=== PATIENT | male | born 1945 | race Caucasian/White ===

== ENCOUNTER 2016-10-27 06:21 | Inpatient (IN) | payer MEDICARE ==
[2016-10-27] MEDS ORDERED: Lactated Ringers 1,000 ML IV ONE (06:40)
[2016-10-27] MEDS ORDERED: Sodium Chloride 0.9% 10 ML Syringe FLUSH PRN (06:40)
[2016-10-27] MEDS ORDERED: Albuterol/Ipratropium 3.0-0.5 MG/3 ML Neb Soln NEB ONE (06:42)
--- NOTE | 2016-10-27 06:45 | EDM.PDOC ---
<OfficerJohn - Last Filed: 10/27/16 06:48> ED HPI GENERAL MEDICAL PROBLEM - General Chief Complaint: Respiratory Problem Stated Complaint: [facility] Time Seen by Provider: 10/27/16 06:40 Source of Information: Reports: Patient, Family, RN Notes Reviewed History Limitations: Reports: Respiratory Distress - History of Present Illness INITIAL COMMENTS - FREE TEXT/NARRATIVE: 71-year-old gentleman presents emergency department today complaint of shortness of breath he was brought in by EMS services. States he's been having difficulty breathing last couple days he does have an extensive smoking history as well as home use of oxygen. Denies any fevers or chest pain no or GI symptomatologies, - Related Data Allergies Allergy/AdvReac Type Severity Reaction Status Date / Time simvastatin AdvReac Joint Pain Verified 10/27/16 06:39 Home Meds: Home Meds Aspirin [Low Dose Aspirin EC] 81 mg PO DAILY 04/13/13 [History] Esomeprazole [NexIUM] 40 mg PO DAILY 04/13/13 [History] Tiotropium [Spiriva HandiHaler] 18 mcg INH DAILY 01/28/14 [History] Diltiazem HCl [Cartia Xt] 1 cap PO DAILY 04/09/15 [History] Doxepin [SINEquan] 25 mg PO BEDTIME 04/10/15 [History] Albuterol [Proair HFA] 2 puff IH QID 10/27/16 [History] Budesonide/Formoterol [Symbicort 160-4.5 MCG] 2 puff IH BID 10/27/16 [History] Erythromycin Base [Omar-Tab] 250 mg PO DAILY 10/27/16 [History] Furosemide [Lasix] 20 mg PO DAILY 10/27/16 [History] Terazosin HCl [Terazosin] 2 mg PO BEDTIME 10/27/16 [History] Past Medical History Cardiovascular History: Reports: CAD, Heart Failure (Cor pulmonale), [place] Respiratory History: Reports: COPD, Other (See Below) (Oxygen dependent) Gastrointestinal History: Reports: GERD Social & Family History - Tobacco Use Smoking Status *Q: Former Smoker Years of Tobacco use: 60 Second Hand Smoke Exposure: No - Alcohol Use Days Per Week of Alcohol Use: 0 - Recreational Drug Use Recreational Drug Use: No ED ROS GENERAL - Review of Systems Review Of Systems: See Below Constitutional: Denies: Fever, Chills HEENT: Reports: No Symptoms Respiratory: Reports: Shortness of Breath, Wheezing, Cough. Denies: Sputum Cardiovascular: Reports: Dyspnea on Exertion. Denies: Chest Pain GI/Abdominal: Reports: No Symptoms : Reports: No Symptoms Musculoskeletal: Reports: No Symptoms Skin: Reports: No Symptoms Neurological: Reports: No Symptoms ED EXAM, GENERAL - Physical Exam Exam: See Below Free Text/Narrative:: General: Male, mild respiratory distress able speak in multiple word sentences oriented x3 HEENT: head is atraumatic normocephalic, eyes pupils equal round reactive to light, sclera clear no conjunctivitis appreciated. Ears tympanic membranes clear and kaye landmarks and light reflex are present bilaterally canals are clear. Nose no septal deviation, nares are clear, no blood present. Mouth mucosa is dry and pink no erythema or exudate noted in soft palate, tongue is midline uvula is midline, dentures in place. Neck: Supple no thyromegaly no tracheal deviation. Nodes: Cervical nodes subclavicular nodes nontender no palpable lymphadenopathy noted. Lungs: Rhonchi and wheezing throughout all lung tavarez bilaterally CV: Regular rate and rhythm S1 and S2 appreciated no murmurs rubs or gallops noted. Abdomen: Soft, nontender, no palpable masses or organomegaly appreciated, mild distention no guarding bowel sounds are present, . Neuro: Cranial nerves II through XII grossly intact Skin: Warm and dry, intact Extremities: No lower extremity edema appreciated, pedal pulse is +2. Course - Vital Signs Last Recorded V/S: Last Vital Signs Temp 37.4 C 10/27/16 10:00 Pulse 75 10/27/16 10:52 Resp 22 H 10/27/16 11:57 BP 123/72 10/27/16 11:57 Pulse Ox 92 L 10/27/16 11:57 - Orders/Labs/Meds Orders: Active Orders 24 hr Category Date Time Status Peripheral IV Care [RC] . DIRECTED Care 10/27/16 06:41 Active PTT,PARTIAL THROMBOPLSTIN TIME [COAG] Timed Lab 10/27/16 15:00 Ordered Heparin Sodium/D5W [Heparin 25,000 Units in D5W 500 ML] Med 10/27/16 09:00 Active 25,000 units in 500 ml IV TITRATE Sodium Chloride 0.9% [Saline Flush] Med 10/27/16 06:40 Active 10 ml FLUSH ASDIRECTED PRN EKG 12 Lead [EK] Urgent Ther 10/27/16 06:40 Stop Req Medication Orders Acetaminophen (Tylenol) 650 mg PO Q4H PRN PRN Reason: Pain (Mild 1-3)/fever Albuterol (Proventil Neb Soln) 2.5 mg NEB Q4H PRN PRN Reason: Shortness Of Breath/wheezing Albuterol/Ipratropium (Duoneb 3.0-0.5 Mg/3 Ml) 3 ml NEB QIDRT [facility] Last Admin: 10/27/16 10:51 Dose: 3 ml Aspirin (Halfprin) 81 mg PO DAILY [facility] Diltiazem HCl (Cardizem Cd) 180 mg PO DAILY [facility] Last Admin: 10/27/16 09:46 Dose: 180 mg Doxepin HCl (Sinequan) 25 mg PO BEDTIME [facility] Heparin Sodium/Dextrose (Heparin 25,000 Units In D5w 500 Ml) 25,000 units in 500 mls @ 20 mls/hr IV TITRATE [facility] PRN Reason: Protocol Last Admin: 10/27/16 09:12 Dose: 12 units/kg/hr, 24.96 mls/hr Ceftriaxone Sodium 2 gm/ (Sodium Chloride) 50 mls @ 100 mls/hr IV Q24H [facility] Last Admin: 10/27/16 09:05 Dose: 100 mls/hr Sodium Chloride (Normal Saline) 1,000 mls @ 25 mls/hr IV ASDIRECTED [facility] Magnesium Hydroxide (Milk Of Magnesia) 30 ml PO BID PRN PRN Reason: Constipation Metoprolol Tartrate (Lopressor) 12.5 mg PO Q12H [facility] Last Admin: 10/27/16 09:46 Dose: 12.5 mg Mometasone Furoate/Formoterol Fumar (Dulera 200-5 Mcg) 2 puff IH BIDRT [facility] Last Admin: 10/27/16 10:52 Dose: 2 puff Morphine Sulfate (Morphine) 2 mg IVPUSH Q2H PRN PRN Reason: Pain (severe 7-10) Ondansetron HCl (Zofran Odt) 4 mg PO Q6H PRN PRN Reason: Nausea able to take PO Pantoprazole Sodium (Protonix) 40 mg PO ACBREAKFAST [facility] Polyethylene Glycol (Miralax) 17 gm PO DAILY PRN PRN Reason: Constipation Senna/Docusate Sodium (Senna Plus) 1 tab PO BID PRN PRN Reason: Constipation Sodium Chloride (Saline Flush) 10 ml FLUSH ASDIRECTED PRN PRN Reason: Keep Vein Open Last Admin: 10/27/16 06:50 Dose: 10 ml Terazosin HCl (Hytrin) 2 mg PO BEDTIME [facility] Labs: Laboratory Tests 10/27/16 10/27/16 10/27/16 Range/Units 06:55 06:55 06:55 WBC 14.4 H (4.5-11.0) K/uL RBC 3.81 L (4.30-5.90) M/uL Hgb 11.0 L D (12.0-15.0) g/dL Hct 35.1 L (40.0-54.0) % MCV 92 (80-98) fL MCH 29 (27-31) pg MCHC 31 L (32-36) % Plt Count 186 (150-400) K/uL Neut % (Auto) 86 H (36-66) % Lymph % (Auto) 5 L (24-44) % Charlton % (Auto) 10 H (2-6) % Eos % (Auto) 0 L (2-4) % Baso % (Auto) 0 (0-1) % APTT (27.0-36.0) sec Puncture Site ABG pH (7.350-7.450) ABG pCO2 (35.0-42.0) mmHg ABG pO2 (75.0-100.0) mmHg ABG HCO3 (22.0-26.0) mmol/L ABG Total CO2 (23.0-27.0) mmol/L ABG O2 Saturation (95.0-98.0) % ABG O2 Content (15.0-23.0) %vol ABG Base Excess mm/L ABG Hemoglobin (13.5-18.0) g/dL ABG Oxyhemoglobin % ABG Carboxyhemoglobin (0.0-1.6) % ABG Methemoglobin % Varun Test O2 Delivery Device Oxygen Flow Rate L Sodium 128 L (140-148) mmol/L Potassium 5.8 H (3.6-5.2) mmol/L Chloride 91 L (100-108) mmol/L Carbon Dioxide 33 H (21-32) mmol/L Anion Gap 9.8 (5.0-14.0) mmol/L BUN 22 H (7-18) mg/dL Creatinine 1.2 (0.8-1.3) mg/dL Est Cr Clr Drug Dosing 57.45 mL/min Estimated GFR (MDRD) 60 (>60) Glucose 90 (74-106) mg/dL Lactic Acid (0.4-2.0) mmol/L Calcium 8.5 (8.5-10.1) mg/dL Magnesium (1.8-2.4) mg/dL Total Bilirubin 0.5 (0.2-1.0) mg/dL AST 65 H (15-37) U/L ALT 51 (12-78) U/L Alkaline Phosphatase 138 H (46-116) U/L Troponin I 0.504 H* (0.000-0.056) ng/mL C-Reactive Protein (0.0-0.3) mg/dL Lap-L-Mabnweixrdu Pept 6708 H (5-125) pg/mL Total Protein 7.7 (6.4-8.2) g/dL Albumin 3.8 (3.4-5.0) g/dL Globulin 3.9 H (2.3-3.5) g/dL Albumin/Globulin Ratio 1.0 L (1.2-2.2) 10/27/16 10/27/16 10/27/16 Range/Units 06:55 06:55 06:55 WBC (4.5-11.0) K/uL RBC (4.30-5.90) M/uL Hgb (12.0-15.0) g/dL Hct (40.0-54.0) % MCV (80-98) fL MCH (27-31) pg MCHC (32-36) % Plt Count (150-400) K/uL Neut % (Auto) (36-66) % Lymph % (Auto) (24-44) % Charlton % (Auto) (2-6) % Eos % (Auto) (2-4) % Baso % (Auto) (0-1) % APTT 32.4 (27.0-36.0) sec Puncture Site ABG pH (7.350-7.450) ABG pCO2 (35.0-42.0) mmHg ABG pO2 (75.0-100.0) mmHg ABG HCO3 (22.0-26.0) mmol/L ABG Total CO2 (23.0-27.0) mmol/L ABG O2 Saturation (95.0-98.0) % ABG O2 Content (15.0-23.0) %vol ABG Base Excess mm/L ABG Hemoglobin (13.5-18.0) g/dL ABG Oxyhemoglobin % ABG Carboxyhemoglobin (0.0-1.6) % ABG Methemoglobin % Varun Test O2 Delivery Device Oxygen Flow Rate L Sodium (140-148) mmol/L Potassium (3.6-5.2) mmol/L Chloride (100-108) mmol/L Carbon Dioxide (21-32) mmol/L Anion Gap (5.0-14.0) mmol/L BUN (7-18) mg/dL Creatinine (0.8-1.3) mg/dL Est Cr Clr Drug Dosing mL/min Estimated GFR (MDRD) (>60) Glucose (74-106) mg/dL Lactic Acid 0.9 (0.4-2.0) mmol/L Calcium (8.5-10.1) mg/dL Magnesium 2.2 (1.8-2.4) mg/dL Total Bilirubin (0.2-1.0) mg/dL AST (15-37) U/L ALT (12-78) U/L Alkaline Phosphatase (46-116) U/L Troponin I (0.000-0.056) ng/mL C-Reactive Protein 14.43 H (0.0-0.3) mg/dL Rsb-C-Fzgznmnasoe Pept (5-125) pg/mL Total Protein (6.4-8.2) g/dL Albumin (3.4-5.0) g/dL Globulin (2.3-3.5) g/dL Albumin/Globulin Ratio (1.2-2.2) 10/27/16 Range/Units 07:00 WBC (4.5-11.0) K/uL RBC (4.30-5.90) M/uL Hgb (12.0-15.0) g/dL Hct (40.0-54.0) % MCV (80-98) fL MCH (27-31) pg MCHC (32-36) % Plt Count (150-400) K/uL Neut % (Auto) (36-66) % Lymph % (Auto) (24-44) % Charlton % (Auto) (2-6) % Eos % (Auto) (2-4) % Baso % (Auto) (0-1) % APTT (27.0-36.0) sec Puncture Site Lt radial ABG pH 7.294 L (7.350-7.450) ABG pCO2 65.3 H (35.0-42.0) mmHg ABG pO2 48.2 L (75.0-100.0) mmHg ABG HCO3 30.7 H (22.0-26.0) mmol/L ABG Total CO2 29.1 H (23.0-27.0) mmol/L ABG O2 Saturation 80.2 L (95.0-98.0) % ABG O2 Content 11.8 L (15.0-23.0) %vol ABG Base Excess 3.4 mm/L ABG Hemoglobin 10.6 L (13.5-18.0) g/dL ABG Oxyhemoglobin 78.7 % ABG Carboxyhemoglobin 1.4 (0.0-1.6) % ABG Methemoglobin 0.5 % Varun Test Pass O2 Delivery Device Nasal cannula Oxygen Flow Rate 2 L Sodium (140-148) mmol/L Potassium (3.6-5.2) mmol/L Chloride (100-108) mmol/L Carbon Dioxide (21-32) mmol/L Anion Gap (5.0-14.0) mmol/L BUN (7-18) mg/dL Creatinine (0.8-1.3) mg/dL Est Cr Clr Drug Dosing mL/min Estimated GFR (MDRD) (>60) Glucose (74-106) mg/dL Lactic Acid (0.4-2.0) mmol/L Calcium (8.5-10.1) mg/dL Magnesium (1.8-2.4) mg/dL Total Bilirubin (0.2-1.0) mg/dL AST (15-37) U/L ALT (12-78) U/L Alkaline Phosphatase (46-116) U/L Troponin I (0.000-0.056) ng/mL C-Reactive Protein (0.0-0.3) mg/dL Sll-I-Yvegkbscuqs Pept (5-125) pg/mL Total Protein (6.4-8.2) g/dL Albumin (3.4-5.0) g/dL Globulin (2.3-3.5) g/dL Albumin/Globulin Ratio (1.2-2.2) Meds: Medications Generic Name Dose Route Start Last Admin Trade Name Freq PRN Reason Stop Dose Admin Acetaminophen 650 mg 10/27/16 09:38 Tylenol PO Q4H PRN Pain (Mild 1-3)/fever Albuterol 2.5 mg 10/27/16 09:38 Proventil Neb Soln NEB Q4H PRN Shortness Of Breath/wheezing Albuterol/Ipratropium 3 ml 10/27/16 11:00 10/27/16 10:51 Duoneb 3.0-0.5 Mg/3 Ml NEB 3 ml QIDRT [facility] Administration Aspirin 81 mg 10/28/16 09:00 Halfprin PO DAILY [facility] Diltiazem HCl 180 mg 10/27/16 09:38 10/27/16 09:46 Cardizem Cd PO 180 mg DAILY [facility] Administration Doxepin HCl 25 mg 10/27/16 21:00 Sinequan PO BEDTIME [facility] Heparin Sodium/Dextrose 25,000 units in 500 mls @ 20 mls/hr 10/27/16 09:00 09:12 Heparin 25,000 Units In D5w 500 Ml IV 12 units/kg/hr TITRATE [facility] 24.96 mls/hr Protocol Administration Ceftriaxone Sodium 2 gm/ 50 mls @ 100 mls/hr 10/27/16 09:00 10/27/16 09:05 Sodium Chloride IV 100 mls/hr Q24H [facility] Administration Sodium Chloride 1,000 mls @ 25 mls/hr 10/27/16 09:38 Normal Saline IV ASDIRECTED [facility] Magnesium Hydroxide 30 ml 10/27/16 09:38 Milk Of Magnesia PO BID PRN Constipation Metoprolol Tartrate 12.5 mg 10/27/16 10:00 10/27/16 09:46 Lopressor PO 12.5 mg Q12H [facility] Administration Mometasone Furoate/Formoterol Fumar 2 puff 10/27/16 10:00 10/27/16 10:52 Dulera 200-5 Mcg IH 2 puff BIDRT [facility] Administration Morphine Sulfate 2 mg 10/27/16 09:38 Morphine IVPUSH Q2H PRN Pain (severe 7-10) Ondansetron HCl 4 mg 10/27/16 09:38 Zofran Odt PO Q6H PRN Nausea able to take PO Pantoprazole Sodium 40 mg 10/28/16 07:30 Protonix PO ACBREAKFAST [facility] Polyethylene Glycol 17 gm 10/27/16 09:38 Miralax PO DAILY PRN Constipation Senna/Docusate Sodium 1 tab 10/27/16 09:38 Senna Plus PO BID PRN Constipation Sodium Chloride 10 ml 10/27/16 06:40 10/27/16 06:50 Saline Flush FLUSH 10 ml ASDIRECTED PRN Administration Keep Vein Open Terazosin HCl 2 mg 10/27/16 21:00 Hytrin PO BEDTIME [facility] Discontinued Medications Generic Name Dose Route Start Last Admin Trade Name Freq PRN Reason Stop Dose Admin Albuterol/Ipratropium 3 ml 10/27/16 06:42 10/27/16 06:52 Duoneb 3.0-0.5 Mg/3 Ml NEB 10/27/16 06:43 3 ml ONETIME ONE Administration Albuterol/Ipratropium 3 ml 10/27/16 10:00 Duoneb 3.0-0.5 Mg/3 Ml NEB QID [facility] Aspirin 324 mg 10/27/16 07:46 10/27/16 07:52 Aspirin PO 10/27/16 07:47 324 mg ONETIME ONE Administration Furosemide 40 mg 10/27/16 07:47 10/27/16 07:53 Lasix IVPUSH 10/27/16 07:48 40 mg ONETIME ONE Administration Heparin Sodium (Porcine) 4,000 units 10/27/16 08:52 10/27/16 09:03 Heparin Sodium IVPUSH 10/27/16 08:53 4,000 units .BOLUS ONE Administration Lactated Ringer's 1,000 mls @ 500 mls/hr 10/27/16 06:40 10/27/16 06:47 Ringers, Lactated IV 10/27/16 08:39 500 mls/hr ASDIRECTED ONE Administration Nitroglycerin 0.4 mg 10/27/16 06:53 10/27/16 06:56 Nitrostat SL 10/27/16 06:54 0.4 mg ONETIME ONE Administration Non-Formulary Medication 2 puff 10/27/16 09:38 Budesonide/Formoterol [Symbicort 160-4.5 Mcg] IH BID [facility] Departure - Departure Disposition: Admitted As Inpatient 65 Clinical Impression: COPD exacerbation, Elevated troponin, Hyponatremia, Hyperkalemia CHF (congestive heart failure) Qualifiers: Congestive heart failure type: unspecified congestive heart failure type Congestive heart failure chronicity: acute on chronic Qualified Code(s): I50.9 - Heart failure, unspecified - Discharge Information <Kirby Harmon G - Last Filed: 10/27/16 13:12> ED HPI GENERAL MEDICAL PROBLEM - History of Present Illness INITIAL COMMENTS - FREE TEXT/NARRATIVE: Reports being more tired than usual, has been a little confused at times lately , ajit. this morning. No fever. Cough non-productive. Uses 2 liters of oxygen per [place] at home. Denies chest pain. Does not have a nebulizer at home. denies Pain Score (Numeric/FACES): 0 EKG INTERPRETATION EKG Date: 10/27/16 Time: 07:10 Rhythm: NSR Rate (beats/min): 83 [place]: normal P-wave: present QRS: normal ST-T: normal QT: normal Comparison: NA - no prior EKG Course - Vital Signs Text/Narrative:: Dr. Patel to see in the ED, called @ [phone] Departure - Departure Time of Disposition: 13:20 Condition: poor
[2016-10-27] MEDS ORDERED: Nitroglycerin 0.4 MG Tab.SL SL ONE (06:53)
[2016-10-27] MEDS ORDERED: Aspirin 81 MG Tab.Chew PO ONE (07:46)
[2016-10-27] MEDS ORDERED: Furosemide 40 MG/4 ML VIAL IVPUSH ONE (07:47)
[2016-10-27] MEDS ORDERED: Heparin Sodium 5,000 Units/ML Vial IVPUSH ONE (08:52)
[2016-10-27] MEDS ORDERED: Heparin Sodium/D5W 25,000 UNITS/500 ML BAG IV SCH (09:00)
--- NOTE | 2016-10-27 09:02 | CR ---
Portable chest Comparison: February 2009. There is hyperinflation. There is enlargement of the cardiac silhouette. The vascular structures are within normal limits. There is atelectasis in the mid right lung. There are no infiltrates or effus ions. There is a faintly visualized 5 mm nodule in the central left lung. The finding is new. Impression: 1. Enlargement of the cardiac silhouette. 2. Atelectasis in the right midlung. 3. Possible pulmonary nodule in the central left lung. Recommend further evaluation with a unenhance d chest CT.
[2016-10-27] MEDS: cefTRIAXone 2 GM in Sodium Chloride 0.9% 50 ML IV SCH (09:05)
--- NOTE | 2016-10-27 09:10 | PCM.HP ---
H&P History of Present Illness - General Date of Service: 10/27/16 Admit Problem/Dx: Admission Diagnosis/Problem Admission Diagnosis/Problem CHF, Congestive heart failure Source of Information: Patient, Family History Limitations: Reports: No Limitations - History of Present Illness Initial Comments - Free Text/Narative: Eulalio presents to the emergency room today with progressive shortness of breath. Symptoms have progressed over the past few days but especially the past 24 hours. He is now short of breath with any activity. His daughter notes that he was very difficult to wake up this morning while sleeping on the couch. He has had only a mild cough and has not produced any sputum. He is not aware of any obvious fevers or chills at home. He has noticed some mild lower extremity edema over the past couple of days. He does note some mild substernal chest tightness but does not admit to any pain. His functional status has been declining for several weeks and he's been more and more fatigued. No complaints of headache or blurry vision. He does not have significant orthopnea. Abdomen feels more distended than usual. Appetite has been decreased for the past few days. No complaints of change in bowel or bladder function. Workup in the emergency room revealed hypoxia beyond his baseline as well as a mildly elevated troponin. Examination consistent with congestive heart failure and possibly bronchitis. He will be admitted for further management. denies Pain Score (Numeric/FACES): 0 - Related Data Allergies/Adverse Reactions: Allergies Allergy/AdvReac Type Severity Reaction Status Date / Time simvastatin AdvReac Joint Pain Verified 10/27/16 06:39 Home Medications: Home Meds Aspirin [Low Dose Aspirin EC] 81 mg PO DAILY 04/13/13 [History] Esomeprazole [NexIUM] 40 mg PO DAILY 04/13/13 [History] Tiotropium [Spiriva HandiHaler] 18 mcg INH DAILY 01/28/14 [History] Diltiazem HCl [Cartia Xt] 1 cap PO DAILY 04/09/15 [History] Doxepin [SINEquan] 25 mg PO BEDTIME 04/10/15 [History] Albuterol [Proair HFA] 2 puff IH QID 10/27/16 [History] Budesonide/Formoterol [Symbicort 160-4.5 MCG] 2 puff IH BID 10/27/16 [History] Erythromycin Base [Omar-Tab] 250 mg PO DAILY 10/27/16 [History] Furosemide [Lasix] 20 mg PO DAILY 10/27/16 [History] Terazosin HCl [Terazosin] 2 mg PO BEDTIME 10/27/16 [History] Past Medical History Cardiovascular History: Reports: CAD, Heart Failure, [place] Respiratory History: Reports: COPD, Other (See Below) Other Respiratory History: cor polmunal Gastrointestinal History: Reports: GERD Dermatologic History: Reports: Other (See Below) Other Dermatologic History: keratosis - Infectious Disease History Infectious Disease History: Reports: Chicken Pox, Measles, Mumps Social & Family History - Family History Cardiac: Reports: CAD - Tobacco Use Smoking Status *Q: Former Smoker Years of Tobacco use: 60 Used Tobacco, but Quit: No Second Hand Smoke Exposure: No - Caffeine Use Caffeine Use: Reports: Coffee - Alcohol Use Days Per Week of Alcohol Use: 0 - Recreational Drug Use Recreational Drug Use: No H&P Review of Systems - Review of Systems: Review Of Systems: See Below Free Text/Narrative: A complete 12 point review of systems was obtained. Pertinent positives and negatives are noted in the history of present illness. All other systems were reviewed and were negative except as noted. Exam - Exam Exam: See Below - Vital Signs Vital Signs: Last Vital Signs Temp 37.5 C 10/27/16 07:00 Pulse 86 10/27/16 07:59 Resp 42 H 10/27/16 07:59 BP 174/81 H 10/27/16 07:59 Pulse Ox 89 L 10/27/16 07:59 Weight: 104.326 kg - Exam Quality Assessment: Supplemental Oxygen. No: Urinary Catheter General: Alert, Oriented, Cooperative, Mild Distress HEENT: Conjunctiva Clear, Mucosa Moist & [place], Pupils Equal. No: Scleral Icterus Neck: Supple, Trachea Midline. No: Lymphadenopathy, Thyromegaly Lungs: Rales (diffuse rales, both lungs), Wheezing (diffuse exp wheezing) Cardiovascular: Regular Rate, Regular Rhythm. No: Systolic Murmur Abdomen: Normal Bowel Sounds, Soft, Distention (mild). No: Tenderness Extremities: Edema (mild bilateral pitting ankle edema). No: Cyanosis Peripheral Pulses: 2+: Dorsalis Pedis (L), Dorsalis Pedis (R) Skin: Warm, Dry. No: Rash Neuro Extensive - Mental Status: Alert, Oriented x3, Nl Response to Commands Neuro Extensive - Motor, Sensory, Reflexes: CN II-XII Intact. No: Dysarthria, Abnormal Motor, Tremor Psychiatric: Alert, Normal Affect - Patient Data Lab Results last 24 hrs: Laboratory Results - last 24 hr 10/27/16 10/27/16 10/27/16 Range/Units 06:55 06:55 06:55 WBC 14.4 H (4.5-11.0) K/uL RBC 3.81 L (4.30-5.90) M/uL Hgb 11.0 L D (12.0-15.0) g/dL Hct 35.1 L (40.0-54.0) % MCV 92 (80-98) fL MCH 29 (27-31) pg MCHC 31 L (32-36) % Plt Count 186 (150-400) K/uL Neut % (Auto) 86 H (36-66) % Lymph % (Auto) 5 L (24-44) % [place] % (Auto) 10 H (2-6) % Eos % (Auto) 0 L (2-4) % Baso % (Auto) 0 (0-1) % APTT (27.0-36.0) sec Puncture Site ABG pH (7.350-7.450) ABG pCO2 (35.0-42.0) mmHg ABG pO2 (75.0-100.0) mmHg ABG HCO3 (22.0-26.0) mmol/L ABG Total CO2 (23.0-27.0) mmol/L ABG O2 Saturation (95.0-98.0) % ABG O2 Content (15.0-23.0) %vol ABG Base Excess mm/L ABG Hemoglobin (13.5-18.0) g/dL ABG Oxyhemoglobin % ABG Carboxyhemoglobin (0.0-1.6) % ABG Methemoglobin % Varun Test O2 Delivery Device Oxygen Flow Rate L Sodium 128 L (140-148) mmol/L Potassium 5.8 H (3.6-5.2) mmol/L Chloride 91 L (100-108) mmol/L Carbon Dioxide 33 H (21-32) mmol/L Anion Gap 9.8 (5.0-14.0) mmol/L BUN 22 H (7-18) mg/dL Creatinine 1.2 (0.8-1.3) mg/dL Est Cr Clr Drug Dosing 57.45 mL/min Estimated GFR (MDRD) 60 (>60) Glucose 90 (74-106) mg/dL Lactic Acid (0.4-2.0) mmol/L Calcium 8.5 (8.5-10.1) mg/dL Total Bilirubin 0.5 (0.2-1.0) mg/dL AST 65 H (15-37) U/L ALT 51 (12-78) U/L Alkaline Phosphatase 138 H (46-116) U/L Troponin I 0.504 H* (0.000-0.056) ng/mL Uwg-[id number]-Urbefxxpbbp Pept 6708 H (5-125) pg/mL Total Protein 7.7 (6.4-8.2) g/dL Albumin 3.8 (3.4-5.0) g/dL Globulin 3.9 H (2.3-3.5) g/dL Albumin/Globulin Ratio 1.0 L (1.2-2.2) 10/27/16 10/27/16 10/27/16 Range/Units 06:55 06:55 07:00 WBC (4.5-11.0) K/uL RBC (4.30-5.90) M/uL Hgb (12.0-15.0) g/dL Hct (40.0-54.0) % MCV (80-98) fL MCH (27-31) pg MCHC (32-36) % Plt Count (150-400) K/uL Neut % (Auto) (36-66) % Lymph % (Auto) (24-44) % [place] % (Auto) (2-6) % Eos % (Auto) (2-4) % Baso % (Auto) (0-1) % APTT 32.4 (27.0-36.0) sec Puncture Site Lt radial ABG pH 7.294 L (7.350-7.450) ABG pCO2 65.3 H (35.0-42.0) mmHg ABG pO2 48.2 L (75.0-100.0) mmHg ABG HCO3 30.7 H (22.0-26.0) mmol/L ABG Total CO2 29.1 H (23.0-27.0) mmol/L ABG O2 Saturation 80.2 L (95.0-98.0) % ABG O2 Content 11.8 L (15.0-23.0) %vol ABG Base Excess 3.4 mm/L ABG Hemoglobin 10.6 L (13.5-18.0) g/dL ABG Oxyhemoglobin 78.7 % ABG Carboxyhemoglobin 1.4 (0.0-1.6) % ABG Methemoglobin 0.5 % Varun Test Pass O2 Delivery Device Nasal cannula Oxygen Flow Rate 2 L Sodium (140-148) mmol/L Potassium (3.6-5.2) mmol/L Chloride (100-108) mmol/L Carbon Dioxide (21-32) mmol/L Anion Gap (5.0-14.0) mmol/L BUN (7-18) mg/dL Creatinine (0.8-1.3) mg/dL Est Cr Clr Drug Dosing mL/min Estimated GFR (MDRD) (>60) Glucose (74-106) mg/dL Lactic Acid 0.9 (0.4-2.0) mmol/L Calcium (8.5-10.1) mg/dL Total Bilirubin (0.2-1.0) mg/dL AST (15-37) U/L ALT (12-78) U/L Alkaline Phosphatase (46-116) U/L Troponin I (0.000-0.056) ng/mL Htt-C-Xxitnylvamn Pept (5-125) pg/mL Total Protein (6.4-8.2) g/dL Albumin (3.4-5.0) g/dL Globulin (2.3-3.5) g/dL Albumin/Globulin Ratio (1.2-2.2) Result Diagrams: 10/27/16 06:55 10/27/16 06:55 Imaging Impressions last 24 hrs: CXR - images personally reviewed - mild cardiomegally, fluid in the right fissure. No obvious pulmonary vascular congestion. No obvious mass or infiltate. The radiologist notes possible left lung nodule. EKG INTERPRETATION EKG Date: 10/27/16 Rhythm: NSR Rate (beats/min): 83 [place]: normal P-wave: present QRS: normal ST-T: normal QT: normal *Q Meaningful Use (ADM) - VTE *Q VTE Criteria *Q: - VTE Risk Assess *Q Each Risk Factor Represents 1 Point: Swollen Legs, Current, Obesity (BMI greater than 30), Acute Myocardial Infarction, Less than 1 Month, Congestive Heart Failure, Less than 1 Month Total Score 1 Point Risk Factors: 4 Each Risk Factor Represents 2 Points: Age 60 - 74 Years Total Score 2 Point Risk Factors: 2 Each Risk Factor Represents 3 Points: None Total Score 3 Point Risk Factors: 0 Each Risk Factor Represents 5 Points: None Total Score 5 Point Risk Factors: 0 Venous Thromboembolism Risk Factor Score *Q: 6 - Stroke *Q Stroke Criteria *Q: - AMI *Q AMI Criteria *Q: - Problem List (1) NSTEMI (non-ST elevated myocardial infarction) SNOMED Code(s): 053053963 ICD Code: I21.4 - NON-ST ELEVATION (NSTEMI) MYOCARDIAL INFARCTION Status: Acute Current Visit: Yes (2) Acute respiratory failure with hypoxia and hypercapnia SNOMED Code(s): 99433775, 109747269 ICD Code: J96.01 - ACUTE RESPIRATORY FAILURE WITH HYPOXIA; J96.02 - ACUTE RESPIRATORY FAILURE WITH HYPERCAPNIA Status: Acute Current Visit: Yes (3) Acute bronchitis SNOMED Code(s): 36372824 ICD Code: J20.9 - ACUTE BRONCHITIS, UNSPECIFIED Status: Acute Current Visit: Yes Qualifiers: Bronchitis organism: unspecified organism Qualified Code(s): J20.9 - Acute bronchitis, unspecified (4) CHF (congestive heart failure) SNOMED Code(s): 62734969 ICD Code: I50.9 - HEART FAILURE, UNSPECIFIED Status: Acute Current Visit : Yes Qualifiers: Congestive heart failure type: unspecified congestive heart failure type Congestive heart failure chronicity: acute on chronic Qualified Code(s): I50.9 - Heart failure, unspecified (5) Hyperkalemia SNOMED Code(s): 93574684 ICD Code: E87.5 - HYPERKALEMIA Status: Acute Current Visit: Yes Problem List Initiated/Reviewed/Updated: Yes Orders Last 24hrs: Active Orders 24 hr Category Date Time Status Patient Status Manage Transfer [TRANSFER] Routine ADT 10/27/16 08:54 Ordered EKG Documentation Completion [RC] ASDIRECTED Care 10/27/16 06:42 Active Peripheral IV Care [RC] . DIRECTED Care 10/27/16 06:41 Active RT Aerosol Therapy [RC] ASDIRECTED Care 10/27/16 06:43 Active CULTURE RESPIRATORY + SMEAR [RM] Urgent Lab 10/27/16 06:52 Uncollected PTT,PARTIAL THROMBOPLSTIN TIME [COAG] Timed Lab 10/27/16 15:00 Ordered Heparin Sodium/D5W [Heparin 25,000 Units in D5W 500 ML] Med 10/27/16 09:00 Active 25,000 units in 500 ml IV TITRATE Sodium Chloride 0.9% [Saline Flush] Med 10/27/16 06:40 Active 10 ml FLUSH ASDIRECTED PRN cefTRIAXone [Rocephin] 2 gm Med 10/27/16 09:00 Active Sodium Chloride 0.9% [Normal Saline] 50 ml IV Q24H Peripheral IV Insertion Adult [OM.PC] Urgent Oth 10/27/16 06:40 Ordered Resuscitation Status Routine Resus Stat 10/27/16 08:57 Ordered EKG 12 Lead [EK] Urgent Ther 10/27/16 06:40 Ordered Medication Orders Heparin Sodium/Dextrose (Heparin 25,000 Units In D5w 500 Ml) 25,000 units in 500 mls @ 20 mls/hr IV TITRATE LISBET PRN Reason: Protocol Ceftriaxone Sodium 2 gm/ (Sodium Chloride) 50 mls @ 100 mls/hr IV Q24H LISBET Sodium Chloride (Saline Flush) 10 ml FLUSH ASDIRECTED PRN PRN Reason: Keep Vein Open Last Admin: 10/27/16 06:50 Dose: 10 ml Assessment/Plan Comment:: Assessment and plan - NSTEMI versus demand ischemia - troponin elevated at 0.5. History of previous inferior myocardial infarction. He has had some chest tightness for the past 24 hours area and no ischemic changes on EKG. He did receive aspirin in the emergency room. If troponin level remains stable I would lean more towards the demand ischemia with significant hypoxia versus a rising troponin which would point more towards non-ST elevation myocardial infarction. -Heparin infusion -Daily aspirin -Start low-dose beta etelvina -Telemetry -Serial troponin levels, stop heparin if troponin levels are stable -Echocardiogram tomorrow Acute on chronic congestive heart failure - history of cor pulmonale type picture. Bedside ultrasound today seems consistent with normal LV function though images were of suboptimal quality. He has diffuse rales as well as some lower extremity edema. Trigger for the worsening of heart failure could be suspected respiratory infection. He has received furosemide in the emergency room. -Reassess volume status later -Continue medical management -Intake and output monitoring -Echo tomorrow Probable bronchitis with acute respiratory failure with hypoxia and hypercapnia - mild acidosis with CO2 retention. Long smoking history. He does have some evidence for volume overload but with low-grade fevers infection is suspected at this time. -Empiric Ceftriaxone and azithromycin -Follow-up cultures -Supplement oxygen Stage III chronic kidney disease - kidney function stable at this time. Maintenance issues - - DVT prophylaxis - heparin - GI prophylaxis - PPI - Nutrition - heart healthy diet - Avery catheter - not indicated CODE STATUS - DNR/DNI Admission justification - This patient will be admitted for inpatient services and is medically appropriate meeting medical necessity for inpatient admission as outlined in my documentation. I reasonably expect the patient will require inpatient services that span a period time over 2 midnights. I reasonably expect this patient to be discharged or transferred within 96 hours [facility]. Disposition - anticipate discharge to home versus possibly the [facility] after the hospital stay Primary care physician - Dr. Lars Patel M.D.
[2016-10-27] MEDS ORDERED: Non-Formulary Medication 1 Each (Budesonide/Formoterol [Symbicort 160-4.5 Mcg] 2 PUFF) IH SCH (09:38)
[2016-10-27] MEDS ORDERED: Polyethylene Glycol 3350 Powder 17 GM Packet PO PRN (09:38)
[2016-10-27] MEDS ORDERED: Magnesium Hydroxide 400 MG/5 ML Susp 30 ML Cup PO PRN (09:38)
[2016-10-27] MEDS ORDERED: Sodium Chloride 0.9% 1,000 ML IV SCH (09:38)
[2016-10-27] MEDS ORDERED: Acetaminophen 325 MG Tab PO PRN (09:38)
[2016-10-27] MEDS ORDERED: Albuterol 0.083% 2.5 MG/3 ML Neb Soln NEB PRN (09:38)
[2016-10-27] MEDS ORDERED: Ondansetron 4 MG Tab.DIS PO PRN (09:38)
[2016-10-27] MEDS ORDERED: Morphine 2 MG/ML Syringe IVPUSH PRN (09:38)
[2016-10-27] MEDS: Metoprolol Tartrate 25 MG Tab PO SCH ×2 (09:46→21:42)
[2016-10-27] MEDS: Diltiazem 180 MG Cap.CD PO SCH (09:46)
[2016-10-27] MEDS ORDERED: Albuterol/Ipratropium 3.0-0.5 MG/3 ML Neb Soln NEB SCH (10:00)
[2016-10-27] MEDS: Albuterol/Ipratropium 3.0-0.5 MG/3 ML Neb Soln NEB SCH ×3 (10:51→20:11)
[2016-10-27] MEDS: Formoterol/Mometasone 200-5 MCG 8.8 GM Inhaler IH SCH ×2 (10:52→20:09)
[2016-10-27] MEDS: Terazosin 1 MG Cap PO SCH (20:19)
[2016-10-27] MEDS: Doxepin 25 MG Cap PO SCH (20:19)
[2016-10-28] MEDS: Albuterol/Ipratropium 3.0-0.5 MG/3 ML Neb Soln NEB SCH ×4 (07:28→21:03)
[2016-10-28] MEDS: Pantoprazole 40 MG Tab.CR PO SCH (07:57)
[2016-10-28] MEDS: Formoterol/Mometasone 200-5 MCG 8.8 GM Inhaler IH SCH ×2 (07:57→21:23)
[2016-10-28] MEDS: Aspirin 81 MG Tab.EC PO SCH (08:53)
[2016-10-28] MEDS: cefTRIAXone 2 GM in Sodium Chloride 0.9% 50 ML IV SCH (08:53)
[2016-10-28] MEDS: Diltiazem 180 MG Cap.CD PO SCH (08:54)
[2016-10-28] MEDS: Metoprolol Tartrate 25 MG Tab PO SCH ×4 (08:54→21:25)
--- NOTE | 2016-10-28 09:12 | PCM.PN ---
- General Info Date of Service: 10/28/16 Functional Status: Reports: pain controlled, tolerating diet - Review of Systems General: Reports: Weakness Pulmonary: Reports: shortness of breath, cough Cardiovascular: Denies: Edema Systems Review Comment:: No acute events overnight. Feels maybe a little better than yesterday. Still feels short of breath and is still wheezing. He has developed a loose cough and was able to produce a sputum sample. Still having some low-grade fevers. No lower extremity edema. Oxygenation stable but requiring 2 L of supplemental oxygen. No abdominal pain. Still fatigued and weak. - Patient Data Vitals - most recent: Last Vital Signs Temp 37.1 C 10/28/16 08:00 Pulse 77 10/28/16 08:54 Resp 25 H 10/28/16 08:00 BP 140/59 L 10/28/16 08:54 Pulse Ox 90 L 10/28/16 08:00 Weight - most recent: 104.326 kg I&O - last 24 hours: Intake & Output 10/27/16 10/28/16 10/28/16 22:59 06:59 14:59 Intake Total 180 240 Output Total 500 450 Balance -320 -210 Lab Results last 24 hrs: Laboratory Results - last 24 hr 10/27/16 10/27/16 10/27/16 Range/Units 10:53 15:11 15:11 WBC (4.5-11.0) K/uL RBC (4.30-5.90) M/uL Hgb (12.0-15.0) g/dL Hct (40.0-54.0) % MCV (80-98) fL MCH (27-31) pg MCHC (32-36) % Plt Count (150-400) K/uL APTT 58.8 H (27.0-36.0) sec Sodium (140-148) mmol/L Potassium (3.6-5.2) mmol/L Chloride (100-108) mmol/L Carbon Dioxide (21-32) mmol/L Anion Gap (5.0-14.0) mmol/L BUN (7-18) mg/dL Creatinine (0.8-1.3) mg/dL Est Cr Clr Drug Dosing mL/min Estimated GFR (MDRD) (>60) Glucose (74-106) mg/dL Calcium (8.5-10.1) mg/dL Troponin I 0.636 H* 0.516 H* (0.000-0.056) ng/mL 10/28/16 10/28/16 Range/Units 05:15 05:15 WBC 10.5 (4.5-11.0) K/uL RBC 3.24 L (4.30-5.90) M/uL Hgb 9.4 L (12.0-15.0) g/dL Hct 30.1 L (40.0-54.0) % MCV 93 (80-98) fL MCH 29 (27-31) pg MCHC 31 L (32-36) % Plt Count 177 (150-400) K/uL APTT (27.0-36.0) sec Sodium 132 L (140-148) mmol/L Potassium 4.4 (3.6-5.2) mmol/L Chloride 95 L (100-108) mmol/L Carbon Dioxide 35 H (21-32) mmol/L Anion Gap 6.4 (5.0-14.0) mmol/L BUN 23 H (7-18) mg/dL Creatinine 1.1 (0.8-1.3) mg/dL Est Cr Clr Drug Dosing 62.83 mL/min Estimated GFR (MDRD) > 60 (>60) Glucose 98 (74-106) mg/dL Calcium 8.1 L (8.5-10.1) mg/dL Troponin I (0.000-0.056) ng/mL [place] Results last 24 hrs: Microbiology 10/27/16 18:45 Gram Stain - Final Sputum - Expectorated Med Orders - Current: Current Medications Acetaminophen (Tylenol) 650 mg PO Q4H PRN PRN Reason: Pain (Mild 1-3)/fever Albuterol (Proventil Neb Soln) 2.5 mg NEB Q4H PRN PRN Reason: Shortness Of Breath/wheezing Albuterol/Ipratropium (Duoneb 3.0-0.5 Mg/3 Ml) 3 ml NEB QIDRT COUNTS INCLUDE 234 BEDS AT THE [facility] Last Admin: 10/28/16 07:28 Dose: 3 ml Aspirin (Halfprin) 81 mg PO DAILY COUNTS INCLUDE 234 BEDS AT THE [facility] Last Admin: 10/28/16 08:53 Dose: 81 mg Diltiazem HCl (Cardizem Cd) 180 mg PO DAILY COUNTS INCLUDE 234 BEDS AT THE [facility] Last Admin: 10/28/16 08:54 Dose: 180 mg Doxepin HCl (Sinequan) 25 mg PO BEDTIME COUNTS INCLUDE 234 BEDS AT THE [facility] Last Admin: 10/27/16 20:19 Dose: 25 mg Ceftriaxone Sodium 2 gm/ (Sodium Chloride) 50 mls @ 100 mls/hr IV Q24H COUNTS INCLUDE 234 BEDS AT THE [facility] Last Admin: 10/28/16 08:53 Dose: 100 mls/hr Magnesium Hydroxide (Milk Of Magnesia) 30 ml PO BID PRN PRN Reason: Constipation Metoprolol Tartrate (Lopressor) 12.5 mg PO Q12H COUNTS INCLUDE 234 BEDS AT THE [facility] Last Admin: 10/28/16 08:54 Dose: 12.5 mg Mometasone Furoate/Formoterol Fumar (Dulera 200-5 Mcg) 2 puff IH BIDRT COUNTS INCLUDE 234 BEDS AT THE [facility] Last Admin: 10/28/16 07:57 Dose: 2 puff Morphine Sulfate (Morphine) 2 mg IVPUSH Q2H PRN PRN Reason: Pain (severe 7-10) Ondansetron HCl (Zofran Odt) 4 mg PO Q6H PRN PRN Reason: Nausea able to take PO Pantoprazole Sodium (Protonix) 40 mg PO ACBREAKFAST COUNTS INCLUDE 234 BEDS AT THE [facility] Last Admin: 10/28/16 07:57 Dose: 40 mg Polyethylene Glycol (Miralax) 17 gm PO DAILY PRN PRN Reason: Constipation Senna/Docusate Sodium (Senna Plus) 1 tab PO BID PRN PRN Reason: Constipation Sodium Chloride (Saline Flush) 10 ml FLUSH ASDIRECTED PRN PRN Reason: Keep Vein Open Last Admin: 10/27/16 06:50 Dose: 10 ml Terazosin HCl (Hytrin) 2 mg PO BEDTIME COUNTS INCLUDE 234 BEDS AT THE [facility] Last Admin: 10/27/16 20:19 Dose: 2 mg Discontinued Medications Albuterol/Ipratropium (Duoneb 3.0-0.5 Mg/3 Ml) 3 ml NEB ONETIME ONE Stop: 10/27/16 06:43 Last Admin: 10/27/16 06:52 Dose: 3 ml Albuterol/Ipratropium (Duoneb 3.0-0.5 Mg/3 Ml) 3 ml NEB QID COUNTS INCLUDE 234 BEDS AT THE [facility] Aspirin (Aspirin) 324 mg PO ONETIME ONE Stop: 10/27/16 07:47 Last Admin: 10/27/16 07:52 Dose: 324 mg Furosemide (Lasix) 40 mg IVPUSH ONETIME ONE Stop: 10/27/16 07:48 Last Admin: 10/27/16 07:53 Dose: 40 mg Heparin Sodium (Porcine) (Heparin Sodium) 4,000 units IVPUSH .BOLUS ONE Stop: 10/27/16 08:53 Last Admin: 10/27/16 09:03 Dose: 4,000 units Lactated Ringer's (Ringers, Lactated) 1,000 mls @ 500 mls/hr IV ASDIRECTED ONE Stop: 10/27/16 08:39 Last Admin: 10/27/16 06:47 Dose: 500 mls/hr Heparin Sodium/Dextrose (Heparin 25,000 Units In D5w 500 Ml) 25,000 units in 500 mls @ 20 mls/hr IV TITRATE LISBET PRN Reason: Protocol Last Admin: 10/27/16 09:12 Dose: 12 units/kg/hr, 24.96 mls/hr Sodium Chloride (Normal Saline) 1,000 mls @ 25 mls/hr IV ASDIRECTED COUNTS INCLUDE 234 BEDS AT THE [facility] Nitroglycerin (Nitrostat) 0.4 mg SL ONETIME ONE Stop: 10/27/16 06:54 Last Admin: 10/27/16 06:56 Dose: 0.4 mg Non-Formulary Medication (Budesonide/Formoterol [Symbicort 160-4.5 Mcg]) 2 puff IH BID LISBET - Exam Quality Assessment: supplemental oxygen. No: urine catheter General: alert, oriented, cooperative, no acute distress Neck: supple Lungs: Normal respiratory effort, Wheezing (diffuse exp wheezing ). No: Rales Cardiovascular: Regular Rate, Regular Rhythm. No: Murmurs Abdomen: soft, no tenderness, distension (mild) Extremities: no edema, no cyanosis Skin: warm, dry Psy/Mental Status: alert, normal affect - Problem List & Annotations (1) Acute respiratory failure with hypoxia and hypercapnia SNOMED Code(s): 21266989, 566138737 Code(s): J96.01 - ACUTE RESPIRATORY FAILURE WITH HYPOXIA; J96.02 - ACUTE RESPIRATORY FAILURE WITH HYPERCAPNIA Status: Acute Current Visit: Yes (2) Acute bronchitis SNOMED Code(s): 17636086 Code(s): J20.9 - ACUTE BRONCHITIS, UNSPECIFIED Status: Acute Current Visit: Yes Qualifiers: Bronchitis organism: unspecified organism Qualified Code(s): J20.9 - Acute bronchitis, unspecified (3) CHF (congestive heart failure) SNOMED Code(s): 67428311 Code(s): I50.9 - HEART FAILURE, UNSPECIFIED Status: Acute Current Visit: Yes Qualifiers: Congestive heart failure type: unspecified congestive heart failure type Congestive heart failure chronicity: acute on chronic Qualified Code(s): I50.9 - Heart failure, unspecified (4) Hyperkalemia SNOMED Code(s): 60878311 Code(s): E87.5 - HYPERKALEMIA Status: Acute Current Visit: Yes (5) NSTEMI (non-ST elevated myocardial infarction) SNOMED Code(s): 656164259 Code(s): I21.4 - NON-ST ELEVATION (NSTEMI) MYOCARDIAL INFARCTION Status: Ruled-out Current Visit: Yes - Problem List Review Problem List Initiated/Reviewed/Updated: Yes - My Orders Last 24 Hours: My Active Orders 10/27/16 08:57 Resuscitation Status Routine 10/27/16 09:38 Patient Status [ADT] Routine Cardiac Monitoring [RC] Q6H Height and Weight [RC] DAILY Intake and Output [RC] QSHIFT Notify Provider Vital Signs [RC] ASDIRECTED Oxygen Therapy [RC] Q12H RT Aerosol Therapy [RC] ASDIRECTED Vital Signs [RC] Q2HR Acetaminophen [Tylenol] 650 mg PO Q4H PRN Albuterol [Proventil Neb Soln] 2.5 mg NEB Q4H PRN Docusate Sodium/Sennosides [Senna Plus] 1 tab PO BID PRN Magnesium Hydroxide [Milk of Magnesia] 30 ml PO BID PRN Morphine 2 mg IVPUSH Q2H PRN Ondansetron [Zofran ODT] 4 mg PO Q6H PRN Polyethylene Glycol 3350 [MiraLAX] 17 gm PO DAILY PRN Antiembolic Hose [OM.PC] Per Unit Routine 10/27/16 10:00 Metoprolol Tartrate [Lopressor] 12.5 mg PO Q12H Mometasone/Formoterol [Dulera 200-5 MCG] 2 puff IH BIDRT 10/27/16 11:00 Albuterol/Ipratropium [DuoNeb 3.0-0.5 MG/3 ML] 3 ml NEB QIDRT 10/27/16 18:45 CULTURE RESPIRATORY + SMEAR [RM] Routine 10/27/16 Lunch Heart Healthy Diet [DIET] 10/28/16 07:00 Echo Comp wo Cont [US] Routine 10/28/16 07:30 Pantoprazole [ProTONIX] 40 mg PO ACBREAKFAST 10/28/16 09:09 Up With Assistance [RC] ASDIRECTED 10/28/16 09:15 Azithromycin [Zithromax] 500 mg PO DAILY predniSONE 20 mg PO BIDAC 10/29/16 05:00 BASIC METABOLIC PANEL,BMP [CHEM] Timed CBC W/O DIFF,HEMOGRAM [HEME] Timed (1) - Plan Plan:: Assessment and plan - Elevated troponin with demand ischemia - initial concern for non-ST elevation myocardial infarction but troponin levels were stable and did not rise quickly. I suspect the abnormal blood test is related to hypoxia at the time of presentation. Levels are trending down. Heparin drip has been discontinued. Vital signs are stable. -Daily aspirin -Continue low-dose beta etelvina -Telemetry -Follow-up echocardiogram Acute on chronic congestive heart failure - history of cor pulmonale type picture. Formal echo read is pending. Volume status seems appropriate today. -Reassess volume status again tomorrow -Continue medical management -Intake and output monitoring Probable bronchitis with acute respiratory failure with hypoxia and hypercapnia - mild acidosis with CO2 retention. Long smoking history. Sputum sample did show gram-positive cocci and gram-negative rods on the Gram stain. Tolerating current antibiotics. -Empiric Ceftriaxone and azithromycin -Start steroids -Follow-up cultures -Supplement oxygen Stage III chronic kidney disease - kidney function stable at this time. Maintenance issues - - DVT prophylaxis - heparin - GI prophylaxis - PPI - Nutrition - heart healthy diet Disposition - anticipate discharge to home versus possibly the [facility] the hospital stay Jaleel Patel M.D.
[2016-10-28] MEDS: predniSONE 20 MG Tab PO SCH ×2 (09:47→16:46)
[2016-10-28] MEDS: Azithromycin 250 MG Tab PO SCH (09:47)
[2016-10-28] MEDS: Terazosin 1 MG Cap PO SCH (21:24)
[2016-10-28] MEDS: Doxepin 25 MG Cap PO SCH (21:25)
[2016-10-29] MEDS: Formoterol/Mometasone 200-5 MCG 8.8 GM Inhaler IH SCH ×2 (07:20→20:57)
[2016-10-29] MEDS: Albuterol/Ipratropium 3.0-0.5 MG/3 ML Neb Soln NEB SCH ×4 (07:20→21:02)
[2016-10-29] MEDS: Pantoprazole 40 MG Tab.CR PO SCH (07:46)
[2016-10-29] MEDS: predniSONE 20 MG Tab PO SCH ×2 (07:46→16:30)
[2016-10-29] MEDS ORDERED: Codeine/guaiFENesin 100mg-10 MG/5 ML Syrup 10 ML Cup PO PRN (09:02)
[2016-10-29] MEDS ORDERED: Benzonatate 100 MG Cap PO PRN (09:03)
[2016-10-29] MEDS: cefTRIAXone 2 GM in Sodium Chloride 0.9% 50 ML IV SCH (09:03)
--- NOTE | 2016-10-29 09:03 | PCM.PN ---
- General Info Date of Service: 10/29/16 Functional Status: Reports: pain controlled, tolerating diet, ambulating - Review of Systems General: Reports: Weakness Pulmonary: Reports: shortness of breath, cough Systems Review Comment:: No acute events overnight. Vital signs have been stable. He does continue to require supplemental oxygen. Shortness of breath has improved. He still has a loose and nonproductive cough. He has not been having any fevers. Respiratory culture growing normal leo at this time. No evidence for congestive heart failure. - Patient Data Vitals - most recent: Last Vital Signs Temp 36.4 C 10/29/16 02:33 Pulse 76 10/29/16 07:25 Resp 18 10/29/16 06:00 BP 135/52 L 10/29/16 02:33 Pulse Ox 95 10/29/16 06:00 Weight - most recent: 104.326 kg I&O - last 24 hours: Intake & Output 10/28/16 10/29/16 10/29/16 22:59 06:59 14:59 Intake Total 360 Output Total 1000 450 300 Balance -640 -450 -300 Lab Results last 24 hrs: Laboratory Results - last 24 hr 10/29/16 10/29/16 Range/Units 05:40 05:40 WBC 8.3 (4.5-11.0) K/uL RBC 3.29 L (4.30-5.90) M/uL Hgb 9.6 L (12.0-15.0) g/dL Hct 30.6 L (40.0-54.0) % MCV 93 (80-98) fL MCH 29 (27-31) pg MCHC 31 L (32-36) % Plt Count 190 (150-400) K/uL Sodium 135 L (140-148) mmol/L Potassium 4.8 (3.6-5.2) mmol/L Chloride 99 L (100-108) mmol/L Carbon Dioxide 37 H (21-32) mmol/L Anion Gap 3.8 L (5.0-14.0) mmol/L BUN 17 (7-18) mg/dL Creatinine 0.9 (0.8-1.3) mg/dL Est Cr Clr Drug Dosing 76.79 mL/min Estimated GFR (MDRD) > 60 (>60) Glucose 126 H (74-106) mg/dL Calcium 8.3 L (8.5-10.1) mg/dL Wallace Results last 24 hrs: Microbiology 10/27/16 18:45 Gram Stain - Final Sputum - Expectorated Respiratory Culture - Preliminary NORMAL RESPIRATORY LEO 1 DAY Med Orders - Current: Current Medications Acetaminophen (Tylenol) 650 mg PO Q4H PRN PRN Reason: Pain (Mild 1-3)/fever Albuterol (Proventil Neb Soln) 2.5 mg NEB Q4H PRN PRN Reason: Shortness Of Breath/wheezing Albuterol/Ipratropium (Duoneb 3.0-0.5 Mg/3 Ml) 3 ml NEB QIDRT [facility] Last Admin: 10/29/16 07:20 Dose: 3 ml Aspirin (Halfprin) 81 mg PO DAILY [facility] Last Admin: 10/28/16 08:53 Dose: 81 mg Azithromycin (Zithromax) 500 mg PO DAILY [facility] Last Admin: 10/28/16 09:47 Dose: 500 mg Diltiazem HCl (Cardizem Cd) 180 mg PO DAILY [facility] Last Admin: 10/28/16 08:54 Dose: 180 mg Doxepin HCl (Sinequan) 25 mg PO BEDTIME [facility] Last Admin: 10/28/16 21:25 Dose: 25 mg Furosemide (Lasix) 20 mg PO DAILY [facility] Ceftriaxone Sodium 2 gm/ (Sodium Chloride) 50 mls @ 100 mls/hr IV Q24H [facility] Last Admin: 10/28/16 08:53 Dose: 100 mls/hr Magnesium Hydroxide (Milk Of Magnesia) 30 ml PO BID PRN PRN Reason: Constipation Metoprolol Tartrate (Lopressor) 12.5 mg PO Q12H [facility] Last Admin: 10/28/16 21:25 Dose: 12.5 mg Mometasone Furoate/Formoterol Fumar (Dulera 200-5 Mcg) 2 puff IH BIDRT [facility] Last Admin: 10/29/16 07:20 Dose: 2 puff Ondansetron HCl (Zofran Odt) 4 mg PO Q6H PRN PRN Reason: Nausea able to take PO Pantoprazole Sodium (Protonix) 40 mg PO ACBREAKFAST [facility] Last Admin: 10/29/16 07:46 Dose: 40 mg Polyethylene Glycol (Miralax) 17 gm PO DAILY PRN PRN Reason: Constipation Prednisone (Prednisone) 20 mg PO BIDAC [facility] Last Admin: 10/29/16 07:46 Dose: 20 mg Senna/Docusate Sodium (Senna Plus) 1 tab PO BID PRN PRN Reason: Constipation Sodium Chloride (Saline Flush) 10 ml FLUSH ASDIRECTED PRN PRN Reason: Keep Vein Open Last Admin: 10/27/16 06:50 Dose: 10 ml Terazosin HCl (Hytrin) 2 mg PO BEDTIME [facility] Last Admin: 10/28/16 21:24 Dose: 2 mg Discontinued Medications Albuterol/Ipratropium (Duoneb 3.0-0.5 Mg/3 Ml) 3 ml NEB ONETIME ONE Stop: 10/27/16 06:43 Last Admin: 10/27/16 06:52 Dose: 3 ml Albuterol/Ipratropium (Duoneb 3.0-0.5 Mg/3 Ml) 3 ml NEB QID LISBET Aspirin (Aspirin) 324 mg PO ONETIME ONE Stop: 10/27/16 07:47 Last Admin: 10/27/16 07:52 Dose: 324 mg Furosemide (Lasix) 40 mg IVPUSH ONETIME ONE Stop: 10/27/16 07:48 Last Admin: 10/27/16 07:53 Dose: 40 mg Heparin Sodium (Porcine) (Heparin Sodium) 4,000 units IVPUSH .BOLUS ONE Stop: 10/27/16 08:53 Last Admin: 10/27/16 09:03 Dose: 4,000 units Lactated Ringer's (Ringers, Lactated) 1,000 mls @ 500 mls/hr IV ASDIRECTED ONE Stop: 10/27/16 08:39 Last Admin: 10/27/16 06:47 Dose: 500 mls/hr Heparin Sodium/Dextrose (Heparin 25,000 Units In D5w 500 Ml) 25,000 units in 500 mls @ 20 mls/hr IV TITRATE LISBET PRN Reason: Protocol Last Admin: 10/27/16 09:12 Dose: 12 units/kg/hr, 24.96 mls/hr Sodium Chloride (Normal Saline) 1,000 mls @ 25 mls/hr IV ASDIRECTED [facility] Morphine Sulfate (Morphine) 2 mg IVPUSH Q2H PRN PRN Reason: Pain (severe 7-10) Nitroglycerin (Nitrostat) 0.4 mg SL ONETIME ONE Stop: 10/27/16 06:54 Last Admin: 10/27/16 06:56 Dose: 0.4 mg Non-Formulary Medication (Budesonide/Formoterol [Symbicort 160-4.5 Mcg]) 2 puff IH BID LISBET - Exam Quality Assessment: supplemental oxygen General: alert, oriented, cooperative, no acute distress Neck: supple Lungs: Normal respiratory effort, Wheezing (mild diffuse wheezing, right > left) . No: Rales Cardiovascular: Regular Rate, Regular Rhythm Abdomen: soft, no distension Extremities: no edema, no cyanosis Skin: warm, dry Psy/Mental Status: alert, normal affect - Problem List & Annotations (1) Acute respiratory failure with hypoxia and hypercapnia SNOMED Code(s): 72663874, 694679964 Code(s): J96.01 - ACUTE RESPIRATORY FAILURE WITH HYPOXIA; J96.02 - ACUTE RESPIRATORY FAILURE WITH HYPERCAPNIA Status: Acute Current Visit: Yes (2) Acute bronchitis SNOMED Code(s): 32187536 Code(s): J20.9 - ACUTE BRONCHITIS, UNSPECIFIED Status: Acute Current Visit: Yes Qualifiers: Bronchitis organism: unspecified organism Qualified Code(s): J20.9 - Acute bronchitis, unspecified (3) CHF (congestive heart failure) SNOMED Code(s): 93974316 Code(s): I50.9 - HEART FAILURE, UNSPECIFIED Status: Acute Current Visit: Yes Qualifiers: Congestive heart failure type: unspecified congestive heart failure type Congestive heart failure chronicity: acute on chronic Qualified Code(s): I50.9 - Heart failure, unspecified (4) Hyperkalemia SNOMED Code(s): 21115695 Code(s): E87.5 - HYPERKALEMIA Status: Acute Current Visit: Yes (5) NSTEMI (non-ST elevated myocardial infarction) SNOMED Code(s): 449229646 Code(s): I21.4 - NON-ST ELEVATION (NSTEMI) MYOCARDIAL INFARCTION Status: Ruled-out Current Visit: Yes - Problem List Review Problem List Initiated/Reviewed/Updated: Yes - My Orders Last 24 Hours: My Active Orders 10/28/16 09:09 Up With Assistance [RC] ASDIRECTED 10/28/16 09:15 Azithromycin [Zithromax] 500 mg PO DAILY predniSONE 20 mg PO BIDAC 10/29/16 09:00 Transfer Patient (Change bed) [ADT] Routine Communication Order [RC] ROUTINE Discontinue Telemetry Monitoring [Cardiac Monitoring Discontinue] [RC] Click to Edit 10/30/16 05:00 BASIC METABOLIC PANEL,BMP [CHEM] Timed CBC W/O DIFF,HEMOGRAM [HEME] Timed (1) 10/30/16 09:00 Furosemide [Lasix] 20 mg PO DAILY - Plan Plan:: Assessment and plan - Elevated troponin with demand ischemia - initial concern for non-ST elevation myocardial infarction but troponin levels were stable and did not rise quickly. I suspect the abnormal blood test is related to hypoxia at the time of presentation. Vitals have been stable. -Daily aspirin -Continue low-dose beta etelvina -Discontinue Telemetry -Follow-up echocardiogram Acute on chronic congestive heart failure - history of cor pulmonale type picture. Formal echo read is pending. Volume status seems appropriate again today. -Reassess volume status daily -Continue medical management -Intake and output monitoring Acute bronchitis with acute respiratory failure with hypoxia and hypercapnia - mild acidosis with CO2 retention. Long smoking history. Sputum sample with normal respiratory leo. Respiratory status has been stable and he is tolerating his antibiotics. -Empiric Ceftriaxone and azithromycin -Continue steroids -Follow-up cultures -Supplement oxygen Stage III chronic kidney disease - kidney function stable at this time. Maintenance issues - - DVT prophylaxis - heparin - GI prophylaxis - PPI - Nutrition - heart healthy diet Disposition - anticipate discharge to home versus possibly the fdc after the hospital stay, possibly as early as tomorrow. He is safe for transfer out of the intensive care unit today. Jaleel Patel M.D.
[2016-10-29] MEDS: Diltiazem 180 MG Cap.CD PO SCH (09:04)
[2016-10-29] MEDS: Azithromycin 250 MG Tab PO SCH (09:04)
[2016-10-29] MEDS: Metoprolol Tartrate 25 MG Tab PO SCH ×2 (09:04→21:02)
[2016-10-29] MEDS: Aspirin 81 MG Tab.EC PO SCH (09:04)
[2016-10-29] MEDS ORDERED: Calcium Carbonate 500 MG Tab.Chew PO PRN (16:09)
[2016-10-29] MEDS: Doxepin 25 MG Cap PO SCH (20:58)
[2016-10-29] MEDS: Terazosin 1 MG Cap PO SCH (20:58)
[2016-10-30] MEDS: Formoterol/Mometasone 200-5 MCG 8.8 GM Inhaler IH SCH ×2 (06:58→21:19)
[2016-10-30] MEDS: Albuterol/Ipratropium 3.0-0.5 MG/3 ML Neb Soln NEB SCH ×4 (06:58→21:20)
[2016-10-30] MEDS: predniSONE 20 MG Tab PO SCH ×2 (07:37→16:29)
[2016-10-30] MEDS: Pantoprazole 40 MG Tab.CR PO SCH (07:38)
[2016-10-30] MEDS: cefTRIAXone 2 GM in Sodium Chloride 0.9% 50 ML IV SCH (09:25)
[2016-10-30] MEDS: Metoprolol Tartrate 25 MG Tab PO SCH ×2 (09:27→21:18)
[2016-10-30] MEDS: Furosemide 20 MG Tab PO SCH (09:29)
[2016-10-30] MEDS: Azithromycin 250 MG Tab PO SCH (09:29)
[2016-10-30] MEDS: Diltiazem 180 MG Cap.CD PO SCH (09:31)
[2016-10-30] MEDS: Aspirin 81 MG Tab.EC PO SCH (09:31)
--- NOTE | 2016-10-30 09:50 | PCM.PN ---
- General Info Date of Service: 10/30/16 Functional Status: Reports: pain controlled, tolerating diet, ambulating - Review of Systems General: Reports: Weakness Pulmonary: Reports: shortness of breath, cough Systems Review Comment:: No acute events overnight. Clinically he is slowly improving. He is moving better air today but still doing some wheezing. He becomes short of breath and desaturates with activity. He is not having any fevers. No lower extremity edema. Loose cough is a little bit better today. No new positive culture results. Tolerating current antibiotics. We did discuss home versus detention when he is ready to leave the hospital. At this point he thinks he will be able to go home with home health care. - Patient Data Vitals - most recent: Last Vital Signs Temp 36.2 C 10/30/16 09:00 Pulse 71 10/30/16 09:27 Resp 16 10/30/16 09:00 BP 151/79 H 10/30/16 09:27 Pulse Ox 94 L 10/30/16 09:00 Weight - most recent: 104.326 kg Lab Results last 24 hrs: Laboratory Results - last 24 hr 10/30/16 10/30/16 Range/Units 05:00 05:44 WBC 9.0 (4.5-11.0) K/uL RBC 3.56 L (4.30-5.90) M/uL Hgb 10.3 L (12.0-15.0) g/dL Hct 33.6 L (40.0-54.0) % MCV 94 (80-98) fL MCH 29 (27-31) pg MCHC 31 L (32-36) % Plt Count 214 (150-400) K/uL Sodium 139 L (140-148) mmol/L Potassium 4.5 (3.6-5.2) mmol/L Chloride 98 L (100-108) mmol/L Carbon Dioxide 36 H (21-32) mmol/L Anion Gap 9.5 (5.0-14.0) mmol/L BUN 17 (7-18) mg/dL Creatinine 1.0 (0.8-1.3) mg/dL Est Cr Clr Drug Dosing 69.11 mL/min Estimated GFR (MDRD) > 60 (>60) Glucose 122 H (74-106) mg/dL Calcium 8.5 (8.5-10.1) mg/dL Wallace Results last 24 hrs: Microbiology 10/27/16 18:45 Gram Stain - Final Sputum - Expectorated Respiratory Culture - Final NORMAL RESPIRATORY [place] 2 DAYS Med Orders - Current: Current Medications Acetaminophen (Tylenol) 650 mg PO Q4H PRN PRN Reason: Pain (Mild 1-3)/fever Albuterol (Proventil Neb Soln) 2.5 mg NEB Q4H PRN PRN Reason: Shortness Of Breath/wheezing Albuterol/Ipratropium (Duoneb 3.0-0.5 Mg/3 Ml) 3 ml NEB QIDRT [facility] Last Admin: 10/30/16 06:58 Dose: 3 ml Aspirin (Halfprin) 81 mg PO DAILY [facility] Last Admin: 10/30/16 09:31 Dose: 81 mg Azithromycin (Zithromax) 500 mg PO DAILY [facility] Last Admin: 10/30/16 09:29 Dose: 500 mg Benzonatate (Tessalon Perles) 100 mg PO TID PRN PRN Reason: Cough Calcium Carbonate/Glycine (Tums) 1,000 mg PO Q2H PRN PRN Reason: Indigestion Last Admin: 10/29/16 16:30 Dose: 1,000 mg Diltiazem HCl (Cardizem Cd) 180 mg PO DAILY [facility] Last Admin: 10/30/16 09:31 Dose: 180 mg Doxepin HCl (Sinequan) 25 mg PO BEDTIME [facility] Last Admin: 10/29/16 20:58 Dose: 25 mg Furosemide (Lasix) 20 mg PO DAILY [facility] Last Admin: 10/30/16 09:29 Dose: 20 mg Guaifenesin/Codeine Phosphate (Robitussin Ac) 10 ml PO Q4H PRN PRN Reason: Cough Ceftriaxone Sodium 2 gm/ (Sodium Chloride) 50 mls @ 100 mls/hr IV Q24H [facility] Stop: 10/30/16 12:00 Last Admin: 10/30/16 09:25 Dose: 100 mls/hr Magnesium Hydroxide (Milk Of Magnesia) 30 ml PO BID PRN PRN Reason: Constipation Last Admin: 10/30/16 07:39 Dose: 30 ml Metoprolol Tartrate (Lopressor) 12.5 mg PO Q12H [facility] Last Admin: 10/30/16 09:27 Dose: 12.5 mg Mometasone Furoate/Formoterol Fumar (Dulera 200-5 Mcg) 2 puff IH BIDRT [facility] Last Admin: 10/30/16 06:58 Dose: 2 puff Ondansetron HCl (Zofran Odt) 4 mg PO Q6H PRN PRN Reason: Nausea able to take PO Pantoprazole Sodium (Protonix) 40 mg PO ACBREAKFAST [facility] Last Admin: 10/30/16 07:38 Dose: 40 mg Polyethylene Glycol (Miralax) 17 gm PO DAILY PRN PRN Reason: Constipation Prednisone (Prednisone) 20 mg PO BIDAC [facility] Last Admin: 10/30/16 07:37 Dose: 20 mg Senna/Docusate Sodium (Senna Plus) 1 tab PO BID PRN PRN Reason: Constipation Sodium Chloride (Saline Flush) 10 ml FLUSH ASDIRECTED PRN PRN Reason: Keep Vein Open Last Admin: 10/27/16 06:50 Dose: 10 ml Terazosin HCl (Hytrin) 2 mg PO BEDTIME [facility] Last Admin: 10/29/16 20:58 Dose: 2 mg Discontinued Medications Albuterol/Ipratropium (Duoneb 3.0-0.5 Mg/3 Ml) 3 ml NEB ONETIME ONE Stop: 10/27/16 06:43 Last Admin: 10/27/16 06:52 Dose: 3 ml Albuterol/Ipratropium (Duoneb 3.0-0.5 Mg/3 Ml) 3 ml NEB QID [facility] Aspirin (Aspirin) 324 mg PO ONETIME ONE Stop: 10/27/16 07:47 Last Admin: 10/27/16 07:52 Dose: 324 mg Furosemide (Lasix) 40 mg IVPUSH ONETIME ONE Stop: 10/27/16 07:48 Last Admin: 10/27/16 07:53 Dose: 40 mg Heparin Sodium (Porcine) (Heparin Sodium) 4,000 units IVPUSH .BOLUS ONE Stop: 10/27/16 08:53 Last Admin: 10/27/16 09:03 Dose: 4,000 units Lactated Ringer's (Ringers, Lactated) 1,000 mls @ 500 mls/hr IV ASDIRECTED ONE Stop: 10/27/16 08:39 Last Admin: 10/27/16 06:47 Dose: 500 mls/hr Heparin Sodium/Dextrose (Heparin 25,000 Units In D5w 500 Ml) 25,000 units in 500 mls @ 20 mls/hr IV TITRATE LISBET PRN Reason: Protocol Last Admin: 10/27/16 09:12 Dose: 12 units/kg/hr, 24.96 mls/hr Sodium Chloride (Normal Saline) 1,000 mls @ 25 mls/hr IV ASDIRECTED [facility] Morphine Sulfate (Morphine) 2 mg IVPUSH Q2H PRN PRN Reason: Pain (severe 7-10) Nitroglycerin (Nitrostat) 0.4 mg SL ONETIME ONE Stop: 10/27/16 06:54 Last Admin: 10/27/16 06:56 Dose: 0.4 mg Non-Formulary Medication (Budesonide/Formoterol [Symbicort 160-4.5 Mcg]) 2 puff IH BID LISBET - Exam Quality Assessment: supplemental oxygen General: alert, oriented, cooperative, no acute distress Neck: supple Lungs: Normal respiratory effort, Wheezing (diffuse exp wheezing, right > left) . No: Rales Cardiovascular: Regular Rate, Regular Rhythm Abdomen: soft, no distension, tenderness (mild generalized) Extremities: no edema, no cyanosis Skin: warm, dry Psy/Mental Status: alert, normal affect - Problem List & Annotations (1) Acute respiratory failure with hypoxia and hypercapnia SNOMED Code(s): 77497363, 865241762 Code(s): J96.01 - ACUTE RESPIRATORY FAILURE WITH HYPOXIA; J96.02 - ACUTE RESPIRATORY FAILURE WITH HYPERCAPNIA Status: Acute Current Visit: Yes (2) Acute bronchitis SNOMED Code(s): 04239155 Code(s): J20.9 - ACUTE BRONCHITIS, UNSPECIFIED Status: Acute Current Visit: Yes Qualifiers: Bronchitis organism: unspecified organism Qualified Code(s): J20.9 - Acute bronchitis, unspecified (3) CHF (congestive heart failure) SNOMED Code(s): 97874538 Code(s): I50.9 - HEART FAILURE, UNSPECIFIED Status: Acute Current Visit: Yes Qualifiers: Congestive heart failure type: unspecified congestive heart failure type Congestive heart failure chronicity: acute on chronic Qualified Code(s): I50.9 - Heart failure, unspecified (4) Hyperkalemia SNOMED Code(s): 10215505 Code(s): E87.5 - HYPERKALEMIA Status: Acute Current Visit: Yes (5) NSTEMI (non-ST elevated myocardial infarction) SNOMED Code(s): 305234552 Code(s): I21.4 - NON-ST ELEVATION (NSTEMI) MYOCARDIAL INFARCTION Status: Ruled-out Current Visit: Yes - Problem List Review Problem List Initiated/Reviewed/Updated: Yes - My Orders Last 24 Hours: My Active Orders 10/29/16 09:00 Transfer Patient (Change bed) [ADT] Routine Communication Order [RC] ROUTINE Discontinue Telemetry Monitoring [Cardiac Monitoring Discontinue] [RC] Click to Edit 10/29/16 09:02 Codeine/guaiFENesin [Robitussin AC] 10 ml PO Q4H PRN 10/29/16 09:03 Benzonatate [Tessalon Perles] 100 mg PO TID PRN 10/29/16 16:09 Calcium Carbonate [Tums] 1,000 mg PO Q2H PRN 10/30/16 07:49 PT Evaluation and Treatment [CONS] Routine 10/30/16 07:58 PT Evaluation and Treatment [CONS] Routine 10/30/16 09:00 Furosemide [Lasix] 20 mg PO DAILY 10/31/16 09:00 Cefdinir [Omnicef] 300 mg PO BID - Plan Plan:: Assessment and plan - Acute bronchitis with acute respiratory failure with hypoxia and hypercapnia - slow improvement, still wheezing and symptomatic as well as hypoxic with activity. -Empiric Ceftriaxone and azithromycin -Continue steroids -Follow-up cultures (negative so far) -Supplement oxygen Elevated troponin with demand ischemia - initial concern for non-ST elevation myocardial infarction but troponin levels were stable and did not rise quickly. I suspect the abnormal blood test is related to hypoxia at the time of presentation. Vitals have been stable. -Daily aspirin -Continue low-dose beta etelvina -Discontinue Telemetry -Follow-up echocardiogram Acute on chronic congestive heart failure - history of cor pulmonale type picture. Formal echo read is pending. Volume status seems appropriate again today. -Reassess volume status daily -Continue medical management -Intake and output monitoring Stage III chronic kidney disease - kidney function stable at this time. Maintenance issues - - DVT prophylaxis - mechanical - GI prophylaxis - PPI - Nutrition - heart healthy diet Disposition - anticipate discharge to home with home health care based on patient's current wishes and functional status. He did have physical therapy today and home physical therapy versus subacute rehabilitation was recommended. Jaleel Patel M.D.
[2016-10-30] MEDS: Terazosin 1 MG Cap PO SCH (21:18)
[2016-10-30] MEDS: Doxepin 25 MG Cap PO SCH (21:18)
[2016-10-31] MEDS: Albuterol/Ipratropium 3.0-0.5 MG/3 ML Neb Soln NEB SCH ×4 (06:59→21:32)
[2016-10-31] MEDS: Formoterol/Mometasone 200-5 MCG 8.8 GM Inhaler IH SCH ×2 (06:59→21:43)
[2016-10-31] MEDS: Pantoprazole 40 MG Tab.CR PO SCH (07:37)
[2016-10-31] MEDS: predniSONE 20 MG Tab PO SCH ×2 (07:37→17:21)
[2016-10-31] MEDS: Metoprolol Tartrate 25 MG Tab PO SCH ×2 (09:01→21:45)
[2016-10-31] MEDS: Aspirin 81 MG Tab.EC PO SCH (09:01)
[2016-10-31] MEDS: Azithromycin 250 MG Tab PO SCH (09:01)
[2016-10-31] MEDS: Cefdinir 300 MG Cap PO SCH ×2 (09:02→21:45)
[2016-10-31] MEDS: Diltiazem 180 MG Cap.CD PO SCH (09:02)
[2016-10-31] MEDS: Furosemide 20 MG Tab PO SCH (09:02)
--- NOTE | 2016-10-31 09:57 | PCM.PN ---
- General Info Date of Service: 10/31/16 Functional Status: Reports: pain controlled, tolerating diet, ambulating - Review of Systems General: Reports: Weakness Pulmonary: Reports: shortness of breath, cough Systems Review Comment:: No acute events overnight. No fevers. Still coughing and short of breath with activity but slowly improving. Still wheezing but moving better air again today. Mild desaturations with activity. Weakness has been steadily improving. No chest pain or abdominal pain. Appetite is improving. - Patient Data Vitals - most recent: Last Vital Signs Temp 36.3 C 10/31/16 09:00 Pulse 72 10/31/16 09:01 Resp 16 10/31/16 09:00 BP 164/63 H 10/31/16 09:01 Pulse Ox 96 10/31/16 09:00 Weight - most recent: 104.326 kg I&O - last 24 hours: Intake & Output 10/30/16 10/31/16 10/31/16 22:59 06:59 14:59 Intake Total 360 Balance 360 Wallace Results last 24 hrs: Microbiology 10/27/16 18:45 Gram Stain - Final Sputum - Expectorated Respiratory Culture - Final NORMAL RESPIRATORY FLORINDA 2 DAYS Med Orders - Current: Current Medications Acetaminophen (Tylenol) 650 mg PO Q4H PRN PRN Reason: Pain (Mild 1-3)/fever Albuterol (Proventil Neb Soln) 2.5 mg NEB Q4H PRN PRN Reason: Shortness Of Breath/wheezing Albuterol/Ipratropium (Duoneb 3.0-0.5 Mg/3 Ml) 3 ml NEB QIDRT [facility] Last Admin: 10/31/16 06:59 Dose: 3 ml Aspirin (Halfprin) 81 mg PO DAILY [facility] Last Admin: 10/31/16 09:01 Dose: 81 mg Azithromycin (Zithromax) 500 mg PO DAILY [facility] Last Admin: 10/31/16 09:01 Dose: 500 mg Benzonatate (Tessalon Perles) 100 mg PO TID PRN PRN Reason: Cough Calcium Carbonate/Glycine (Tums) 1,000 mg PO Q2H PRN PRN Reason: Indigestion Last Admin: 10/29/16 16:30 Dose: 1,000 mg Cefdinir (Omnicef) 300 mg PO BID [facility] Last Admin: 10/31/16 09:02 Dose: 300 mg Diltiazem HCl (Cardizem Cd) 180 mg PO DAILY [facility] Last Admin: 10/31/16 09:02 Dose: 180 mg Doxepin HCl (Sinequan) 25 mg PO BEDTIME [facility] Last Admin: 10/30/16 21:18 Dose: 25 mg Furosemide (Lasix) 20 mg PO DAILY [facility] Last Admin: 10/31/16 09:02 Dose: 20 mg Guaifenesin/Codeine Phosphate (Robitussin Ac) 10 ml PO Q4H PRN PRN Reason: Cough Magnesium Hydroxide (Milk Of Magnesia) 30 ml PO BID PRN PRN Reason: Constipation Last Admin: 10/30/16 07:39 Dose: 30 ml Metoprolol Tartrate (Lopressor) 12.5 mg PO Q12H [facility] Last Admin: 10/31/16 09:01 Dose: 12.5 mg Mometasone Furoate/Formoterol Fumar (Dulera 200-5 Mcg) 2 puff IH BIDRT [facility] Last Admin: 10/31/16 06:59 Dose: 2 puff Ondansetron HCl (Zofran Odt) 4 mg PO Q6H PRN PRN Reason: Nausea able to take PO Pantoprazole Sodium (Protonix) 40 mg PO ACBREAKFAST [facility] Last Admin: 10/31/16 07:37 Dose: 40 mg Polyethylene Glycol (Miralax) 17 gm PO DAILY PRN PRN Reason: Constipation Prednisone (Prednisone) 20 mg PO BIDAC [facility] Last Admin: 10/31/16 07:37 Dose: 20 mg Senna/Docusate Sodium (Senna Plus) 1 tab PO BID PRN PRN Reason: Constipation Sodium Chloride (Saline Flush) 10 ml FLUSH ASDIRECTED PRN PRN Reason: Keep Vein Open Last Admin: 10/27/16 06:50 Dose: 10 ml Terazosin HCl (Hytrin) 2 mg PO BEDTIME [facility] Last Admin: 10/30/16 21:18 Dose: 2 mg Discontinued Medications Albuterol/Ipratropium (Duoneb 3.0-0.5 Mg/3 Ml) 3 ml NEB ONETIME ONE Stop: 10/27/16 06:43 Last Admin: 10/27/16 06:52 Dose: 3 ml Albuterol/Ipratropium (Duoneb 3.0-0.5 Mg/3 Ml) 3 ml NEB QID [facility] Aspirin (Aspirin) 324 mg PO ONETIME ONE Stop: 10/27/16 07:47 Last Admin: 10/27/16 07:52 Dose: 324 mg Furosemide (Lasix) 40 mg IVPUSH ONETIME ONE Stop: 10/27/16 07:48 Last Admin: 10/27/16 07:53 Dose: 40 mg Heparin Sodium (Porcine) (Heparin Sodium) 4,000 units IVPUSH .BOLUS ONE Stop: 10/27/16 08:53 Last Admin: 10/27/16 09:03 Dose: 4,000 units Lactated Ringer's (Ringers, Lactated) 1,000 mls @ 500 mls/hr IV ASDIRECTED ONE Stop: 10/27/16 08:39 Last Admin: 10/27/16 06:47 Dose: 500 mls/hr Heparin Sodium/Dextrose (Heparin 25,000 Units In D5w 500 Ml) 25,000 units in 500 mls @ 20 mls/hr IV TITRATE LISBET PRN Reason: Protocol Last Admin: 10/27/16 09:12 Dose: 12 units/kg/hr, 24.96 mls/hr Ceftriaxone Sodium 2 gm/ (Sodium Chloride) 50 mls @ 100 mls/hr IV Q24H LISBET Stop: 10/30/16 12:00 Last Admin: 10/30/16 09:25 Dose: 100 mls/hr Sodium Chloride (Normal Saline) 1,000 mls @ 25 mls/hr IV ASDIRECTED [facility] Morphine Sulfate (Morphine) 2 mg IVPUSH Q2H PRN PRN Reason: Pain (severe 7-10) Nitroglycerin (Nitrostat) 0.4 mg SL ONETIME ONE Stop: 10/27/16 06:54 Last Admin: 10/27/16 06:56 Dose: 0.4 mg Non-Formulary Medication (Budesonide/Formoterol [Symbicort 160-4.5 Mcg]) 2 puff IH BID [facility] - Exam Quality Assessment: supplemental oxygen General: alert, oriented, cooperative, no acute distress Neck: supple Lungs: Normal respiratory effort, Wheezing (mild diffuse exp wheezing, Left > Right) Cardiovascular: Regular Rate, Regular Rhythm Abdomen: soft, no tenderness, no distension Extremities: no edema, no cyanosis Skin: warm, dry Psy/Mental Status: alert, normal affect - Problem List & Annotations (1) Acute respiratory failure with hypoxia and hypercapnia SNOMED Code(s): 50844840, 642425163 Code(s): J96.01 - ACUTE RESPIRATORY FAILURE WITH HYPOXIA; J96.02 - ACUTE RESPIRATORY FAILURE WITH HYPERCAPNIA Status: Acute Current Visit: Yes (2) Acute bronchitis SNOMED Code(s): 73583915 Code(s): J20.9 - ACUTE BRONCHITIS, UNSPECIFIED Status: Acute Current Visit: Yes Qualifiers: Bronchitis organism: unspecified organism Qualified Code(s): J20.9 - Acute bronchitis, unspecified (3) CHF (congestive heart failure) SNOMED Code(s): 80917820 Code(s): I50.9 - HEART FAILURE, UNSPECIFIED Status: Acute Current Visit: Yes Qualifiers: Congestive heart failure type: unspecified congestive heart failure type Congestive heart failure chronicity: acute on chronic Qualified Code(s): I50.9 - Heart failure, unspecified (4) Hyperkalemia SNOMED Code(s): 80393811 Code(s): E87.5 - HYPERKALEMIA Status: Acute Current Visit: Yes (5) NSTEMI (non-ST elevated myocardial infarction) SNOMED Code(s): 516796791 Code(s): I21.4 - NON-ST ELEVATION (NSTEMI) MYOCARDIAL INFARCTION Status: Ruled-out Current Visit: Yes - Problem List Review Problem List Initiated/Reviewed/Updated: Yes - My Orders Last 24 Hours: My Active Orders 10/30/16 09:00 Furosemide [Lasix] 20 mg PO DAILY 10/31/16 09:00 Cefdinir [Omnicef] 300 mg PO BID - Plan Plan:: Assessment and plan - Acute bronchitis with acute respiratory failure with hypoxia and hypercapnia - slow improvement, still some wheezing. He has dyspnea with exertion and hypoxia with exertion. -Antibiotic coverage with azithromycin and Cefdinir -Continue steroids -Follow-up cultures (negative so far) -Supplement oxygen Elevated troponin with demand ischemia - initial concern for non-ST elevation myocardial infarction but troponin levels were stable and did not rise quickly. I suspect the abnormal blood test is related to hypoxia at the time of presentation. Vitals have been stable. -Daily aspirin -Continue low-dose beta etelvina -Follow-up echocardiogram (formal read from [place] is still pending) Acute on chronic congestive heart failure - history of cor pulmonale type picture. Formal echo read is pending. Volume status has been appropriate. -Reassess volume status daily -Continue medical management including diuretic -Intake and output monitoring Stage III chronic kidney disease - kidney function stable at this time. Maintenance issues - - DVT prophylaxis - mechanical - GI prophylaxis - PPI - Nutrition - heart healthy diet Disposition - anticipate discharge to home with home health care based on patient's current wishes and functional status. He should be ready for hospital discharge tomorrow. Jaleel Patel M.D.
[2016-10-31] MEDS: Terazosin 1 MG Cap PO SCH (21:44)
[2016-10-31] MEDS: Doxepin 25 MG Cap PO SCH (21:45)
[2016-11-01] MEDS: Albuterol/Ipratropium 3.0-0.5 MG/3 ML Neb Soln NEB SCH (07:17)
[2016-11-01] MEDS: Formoterol/Mometasone 200-5 MCG 8.8 GM Inhaler IH SCH (07:18)
[2016-11-01] MEDS: predniSONE 20 MG Tab PO SCH (07:41)
[2016-11-01] MEDS: Pantoprazole 40 MG Tab.CR PO SCH (07:42)
[2016-11-01 07:44] VITALS: BP 153/68
[2016-11-01] MEDS: Diltiazem 180 MG Cap.CD PO SCH (08:56)
[2016-11-01] MEDS: Aspirin 81 MG Tab.EC PO SCH (08:57)
[2016-11-01] MEDS: Cefdinir 300 MG Cap PO SCH (08:57)
[2016-11-01] MEDS: Furosemide 20 MG Tab PO SCH (08:57)
[2016-11-01] MEDS: Azithromycin 250 MG Tab PO SCH (08:57)
--- NOTE | 2016-11-01 09:23 | PCM.DCSUM1 ---
Discharge Summary - Hospital Course Brief History: Mr. Cruz is a 71-year-old gentleman who was admitted through the emergency department with hypoxic and hypercapnic respiratory failure secondary to COPD exacerbation with underlying bronchitis. - Discharge Data Discharge Date: 11/01/16 Discharge Disposition: Home, Self-Care 01 Condition: Fair - Discharge Diagnosis/Problem(s) (1) COPD exacerbation SNOMED Code(s): 309288827, 147556553 ICD Code: J44.1 - CHRONIC OBSTRUCTIVE PULMONARY DISEASE W (ACUTE) EXACERBATION Status: Acute Current Visit: Yes (2) Acute bronchitis SNOMED Code(s): 97500571 ICD Code: J20.9 - ACUTE BRONCHITIS, UNSPECIFIED Status: Acute Current Visit: Yes Qualifiers: Bronchitis organism: unspecified organism Qualified Code(s): J20.9 - Acute bronchitis, unspecified (3) Acute respiratory failure with hypoxia and hypercapnia SNOMED Code(s): 71382859, 044143499 ICD Code: J96.01 - ACUTE RESPIRATORY FAILURE WITH HYPOXIA; J96.02 - ACUTE RESPIRATORY FAILURE WITH HYPERCAPNIA Status: Acute Current Visit: Yes - Patient Summary/Data Consults: Consultations 10/30/16 07:49 PT Evaluation and Treatment [CONS] Routine Please Evaluate and Treat. PT Reason for Consult: Strengthening Special Instructions: does patient need sub-acute rehab? This query below is only for informational purposes and is not editable. Admission Diagnosis/Problem: CHF, Congestive heart failure 10/30/16 07:58 PT Evaluation and Treatment [CONS] Routine Please Evaluate and Treat. PT Reason for Consult: strength,endurance,safe to go home Pending Discharge: Yes This query below is only for informational purposes and is not editable. Admission Diagnosis/Problem: CHF, Congestive heart failure Hospital Course: Mr. Cruz is a 71-year-old gentleman with a known history of COPD and has been oxygen dependent at home for several years. He developed increased shortness of breath with cough and presented to the emergency department for further evaluation. On assessment in the emergency department was found to have hypoxia as well as hypercapnia. Chest x-ray showed no obvious infiltrate and he was felt to have COPD exacerbation with underlying bronchitis. He was admitted to the hospital given IV fluids for hydration as well as IV antibiotic therapy for management of the underlying respiratory infection with Rocephin and azithromycin. Initially was given IV steroids and then transition to oral prednisone. Troponin level was noted to be elevated on admission and follow-up and was felt to be secondary to underlying chronic kidney disease as well as demand ischemia in the setting of respiratory compromise and hypoxia. Over the next several days he did gradually improve as far as his respiratory status and at the time of discharge was felt to be close to his usual baseline. He will be discharged home on an additional 3 days of oral antibiotics as well as prednisone. Activity will be as tolerated and he will resume his usual diet. Follow-up appointment will be scheduled with Dr. Torres within 1 week. - Patient Instructions Diet: Usual Diet as Tolerated Activity: As Tolerated Other/Special Instructions: Please schedule follow-up appointment with Dr. Torres within 1 week. - Discharge Plan Prescriptions/Med Rec: Cefdinir [IJD: Cefdinir] 300 mg PO BID #6 capsule Prednisone [IJD: predniSONE] 20 mg PO BIDAC #6 tablet Home Medications: Home Meds Aspirin [Low Dose Aspirin EC] 81 mg PO DAILY 04/13/13 [History] Esomeprazole [NexIUM] 40 mg PO DAILY 04/13/13 [History] Tiotropium [Spiriva HandiHaler] 18 mcg INH DAILY 01/28/14 [History] Diltiazem HCl [Cartia Xt] 1 cap PO DAILY 04/09/15 [History] Doxepin [SINEquan] 25 mg PO BEDTIME 04/10/15 [History] Albuterol [Proair HFA] 2 puff IH QID 10/27/16 [History] Budesonide/Formoterol [Symbicort 160-4.5 MCG] 2 puff IH BID 10/27/16 [History] Erythromycin Base [Omar-Tab] 250 mg PO DAILY 10/27/16 [History] Furosemide [Lasix] 20 mg PO DAILY 10/27/16 [History] Terazosin HCl [Terazosin] 2 mg PO BEDTIME 10/27/16 [History] Cefdinir [IJD: Cefdinir] 300 mg PO BID #6 capsule 11/01/16 [Rx] Prednisone [IJD: predniSONE] 20 mg PO BIDAC #6 tablet 11/01/16 [Rx] Referrals: Bob Torres MD [Physician] - - Patient Data Vitals - Most Recent: Last Vital Signs Temp 96.8 F 11/01/16 07:43 Pulse 71 11/01/16 07:43 Resp 18 11/01/16 07:43 BP 153/68 H 11/01/16 07:43 Pulse Ox 96 11/01/16 07:43 Weight - Most Recent: 230 lb I&O - Last 24 hours: Intake & Output 10/31/16 11/01/16 11/01/16 22:59 06:59 14:59 Intake Total 1000 Balance 1000 Med Orders - Current: Current Medications Acetaminophen (Tylenol) 650 mg PO Q4H PRN PRN Reason: Pain (Mild 1-3)/fever Albuterol (Proventil Neb Soln) 2.5 mg NEB Q4H PRN PRN Reason: Shortness Of Breath/wheezing Albuterol/Ipratropium (Duoneb 3.0-0.5 Mg/3 Ml) 3 ml NEB QIDRT [facility] Last Admin: 11/01/16 07:17 Dose: 3 ml Aspirin (Halfprin) 81 mg PO DAILY [facility] Last Admin: 11/01/16 08:57 Dose: 81 mg Azithromycin (Zithromax) 500 mg PO DAILY [facility] Last Admin: 11/01/16 08:57 Dose: 500 mg Benzonatate (Tessalon Perles) 100 mg PO TID PRN PRN Reason: Cough Calcium Carbonate/Glycine (Tums) 1,000 mg PO Q2H PRN PRN Reason: Indigestion Last Admin: 10/29/16 16:30 Dose: 1,000 mg Cefdinir (Omnicef) 300 mg PO BID [facility] Last Admin: 11/01/16 08:57 Dose: 300 mg Diltiazem HCl (Cardizem Cd) 180 mg PO DAILY [facility] Last Admin: 11/01/16 08:56 Dose: 180 mg Doxepin HCl (Sinequan) 25 mg PO BEDTIME [facility] Last Admin: 10/31/16 21:45 Dose: 25 mg Furosemide (Lasix) 20 mg PO DAILY [facility] Last Admin: 11/01/16 08:57 Dose: 20 mg Guaifenesin/Codeine Phosphate (Robitussin Ac) 10 ml PO Q4H PRN PRN Reason: Cough Magnesium Hydroxide (Milk Of Magnesia) 30 ml PO BID PRN PRN Reason: Constipation Last Admin: 10/30/16 07:39 Dose: 30 ml Metoprolol Tartrate (Lopressor) 12.5 mg PO Q12H [facility] Last Admin: 10/31/16 21:45 Dose: 12.5 mg Mometasone Furoate/Formoterol Fumar (Dulera 200-5 Mcg) 2 puff IH BIDRT [facility] Last Admin: 11/01/16 07:18 Dose: 2 puff Ondansetron HCl (Zofran Odt) 4 mg PO Q6H PRN PRN Reason: Nausea able to take PO Pantoprazole Sodium (Protonix) 40 mg PO ACBREAKFAST [facility] Last Admin: 11/01/16 07:42 Dose: 40 mg Polyethylene Glycol (Miralax) 17 gm PO DAILY PRN PRN Reason: Constipation Prednisone (Prednisone) 20 mg PO BIDAC [facility] Last Admin: 11/01/16 07:41 Dose: 20 mg Senna/Docusate Sodium (Senna Plus) 1 tab PO BID PRN PRN Reason: Constipation Sodium Chloride (Saline Flush) 10 ml FLUSH ASDIRECTED PRN PRN Reason: Keep Vein Open Last Admin: 10/27/16 06:50 Dose: 10 ml Terazosin HCl (Hytrin) 2 mg PO BEDTIME [facility] Last Admin: 10/31/16 21:44 Dose: 2 mg Discontinued Medications Albuterol/Ipratropium (Duoneb 3.0-0.5 Mg/3 Ml) 3 ml NEB ONETIME ONE Stop: 10/27/16 06:43 Last Admin: 10/27/16 06:52 Dose: 3 ml Albuterol/Ipratropium (Duoneb 3.0-0.5 Mg/3 Ml) 3 ml NEB QID [facility] Aspirin (Aspirin) 324 mg PO ONETIME ONE Stop: 10/27/16 07:47 Last Admin: 10/27/16 07:52 Dose: 324 mg Furosemide (Lasix) 40 mg IVPUSH ONETIME ONE Stop: 10/27/16 07:48 Last Admin: 10/27/16 07:53 Dose: 40 mg Heparin Sodium (Porcine) (Heparin Sodium) 4,000 units IVPUSH .BOLUS ONE Stop: 10/27/16 08:53 Last Admin: 10/27/16 09:03 Dose: 4,000 units Lactated Ringer's (Ringers, Lactated) 1,000 mls @ 500 mls/hr IV ASDIRECTED ONE Stop: 10/27/16 08:39 Last Admin: 10/27/16 06:47 Dose: 500 mls/hr Heparin Sodium/Dextrose (Heparin 25,000 Units In D5w 500 Ml) 25,000 units in 500 mls @ 20 mls/hr IV TITRATE LISBET PRN Reason: Protocol Last Admin: 10/27/16 09:12 Dose: 12 units/kg/hr, 24.96 mls/hr Ceftriaxone Sodium 2 gm/ (Sodium Chloride) 50 mls @ 100 mls/hr IV Q24H LISBET Stop: 10/30/16 12:00 Last Admin: 10/30/16 09:25 Dose: 100 mls/hr Sodium Chloride (Normal Saline) 1,000 mls @ 25 mls/hr IV ASDIRECTED [facility] Morphine Sulfate (Morphine) 2 mg IVPUSH Q2H PRN PRN Reason: Pain (severe 7-10) Nitroglycerin (Nitrostat) 0.4 mg SL ONETIME ONE Stop: 10/27/16 06:54 Last Admin: 10/27/16 06:56 Dose: 0.4 mg Non-Formulary Medication (Budesonide/Formoterol [Symbicort 160-4.5 Mcg]) 2 puff IH BID LIS[facility] *Q Meaningful Use (DIS) - VTE *Q VTE Criteria *Q: - Stroke *Q Stroke Criteria *Q: - AMI *Q AMI Criteria *Q:
[2016-11-01] MEDS: Metoprolol Tartrate 25 MG Tab PO SCH (09:35)
== END 2016-11-01 10:41 | disposition home or self-care (01) | DRG 190 ==
LOC: JP.ED 06:21 → JP.ICU 08:54
PROVIDERS: ADMIT Internal Medicine; ATTEND Hospitalist
DX: J44.0 Chronic obstructive pulmonary disease with (acute) lower respiratory infection (principal); J96.01 Acute respiratory failure with hypoxia; J96.02 Acute respiratory failure with hypercapnia; E87.1 Hypo-osmolality and hyponatremia; I24.8 Other forms of acute ischemic heart disease; J20.9 Acute bronchitis, unspecified; J44.1 Chronic obstructive pulmonary disease with (acute) exacerbation; E87.5 Hyperkalemia; N18.3 Chronic kidney disease, stage 3 (moderate); R74.8 Abnormal levels of other serum enzymes; Z66 Do not resuscitate; Z87.891 Personal history of nicotine dependence; Z99.81 Dependence on supplemental oxygen; I50.9 Heart failure, unspecified; I27.81 Cor pulmonale (chronic); I25.10 Atherosclerotic heart disease of native coronary artery without angina pectoris; I25.2 Old myocardial infarction; K21.9 Gastro-esophageal reflux disease without esophagitis; Z79.82 Long term (current) use of aspirin; Z79.52 Long term (current) use of systemic steroids; Z88.8 Allergy status to other drugs, medicaments and biological substances; E66.9 Obesity, unspecified; Z68.33 Body mass index [BMI] 33.0-33.9, adult
CPT/HCPCS: 36415; 36600; 71010 ×2; 80053; 82803; 83605; 83735; 83880; 84484; 85025; 85730; 86140; 93005; 96361; 96375; 99285; A9270 ×2; J1940; J7050; J7120; J7620; 80048; 85027; 87070; 87205; 93010; 93306; 94640-76; 94664; 96365; 97116-GP; 97161-GP; J0696; J1644

== ENCOUNTER 2021-04-29 07:52 | Inpatient (IN) | payer MEDICARE ==
[2021-04-29] MEDS ORDERED: Albuterol/Ipratropium 3.0-0.5 MG/3 ML Neb Soln NEB ONE (08:21)
[2021-04-29] MEDS ORDERED: methylPREDNISolone Sodium Succinate 125 MG/2 ML SDV IVPUSH ONE (08:24)
--- NOTE | 2021-04-29 08:33 | EDM.PDOC ---
ED HPI GENERAL MEDICAL PROBLEM - General Chief Complaint: Lower Extremity Injury/Pain Stated Complaint: MEDICAL [facility]IA [facility] Time Seen by Provider: 04/29/21 08:00 Source of Information: Reports: Patient, EMS History Limitations: Reports: No Limitations - History of Present Illness INITIAL COMMENTS - FREE TEXT/NARRATIVE: 76-year-old male with chronic COPD, history of congestive heart failure has been without his Lasix for the last 3 days because his knees have been painful and he has been unable to get up and move around the house. He has become more short of breath and called the ambulance this morning. He needs 5 L of nasal cannula oxygen to maintain sats in the upper 80s to low 90s, he usually uses 2 L. He typically gets around the house without much difficulty. He has had 2 doses of Covid vaccine. Denies any fevers or chills but is very tired, short of breath and worn out. Also feels like his abdomen is distended and he has more lower extremity edema. He is moderately hypotensive with systolic blood pressure around 80. Onset: Gradual Duration: Day(s): (3 days of worsening symptoms) Associated Symptoms: Reports: Cough, Malaise, Shortness of Breath, Weakness. Denies: Chest Pain Bilateral Knee Pain Score (Numeric/FACES): 10 - Related Data Allergies Allergy/AdvReac Type Severity Reaction Status Date / Time simvastatin AdvReac Joint Pain Verified 04/29/21 09:02 Home Meds: Home Meds Esomeprazole [NexIUM] 40 mg PO DAILY PRN 04/13/13 [History] dilTIAZem HCL [Cartia Xt] 180 mg PO DAILY 04/09/15 [History] Albuterol [Proair HFA] 2 puff IH QID 10/27/16 [History] Erythromycin Base [Omar-Tab] 250 mg PO DAILY 10/27/16 [History] Furosemide [Lasix] 40 mg PO DAILY 10/27/16 [History] Terazosin HCl [Terazosin] 2 mg PO BEDTIME 10/27/16 [History] Fluticasone/Vilanterol [Breo Ellipta 100-25 MCG Inhalation Kit] 1 each IH DAILY 04/29/21 [History] Past Medical History Cardiovascular History: Reports: CAD, Heart Failure, MD Respiratory History: Reports: COPD, Other (See Below) Other Respiratory History: cor polmunal Gastrointestinal History: Reports: GERD Dermatologic History: Reports: Other (See Below) Other Dermatologic History: keratosis - Infectious Disease History Infectious Disease History: Reports: Chicken Pox, Measles, Mumps Social & Family History - Family History Cardiac: Reports: CAD - Caffeine Use Caffeine Use: Reports: Coffee Review of Systems - Review of Systems Review Of Systems: See Below Constitutional: Reports: Weakness. Denies: Fever Eyes: Reports: No Symptoms Ears: Reports: No Symptoms Mouth/Throat: Reports: No Symptoms Respiratory: Reports: Shortness of Breath, Wheezing, Cough. Denies: Sputum Cardiovascular: Denies: Chest Pain GI/Abdominal: Reports: Other (Abdomen feels full, mildly distended and generally uncomfortable. No BM for the past 3 days) Musculoskeletal: Reports: Other (Chronic right knee pain but the last 3 days has been intensely worse, effusion to the knee as developed and he is starting to develop left knee pain as well) Skin: Reports: Pallor Neurological: Reports: Weakness. Denies: Headache ED EXAM, GENERAL - Physical Exam Exam: See Below Exam Limited By: Respiratory Distress General Appearance: Alert, Moderate Distress Eye Exam: Bilateral Eye: Normal Inspection Head: Atraumatic Respiratory/Chest: Respiratory Distress (Patient is laboring to breathe, audible expiratory wheezes are heard and he has moderate increased respiratory rate), Decreased Breath Sounds (Overall breath sounds are decreased with diffuse expiratory wheezes and a few rales, I do not appreciate crackles in the bases are decreased based sounds typical of failure) Cardiovascular: Regular Rate, Rhythm, No Murmur, Other. No: Extra Beats GI/Abdominal: Soft, Tender (Reacts with some discomfort to palpation diffusely of the abdomen, bowel sounds are present, no focal pain) Extremities: Other (Patient does have diffuse lower extremity edema bilaterally, he has a moderately prominent right knee effusion. He is very tender to palpation around the lateral aspect of both knees) Neurological: Alert, Oriented Psychiatric: Flat Affect Skin Exam: Warm, Dry, Pallor (Looks pale overall) Course - Vital Signs Last Recorded V/S: Last Vital Signs Temp 98.1 F 04/29/21 14:32 Pulse 84 04/29/21 14:32 Resp 18 04/29/21 14:32 BP 169/64 H 04/29/21 14:32 Pulse Ox 92 L 04/29/21 13:06 - Orders/Labs/Meds Orders: Active Orders 24 hr Category Date Time Status UA W/MICROSCOPIC [URIN] Urgent Lab 04/29/21 08:58 Ordered Medication Orders Acetaminophen (Acetaminophen 325 Mg Tab) 650 mg PO Q4H PRN PRN Reason: Pain (Mild 1-3)/fever Albuterol (Albuterol 0.083% 2.5 Mg/3 Ml Neb Soln) 2.5 mg NEB Q4H PRN PRN Reason: Shortness Of Breath/wheezing Albuterol/Ipratropium (Albuterol/Ipratropium 3.0-0.5 Mg/3 Ml Neb Soln) 3 ml NEB QIDRT [facility] Last Admin: 04/29/21 14:29 Dose: 3 ml Documented by: TATIANA Diltiazem HCl (Diltiazem 180 Mg Cap.Cd) 180 mg PO DAILY [facility] Last Admin: 04/29/21 13:45 Dose: 180 mg Documented by: JOSH Furosemide (Furosemide 40 Mg Tab) 40 mg PO DAILY [facility] Sodium Chloride (Normal Saline) 100 mls @ 4 mls/sec IV ASDIRECTED [facility] Stop: 04/29/21 22:00 Last Admin: 04/29/21 11:51 Dose: 4 mls/sec Documented by: KIMI Iopamidol (Iopamidol 755 Mg/Ml 100 Ml Bottle) 100 ml IV . DIRECTED [facility] Stop: 04/29/21 20:00 Last Admin: 04/29/21 11:50 Dose: 77 ml Documented by: KIMI Methylprednisolone Sodium Succinate (Methylprednisolone Sodium Succinate 40 Mg/1 Ml Sdv) 40 mg IVPUSH Q8H [facility] Mometasone Furoate/Formoterol Fumar (Formoterol/Mometasone 200-5 Mcg 8.8 Gm Inhaler) 2 puff IH BIDRT [facility] Ondansetron HCl (Ondansetron 4 Mg/2 Ml Sdv) 4 mg IV Q4H PRN PRN Reason: Nausea/Vomiting Pantoprazole Sodium (Pantoprazole 40 Mg Vial) 40 mg IVPUSH Q12H [facility] Last Admin: 04/29/21 13:20 Dose: 40 mg Documented by: JOSH Polyethylene Glycol (Polyethylene Glycol 3350 Powder 17 Gm Packet) 17 gm PO DAILY PRN PRN Reason: Constipation Sodium Chloride (Sodium Chloride 0.9% 10 Ml Syringe) 10 ml FLUSH ASDIRECTED PRN PRN Reason: Keep Vein Open Terazosin HCl (Terazosin 1 Mg Cap) 2 mg PO BEDTIME [facility] Labs: Laboratory Tests 04/29/21 04/29/21 04/29/21 Range/Units 08:30 08:32 08:32 WBC 17.5 H (4.5-11.0) K/uL RBC 2.20 L (4.30-5.90) M/uL Hgb 6.3 L* D (12.0-15.0) g/dL Hct 21.6 L (40.0-54.0) % MCV 98 (80-98) fL MCH 29 (27-31) pg MCHC 29 L (32-36) % Plt Count 278 (150-400) K/uL Add Manual Diff Yes Neutrophils % (Manual) 79 H (36-66) % Lymphocytes % (Manual) 8 L (24-44) % Monocytes % (Manual) 8 H (2-6) % Blast Cells % 5 % Sodium 142 (140-148) mmol/L Potassium 4.0 (3.6-5.2) mmol/L Chloride 103 (100-108) mmol/L Carbon Dioxide 31 (21-32) mmol/L Anion Gap 7.6 (5.0-14.0) mmol/L BUN 24 H (7-18) mg/dL Creatinine 1.1 (0.8-1.3) mg/dL Est Cr Clr Drug Dosing 54.41 mL/min Estimated GFR (MDRD) > 60 (>60) Glucose 130 H (74-106) mg/dL Calcium 8.6 (8.5-10.1) mg/dL Total Bilirubin 0.6 (0.2-1.0) mg/dL AST 25 (15-37) U/L ALT 34 (12-78) U/L Alkaline Phosphatase 115 (46-116) U/L Troponin I High Sens 15.1 (<=60.3) pg/mL Total Protein 7.1 (6.4-8.2) g/dL Albumin 3.3 L (3.4-5.0) g/dL Globulin 3.8 H (2.3-3.5) g/dL Albumin/Globulin Ratio 0.9 L (1.2-2.2) Procalcitonin 0.15 ng/mL Influenza Type A RNA (NEGATIVE) RSV RNA (INAAT) (NEGATIVE) Influenza Type B RNA (NEGATIVE) SARS-CoV-2 RNA (KAYLIN) (NEGATIVE) Blood Type Gel Antibody Screen Crossmatch 04/29/21 04/29/21 Range/Units 08:47 09:02 WBC (4.5-11.0) K/uL RBC (4.30-5.90) M/uL Hgb (12.0-15.0) g/dL Hct (40.0-54.0) % MCV (80-98) fL MCH (27-31) pg MCHC (32-36) % Plt Count (150-400) K/uL Add Manual Diff Neutrophils % (Manual) (36-66) % Lymphocytes % (Manual) (24-44) % Monocytes % (Manual) (2-6) % Blast Cells % % Sodium (140-148) mmol/L Potassium (3.6-5.2) mmol/L Chloride (100-108) mmol/L Carbon Dioxide (21-32) mmol/L Anion Gap (5.0-14.0) mmol/L BUN (7-18) mg/dL Creatinine (0.8-1.3) mg/dL Est Cr Clr Drug Dosing mL/min Estimated GFR (MDRD) (>60) Glucose (74-106) mg/dL Calcium (8.5-10.1) mg/dL Total Bilirubin (0.2-1.0) mg/dL AST (15-37) U/L ALT (12-78) U/L Alkaline Phosphatase (46-116) U/L Troponin I High Sens (<=60.3) pg/mL Total Protein (6.4-8.2) g/dL Albumin (3.4-5.0) g/dL Globulin (2.3-3.5) g/dL Albumin/Globulin Ratio (1.2-2.2) Procalcitonin ng/mL Influenza Type A RNA Negative (NEGATIVE) RSV RNA (INAAT) Negative (NEGATIVE) Influenza Type B RNA Negative (NEGATIVE) SARS-CoV-2 RNA (KAYLIN) Negative (NEGATIVE) Blood Type O POSITIVE Gel Antibody Screen Negative Crossmatch See Detail Meds: Medications Generic Name Dose Route Start Last Admin Trade Name Freq PRN Reason Stop Dose Admin Acetaminophen 650 mg 04/29/21 11:12 Acetaminophen 325 Mg Tab PO Q4H PRN Pain (Mild 1-3)/fever Albuterol 2.5 mg 04/29/21 11:12 Albuterol 0.083% 2.5 Mg/3 Ml Neb Soln NEB Q4H PRN Shortness Of Breath/wheezing Albuterol/Ipratropium 3 ml 04/29/21 15:00 04/29/21 14:29 Albuterol/Ipratropium 3.0-0.5 Mg/3 Ml Neb Soln NEB 3 ml QIDRT [facility] Administration Diltiazem HCl 180 mg 04/29/21 13:30 04/29/21 13:45 Diltiazem 180 Mg Cap.Cd PO 180 mg DAILY [facility] Administration Furosemide 40 mg 04/30/21 09:00 Furosemide 40 Mg Tab PO DAILY [facility] Sodium Chloride 100 mls @ 4 mls/sec 04/29/21 11:15 04/29/21 11:51 Normal Saline IV 04/29/21 22:00 4 mls/sec ASDIRECTED [facility] Administration Iopamidol 100 ml 04/29/21 11:15 04/29/21 11:50 Iopamidol 755 Mg/Ml 100 Ml Bottle IV 04/29/21 20:00 77 ml . DIRECTED [facility] Administration Methylprednisolone Sodium Succinate 40 mg 04/29/21 16:00 Methylprednisolone Sodium Succinate 40 Mg/1 Ml Sdv IVPUSH Q8H [facility] Mometasone Furoate/Formoterol Fumar 2 puff 04/29/21 21:00 Formoterol/Mometasone 200-5 Mcg 8.8 Gm Inhaler IH BIDRT [facility] Ondansetron HCl 4 mg 04/29/21 11:12 Ondansetron 4 Mg/2 Ml Sdv IV Q4H PRN Nausea/Vomiting Pantoprazole Sodium 40 mg 04/29/21 11:30 04/29/21 13:20 Pantoprazole 40 Mg Vial IVPUSH 40 mg Q12H [facility] Administration Polyethylene Glycol 17 gm 04/29/21 11:12 Polyethylene Glycol 3350 Powder 17 Gm Packet PO DAILY PRN Constipation Sodium Chloride 10 ml 04/29/21 11:12 Sodium Chloride 0.9% 10 Ml Syringe FLUSH ASDIRECTED PRN Keep Vein Open Terazosin HCl 2 mg 04/29/21 21:00 Terazosin 1 Mg Cap PO BEDTIME [facility] Discontinued Medications Generic Name Dose Route Start Last Admin Trade Name Freq PRN Reason Stop Dose Admin Albuterol/Ipratropium 3 ml 04/29/21 08:21 04/29/21 08:38 Albuterol/Ipratropium 3.0-0.5 Mg/3 Ml Neb Soln NEB 04/29/21 08:22 3 ml ONETIME ONE Administration Diltiazem HCl 180 mg 04/30/21 09:00 Diltiazem 180 Mg Cap.Cd PO DAILY [facility] Methylprednisolone Sodium Succinate 125 mg 04/29/21 08:24 12 08:39 Methylprednisolone Sodium Succinate 125 Mg/2 Ml Sdv IVPUSH 04/29/21 08:25 125 mg ONETIME ONE Administration Non-Formulary Medication 40 mg 04/29/21 11:12 Esomeprazole [Nexium] PO DAILY PRN Abdominal Pain Sodium Chloride 10 ml 04/29/21 11:14 04/29/21 11:50 Sodium Chloride 0.9% 10 Ml Syringe FLUSH 04/29/21 11:15 10 ml ONETIME ONE Administration - Re-Assessments/Exams Free Text/Narrative Re-Assessment/Exam: 04/29/21 08:43 A one-view portable chest x-ray was obtained and shows no evidence of failure, this likely is more of a COPD exacerbation. CBC, CMP, troponin were obtained and and of IV started, patient given 125 mg of IV Solu-Medrol. Despite the hypotension fluid bolus was held initially. He did much better sitting up, we gave him a DuoNeb. 04/29/21 08:44 4 Plex viral test was obtained as well. 04/29/21 08:55 After the DuoNeb the patient felt subjectively better, respiratory rate slowed down but he was still significantly short of breath. Blood pressure normalized without treatment to a systolic of 137. 04/29/21 09:01 Hemoglobin returned only 6.3, last level on record in the emergency room is 11.7 in 2017. Patient did admit after the lab returned, that a couple weeks ago he was experiencing significant blood in his stool but it went away. 2 units of packed RBCs will be typed and crossmatched. Departure - Departure Time of Disposition: 11:53 Disposition: Admitted As Inpatient 65 Clinical Impression: COPD exacerbation, Blood loss anemia, Effusion, right knee, Bilateral knee pain - Discharge Information Sepsis Event Note (ED) - Evaluation Sepsis Screening Result: Possible Sepsis Risk - Focused Exam Vital Signs: Vital Signs Temp Temp Pulse Resp BP Pulse Ox 04/29/21 10:45 98.3 F 88 20 161/55 H 04/29/21 10:25 97.3 F 89 22 H 155/34 H 04/29/21 08:57 90 22 H 137/57 L 92 L 04/29/21 08:30 93 22 H 90/42 L 92 L 04/29/21 07:55 97.7 F 90 28 H 99 - My Orders Last 24 Hours: My Active Orders 04/29/21 08:58 UA W/MICROSCOPIC [URIN] Urgent - Assessment/Plan Last 24 Hours: My Active Orders 04/29/21 08:58 UA W/MICROSCOPIC [URIN] Urgent
[2021-04-29 09:28] LABS: CORONAVIRUS COVID-19 NAA NEGATIVE (NEGATIVE)
--- NOTE | 2021-04-29 09:39 | CR ---
CHEST: Portable 04/29/2021 at 8:31 AM CLINICAL HISTORY:SOB, hypoxia COMPARISON:CT chest September 2019 FINDINGS: Heart size and pulmonary vascularity are normal. Lungs are hyperaerated. There is a curvilinear density in the right suprahilar region. This may represent an area of platelike atelectasis and/or scarring. It is bigger than the study from September 2019. This may represent some progressive scarring and/or atelectasis. There is a subcentimeter nodule in the left upper lobe laterally. This is also seen and described on the CT. IMPRESSION: Emphysematous changes Enlarging platelike density in the right upper lobe when compared to September 2019. This may represents progressive scarring and/or atelectasis. Underlying lesion is not absolutely excluded. Follow-up CT on a nonemergent basis is recommended Known left upper lobe pulmonary nodule
--- NOTE | 2021-04-29 11:05 | PCM.HP.2 ---
H&P History of Present Illness - General Date of Service: 04/29/21 Admit Problem/Dx: Admission Diagnosis/Problem Admission Diagnosis/Problem Hypoxia Source of Information: Patient, Provider, RN Notes Reviewed History Limitations: Reports: No Limitations - History of Present Illness Initial Comments - Free Text/Narative: Mr. Cruz is a 76-year-old gentleman who was admitted through the emergency department with increased hypoxia, transient hypotension, severe anemia, and bilateral knee pain and swelling. He has a known history of oxygen dependent COPD and is typically on 2 L of oxygen per minute via nasal cannula. He has experienced right knee pain over the past week with associated swelling. Today noted onset of left knee pain with some swelling. Pain in his knees was to the point that he was unable to ambulate or even stand. He has had longstanding difficulty with his knees and likely has underlying significant osteoarthritis. EMS was activated and when they arrived at his house despite his usual oxygen at 2 L/min he was found to be very hypoxic with oxygen saturations in the 70s. He was brought into the emergency department for further evaluation. Oxygenation improved after he was given a nebulizer treatment. He was transiently hypotensive in the emergency department but this resolved spontaneously without significant intervention. Laboratory studies show severe anemia with a hemoglobin of 6.3. He recalls some blood in his stool about 2 weeks ago but denies any obvious bleeding either red blood or melena since then. Bilateral Knee Pain Score (Numeric/FACES): 10 - Related Data Allergies/Adverse Reactions: Allergies Allergy/AdvReac Type Severity Reaction Status Date / Time simvastatin AdvReac Joint Pain Verified 04/29/21 09:02 Home Medications: Home Meds Esomeprazole [NexIUM] 40 mg PO DAILY PRN 04/13/13 [History] dilTIAZem HCL [Cartia Xt] 1 cap PO DAILY 04/09/15 [History] Albuterol [Proair HFA] 2 puff IH QID 10/27/16 [History] Erythromycin Base [Omar-Tab] 250 mg PO DAILY 10/27/16 [History] Furosemide [Lasix] 40 mg PO DAILY 10/27/16 [History] Terazosin HCl [Terazosin] 2 mg PO BEDTIME 10/27/16 [History] Fluticasone/Vilanterol [Breo Ellipta 100-25 MCG Inhalation Kit] 1 each IH DAILY 04/29/21 [History] Past Medical History Cardiovascular History: Reports: CAD, Heart Failure, [place] Respiratory History: Reports: COPD, Other (See Below) Other Respiratory History: cor polmunal Gastrointestinal History: Reports: GERD Dermatologic History: Reports: Other (See Below) Other Dermatologic History: keratosis - Infectious Disease History Infectious Disease History: Reports: Chicken Pox, Measles, Mumps Social & Family History - Family History Cardiac: Reports: CAD - Tobacco Use Tobacco Use Status *Q: Former Tobacco User Years of Tobacco use: 60 Used Tobacco, but Quit: Yes Month/Year Tobacco Last Used: 5 years - Caffeine Use Caffeine Use: Reports: Coffee H&P Review of Systems - Review of Systems: Review Of Systems: See Below General: Denies: Fever, Chills HEENT: Reports: No Symptoms Pulmonary: Reports: Shortness of Breath, Wheezing. Denies: Pleuritic Chest Pain, Cough, Sputum, Hemoptysis Cardiovascular: Reports: Dyspnea on Exertion, Edema. Denies: Chest Pain, Palpitations, Orthopnea, PND, Lightheadedness, Syncope Gastrointestinal: Reports: No Symptoms Genitourinary: Reports: No Symptoms Musculoskeletal: Reports: Joint Pain (Bilateral knee pain), Joint Swelling Skin: Reports: No Symptoms Psychiatric: Reports: No Symptoms Neurological: Reports: No Symptoms Hematologic/Lymphatic: Reports: No Symptoms Immunologic: Reports: No Symptoms Exam - Exam Exam: See Below - Vital Signs Vital Signs: Last Vital Signs Temp 98.3 F 04/29/21 10:45 Pulse 88 04/29/21 10:45 Resp 20 04/29/21 10:45 BP 161/55 H 04/29/21 10:45 Pulse Ox 92 L 04/29/21 08:57 Weight: 220 lb - Exam Quality Assessment: Supplemental Oxygen, DVT Prophylaxis General: Alert, Oriented, Cooperative, Moderate Distress HEENT: Conjunctiva Clear, Hearing Intact, Mucosa Moist & [place], Normal Nasal Septum, Posterior Pharynx Clear, Pupils Equal Neck: Supple, Trachea Midline, +2 Carotid Pulse wo Bruit Lungs: Decreased Breath Sounds, Wheezing. No: Crackles, Rales, Rhonchi Cardiovascular: Regular Rate, Regular Rhythm, Normal S1, Normal S2. No: Sy stolic Murmur, Diastolic Murmur GI/Abdominal Exam: Soft, Non-Tender, No Organomegaly, No Distention Extremities: Joint Swelling (Swelling and tenderness both knees right greater than left) Skin: Warm, Dry, Intact Neurological: Cranial Nerves Intact, Strength Equal Bilateral, Normal Speech, Normal Tone, Sensation Intact. No: Focal Deficit Neuro Extensive - Mental Status: Alert, Oriented x3, Normal Mood/Affect, Normal Cognition, Memory Intact - Patient Data Lab Results Last 24 hrs: Laboratory Results - last 24 hr 04/29/21 04/29/21 04/29/21 Range/Units 08:32 08:32 08:47 WBC 17.5 H (4.5-11.0) K/uL RBC 2.20 L (4.30-5.90) M/uL Hgb 6.3 L* D (12.0-15.0) g/dL Hct 21.6 L (40.0-54.0) % MCV 98 (80-98) fL MCH 29 (27-31) pg MCHC 29 L (32-36) % Plt Count 278 (150-400) K/uL Add Manual Diff Yes Neutrophils % (Manual) 79 H (36-66) % Lymphocytes % (Manual) 8 L (24-44) % Monocytes % (Manual) 8 H (2-6) % Blast Cells % 5 % Sodium 142 (140-148) mmol/L Potassium 4.0 (3.6-5.2) mmol/L Chloride 103 (100-108) mmol/L Carbon Dioxide 31 (21-32) mmol/L Anion Gap 7.6 (5.0-14.0) mmol/L BUN 24 H (7-18) mg/dL Creatinine 1.1 (0.8-1.3) mg/dL Est Cr Clr Drug Dosing 54.41 mL/min Estimated GFR (MDRD) > 60 (>60) Glucose 130 H (74-106) mg/dL Calcium 8.6 (8.5-10.1) mg/dL Total Bilirubin 0.6 (0.2-1.0) mg/dL AST 25 (15-37) U/L ALT 34 (12-78) U/L Alkaline Phosphatase 115 (46-116) U/L Troponin I High Sens 15.1 (<=60.3) pg/mL Total Protein 7.1 (6.4-8.2) g/dL Albumin 3.3 L (3.4-5.0) g/dL Globulin 3.8 H (2.3-3.5) g/dL Albumin/Globulin Ratio 0.9 L (1.2-2.2) Influenza Type A RNA Negative (NEGATIVE) RSV RNA (INAAT) Negative (NEGATIVE) Influenza Type B RNA Negative (NEGATIVE) SARS-CoV-2 RNA (KAYLIN) Negative (NEGATIVE) Blood Type Gel Antibody Screen Crossmatch 04/29/21 Range/Units 09:02 WBC (4.5-11.0) K/uL RBC (4.30-5.90) M/uL Hgb (12.0-15.0) g/dL Hct (40.0-54.0) % MCV (80-98) fL MCH (27-31) pg MCHC (32-36) % Plt Count (150-400) K/uL Add Manual Diff Neutrophils % (Manual) (36-66) % Lymphocytes % (Manual) (24-44) % Monocytes % (Manual) (2-6) % Blast Cells % % Sodium (140-148) mmol/L Potassium (3.6-5.2) mmol/L Chloride (100-108) mmol/L Carbon Dioxide (21-32) mmol/L Anion Gap (5.0-14.0) mmol/L BUN (7-18) mg/dL Creatinine (0.8-1.3) mg/dL Est Cr Clr Drug Dosing mL/min Estimated GFR (MDRD) (>60) Glucose (74-106) mg/dL Calcium (8.5-10.1) mg/dL Total Bilirubin (0.2-1.0) mg/dL AST (15-37) U/L ALT (12-78) U/L Alkaline Phosphatase (46-116) U/L Troponin I High Sens (<=60.3) pg/mL Total Protein (6.4-8.2) g/dL Albumin (3.4-5.0) g/dL Globulin (2.3-3.5) g/dL Albumin/Globulin Ratio (1.2-2.2) Influenza Type A RNA (NEGATIVE) RSV RNA (INAAT) (NEGATIVE) Influenza Type B RNA (NEGATIVE) SARS-CoV-2 RNA (KAYLIN) (NEGATIVE) Blood Type O POSITIVE Gel Antibody Screen Negative Crossmatch See Detail Result Diagrams: 04/29/21 08:32 04/29/21 08:32 Sepsis Event Note - Evaluation Sepsis Screening Result: Possible Sepsis Risk - Focused Exam Vital Signs: Vital Signs Temp Temp Pulse Resp BP Pulse Ox 04/29/21 10:45 98.3 F 88 20 161/55 H 04/29/21 10:25 97.3 F 89 22 H 155/34 H 04/29/21 08:57 90 22 H 137/57 L 92 L 04/29/21 08:30 93 22 H 90/42 L 92 L 04/29/21 07:55 97.7 F 90 28 H 99 *Q Meaningful Use (ADM) - VTE Risk Assess *Q Each Risk Factor Represents 1 Point: Obesity ( BMI > 25 kg/m2), Abnormal Pulmonary Function (COPD) Total Score 1 Point Risk Factors: 2 Each Risk Factor Represents 2 Points: None Total Score 2 Point Risk Factors: 0 Each Risk Factor Represents 3 Points: Age 75 Years or Greater Total Score 3 Point Risk Factors: 3 Each Risk Factor Represents 5 Points: None Total Score 5 Point Risk Factors: 0 Venous Thromboembolism Risk Factor Score *Q: 5 Problem List Initiated/Reviewed/Updated: Yes Orders Last 24hrs: Active Orders 24 hr Category Date Time Status Patient Status Manage Transfer [TRANSFER] Routine ADT 04/29/21 10:51 Ordered RT Aerosol Therapy [RC] ASDIRECTED Care 04/29/21 08:21 Active Ang Chest [CT] Stat Exams 04/29/21 10:49 Ordered Knee 3V Bi [CR] Stat Exams 04/29/21 10:49 Ordered PATIENT RETYPE [BBK] Stat Lab 04/29/21 09:02 Results PROCALCITONIN [CHEM] Stat Lab 04/29/21 08:30 Received RED BLOOD CELLS LP [BBK] Stat Lab 04/29/21 09:02 Results TYPE AND SCREEN [BBK] Stat Lab 04/29/21 09:02 Results UA W/MICROSCOPIC [URIN] Urgent Lab 04/29/21 08:58 Ordered Isolation [COMM] Stat Oth 04/29/21 08:23 Ordered Resuscitation Status Routine Resus Stat 04/29/21 10:53 Ordered Assessment/Plan Comment:: ASSESSMENT AND PLAN SEVERE ANEMIA-hemoglobin of 6.3 found on laboratory testing in the emergency department. He does have a history of chronic anemia dating back several years. He reports possible bleeding 2 weeks ago but is noted none since that time. Because of his underlying COPD and congestive heart failure we will have a goal hemoglobin of greater than 8. -Transfuse 2 units of red blood cells -Serial hemoglobin levels -Protonix 40 mg IV every 12 hours -Will likely require endoscopy when he is stable from a cardiac and pulmonary standpoint ACUTE ON CHRONIC HYPOXIC RESPIRATORY FAILURE-at baseline he has oxygen dependent COPD. Persistent hypoxia noted at home and after arrival in the emergency department. He is back to adequate oxygenation on 2 L following nebulizer treatment. -Supplemental oxygen to maintain saturations around 90% -CT angiogram of the chest COPD EXACERBATION-most likely cause of increased hypoxia, he did improve following nebulizer treatment. Chest x-ray shows no obvious infiltrate. -CT of chest as above to evaluate for infection -Blood cultures x2 -Procalcitonin level -Solu-Medrol 40 mg IV every 8 hours -Nebulizer therapy with DuoNeb's and albuterol CONGESTIVE HEART FAILURE-episode of hypotension after arriving in the emergency department, resolved spontaneously. No evidence of significant pulmonary edema noted on chest x-ray. -Continue outpatient medications including diuretic -Echocardiogram when available in a.m. BILATERAL KNEE PAIN-significant pain and swelling in the right knee for the past week. Today noted onset of pain and swelling in the left knee. -X-ray both knees -Consult Dr. Morrell for orthopedic opinion MAINTENANCE ISSUES -DVT prophylaxis; SCUDs, will hold on anticoagulation because of severe anemia and possible bleeding -GI prophylaxis; Protonix as above -Avery catheter; not indicated -Nutrition; 2 g sodium diet -Nicotine dependence; not required CODE STATUS-FULL CODE ADMISSION STATUS-patient will be admitted to inpatient status, expect at least a 2 night hospital stay for evaluation and management of problems as outlined above. At the time of this admission I do not reasonably expected evaluation and management of this problem will require more than a 96 hour hospital stay. DISPOSITION-anticipate discharge to home after the hospital stay. - Mortality Measure Prognosis:: Good
[2021-04-29] MEDS ORDERED: Sodium Chloride 0.9% 10 ML Syringe FLUSH PRN (11:12)
[2021-04-29] MEDS ORDERED: Polyethylene Glycol 3350 Powder 17 GM Packet PO PRN (11:12)
[2021-04-29] MEDS ORDERED: Ondansetron 4 MG/2 ML SDV IV PRN (11:12)
[2021-04-29] MEDS ORDERED: Non-Formulary Medication 1 Each (Esomeprazole [Nexium] 40 MG Cap) PO PRN (11:12)
[2021-04-29] MEDS ORDERED: Sodium Chloride 0.9% 10 ML Syringe FLUSH ONE (11:14)
[2021-04-29] MEDS ORDERED: Sodium Chloride 0.9% 100 ML IV SCH (11:15)
[2021-04-29] MEDS ORDERED: Iopamidol 755 Mg/ML 100 ML Bottle IV SCH (11:15)
--- NOTE | 2021-04-29 12:06 | CR ---
Knee 3V Bi CLINICAL HISTORY: Bilateral knee pain FINDINGS: Right: There is mild joint space narrowing. There is meniscal calcification. There is periarticular patellar spurring. There is a joint effusion Left: There is meniscal calcification. Joint spaces are fairly well-maintained. There is also calcification along the undersurface of the quadriceps tendon which may be within the synovium. There is a joint effusion IMPRESSION: No fracture or dislocation Osteoarthritic changes right greater than left Bilateral meniscal calcification and left synovial calcification with bilateral joint effusion this may represent pseudogout
--- NOTE | 2021-04-29 12:21 | CT ---
Ang Chest CLINICAL HISTORY: Oxygen dependent COPD, worsening hypoxia TECHNIQUE: Thin section axial contiguous tomographic sections were taken through the chest after bolus IV iodinated contrast administration. Coronal and sagittal images were reconstructed. Prescribed dose FINDINGS: There is chronic platelike atelectasis in the right upper lobe. This is similar to the study from September 2019. This is associated with more proximal right upper lobe bronchial thickening. This appearance is also unchanged compared to prior study. There is a 5 x 9 mm lobulated nodule within the left upper lobe which is unchanged since the prior study. Lungs are generally hyperaerated. There is no mediastinal mass or lymphadenopathy. There is no evidence of pulmonary embolus. Aorta is free of aneurysm or dissection. There are no pleural effusions. IMPRESSION: No evidence of pulmonary embolus Emphysematous changes Chronic stable platelike atelectasis right upper lobe Stable irregular shaped nodule in the left upper lobe when compared to September 2019
[2021-04-29] MEDS: Pantoprazole 40 MG Vial IVPUSH SCH ×2 (13:20→23:29)
[2021-04-29] MEDS: Diltiazem 180 MG Cap.CD PO SCH (13:45)
[2021-04-29] MEDS: Albuterol/Ipratropium 3.0-0.5 MG/3 ML Neb Soln NEB SCH ×2 (14:29→21:25)
--- NOTE | 2021-04-29 15:03 | PCM.CONS ---
H&P History of Present Illness - General Date of Service: 04/29/21 Admit Problem/Dx: Admission Diagnosis/Problem Admission Diagnosis/Problem Hypoxia knee,effusions Source of Information: Patient History Limitations: Reports: No Limitations - History of Present Illness Initial Comments - Free Text/Narative: Asked to see 76 year male with a several day history of increasing knee pain. Reports that the right knee started with swelling and pain 3-4 days ago and got progressively worse to the point that he could not weight bear. The left knee started to hurt more this morning and swelling started as well but not as bad as his right. With both knees being painful he was unable to stand or walk. He denies recent injury, has not had fevers or chills. History of arthritis in both knees. He is admitted for severe anemia and hypoxia. Onset of Symptoms: Reports: Gradual Duration of Symptoms: Reports: Day(s): (2) Location: Reports: Lower Extremity, Left, Lower Extremity, Right Quality: Reports: Ache, Pressure Severity: Severe Improves with: Reports: Immobilization Worsens with: Reports: Movement Bilateral Knee Pain Score (Numeric/FACES): 4 - Related Data Allergies/Adverse Reactions: Allergies Allergy/AdvReac Type Severity Reaction Status Date / Time simvastatin AdvReac Joint Pain Verified 04/29/21 09:02 Home Medications: Home Meds Esomeprazole [NexIUM] 40 mg PO DAILY PRN 04/13/13 [History] dilTIAZem HCL [Cartia Xt] 180 mg PO DAILY 04/09/15 [History] Albuterol [Proair HFA] 2 puff IH QID 10/27/16 [History] Erythromycin Base [Omar-Tab] 250 mg PO DAILY 10/27/16 [History] Furosemide [Lasix] 40 mg PO DAILY 10/27/16 [History] Terazosin HCl [Terazosin] 2 mg PO BEDTIME 10/27/16 [History] Fluticasone/Vilanterol [Breo Ellipta 100-25 MCG Inhalation Kit] 1 each IH DAILY 04/29/21 [History] Past Medical History Cardiovascular History: Reports: CAD, Heart Failure, [place] Respiratory History: Reports: COPD, Other (See Below) Other Respiratory History: cor polmunal Gastrointestinal History: Reports: GERD Dermatologic History: Reports: Other (See Below) Other Dermatologic History: keratosis - Infectious Disease History Infectious Disease History: Reports: Chicken Pox, Measles, Mumps Social & Family History - Family History Cardiac: Reports: CAD - Tobacco Use Tobacco Use Status *Q: Former Tobacco User Years of Tobacco use: 60 Used Tobacco, but Quit: Yes Month/Year Tobacco Last Used: 5 years - Caffeine Use Caffeine Use: Reports: Coffee H&P Review of Systems - Review of Systems: Review Of Systems: See Below General: Reports: Weakness Pulmonary: Reports: Shortness of Breath Musculoskeletal: Reports: Joint Swelling Exam - Exam Exam: See Below - Vital Signs Vital Signs: Last Vital Signs Temp 36.7 C 04/29/21 14:32 Pulse 84 04/29/21 14:32 Resp 18 04/29/21 14:32 BP 169/64 H 04/29/21 14:32 Pulse Ox 92 L 04/29/21 13:06 Weight: 103.419 kg - Exam General: Alert, Oriented, Cooperative Extremities: Joint Swelling (Large effusion right knee, small effusion left knee), Limited Range of Motion Neuro Extensive - Mental Status: Alert, Oriented x3, Normal Mood/Affect, Normal Cognition, Memory Intact Physical Exam Comments:: Pain with ROM of both knees right worse than left, unable to fully extend either knee with right knee ROM 20-85 degrees and left knee 8-95 degrees, right knee mildly warm to touch, no erythema - Patient Data Lab Results Last 24 hrs: Laboratory Results - last 24 hr 04/29/21 04/29/21 04/29/21 Range/Units 08:30 08:32 08:32 WBC 17.5 H (4.5-11.0) K/uL RBC 2.20 L (4.30-5.90) M/uL Hgb 6.3 L* D (12.0-15.0) g/dL Hct 21.6 L (40.0-54.0) % MCV 98 (80-98) fL MCH 29 (27-31) pg MCHC 29 L (32-36) % Plt Count 278 (150-400) K/uL Add Manual Diff Yes Neutrophils % (Manual) 79 H (36-66) % Lymphocytes % (Manual) 8 L (24-44) % Monocytes % (Manual) 8 H (2-6) % Blast Cells % 5 % Sodium 142 (140-148) mmol/L Potassium 4.0 (3.6-5.2) mmol/L Chloride 103 (100-108) mmol/L Carbon Dioxide 31 (21-32) mmol/L Anion Gap 7.6 (5.0-14.0) mmol/L BUN 24 H (7-18) mg/dL Creatinine 1.1 (0.8-1.3) mg/dL Est Cr Clr Drug Dosing 54.41 mL/min Estimated GFR (MDRD) > 60 (>60) Glucose 130 H (74-106) mg/dL Calcium 8.6 (8.5-10.1) mg/dL Total Bilirubin 0.6 (0.2-1.0) mg/dL AST 25 (15-37) U/L ALT 34 (12-78) U/L Alkaline Phosphatase 115 (46-116) U/L Troponin I High Sens 15.1 (<=60.3) pg/mL Total Protein 7.1 (6.4-8.2) g/dL Albumin 3.3 L (3.4-5.0) g/dL Globulin 3.8 H (2.3-3.5) g/dL Albumin/Globulin Ratio 0.9 L (1.2-2.2) Procalcitonin 0.15 ng/mL Influenza Type A RNA (NEGATIVE) RSV RNA (INAAT) (NEGATIVE) Influenza Type B RNA (NEGATIVE) SARS-CoV-2 RNA (KAYLIN) (NEGATIVE) Blood Type Gel Antibody Screen Crossmatch 04/29/21 04/29/21 Range/Units 08:47 09:02 WBC (4.5-11.0) K/uL RBC (4.30-5.90) M/uL Hgb (12.0-15.0) g/dL Hct (40.0-54.0) % MCV (80-98) fL MCH (27-31) pg MCHC (32-36) % Plt Count (150-400) K/uL Add Manual Diff Neutrophils % (Manual) (36-66) % Lymphocytes % (Manual) (24-44) % Monocytes % (Manual) (2-6) % Blast Cells % % Sodium (140-148) mmol/L Potassium (3.6-5.2) mmol/L Chloride (100-108) mmol/L Carbon Dioxide (21-32) mmol/L Anion Gap (5.0-14.0) mmol/L BUN (7-18) mg/dL Creatinine (0.8-1.3) mg/dL Est Cr Clr Drug Dosing mL/min Estimated GFR (MDRD) (>60) Glucose (74-106) mg/dL Calcium (8.5-10.1) mg/dL Total Bilirubin (0.2-1.0) mg/dL AST (15-37) U/L ALT (12-78) U/L Alkaline Phosphatase (46-116) U/L Troponin I High Sens (<=60.3) pg/mL Total Protein (6.4-8.2) g/dL Albumin (3.4-5.0) g/dL Globulin (2.3-3.5) g/dL Albumin/Globulin Ratio (1.2-2.2) Procalcitonin ng/mL Influenza Type A RNA Negative (NEGATIVE) RSV RNA (INAAT) Negative (NEGATIVE) Influenza Type B RNA Negative (NEGATIVE) SARS-CoV-2 RNA (KAYLIN) Negative (NEGATIVE) Blood Type O POSITIVE Gel Antibody Screen Negative Crossmatch See Detail Result Diagrams: 04/29/21 08:32 04/29/21 08:32 Sepsis Event Note - Evaluation Sepsis Screening Result: Possible Sepsis Risk - Focused Exam Vital Signs: Vital Signs Temp Temp Pulse Resp BP Pulse Ox 04/29/21 14:32 36.7 C 84 18 169/64 H 04/29/21 14:12 36.6 C 89 18 162/67 H 04/29/21 13:57 36.7 C 89 18 147/51 H 04/29/21 13:43 36.7 C 87 18 157/58 H 04/29/21 13:06 92 L 04/29/21 13:05 36.6 C 90 18 143/51 H 04/29/21 13:01 36.6 C 85 18 143/51 H 04/29/21 12:30 36.4 C 79 18 150/54 H 04/29/21 12:09 36.7 C 91 20 142/82 H 04/29/21 12:06 36.7 C 95 20 142/82 H 93 L 04/29/21 11:30 36.8 C 84 22 H 141/66 H 04/29/21 11:16 36.8 C 86 16 137/62 04/29/21 11:00 36.8 C 89 22 H 142/61 H 04/29/21 10:45 36.8 C 88 20 161/55 H 04/29/21 10:25 36.3 C 89 22 H 155/34 H 04/29/21 08:57 90 22 H 137/57 L 92 L 04/29/21 08:30 93 22 H 90/42 L 92 L 04/29/21 07:55 36.5 C 90 28 H 99 *Q Meaningful Use (ADM) - VTE *Q VTE Pharmacological Contraindications *Q: Active Hemorrhage Consult PN Assessment/Plan Procedures: Procedures AIRWAY INHALATION TREATMENT (10/27/16) ASSAY OF LACTIC ACID (10/27/16) ASSAY OF MAGNESIUM (10/27/16) ASSAY OF NATRIURETIC PEPTIDE (10/27/16) ASSAY OF TROPONIN QUANT (10/27/16) BLOOD GASES ANY COMBINATION (10/27/16) BREATHING CAPACITY TEST (04/23/13) C-REACTIVE PROTEIN (10/27/16) CARDIOVASCULAR STRESS TEST (04/10/15) CHEST X-RAY 1 VIEW FRONTAL (10/27/16) COLONOSCOPY AND BIOPSY (01/30/14) COLONOSCOPY W/LESION REMOVAL (01/30/14) COMPLETE CBC AUTOMATED (10/27/16) COMPLETE CBC W/AUTO DIFF WBC (10/27/16) COMPREHEN METABOLIC PANEL (10/27/16) CT ABD & PELV W/CONTRAST (07/30/20) CT THORAX DX C- (10/05/19) CULTURE OTHR SPECIMN AEROBIC (10/27/16) CULTURE SCREEN ONLY (01/30/14) EGD BIOPSY SINGLE/MULTIPLE (01/30/14) ELECTROCARDIOGRAM TRACING (10/27/16) EMERGENCY DEPT VISIT (10/27/16) EVALUATE PT USE OF INHALER (10/27/16) EXTRACRANIAL BILAT STUDY (09/18/13) EXTREMITY STUDY (03/19/14) GAIT TRAINING THERAPY (10/27/16) HT MUSCLE IMAGE SPECT MULT (04/10/15) HYDRATE IV INFUSION ADD-ON (10/27/16) METABOLIC PANEL TOTAL CA (10/27/16) MRI BRAIN STEM W/O DYE (07/21/18) PT EVAL LOW COMPLEX 20 MIN (10/27/16) ROUTINE VENIPUNCTURE (10/27/16) SMEAR GRAM STAIN (10/27/16) THER/PROPH/DIAG IV INF INIT (10/27/16) THROMBOPLASTIN TIME PARTIAL (10/27/16) TTE W/DOPPLER COMPLETE (10/09/19) TX/PRO/DX INJ NEW DRUG ADDON (10/27/16) UPR/L XTREMITY ART 2 LEVELS (03/20/14) US EXAM ABDO BACK WALL COMP (05/01/13) WITHDRAWAL OF ARTERIAL BLOOD (10/27/16) (1) Bilateral knee effusions SNOMED Code(s): 62774817096496912 Code(s): M25.461 - EFFUSION, RIGHT KNEE; M25.462 - EFFUSION, LEFT KNEE Current Visit: Yes (2) Osteoarthritis, knee SNOMED Code(s): 321681934 Code(s): M17.10 - UNILATERAL PRIMARY OSTEOARTHRITIS, UNSPECIFIED KNEE Current Visit: Yes Qualifiers: Osteoarthritis type: primary Laterality: bilateral Qualified Code(s): M17.0 - Bilateral primary osteoarthritis of knee (3) Chondrocalcinosis SNOMED Code(s): 411633319 Code(s): M11.20 - OTHER CHONDROCALCINOSIS, UNSPECIFIED SITE Current Visit: Yes Comment: Bilateral knees Problem List Initiated/Reviewed/Updated: Yes My Orders Last 24 Hours: My Active Orders 04/29/21 14:27 CELL COUNT,BODY FLUID [BF] Routine CRYSTAL,SYNOVIAL/JOINT FL Routine CULTURE BODY FLUID + SMEAR [RM] Routine Plan: IMP: Osteoarthritis bilateral knee with chondrocalcinosis. Probable pseudogout. Right knee aspirated for approx 45cc slightly cloudy yellow synovial fluid consistent with inflammation. Fluid sent for Gm. Stain and culture, cell count and crystal analysis. Suspicion for infection is low given the appearance of the fluid. Both knee injected with 2cc of Celestone and 3cc Marcaine. Will follow up on lab results and clinical response to cortisone. Anticipate significant improvement in 2 days.
[2021-04-29] MEDS: Acetaminophen 325 MG Tab PO PRN (15:19)
[2021-04-29] MEDS: methylPREDNISolone Sodium Succinate 40 MG/1 ML SDV IVPUSH SCH ×2 (16:03→23:29)
[2021-04-29] MEDS ORDERED: TERAZOSIN HCL 2 MG PO SCH (21:00)
[2021-04-29] MEDS: Formoterol/Mometasone 200-5 MCG 8.8 GM Inhaler IH SCH (21:18)
[2021-04-29] MEDS: Terazosin 1 MG Cap PO SCH (21:24)
[2021-04-30] MEDS: Albuterol/Ipratropium 3.0-0.5 MG/3 ML Neb Soln NEB SCH ×4 (06:59→20:28)
[2021-04-30] MEDS: Formoterol/Mometasone 200-5 MCG 8.8 GM Inhaler IH SCH ×2 (06:59→20:52)
[2021-04-30] MEDS: methylPREDNISolone Sodium Succinate 40 MG/1 ML SDV IVPUSH SCH ×2 (08:09→15:34)
[2021-04-30] MEDS: Furosemide 40 MG Tab PO SCH (08:13)
[2021-04-30] MEDS: Diltiazem 180 MG Cap.CD PO SCH (08:13)
[2021-04-30] MEDS: Acetaminophen 325 MG Tab PO PRN (08:19)
[2021-04-30] MEDS ORDERED: Non-Formulary Medication 1 Each (Fluticasone/Vilanterol 1 EACH Each) IH SCH (09:00)
[2021-04-30] MEDS ORDERED: Diltiazem 180 MG Cap.CD PO SCH (09:00)
[2021-04-30] MEDS: Pantoprazole 40 MG Vial IVPUSH SCH (10:56)
--- NOTE | 2021-04-30 14:32 | PCM.CONSN ---
- General Info Date of Service: 04/30/21 Admission Dx/Problem (Free Text): Admission Diagnosis/Problem Admission Diagnosis/Problem Hypoxia knee,effusions Functional Status: Reports: Pain Controlled, Tolerating Diet, Ambulating (with FWW ), Urinating - Review of Systems General: Denies: Fever, Chills Musculoskeletal: Reports: Joint Pain (bilateral knees, R>L ), Joint Swelling (R knee, reduced from day prior ) Skin: Reports: No Symptoms - Patient Data Vitals - Most Recent: Last Vital Signs Temp 97.3 F 04/30/21 10:52 Pulse 78 04/30/21 11:17 Resp 18 04/30/21 10:52 BP 123/60 04/30/21 10:52 Pulse Ox 93 L 04/30/21 10:52 Weight - Most Recent: 228 lb I&O - Last 24 Hours: Intake & Output 04/29/21 04/30/21 04/30/21 22:59 06:59 14:59 Intake Total 728 540 850 Output Total 700 Balance 28 540 850 Lab Results Last 24 Hours: Laboratory Results - last 24 hr 04/29/21 04/29/21 04/29/21 Range/Units 09:02 14:27 16:50 WBC (4.5-11.0) K/uL RBC (4.30-5.90) M/uL Hgb 8.0 L (12.0-15.0) g/dL Hct (40.0-54.0) % MCV (80-98) fL MCH (27-31) pg MCHC (32-36) % Plt Count (150-400) K/uL Neut % (Auto) (36-66) % Lymph % (Auto) (24-44) % [place] % (Auto) (2-6) % Eos % (Auto) (2-4) % Baso % (Auto) (0-1) % ESR (0-20) mm/hr Sodium (140-148) mmol/L Potassium (3.6-5.2) mmol/L Chloride (100-108) mmol/L Carbon Dioxide (21-32) mmol/L Anion Gap (5.0-14.0) mmol/L BUN (7-18) mg/dL Creatinine (0.8-1.3) mg/dL Est Cr Clr Drug Dosing mL/min Estimated GFR (MDRD) (>60) Glucose (74-106) mg/dL Calcium (8.5-10.1) mg/dL Magnesium (1.8-2.4) mg/dL Total Bilirubin (0.2-1.0) mg/dL AST (15-37) U/L ALT (12-78) U/L Alkaline Phosphatase (46-116) U/L C-Reactive Protein (0.0-0.3) mg/dL Total Protein (6.4-8.2) g/dL Albumin (3.4-5.0) g/dL Globulin (2.3-3.5) g/dL Albumin/Globulin Ratio (1.2-2.2) Urine Color (YELLOW) Urine Appearance (CLEAR) Urine pH (5.0-8.0) Ur Specific [place] (1.008-1.030) Urine Protein (NEGATIVE) mg/dL Urine Glucose (UA) (NEGATIVE) mg/dL Urine Ketones (NEGATIVE) mg/dL Urine Occult Blood (NEGATIVE) Urine Nitrite (NEGATIVE) Urine Bilirubin (NEGATIVE) Urine Urobilinogen (0.2-1.0) EU/dL Ur Leukocyte Esterase (NEGATIVE) Urine RBC (0-5) Urine WBC (0-5) Ur Epithelial Cells Amorphous Sediment Urine Bacteria Urine Mucus Fluid Type Synovial fluid Fluid WBC 5085 /ul Fluid RBC 355 /ul Fluid Diff Comment Fluid Mononuclear Cell 22 % Fl Polymorphonucl Cell 78 % Blood Type O POSITIVE Gel Antibody Screen Negative Crossmatch See Detail 04/29/21 04/29/21 04/30/21 Range/Units 18:31 23:10 06:47 WBC 8.9 (4.5-11.0) K/uL RBC 2.97 L (4.30-5.90) M/uL Hgb 7.3 L 8.6 L (12.0-15.0) g/dL Hct 27.9 L (40.0-54.0) % MCV 94 (80-98) fL MCH 29 (27-31) pg MCHC 31 L (32-36) % Plt Count 240 (150-400) K/uL Neut % (Auto) 88.9 H (36-66) % Lymph % (Auto) 5.4 L (24-44) % [place] % (Auto) 5.7 (2-6) % Eos % (Auto) 0.0 L (2-4) % Baso % (Auto) 0.0 (0-1) % ESR 91 H (0-20) mm/hr Sodium (140-148) mmol/L Potassium (3.6-5.2) mmol/L Chloride (100-108) mmol/L Carbon Dioxide (21-32) mmol/L Anion Gap (5.0-14.0) mmol/L BUN (7-18) mg/dL Creatinine (0.8-1.3) mg/dL Est Cr Clr Drug Dosing mL/min Estimated GFR (MDRD) (>60) Glucose (74-106) mg/dL Calcium (8.5-10.1) mg/dL Magnesium (1.8-2.4) mg/dL Total Bilirubin (0.2-1.0) mg/dL AST (15-37) U/L ALT (12-78) U/L Alkaline Phosphatase (46-116) U/L C-Reactive Protein (0.0-0.3) mg/dL Total Protein (6.4-8.2) g/dL Albumin (3.4-5.0) g/dL Globulin (2.3-3.5) g/dL Albumin/Globulin Ratio (1.2-2.2) Urine Color Yellow (YELLOW) Urine Appearance Clear (CLEAR) Urine pH 5.5 (5.0-8.0) Ur Specific [place] 1.015 (1.008-1.030) Urine Protein Trace H (NEGATIVE) mg/dL Urine Glucose (UA) Negative (NEGATIVE) mg/dL Urine Ketones Trace H (NEGATIVE) mg/dL Urine Occult Blood Negative (NEGATIVE) Urine Nitrite Negative (NEGATIVE) Urine Bilirubin Negative (NEGATIVE) Urine Urobilinogen 1.0 (0.2-1.0) EU/dL Ur Leukocyte Esterase Negative (NEGATIVE) Urine RBC 0-5 (0-5) Urine WBC 0-5 (0-5) Ur Epithelial Cells Rare Amorphous Sediment Not seen Urine Bacteria Few Urine Mucus Not seen Fluid Type Fluid WBC /ul Fluid RBC /ul Fluid Diff Comment Fluid Mononuclear Cell % Fl Polymorphonucl Cell % Blood Type Gel Antibody Screen Crossmatch 04/30/21 Range/Units 06:47 WBC (4.5-11.0) K/uL RBC (4.30-5.90) M/uL Hgb (12.0-15.0) g/dL Hct (40.0-54.0) % MCV (80-98) fL MCH (27-31) pg MCHC (32-36) % Plt Count (150-400) K/uL Neut % (Auto) (36-66) % Lymph % (Auto) (24-44) % [place] % (Auto) (2-6) % Eos % (Auto) (2-4) % Baso % (Auto) (0-1) % ESR (0-20) mm/hr Sodium 144 (140-148) mmol/L Potassium 4.0 (3.6-5.2) mmol/L Chloride 104 (100-108) mmol/L Carbon Dioxide 32 (21-32) mmol/L Anion Gap 7.9 (5.0-14.0) mmol/L BUN 28 H (7-18) mg/dL Creatinine 1.2 (0.8-1.3) mg/dL Est Cr Clr Drug Dosing 49.88 mL/min Estimated GFR (MDRD) 59 L (>60) Glucose 176 H (74-106) mg/dL Calcium 8.2 L (8.5-10.1) mg/dL Magnesium 2.8 H (1.8-2.4) mg/dL Total Bilirubin 0.4 (0.2-1.0) mg/dL AST 24 (15-37) U/L ALT 32 (12-78) U/L Alkaline Phosphatase 103 (46-116) U/L C-Reactive Protein 24.39 H (0.0-0.3) mg/dL Total Protein 6.5 (6.4-8.2) g/dL Albumin 2.8 L (3.4-5.0) g/dL Globulin 3.7 H (2.3-3.5) g/dL Albumin/Globulin Ratio 0.8 L (1.2-2.2) Urine Color (YELLOW) Urine Appearance (CLEAR) Urine pH (5.0-8.0) Ur Specific [place] (1.008-1.030) Urine Protein (NEGATIVE) mg/dL Urine Glucose (UA) (NEGATIVE) mg/dL Urine Ketones (NEGATIVE) mg/dL Urine Occult Blood (NEGATIVE) Urine Nitrite (NEGATIVE) Urine Bilirubin (NEGATIVE) Urine Urobilinogen (0.2-1.0) EU/dL Ur Leukocyte Esterase (NEGATIVE) Urine RBC (0-5) Urine WBC (0-5) Ur Epithelial Cells Amorphous Sediment Urine Bacteria Urine Mucus Fluid Type Fluid WBC /ul Fluid RBC /ul Fluid Diff Comment Fluid Mononuclear Cell % Fl Polymorphonucl Cell % Blood Type Gel Antibody Screen Crossmatch [place] Results Last 24 Hours: Microbiology 04/29/21 13:10 Aerobic Blood Culture - Preliminary Blood - Venous - Lab Draw NO GROWTH AFTER 1 DAY Anaerobic Blood Culture - Preliminary NO GROWTH AFTER 1 DAY 04/29/21 13:00 Aerobic Blood Culture - Preliminary Blood - Arm, Right NO GROWTH AFTER 1 DAY Anaerobic Blood Culture - Preliminary NO GROWTH AFTER 1 DAY 04/29/21 14:27 Gram Stain - Final Joint / Synovial Fluid - Knee, Right Body Fluid Culture - Preliminary NO GROWTH AFTER 1 DAY Med Orders - Current: Current Medications Acetaminophen (Acetaminophen 325 Mg Tab) 650 mg PO Q4H PRN PRN Reason: Pain (Mild 1-3)/fever Last Admin: 04/30/21 08:19 Dose: 650 mg Documented by: Albuterol (Albuterol 0.083% 2.5 Mg/3 Ml Neb Soln) 2.5 mg NEB Q4H PRN PRN Reason: Shortness Of Breath/wheezing Albuterol/Ipratropium (Albuterol/Ipratropium 3.0-0.5 Mg/3 Ml Neb Soln) 3 ml NEB QIDRT [facility] Last Admin: 04/30/21 11:17 Dose: 3 ml Documented by: Diltiazem HCl (Diltiazem 180 Mg Cap.Cd) 180 mg PO DAILY [facility] Last Admin: 04/30/21 08:13 Dose: 180 mg Documented by: Furosemide (Furosemide 40 Mg Tab) 40 mg PO DAILY [facility] Last Admin: 04/30/21 08:13 Dose: 40 mg Documented by: Methylprednisolone Sodium Succinate (Methylprednisolone Sodium Succinate 40 Mg/1 Ml Sdv) 40 mg IVPUSH Q8H [facility] Last Admin: 04/30/21 08:09 Dose: 40 mg Documented by: Mometasone Furoate/Formoterol Fumar (Formoterol/Mometasone 200-5 Mcg 8.8 Gm Inhaler) 2 puff IH BIDRT [facility] Last Admin: 04/30/21 06:59 Dose: 2 puff Documented by: Ondansetron HCl (Ondansetron 4 Mg/2 Ml Sdv) 4 mg IV Q4H PRN PRN Reason: Nausea/Vomiting Pantoprazole Sodium (Pantoprazole 40 Mg Vial) 40 mg IVPUSH Q12H [facility] Last Admin: 04/30/21 10:56 Dose: 40 mg Documented by: Polyethylene Glycol (Polyethylene Glycol 3350 Powder 17 Gm Packet) 17 gm PO DAILY PRN PRN Reason: Constipation Sodium Chloride (Sodium Chloride 0.9% 10 Ml Syringe) 10 ml FLUSH ASDIRECTED PRN PRN Reason: Keep Vein Open Terazosin HCl (Terazosin 1 Mg Cap) 2 mg PO BEDTIME [facility] Last Admin: 04/29/21 21:24 Dose: 2 mg Documented by: Discontinued Medications Albuterol/Ipratropium (Albuterol/Ipratropium 3.0-0.5 Mg/3 Ml Neb Soln) 3 ml NEB ONETIME ONE Stop: 04/29/21 08:22 Last Admin: 04/29/21 08:38 Dose: 3 ml Documented by: Diltiazem HCl (Diltiazem 180 Mg Cap.Cd) 180 mg PO DAILY [facility] Sodium Chloride (Normal Saline) 100 mls @ 4 mls/sec IV ASDIRECTED [facility] Stop: 04/29/21 22:00 Last Admin: 04/29/21 11:51 Dose: 4 mls/sec Documented by: Iopamidol (Iopamidol 755 Mg/Ml 100 Ml Bottle) 100 ml IV . DIRECTED [facility] Stop: 04/29/21 20:00 Last Admin: 04/29/21 11:50 Dose: 77 ml Documented by: Methylprednisolone Sodium Succinate (Methylprednisolone Sodium Succinate 125 Mg/2 Ml Sdv) 125 mg IVPUSH ONETIME ONE Stop: 04/29/21 08:25 Last Admin: 04/29/21 08:39 Dose: 125 mg Documented by: Non-Formulary Medication (Esomeprazole [Nexium]) 40 mg PO DAILY PRN PRN Reason: Abdominal Pain Sodium Chloride (Sodium Chloride 0.9% 10 Ml Syringe) 10 ml FLUSH ONETIME ONE Stop: 04/29/21 11:15 Last Admin: 04/29/21 11:50 Dose: 10 ml Documented by: - Exam General: Alert, Oriented, Cooperative, No Acute Distress Extremities: Normal Capillary Refill, Joint Swelling (right knee, significantly reduced from day prior), Leg Pain (bilateral, R>L), Increased Warmth (mild warmth to right knee ), Other (R knee ROM: 5-85. L knee: 4-95.). No: Estrella's Sign Peripheral Pulses: 2+: Posterior Tibial (L), Posterior Tibial (R) Skin: Dry, Intact Sepsis Event Note - Evaluation Sepsis Screening Result: No Definite Risk - Focused Exam Vital Signs: Vital Signs Temp Temp Pulse Resp BP Pulse Ox 04/30/21 11:17 78 04/30/21 10:52 97.3 F 80 18 123/60 93 L 04/30/21 07:15 95 04/30/21 07:00 97.2 F 76 18 137/61 95 04/30/21 05:28 97.1 F 68 18 137/60 04/30/21 05:00 57 L 18 127/53 L 04/30/21 04:30 59 L 18 123/54 L 04/30/21 04:15 97 F 60 16 127/57 L 04/30/21 03:59 96.3 F L 65 18 136/56 L 04/30/21 03:45 97.0 F 66 18 132/59 L 04/30/21 03:30 97.1 F 77 16 140/50 L 04/30/21 03:00 74 18 140/50 L 92 L Consult PN Assessment/Plan Procedures: Procedures AIRWAY INHALATION TREATMENT (10/27/16) ASSAY OF LACTIC ACID (10/27/16) ASSAY OF MAGNESIUM (10/27/16) ASSAY OF NATRIURETIC PEPTIDE (10/27/16) ASSAY OF TROPONIN QUANT (10/27/16) BLOOD GASES ANY COMBINATION (10/27/16) BREATHING CAPACITY TEST (04/23/13) C-REACTIVE PROTEIN (10/27/16) CARDIOVASCULAR STRESS TEST (04/10/15) CHEST X-RAY 1 VIEW FRONTAL (10/27/16) COLONOSCOPY AND BIOPSY (01/30/14) COLONOSCOPY W/LESION REMOVAL (01/30/14) COMPLETE CBC AUTOMATED (10/27/16) COMPLETE CBC W/AUTO DIFF WBC (10/27/16) COMPREHEN METABOLIC PANEL (10/27/16) CT ABD & PELV W/CONTRAST (07/30/20) CT THORAX DX C- (10/05/19) CULTURE OTHR SPECIMN AEROBIC (10/27/16) CULTURE SCREEN ONLY (01/30/14) EGD BIOPSY SINGLE/MULTIPLE (01/30/14) ELECTROCARDIOGRAM TRACING (10/27/16) EMERGENCY DEPT VISIT (10/27/16) EVALUATE PT USE OF INHALER (10/27/16) EXTRACRANIAL BILAT STUDY (09/18/13) EXTREMITY STUDY (03/19/14) GAIT TRAINING THERAPY (10/27/16) HT MUSCLE IMAGE SPECT MULT (04/10/15) HYDRATE IV INFUSION ADD-ON (10/27/16) METABOLIC PANEL TOTAL CA (10/27/16) MRI BRAIN STEM W/O DYE (07/21/18) PT EVAL LOW COMPLEX 20 MIN (10/27/16) ROUTINE VENIPUNCTURE (10/27/16) SMEAR GRAM STAIN (10/27/16) THER/PROPH/DIAG IV INF INIT (10/27/16) THROMBOPLASTIN TIME PARTIAL (10/27/16) TTE W/DOPPLER COMPLETE (10/09/19) TX/PRO/DX INJ NEW DRUG ADDON (10/27/16) UPR/L XTREMITY ART 2 LEVELS (03/20/14) US EXAM ABDO BACK WALL COMP (05/01/13) WITHDRAWAL OF ARTERIAL BLOOD (10/27/16) (1) Chondrocalcinosis SNOMED Code(s): 441872546 Code(s): M11.20 - OTHER CHONDROCALCINOSIS, UNSPECIFIED SITE Current Visit: Yes Comment: Bilateral knees (2) Bilateral knee effusions SNOMED Code(s): 55551436498295969 Code(s): M25.461 - EFFUSION, RIGHT KNEE; M25.462 - EFFUSION, LEFT KNEE Current Visit: Yes Assessment:: Patient reports that bilateral knees feel significant improvement today, following right knee aspiration and bilateral knee cortisone injections day prior. Endorsed moderate ache in the right knee with weight bearing and ambulation, but is getting around with much less pain and difficulty than previous day. Swelling of right knee significantly reduced. Has been compliant with physical therapy services since time of admission. Preliminary right knee fluid aspiration results consistent with non-infectious etiology of effusion. Suspect that gram positive cocci on gram stain was a contaminant, as other synovial fluid results do not indicate infection. Awaiting final crystal analysis, anticipate this may take a few days, as this was sent to outside facility to read. Plan: * Hospitalist to continue medical management. * Patient may continue with PT services while in the hospital and progress functional mobility of bilateral LEs as able. * Will continue to monitor for symptomatic improvement in bilateral knees. * Will continue to monitor for final synovial fluid analysis. Problem List Initiated/Reviewed/Updated: Yes
[2021-04-30] MEDS ORDERED: Bisacodyl 5 MG Tab PO ONE ×2 (15:35→20:00)
--- NOTE | 2021-04-30 16:33 | PCM.PN ---
- General Info Date of Service: 04/30/21 Subjective Update: Mr. Cruz has required transfusion of 1 more unit of red blood cells this morning. He feels improved from admission and reports that his knee pain is significantly better following injections from Dr. Morrell. He has had intermittent episodes of hypoxia but overall his respiratory status has been fairly stable and he has had no further episodes of hypotension. Functional Status: Reports: Tolerating Diet, Urinating - Review of Systems General: Reports: Weakness, Fatigue. Denies: Fever, Chills Pulmonary: Reports: Shortness of Breath. Denies: Pleuritic Chest Pain, Cough, Sputum, Hemoptysis, Wheezing Cardiovascular: Reports: Dyspnea on Exertion. Denies: Chest Pain, Palpitations, Orthopnea, PND, Edema, Lightheadedness Gastrointestinal: Reports: No Symptoms Genitourinary: Reports: No Symptoms Musculoskeletal: Reports: Joint Pain - Patient Data Vitals - Most Recent: Last Vital Signs Temp 96.7 F L 04/30/21 15:37 Pulse 79 04/30/21 15:37 Resp 12 04/30/21 15:37 BP 127/40 L 04/30/21 15:37 Pulse Ox 94 L 04/30/21 15:37 Weight - Most Recent: 228 lb I&O - Last 24 Hours: Intake & Output 04/30/21 04/30/21 04/30/21 06:59 14:59 22:59 Intake Total 540 850 Balance 540 850 Lab Results Last 24 Hours: Laboratory Results - last 24 hr 04/29/21 04/29/21 04/29/21 Range/Units 09:02 14:27 16:50 WBC (4.5-11.0) K/uL RBC (4.30-5.90) M/uL Hgb 8.0 L (12.0-15.0) g/dL Hct (40.0-54.0) % MCV (80-98) fL MCH (27-31) pg MCHC (32-36) % Plt Count (150-400) K/uL Neut % (Auto) (36-66) % Lymph % (Auto) (24-44) % [place] % (Auto) (2-6) % Eos % (Auto) (2-4) % Baso % (Auto) (0-1) % ESR (0-20) mm/hr Sodium (140-148) mmol/L Potassium (3.6-5.2) mmol/L Chloride (100-108) mmol/L Carbon Dioxide (21-32) mmol/L Anion Gap (5.0-14.0) mmol/L BUN (7-18) mg/dL Creatinine (0.8-1.3) mg/dL Est Cr Clr Drug Dosing mL/min Estimated GFR (MDRD) (>60) Glucose (74-106) mg/dL Calcium (8.5-10.1) mg/dL Magnesium (1.8-2.4) mg/dL Total Bilirubin (0.2-1.0) mg/dL AST (15-37) U/L ALT (12-78) U/L Alkaline Phosphatase (46-116) U/L C-Reactive Protein (0.0-0.3) mg/dL Total Protein (6.4-8.2) g/dL Albumin (3.4-5.0) g/dL Globulin (2.3-3.5) g/dL Albumin/Globulin Ratio (1.2-2.2) Urine Color (YELLOW) Urine Appearance (CLEAR) Urine pH (5.0-8.0) Ur Specific [place] (1.008-1.030) Urine Protein (NEGATIVE) mg/dL Urine Glucose (UA) (NEGATIVE) mg/dL Urine Ketones (NEGATIVE) mg/dL Urine Occult Blood (NEGATIVE) Urine Nitrite (NEGATIVE) Urine Bilirubin (NEGATIVE) Urine Urobilinogen (0.2-1.0) EU/dL Ur Leukocyte Esterase (NEGATIVE) Urine RBC (0-5) Urine WBC (0-5) Ur Epithelial Cells Amorphous Sediment Urine Bacteria Urine Mucus Synovial Crystals Note: (None seen) Blood Type O POSITIVE Gel Antibody Screen Negative Crossmatch See Detail 04/29/21 04/29/21 04/30/21 Range/Units 18:31 23:10 06:47 WBC 8.9 (4.5-11.0) K/uL RBC 2.97 L (4.30-5.90) M/uL Hgb 7.3 L 8.6 L (12.0-15.0) g/dL Hct 27.9 L (40.0-54.0) % MCV 94 (80-98) fL MCH 29 (27-31) pg MCHC 31 L (32-36) % Plt Count 240 (150-400) K/uL Neut % (Auto) 88.9 H (36-66) % Lymph % (Auto) 5.4 L (24-44) % [place] % (Auto) 5.7 (2-6) % Eos % (Auto) 0.0 L (2-4) % Baso % (Auto) 0.0 (0-1) % ESR 91 H (0-20) mm/hr Sodium (140-148) mmol/L Potassium (3.6-5.2) mmol/L Chloride (100-108) mmol/L Carbon Dioxide (21-32) mmol/L Anion Gap (5.0-14.0) mmol/L BUN (7-18) mg/dL Creatinine (0.8-1.3) mg/dL Est Cr Clr Drug Dosing mL/min Estimated GFR (MDRD) (>60) Glucose (74-106) mg/dL Calcium (8.5-10.1) mg/dL Magnesium (1.8-2.4) mg/dL Total Bilirubin (0.2-1.0) mg/dL AST (15-37) U/L ALT (12-78) U/L Alkaline Phosphatase (46-116) U/L C-Reactive Protein (0.0-0.3) mg/dL Total Protein (6.4-8.2) g/dL Albumin (3.4-5.0) g/dL Globulin (2.3-3.5) g/dL Albumin/Globulin Ratio (1.2-2.2) Urine Color Yellow (YELLOW) Urine Appearance Clear (CLEAR) Urine pH 5.5 (5.0-8.0) Ur Specific [place] 1.015 (1.008-1.030) Urine Protein Trace H (NEGATIVE) mg/dL Urine Glucose (UA) Negative (NEGATIVE) mg/dL Urine Ketones Trace H (NEGATIVE) mg/dL Urine Occult Blood Negative (NEGATIVE) Urine Nitrite Negative (NEGATIVE) Urine Bilirubin Negative (NEGATIVE) Urine Urobilinogen 1.0 (0.2-1.0) EU/dL Ur Leukocyte Esterase Negative (NEGATIVE) Urine RBC 0-5 (0-5) Urine WBC 0-5 (0-5) Ur Epithelial Cells Rare Amorphous Sediment Not seen Urine Bacteria Few Urine Mucus Not seen Synovial Crystals (None seen) Blood Type Gel Antibody Screen Crossmatch 04/30/21 Range/Units 06:47 WBC (4.5-11.0) K/uL RBC (4.30-5.90) M/uL Hgb (12.0-15.0) g/dL Hct (40.0-54.0) % MCV (80-98) fL MCH (27-31) pg MCHC (32-36) % Plt Count (150-400) K/uL Neut % (Auto) (36-66) % Lymph % (Auto) (24-44) % [place] % (Auto) (2-6) % Eos % (Auto) (2-4) % Baso % (Auto) (0-1) % ESR (0-20) mm/hr Sodium 144 (140-148) mmol/L Potassium 4.0 (3.6-5.2) mmol/L Chloride 104 (100-108) mmol/L Carbon Dioxide 32 (21-32) mmol/L Anion Gap 7.9 (5.0-14.0) mmol/L BUN 28 H (7-18) mg/dL Creatinine 1.2 (0.8-1.3) mg/dL Est Cr Clr Drug Dosing 49.88 mL/min Estimated GFR (MDRD) 59 L (>60) Glucose 176 H (74-106) mg/dL Calcium 8.2 L (8.5-10.1) mg/dL Magnesium 2.8 H (1.8-2.4) mg/dL Total Bilirubin 0.4 (0.2-1.0) mg/dL AST 24 (15-37) U/L ALT 32 (12-78) U/L Alkaline Phosphatase 103 (46-116) U/L C-Reactive Protein 24.39 H (0.0-0.3) mg/dL Total Protein 6.5 (6.4-8.2) g/dL Albumin 2.8 L (3.4-5.0) g/dL Globulin 3.7 H (2.3-3.5) g/dL Albumin/Globulin Ratio 0.8 L (1.2-2.2) Urine Color (YELLOW) Urine Appearance (CLEAR) Urine pH (5.0-8.0) Ur Specific [place] (1.008-1.030) Urine Protein (NEGATIVE) mg/dL Urine Glucose (UA) (NEGATIVE) mg/dL Urine Ketones (NEGATIVE) mg/dL Urine Occult Blood (NEGATIVE) Urine Nitrite (NEGATIVE) Urine Bilirubin (NEGATIVE) Urine Urobilinogen (0.2-1.0) EU/dL Ur Leukocyte Esterase (NEGATIVE) Urine RBC (0-5) Urine WBC (0-5) Ur Epithelial Cells Amorphous Sediment Urine Bacteria Urine Mucus Synovial Crystals (None seen) Blood Type Gel Antibody Screen Crossmatch [place] Results Last 24 Hours: Microbiology 04/29/21 13:10 Aerobic Blood Culture - Preliminary Blood - Venous - Lab Draw NO GROWTH AFTER 1 DAY Anaerobic Blood Culture - Preliminary NO GROWTH AFTER 1 DAY 04/29/21 13:00 Aerobic Blood Culture - Preliminary Blood - Arm, Right NO GROWTH AFTER 1 DAY Anaerobic Blood Culture - Preliminary NO GROWTH AFTER 1 DAY 04/29/21 14:27 Gram Stain - Final Joint / Synovial Fluid - Knee, Right Body Fluid Culture - Preliminary NO GROWTH AFTER 1 DAY Med Orders - Current: Current Medications Acetaminophen (Acetaminophen 325 Mg Tab) 650 mg PO Q4H PRN PRN Reason: Pain (Mild 1-3)/fever Last Admin: 04/30/21 08:19 Dose: 650 mg Documented by: Albuterol (Albuterol 0.083% 2.5 Mg/3 Ml Neb Soln) 2.5 mg NEB Q4H PRN PRN Reason: Shortness Of Breath/wheezing Albuterol/Ipratropium (Albuterol/Ipratropium 3.0-0.5 Mg/3 Ml Neb Soln) 3 ml NEB QIDRT [facility] Last Admin: 04/30/21 14:22 Dose: 3 ml Documented by: Bisacodyl (Bisacodyl 5 Mg Tab) 10 mg PO ONETIME ONE Stop: 04/30/21 20:01 Diltiazem HCl (Diltiazem 180 Mg Cap.Cd) 180 mg PO DAILY [facility] Last Admin: 04/30/21 08:13 Dose: 180 mg Documented by: Furosemide (Furosemide 40 Mg Tab) 40 mg PO DAILY [facility] Last Admin: 04/30/21 08:13 Dose: 40 mg Documented by: Sodium Chloride (Normal Saline) 1,000 mls @ 100 mls/hr IV ASDIRECTED [facility] Methylprednisolone Sodium Succinate (Methylprednisolone Sodium Succinate 40 Mg/1 Ml Sdv) 40 mg IVPUSH Q8H [facility] Last Admin: 04/30/21 15:34 Dose: 40 mg Documented by: Mometasone Furoate/Formoterol Fumar (Formoterol/Mometasone 200-5 Mcg 8.8 Gm Inhaler) 2 puff IH BIDRT [facility] Last Admin: 04/30/21 06:59 Dose: 2 puff Documented by: Ondansetron HCl (Ondansetron 4 Mg/2 Ml Sdv) 4 mg IV Q4H PRN PRN Reason: Nausea/Vomiting Pantoprazole Sodium (Pantoprazole 40 Mg Vial) 40 mg IVPUSH Q12H [facility] Last Admin: 04/30/21 10:56 Dose: 40 mg Documented by: Polyethylene Glycol (Polyethylene Glycol 3350 Powder 17 Gm Packet) 17 gm PO DAILY PRN PRN Reason: Constipation Polyethylene Glycol (Polyethylene Glycol 3350 Powder 238 Gm Bot) 238 gm PO ONETIME ONE Stop: 04/30/21 17:01 Sodium Chloride (Sodium Chloride 0.9% 10 Ml Syringe) 10 ml FLUSH ASDIRECTED PRN PRN Reason: Keep Vein Open Terazosin HCl (Terazosin 1 Mg Cap) 2 mg PO BEDTIME [facility] Last Admin: 04/29/21 21:24 Dose: 2 mg Documented by: Discontinued Medications Albuterol/Ipratropium (Albuterol/Ipratropium 3.0-0.5 Mg/3 Ml Neb Soln) 3 ml NEB ONETIME ONE Stop: 04/29/21 08:22 Last Admin: 04/29/21 08:38 Dose: 3 ml Documented by: Bisacodyl (Bisacodyl 5 Mg Tab) 10 mg PO ONETIME ONE Stop: 04/30/21 15:36 Last Admin: 04/30/21 16:03 Dose: 10 mg Documented by: Diltiazem HCl (Diltiazem 180 Mg Cap.Cd) 180 mg PO DAILY [facility] Sodium Chloride (Normal Saline) 100 mls @ 4 mls/sec IV ASDIRECTED [facility] Stop: 04/29/21 22:00 Last Admin: 04/29/21 11:51 Dose: 4 mls/sec Documented by: Iopamidol (Iopamidol 755 Mg/Ml 100 Ml Bottle) 100 ml IV . DIRECTED [facility] Stop: 04/29/21 20:00 Last Admin: 04/29/21 11:50 Dose: 77 ml Documented by: Methylprednisolone Sodium Succinate (Methylprednisolone Sodium Succinate 125 Mg/2 Ml Sdv) 125 mg IVPUSH ONETIME ONE Stop: 04/29/21 08:25 Last Admin: 04/29/21 08:39 Dose: 125 mg Documented by: Non-Formulary Medication (Esomeprazole [Nexium]) 40 mg PO DAILY PRN PRN Reason: Abdominal Pain Sodium Chloride (Sodium Chloride 0.9% 10 Ml Syringe) 10 ml FLUSH ONETIME ONE Stop: 04/29/21 11:15 Last Admin: 04/29/21 11:50 Dose: 10 ml Documented by: - Exam Quality Assessment: Supplemental Oxygen, DVT Prophylaxis General: Alert, Oriented, Cooperative, Mild Distress Lungs: Clear to Auscultation, Normal Respiratory Effort Cardiovascular: Regular Rate, Regular Rhythm, No Murmurs GI/Abdominal Exam: Soft, Non-Tender, No Organomegaly, No Distention Extremities: Pedal Edema - Patient Data Lab Results Last 24 hrs: Laboratory Results - last 24 hr 04/29/21 04/29/21 04/29/21 Range/Units 09:02 14:27 16:50 WBC (4.5-11.0) K/uL RBC (4.30-5.90) M/uL Hgb 8.0 L (12.0-15.0) g/dL Hct (40.0-54.0) % MCV (80-98) fL MCH (27-31) pg MCHC (32-36) % Plt Count (150-400) K/uL Neut % (Auto) (36-66) % Lymph % (Auto) (24-44) % [place] % (Auto) (2-6) % Eos % (Auto) (2-4) % Baso % (Auto) (0-1) % ESR (0-20) mm/hr Sodium (140-148) mmol/L Potassium (3.6-5.2) mmol/L Chloride (100-108) mmol/L Carbon Dioxide (21-32) mmol/L Anion Gap (5.0-14.0) mmol/L BUN (7-18) mg/dL Creatinine (0.8-1.3) mg/dL Est Cr Clr Drug Dosing mL/min Estimated GFR (MDRD) (>60) Glucose (74-106) mg/dL Calcium (8.5-10.1) mg/dL Magnesium (1.8-2.4) mg/dL Total Bilirubin (0.2-1.0) mg/dL AST (15-37) U/L ALT (12-78) U/L Alkaline Phosphatase (46-116) U/L C-Reactive Protein (0.0-0.3) mg/dL Total Protein (6.4-8.2) g/dL Albumin (3.4-5.0) g/dL Globulin (2.3-3.5) g/dL Albumin/Globulin Ratio (1.2-2.2) Urine Color (YELLOW) Urine Appearance (CLEAR) Urine pH (5.0-8.0) Ur Specific [place] (1.008-1.030) Urine Protein (NEGATIVE) mg/dL Urine Glucose (UA) (NEGATIVE) mg/dL Urine Ketones (NEGATIVE) mg/dL Urine Occult Blood (NEGATIVE) Urine Nitrite (NEGATIVE) Urine Bilirubin (NEGATIVE) Urine Urobilinogen (0.2-1.0) EU/dL Ur Leukocyte Esterase (NEGATIVE) Urine RBC (0-5) Urine WBC (0-5) Ur Epithelial Cells Amorphous Sediment Urine Bacteria Urine Mucus Synovial Crystals Note: (None seen) Blood Type O POSITIVE Gel Antibody Screen Negative Crossmatch See Detail 04/29/21 04/29/21 04/30/21 Range/Units 18:31 23:10 06:47 WBC 8.9 (4.5-11.0) K/uL RBC 2.97 L (4.30-5.90) M/uL Hgb 7.3 L 8.6 L (12.0-15.0) g/dL Hct 27.9 L (40.0-54.0) % MCV 94 (80-98) fL MCH 29 (27-31) pg MCHC 31 L (32-36) % Plt Count 240 (150-400) K/uL Neut % (Auto) 88.9 H (36-66) % Lymph % (Auto) 5.4 L (24-44) % [place] % (Auto) 5.7 (2-6) % Eos % (Auto) 0.0 L (2-4) % Baso % (Auto) 0.0 (0-1) % ESR 91 H (0-20) mm/hr Sodium (140-148) mmol/L Potassium (3.6-5.2) mmol/L Chloride (100-108) mmol/L Carbon Dioxide (21-32) mmol/L Anion Gap (5.0-14.0) mmol/L BUN (7-18) mg/dL Creatinine (0.8-1.3) mg/dL Est Cr Clr Drug Dosing mL/min Estimated GFR (MDRD) (>60) Glucose (74-106) mg/dL Calcium (8.5-10.1) mg/dL Magnesium (1.8-2.4) mg/dL Total Bilirubin (0.2-1.0) mg/dL AST (15-37) U/L ALT (12-78) U/L Alkaline Phosphatase (46-116) U/L C-Reactive Protein (0.0-0.3) mg/dL Total Protein (6.4-8.2) g/dL Albumin (3.4-5.0) g/dL Globulin (2.3-3.5) g/dL Albumin/Globulin Ratio (1.2-2.2) Urine Color Yellow (YELLOW) Urine Appearance Clear (CLEAR) Urine pH 5.5 (5.0-8.0) Ur Specific [place] 1.015 (1.008-1.030) Urine Protein Trace H (NEGATIVE) mg/dL Urine Glucose (UA) Negative (NEGATIVE) mg/dL Urine Ketones Trace H (NEGATIVE) mg/dL Urine Occult Blood Negative (NEGATIVE) Urine Nitrite Negative (NEGATIVE) Urine Bilirubin Negative (NEGATIVE) Urine Urobilinogen 1.0 (0.2-1.0) EU/dL Ur Leukocyte Esterase Negative (NEGATIVE) Urine RBC 0-5 (0-5) Urine WBC 0-5 (0-5) Ur Epithelial Cells Rare Amorphous Sediment Not seen Urine Bacteria Few Urine Mucus Not seen Synovial Crystals (None seen) Blood Type Gel Antibody Screen Crossmatch 04/30/21 Range/Units 06:47 WBC (4.5-11.0) K/uL RBC (4.30-5.90) M/uL Hgb (12.0-15.0) g/dL Hct (40.0-54.0) % MCV (80-98) fL MCH (27-31) pg MCHC (32-36) % Plt Count (150-400) K/uL Neut % (Auto) (36-66) % Lymph % (Auto) (24-44) % [place] % (Auto) (2-6) % Eos % (Auto) (2-4) % Baso % (Auto) (0-1) % ESR (0-20) mm/hr Sodium 144 (140-148) mmol/L Potassium 4.0 (3.6-5.2) mmol/L Chloride 104 (100-108) mmol/L Carbon Dioxide 32 (21-32) mmol/L Anion Gap 7.9 (5.0-14.0) mmol/L BUN 28 H (7-18) mg/dL Creatinine 1.2 (0.8-1.3) mg/dL Est Cr Clr Drug Dosing 49.88 mL/min Estimated GFR (MDRD) 59 L (>60) Glucose 176 H (74-106) mg/dL Calcium 8.2 L (8.5-10.1) mg/dL Magnesium 2.8 H (1.8-2.4) mg/dL Total Bilirubin 0.4 (0.2-1.0) mg/dL AST 24 (15-37) U/L ALT 32 (12-78) U/L Alkaline Phosphatase 103 (46-116) U/L C-Reactive Protein 24.39 H (0.0-0.3) mg/dL Total Protein 6.5 (6.4-8.2) g/dL Albumin 2.8 L (3.4-5.0) g/dL Globulin 3.7 H (2.3-3.5) g/dL Albumin/Globulin Ratio 0.8 L (1.2-2.2) Urine Color (YELLOW) Urine Appearance (CLEAR) Urine pH (5.0-8.0) Ur Specific [place] (1.008-1.030) Urine Protein (NEGATIVE) mg/dL Urine Glucose (UA) (NEGATIVE) mg/dL Urine Ketones (NEGATIVE) mg/dL Urine Occult Blood (NEGATIVE) Urine Nitrite (NEGATIVE) Urine Bilirubin (NEGATIVE) Urine Urobilinogen (0.2-1.0) EU/dL Ur Leukocyte Esterase (NEGATIVE) Urine RBC (0-5) Urine WBC (0-5) Ur Epithelial Cells Amorphous Sediment Urine Bacteria Urine Mucus Synovial Crystals (None seen) Blood Type Gel Antibody Screen Crossmatch Result Diagrams: 04/30/21 06:47 04/30/21 06:47 Wallace Results Last 24 hrs: Microbiology 04/29/21 13:10 Aerobic Blood Culture - Preliminary Blood - Venous - Lab Draw NO GROWTH AFTER 1 DAY Anaerobic Blood Culture - Preliminary NO GROWTH AFTER 1 DAY 04/29/21 13:00 Aerobic Blood Culture - Preliminary Blood - Arm, Right NO GROWTH AFTER 1 DAY Anaerobic Blood Culture - Preliminary NO GROWTH AFTER 1 DAY 04/29/21 14:27 Gram Stain - Final Joint / Synovial Fluid - Knee, Right Body Fluid Culture - Preliminary NO GROWTH AFTER 1 DAY Sepsis Event Note - Evaluation Sepsis Screening Result: No Definite Risk - Focused Exam Vital Signs: Vital Signs Temp Temp Pulse Resp BP Pulse Ox 04/30/21 15:37 96.7 F L 79 12 127/40 L 94 L 04/30/21 14:22 76 04/30/21 11:17 78 04/30/21 10:52 97.3 F 80 18 123/60 93 L 04/30/21 07:15 95 04/30/21 07:00 97.2 F 76 18 137/61 95 04/30/21 05:28 97.1 F 68 18 137/60 04/30/21 05:00 57 L 18 127/53 L 04/30/21 04:30 59 L 18 123/54 L - Problem List Review Problem List Initiated/Reviewed/Updated: Yes - My Orders Last 24 Hours: My Active Orders 04/29/21 16:00 methylPREDNISolone Sod Succ [Solu-MEDROL] 40 mg IVPUSH Q8H 04/29/21 21:00 Mometasone/Formoterol [Dulera 200-5 MCG] 2 puff IH BIDRT Terazosin [Hytrin] 2 mg PO BEDTIME 04/30/21 01:47 Transfuse Red Blood Cells [COMM] Stat 04/30/21 08:00 Echo Comp wo Cont [US] Urgent 04/30/21 09:00 Furosemide [Lasix] 40 mg PO DAILY 04/30/21 Lunch Clear Liquid Diet [DIET] 04/30/21 15:23 Verify Patient Consent Obtain [RC] ASDIRECTED Schedule Procedure [COMM] Routine 04/30/21 16:22 Consult to Physician [CONS] Routine 04/30/21 16:23 Notify Provider Consults [RC] ASDIRECTED 04/30/21 17:00 polyethylene glycoL 3350 [MiraLAX] 238 gm PO ONETIME ONE 04/30/21 20:00 bisacodyL [Dulcolax] 10 mg PO ONETIME ONE 05/01/21 00:01 Sodium Chloride 0.9% @ 100 MLS/HR(1000ml) Sodium Chloride 0.9% [Normal Saline] 1,000 ml IV ASDIRECTED 05/01/21 Breakfast NPO After Midnight [Nothing per Oral After Midnight Diet] [DIET] - Plan Plan:: ASSESSMENT AND PLAN SEVERE ANEMIA-hemoglobin did drop again following transfusion of 2 units of red blood cells and he received 1/3 unit of RBCs this morning. Because of his underlying COPD and congestive heart failure we will have a goal hemoglobin of greater than 8. -Serial hemoglobin levels -Protonix 40 mg IV every 12 hours -Consult Dr. Dennison for EGD and colonoscopy in a.m. -Clear liquid diet, n.p.o. after midnight -1 day colonoscopy prep ACUTE ON CHRONIC HYPOXIC RESPIRATORY FAILURE-fairly stable since admission, adequate oxygenation at rest with his usual 2 L of oxygen per minute. CT angiogram of the chest showed no evidence of pulmonary emboli or pneumonia. -Supplemental oxygen to maintain saturations around 90% COPD EXACERBATION-most likely cause of increased hypoxia, he did improve following nebulizer treatment. Chest x-ray shows no obvious infiltrate. -Blood cultures x2 -Solu-Medrol 40 mg IV every 8 hours -Nebulizer therapy with DuoNeb's and albuterol CONGESTIVE HEART FAILURE-episode of hypotension after arriving in the emergency department, resolved spontaneously. No evidence of significant pulmonary edema noted on chest x-ray. Echocardiogram obtained this morning, results are pending -Continue outpatient medications including diuretic BILATERAL KNEE PAIN-improved following steroid injections in both knees -Orthopedic follow-up per Dr. Morrell MAINTENANCE ISSUES -DVT prophylaxis; SCUDs, will hold on anticoagulation because of severe anemia and possible bleeding -GI prophylaxis; Protonix as above -Avery catheter; not indicated -Nutrition; clear liquid diet, n.p.o. after midnight -Nicotine dependence; not required CODE STATUS-FULL CODE ADMISSION STATUS-patient will be admitted to inpatient status, expect at least a 2 night hospital stay for evaluation and management of problems as outlined above. At the time of this admission I do not reasonably expected evaluation and management of this problem will require more than a 96 hour hospital stay. DISPOSITION-anticipate discharge to home after the hospital stay.
[2021-04-30] MEDS ORDERED: Polyethylene Glycol 3350 Powder 238 GM Bot PO ONE (17:00)
[2021-04-30] MEDS: Terazosin 1 MG Cap PO SCH (20:26)
[2021-05-01] MEDS: Sodium Chloride 0.9% 1,000 ML IV SCH ×3 (00:02→23:48)
[2021-05-01] MEDS: Pantoprazole 40 MG Vial IVPUSH SCH ×2 (00:04→11:59)
[2021-05-01] MEDS: methylPREDNISolone Sodium Succinate 40 MG/1 ML SDV IVPUSH SCH ×4 (00:08→23:49)
[2021-05-01] MEDS: Formoterol/Mometasone 200-5 MCG 8.8 GM Inhaler IH SCH ×2 (07:01→20:49)
[2021-05-01] MEDS: Albuterol/Ipratropium 3.0-0.5 MG/3 ML Neb Soln NEB SCH ×4 (07:01→20:16)
[2021-05-01] MEDS: Furosemide 40 MG Tab PO SCH (08:46)
--- NOTE | 2021-05-01 09:09 | OR ---
DATE OF PROCEDURE: 05/01/2021 SURGEON: Fidencio Dennison MD PROCEDURE: Esophagogastroduodenoscopy. FINDINGS: 1. A plaque-like lesion on the gastroesophageal junction (biopsied using cold biopsy forceps). 2. No etiology for anemia. RISKS: Risks, benefits, alternatives, and limitations including, but not limited to, infection, bleeding, perforation, false positives, false negatives were explained to the patient and wished to proceed. PROCEDURE IN DETAIL: The patient was placed in left lateral decubitus position. The EGD scope was introduced and advanced atraumatically to the second part of the duodenum. No evidence of duodenitis or ulceration. No old or new blood. Within the stomach itself, there was no gastritis or ulceration. On retroflexion, there were no abnormalities noted. The patient had a white plaque-like lesion at the GE junction, which was biopsied using cold biopsy forceps. The air was removed from the stomach. The esophagus was inspected without abnormality. The patient tolerated the procedure well. Fidencio Dennison MD /[id number]
[2021-05-01] MEDS: Albuterol 0.083% 2.5 MG/3 ML Neb Soln NEB PRN (09:38)
[2021-05-01] MEDS: Diltiazem 180 MG Cap.CD PO SCH (09:38)
--- NOTE | 2021-05-01 10:06 | PCM.CONSN ---
- General Info Date of Service: 05/01/21 Admission Dx/Problem (Free Text): Admission Diagnosis/Problem Admission Diagnosis/Problem Hypoxia knee,effusions Subjective Update: Patient reports bilateral knees feel much better since an aspiration to right knee and bilateral knee injections were performed two days prior. Was ambulatory yesterday without significant discomfort in either knee. Endorsed mild medial- ache along right knee. Denied sensation of either knee buckling, catching, or giving way during ambulation. Functional Status: Reports: Pain Controlled, Ambulating (with FWW ) - Review of Systems Musculoskeletal: Reports: Leg Pain (bilateral ), Joint Pain (bilateral knees ), Joint Swelling (right ) Skin: Reports: Cyanosis. Denies: Bruising (no bruising or dermatologic concerns at either knee ) - Patient Data Vitals - Most Recent: Last Vital Signs Temp 97.3 F 05/01/21 08:05 Pulse 88 05/01/21 08:05 Resp 20 05/01/21 08:05 BP 124/57 L 05/01/21 08:05 Pulse Ox 94 L 05/01/21 08:05 Weight - Most Recent: 225 lb 15.581 oz I&O - Last 24 Hours: Intake & Output 04/30/21 05/01/21 05/01/21 22:59 06:59 14:59 Intake Total 1920 604 Balance 1920 604 Lab Results Last 24 Hours: Laboratory Results - last 24 hr 04/29/21 04/30/21 05/01/21 Range/Units 14:27 19:54 05:35 WBC 9.9 (4.5-11.0) K/uL RBC 2.79 L (4.30-5.90) M/uL Hgb 8.7 L 8.1 L (12.0-15.0) g/dL Hct 26.5 L (40.0-54.0) % MCV 95 (80-98) fL MCH 29 (27-31) pg MCHC 31 L (32-36) % Plt Count 253 (150-400) K/uL Sodium (140-148) mmol/L Potassium (3.6-5.2) mmol/L Chloride (100-108) mmol/L Carbon Dioxide (21-32) mmol/L Anion Gap (5.0-14.0) mmol/L BUN (7-18) mg/dL Creatinine (0.8-1.3) mg/dL Est Cr Clr Drug Dosing mL/min Estimated GFR (MDRD) (>60) Glucose (74-106) mg/dL Calcium (8.5-10.1) mg/dL Synovial Crystals Note: (None seen) 05/01/21 Range/Units 05:35 WBC (4.5-11.0) K/uL RBC (4.30-5.90) M/uL Hgb (12.0-15.0) g/dL Hct (40.0-54.0) % MCV (80-98) fL MCH (27-31) pg MCHC (32-36) % Plt Count (150-400) K/uL Sodium 142 (140-148) mmol/L Potassium 4.6 (3.6-5.2) mmol/L Chloride 104 (100-108) mmol/L Carbon Dioxide 31 (21-32) mmol/L Anion Gap 7.1 (5.0-14.0) mmol/L BUN 38 H (7-18) mg/dL Creatinine 1.2 (0.8-1.3) mg/dL Est Cr Clr Drug Dosing 50.06 mL/min Estimated GFR (MDRD) 59 L (>60) Glucose 199 H (74-106) mg/dL Calcium 8.1 L (8.5-10.1) mg/dL Synovial Crystals (None seen) Wallace Results Last 24 Hours: Microbiology 04/29/21 14:27 Gram Stain - Final Joint / Synovial Fluid - Knee, Right Body Fluid Culture - Preliminary NO GROWTH AFTER 2 DAYS 04/29/21 13:10 Aerobic Blood Culture - Preliminary Blood - Venous - Lab Draw NO GROWTH AFTER 1 DAY Anaerobic Blood Culture - Preliminary NO GROWTH AFTER 1 DAY 04/29/21 13:00 Aerobic Blood Culture - Preliminary Blood - Arm, Right NO GROWTH AFTER 1 DAY Anaerobic Blood Culture - Preliminary NO GROWTH AFTER 1 DAY Med Orders - Current: Current Medications Acetaminophen (Acetaminophen 325 Mg Tab) 650 mg PO Q4H PRN PRN Reason: Pain (Mild 1-3)/fever Last Admin: 04/30/21 08:19 Dose: 650 mg Documented by: Albuterol (Albuterol 0.083% 2.5 Mg/3 Ml Neb Soln) 2.5 mg NEB Q4H PRN PRN Reason: Shortness Of Breath/wheezing Last Admin: 05/01/21 09:38 Dose: 2.5 mg Documented by: Albuterol/Ipratropium (Albuterol/Ipratropium 3.0-0.5 Mg/3 Ml Neb Soln) 3 ml NEB QIDRT [facility] Last Admin: 05/01/21 07:01 Dose: 3 ml Documented by: Diltiazem HCl (Diltiazem 180 Mg Cap.Cd) 180 mg PO DAILY [facility] Last Admin: 05/01/21 09:38 Dose: 180 mg Documented by: Furosemide (Furosemide 40 Mg Tab) 40 mg PO DAILY [facility] Last Admin: 05/01/21 08:46 Dose: 40 mg Documented by: Sodium Chloride (Normal Saline) 1,000 mls @ 100 mls/hr IV ASDIRECTED [facility] Last Admin: 05/01/21 00:02 Dose: 100 mls/hr Documented by: Methylprednisolone Sodium Succinate (Methylprednisolone Sodium Succinate 40 Mg/1 Ml Sdv) 40 mg IVPUSH Q8H [facility] Last Admin: 05/01/21 08:44 Dose: 40 mg Documented by: Mometasone Furoate/Formoterol Fumar (Formoterol/Mometasone 200-5 Mcg 8.8 Gm Inhaler) 2 puff IH BIDRT [facility] Last Admin: 05/01/21 07:01 Dose: 2 puff Documented by: Ondansetron HCl (Ondansetron 4 Mg/2 Ml Sdv) 4 mg IV Q4H PRN PRN Reason: Nausea/Vomiting Pantoprazole Sodium (Pantoprazole 40 Mg Vial) 40 mg IVPUSH Q12H [facility] Last Admin: 05/01/21 00:04 Dose: 40 mg Documented by: Polyethylene Glycol (Polyethylene Glycol 3350 Powder 17 Gm Packet) 17 gm PO DAILY PRN PRN Reason: Constipation Sodium Chloride (Sodium Chloride 0.9% 10 Ml Syringe) 10 ml FLUSH ASDIRECTED PRN PRN Reason: Keep Vein Open Terazosin HCl (Terazosin 1 Mg Cap) 2 mg PO BEDTIME [facility] Last Admin: 04/30/21 20:26 Dose: 2 mg Documented by: Discontinued Medications Albuterol/Ipratropium (Albuterol/Ipratropium 3.0-0.5 Mg/3 Ml Neb Soln) 3 ml NEB ONETIME ONE Stop: 04/29/21 08:22 Last Admin: 04/29/21 08:38 Dose: 3 ml Documented by: Bisacodyl (Bisacodyl 5 Mg Tab) 10 mg PO ONETIME ONE Stop: 04/30/21 15:36 Last Admin: 04/30/21 16:03 Dose: 10 mg Documented by: Bisacodyl (Bisacodyl 5 Mg Tab) 10 mg PO ONETIME ONE Stop: 04/30/21 20:01 Last Admin: 04/30/21 20:26 Dose: 10 mg Documented by: Diltiazem HCl (Diltiazem 180 Mg Cap.Cd) 180 mg PO DAILY [facility] Sodium Chloride (Normal Saline) 100 mls @ 4 mls/sec IV ASDIRECTED [facility] Stop: 04/29/21 22:00 Last Admin: 04/29/21 11:51 Dose: 4 mls/sec Documented by: Iopamidol (Iopamidol 755 Mg/Ml 100 Ml Bottle) 100 ml IV . DIRECTED [facility] Stop: 04/29/21 20:00 Last Admin: 04/29/21 11:50 Dose: 77 ml Documented by: Methylprednisolone Sodium Succinate (Methylprednisolone Sodium Succinate 125 Mg/2 Ml Sdv) 125 mg IVPUSH ONETIME ONE Stop: 04/29/21 08:25 Last Admin: 04/29/21 08:39 Dose: 125 mg Documented by: Non-Formulary Medication (Esomeprazole [Nexium]) 40 mg PO DAILY PRN PRN Reason: Abdominal Pain Polyethylene Glycol (Polyethylene Glycol 3350 Powder 238 Gm Bot) 238 gm PO ONETIME ONE Stop: 04/30/21 17:01 Last Admin: 04/30/21 17:24 Dose: 1 bottle Documented by: Sodium Chloride (Sodium Chloride 0.9% 10 Ml Syringe) 10 ml FLUSH ONETIME ONE Stop: 04/29/21 11:15 Last Admin: 04/29/21 11:50 Dose: 10 ml Documented by: - Exam Quality Assessment: Supplemental Oxygen General: Alert, Oriented, Cooperative, No Acute Distress Extremities: Normal Capillary Refill, Joint Swelling (mild at right knee ), Limited Range of Motion (R knee: 5-85. L knee: 4-95), Increased Warmth (mild warmth of right knee ). No: Estrella's Sign Peripheral Pulses: 2+: Posterior Tibial (L), Posterior Tibial (R) Sepsis Event Note - Evaluation Sepsis Screening Result: No Definite Risk - Focused Exam Vital Signs: Vital Signs Temp Pulse Resp BP Pulse Ox 05/01/21 08:05 97.3 F 88 20 124/57 L 94 L 05/01/21 08:00 84 20 127/57 L 92 L 05/01/21 07:55 81 20 117/54 L 92 L 05/01/21 07:50 83 22 H 126/57 L 95 05/01/21 07:45 97.3 F 80 15 108/59 L 94 L 05/01/21 07:15 97.7 F 81 24 H 111/57 L 94 L 05/01/21 04:00 97.5 F 98 24 H 108/53 L 92 L 05/01/21 00:00 97.3 F 77 20 122/44 L 95 Consult PN Assessment/Plan Procedures: Procedures AIRWAY INHALATION TREATMENT (10/27/16) ASSAY OF LACTIC ACID (10/27/16) ASSAY OF MAGNESIUM (10/27/16) ASSAY OF NATRIURETIC PEPTIDE (10/27/16) ASSAY OF TROPONIN QUANT (10/27/16) BLOOD GASES ANY COMBINATION (10/27/16) BREATHING CAPACITY TEST (04/23/13) C-REACTIVE PROTEIN (10/27/16) CARDIOVASCULAR STRESS TEST (04/10/15) CHEST X-RAY 1 VIEW FRONTAL (10/27/16) COLONOSCOPY AND BIOPSY (01/30/14) COLONOSCOPY W/LESION REMOVAL (01/30/14) COMPLETE CBC AUTOMATED (10/27/16) COMPLETE CBC W/AUTO DIFF WBC (10/27/16) COMPREHEN METABOLIC PANEL (10/27/16) CT ABD & PELV W/CONTRAST (07/30/20) CT THORAX DX C- (10/05/19) CULTURE OTHR SPECIMN AEROBIC (10/27/16) CULTURE SCREEN ONLY (01/30/14) EGD BIOPSY SINGLE/MULTIPLE (01/30/14) ELECTROCARDIOGRAM TRACING (10/27/16) EMERGENCY DEPT VISIT (10/27/16) EVALUATE PT USE OF INHALER (10/27/16) EXTRACRANIAL BILAT STUDY (09/18/13) EXTREMITY STUDY (03/19/14) GAIT TRAINING THERAPY (10/27/16) HT MUSCLE IMAGE SPECT MULT (04/10/15) HYDRATE IV INFUSION ADD-ON (10/27/16) METABOLIC PANEL TOTAL CA (10/27/16) MRI BRAIN STEM W/O DYE (07/21/18) PT EVAL LOW COMPLEX 20 MIN (10/27/16) ROUTINE VENIPUNCTURE (10/27/16) SMEAR GRAM STAIN (10/27/16) THER/PROPH/DIAG IV INF INIT (10/27/16) THROMBOPLASTIN TIME PARTIAL (10/27/16) TTE W/DOPPLER COMPLETE (10/09/19) TX/PRO/DX INJ NEW DRUG ADDON (10/27/16) UPR/L XTREMITY ART 2 LEVELS (03/20/14) US EXAM ABDO BACK WALL COMP (05/01/13) WITHDRAWAL OF ARTERIAL BLOOD (10/27/16) (1) Chondrocalcinosis SNOMED Code(s): 040049415 Code(s): M11.20 - OTHER CHONDROCALCINOSIS, UNSPECIFIED SITE Current Visit: Yes Comment: Bilateral knees (2) Bilateral knee effusions SNOMED Code(s): 09537796079550553 Code(s): M25.461 - EFFUSION, RIGHT KNEE; M25.462 - EFFUSION, LEFT KNEE Current Visit: Yes Problem List Initiated/Reviewed/Updated: Yes Plan: * Hospitalist to continue medical management. * Patient may continue with PT services while in the hospital and progress functional mobility of bilateral LEs as able. * Awaiting for crystal results on right knee, anticipate this may take a few days, as it is sent to an outside facility for analysis. Aspiration results consistent with non-infectious etiology of effusion. * Will continue symptomatic monitoring of bilateral knee pain.
--- NOTE | 2021-05-01 12:59 | PCM.PN ---
- General Info Date of Service: 05/01/21 Subjective Update: Mr. Cruz has been stable since yesterday. EGD was performed this morning by Dr. Dennison and showed no obvious source of active bleeding. Colonoscopy was attempted but unsuccessful because of incomplete prep. He continues to feel short of breath with fairly minimal exertion, no evidence of underlying infection. Functional Status: Reports: Tolerating Diet, Urinating - Review of Systems General: Reports: Weakness, Fatigue. Denies: Fever, Chills Pulmonary: Reports: Shortness of Breath, Wheezing. Denies: Pleuritic Chest Pain, Cough, Sputum, Hemoptysis Cardiovascular: Reports: Dyspnea on Exertion, Edema. Denies: Chest Pain, Palpitations, Orthopnea, PND, Lightheadedness Gastrointestinal: Reports: No Symptoms Genitourinary: Reports: No Symptoms - Patient Data Vitals - Most Recent: Last Vital Signs Temp 97.3 F 05/01/21 08:05 Pulse 88 05/01/21 08:05 Resp 20 05/01/21 08:05 BP 124/57 L 05/01/21 08:05 Pulse Ox 94 L 05/01/21 08:05 Weight - Most Recent: 225 lb 15.581 oz I&O - Last 24 Hours: Intake & Output 04/30/21 05/01/21 05/01/21 22:59 06:59 14:59 Intake Total 1920 604 Balance 1920 604 Lab Results Last 24 Hours: Laboratory Results - last 24 hr 04/29/21 04/30/21 05/01/21 Range/Units 14:27 19:54 05:35 WBC 9.9 (4.5-11.0) K/uL RBC 2.79 L (4.30-5.90) M/uL Hgb 8.7 L 8.1 L (12.0-15.0) g/dL Hct 26.5 L (40.0-54.0) % MCV 95 (80-98) fL MCH 29 (27-31) pg MCHC 31 L (32-36) % Plt Count 253 (150-400) K/uL Sodium (140-148) mmol/L Potassium (3.6-5.2) mmol/L Chloride (100-108) mmol/L Carbon Dioxide (21-32) mmol/L Anion Gap (5.0-14.0) mmol/L BUN (7-18) mg/dL Creatinine (0.8-1.3) mg/dL Est Cr Clr Drug Dosing mL/min Estimated GFR (MDRD) (>60) Glucose (74-106) mg/dL Calcium (8.5-10.1) mg/dL Synovial Crystals Note: (None seen) 05/01/21 Range/Units 05:35 WBC (4.5-11.0) K/uL RBC (4.30-5.90) M/uL Hgb (12.0-15.0) g/dL Hct (40.0-54.0) % MCV (80-98) fL MCH (27-31) pg MCHC (32-36) % Plt Count (150-400) K/uL Sodium 142 (140-148) mmol/L Potassium 4.6 (3.6-5.2) mmol/L Chloride 104 (100-108) mmol/L Carbon Dioxide 31 (21-32) mmol/L Anion Gap 7.1 (5.0-14.0) mmol/L BUN 38 H (7-18) mg/dL Creatinine 1.2 (0.8-1.3) mg/dL Est Cr Clr Drug Dosing 50.06 mL/min Estimated GFR (MDRD) 59 L (>60) Glucose 199 H (74-106) mg/dL Calcium 8.1 L (8.5-10.1) mg/dL Synovial Crystals (None seen) Wallace Results Last 24 Hours: Microbiology 04/29/21 14:27 Gram Stain - Final Joint / Synovial Fluid - Knee, Right Body Fluid Culture - Preliminary NO GROWTH AFTER 2 DAYS 04/29/21 13:10 Aerobic Blood Culture - Preliminary Blood - Venous - Lab Draw NO GROWTH AFTER 1 DAY Anaerobic Blood Culture - Preliminary NO GROWTH AFTER 1 DAY 04/29/21 13:00 Aerobic Blood Culture - Preliminary Blood - Arm, Right NO GROWTH AFTER 1 DAY Anaerobic Blood Culture - Preliminary NO GROWTH AFTER 1 DAY Med Orders - Current: Current Medications Acetaminophen (Acetaminophen 325 Mg Tab) 650 mg PO Q4H PRN PRN Reason: Pain (Mild 1-3)/fever Last Admin: 04/30/21 08:19 Dose: 650 mg Documented by: Albuterol (Albuterol 0.083% 2.5 Mg/3 Ml Neb Soln) 2.5 mg NEB Q4H PRN PRN Reason: Shortness Of Breath/wheezing Last Admin: 05/01/21 09:38 Dose: 2.5 mg Documented by: Albuterol/Ipratropium (Albuterol/Ipratropium 3.0-0.5 Mg/3 Ml Neb Soln) 3 ml NEB QIDRT [facility] Last Admin: 05/01/21 10:30 Dose: 3 ml Documented by: Bisacodyl (Bisacodyl 5 Mg Tab) 10 mg PO ONETIME ONE Stop: 05/01/21 12:52 Bisacodyl (Bisacodyl 5 Mg Tab) 10 mg PO ONETIME ONE Stop: 05/01/21 20:01 Diltiazem HCl (Diltiazem 180 Mg Cap.Cd) 180 mg PO DAILY [facility] Last Admin: 05/01/21 09:38 Dose: 180 mg Documented by: Furosemide (Furosemide 40 Mg Tab) 40 mg PO DAILY [facility] Last Admin: 05/01/21 08:46 Dose: 40 mg Documented by: Methylprednisolone Sodium Succinate (Methylprednisolone Sodium Succinate 40 Mg/1 Ml Sdv) 40 mg IVPUSH Q8H [facility] Last Admin: 05/01/21 08:44 Dose: 40 mg Documented by: Mometasone Furoate/Formoterol Fumar (Formoterol/Mometasone 200-5 Mcg 8.8 Gm Inhaler) 2 puff IH BIDRT [facility] Last Admin: 05/01/21 07:01 Dose: 2 puff Documented by: Ondansetron HCl (Ondansetron 4 Mg/2 Ml Sdv) 4 mg IV Q4H PRN PRN Reason: Nausea/Vomiting Pantoprazole Sodium (Pantoprazole 40 Mg Vial) 40 mg IVPUSH Q12H [facility] Last Admin: 05/01/21 11:59 Dose: 40 mg Documented by: Polyethylene Glycol (Polyethylene Glycol 3350 Powder 17 Gm Packet) 17 gm PO DAILY PRN PRN Reason: Constipation Polyethylene Glycol (Polyethylene Glycol 3350 Powder 238 Gm Bot) 238 gm PO ONETIME ONE Stop: 05/01/21 17:01 Sodium Chloride (Sodium Chloride 0.9% 10 Ml Syringe) 10 ml FLUSH ASDIRECTED PRN PRN Reason: Keep Vein Open Terazosin HCl (Terazosin 1 Mg Cap) 2 mg PO BEDTIME [facility] Last Admin: 04/30/21 20:26 Dose: 2 mg Documented by: Discontinued Medications Albuterol/Ipratropium (Albuterol/Ipratropium 3.0-0.5 Mg/3 Ml Neb Soln) 3 ml NEB ONETIME ONE Stop: 04/29/21 08:22 Last Admin: 04/29/21 08:38 Dose: 3 ml Documented by: Bisacodyl (Bisacodyl 5 Mg Tab) 10 mg PO ONETIME ONE Stop: 04/30/21 15:36 Last Admin: 04/30/21 16:03 Dose: 10 mg Documented by: Bisacodyl (Bisacodyl 5 Mg Tab) 10 mg PO ONETIME ONE Stop: 04/30/21 20:01 Last Admin: 04/30/21 20:26 Dose: 10 mg Documented by: Diltiazem HCl (Diltiazem 180 Mg Cap.Cd) 180 mg PO DAILY [facility] Sodium Chloride (Normal Saline) 100 mls @ 4 mls/sec IV ASDIRECTED [facility] Stop: 04/29/21 22:00 Last Admin: 04/29/21 11:51 Dose: 4 mls/sec Documented by: Sodium Chloride (Normal Saline) 1,000 mls @ 100 mls/hr IV ASDIRECTED [facility] Last Admin: 05/01/21 11:43 Dose: 100 mls/hr Documented by: Iopamidol (Iopamidol 755 Mg/Ml 100 Ml Bottle) 100 ml IV . DIRECTED [facility] Stop: 04/29/21 20:00 Last Admin: 04/29/21 11:50 Dose: 77 ml Documented by: Methylprednisolone Sodium Succinate (Methylprednisolone Sodium Succinate 125 Mg/2 Ml Sdv) 125 mg IVPUSH ONETIME ONE Stop: 04/29/21 08:25 Last Admin: 04/29/21 08:39 Dose: 125 mg Documented by: Non-Formulary Medication (Esomeprazole [Nexium]) 40 mg PO DAILY PRN PRN Reason: Abdominal Pain Polyethylene Glycol (Polyethylene Glycol 3350 Powder 238 Gm Bot) 238 gm PO ONETIME ONE Stop: 04/30/21 17:01 Last Admin: 04/30/21 17:24 Dose: 1 bottle Documented by: Sodium Chloride (Sodium Chloride 0.9% 10 Ml Syringe) 10 ml FLUSH ONETIME ONE Stop: 04/29/21 11:15 Last Admin: 04/29/21 11:50 Dose: 10 ml Documented by: - Exam Quality Assessment: Supplemental Oxygen, DVT Prophylaxis General: Alert, Oriented, Cooperative, Mild Distress Lungs: Decreased Breath Sounds, Wheezing. No: Crackles, Rales, Rhonchi Cardiovascular: Regular Rate, Regular Rhythm, No Murmurs GI/Abdominal Exam: Soft, Non-Tender, No Organomegaly, No Distention Extremities: Non-Tender, Pedal Edema - Patient Data Lab Results Last 24 hrs: Laboratory Results - last 24 hr 04/29/21 04/30/21 05/01/21 Range/Units 14:27 19:54 05:35 WBC 9.9 (4.5-11.0) K/uL RBC 2.79 L (4.30-5.90) M/uL Hgb 8.7 L 8.1 L (12.0-15.0) g/dL Hct 26.5 L (40.0-54.0) % MCV 95 (80-98) fL MCH 29 (27-31) pg MCHC 31 L (32-36) % Plt Count 253 (150-400) K/uL Sodium (140-148) mmol/L Potassium (3.6-5.2) mmol/L Chloride (100-108) mmol/L Carbon Dioxide (21-32) mmol/L Anion Gap (5.0-14.0) mmol/L BUN (7-18) mg/dL Creatinine (0.8-1.3) mg/dL Est Cr Clr Drug Dosing mL/min Estimated GFR (MDRD) (>60) Glucose (74-106) mg/dL Calcium (8.5-10.1) mg/dL Synovial Crystals Note: (None seen) 05/01/21 Range/Units 05:35 WBC (4.5-11.0) K/uL RBC (4.30-5.90) M/uL Hgb (12.0-15.0) g/dL Hct (40.0-54.0) % MCV (80-98) fL MCH (27-31) pg MCHC (32-36) % Plt Count (150-400) K/uL Sodium 142 (140-148) mmol/L Potassium 4.6 (3.6-5.2) mmol/L Chloride 104 (100-108) mmol/L Carbon Dioxide 31 (21-32) mmol/L Anion Gap 7.1 (5.0-14.0) mmol/L BUN 38 H (7-18) mg/dL Creatinine 1.2 (0.8-1.3) mg/dL Est Cr Clr Drug Dosing 50.06 mL/min Estimated GFR (MDRD) 59 L (>60) Glucose 199 H (74-106) mg/dL Calcium 8.1 L (8.5-10.1) mg/dL Synovial Crystals (None seen) Result Diagrams: 05/01/21 05:35 05/01/21 05:35 Wallace Results Last 24 hrs: Microbiology 04/29/21 14:27 Gram Stain - Final Joint / Synovial Fluid - Knee, Right Body Fluid Culture - Preliminary NO GROWTH AFTER 2 DAYS 04/29/21 13:10 Aerobic Blood Culture - Preliminary Blood - Venous - Lab Draw NO GROWTH AFTER 1 DAY Anaerobic Blood Culture - Preliminary NO GROWTH AFTER 1 DAY 04/29/21 13:00 Aerobic Blood Culture - Preliminary Blood - Arm, Right NO GROWTH AFTER 1 DAY Anaerobic Blood Culture - Preliminary NO GROWTH AFTER 1 DAY Sepsis Event Note - Evaluation Sepsis Screening Result: No Definite Risk - Focused Exam Vital Signs: Vital Signs Temp Pulse Resp BP Pulse Ox 05/01/21 08:05 97.3 F 88 20 124/57 L 94 L 05/01/21 08:00 84 20 127/57 L 92 L 05/01/21 07:55 81 20 117/54 L 92 L 05/01/21 07:50 83 22 H 126/57 L 95 05/01/21 07:45 97.3 F 80 15 108/59 L 94 L 05/01/21 07:15 97.7 F 81 24 H 111/57 L 94 L 05/01/21 04:00 97.5 F 98 24 H 108/53 L 92 L - Problem List Review Problem List Initiated/Reviewed/Updated: Yes - My Orders Last 24 Hours: My Active Orders 04/30/21 15:23 Verify Patient Consent Obtain [RC] ASDIRECTED 04/30/21 16:22 Consult to Physician [CONS] Routine 05/01/21 Lunch Clear Liquid Diet [DIET] 05/01/21 12:19 Convert IV to Saline Lock [OM.PC] Routine 05/01/21 12:51 Verify Patient Consent Obtain [RC] ASDIRECTED bisacodyL [Dulcolax] 10 mg PO ONETIME ONE Schedule Procedure [COMM] Routine 05/01/21 17:00 HGB [HEMOGLOBIN] [HEME] Stat polyethylene glycoL 3350 [MiraLAX] 238 gm PO ONETIME ONE 05/01/21 20:00 bisacodyL [Dulcolax] 10 mg PO ONETIME ONE 05/02/21 05:00 BASIC METABOLIC PANEL,BMP [CHEM] Timed CBC WITH AUTO DIFF [HEME] Timed 05/02/21 Breakfast NPO After Midnight [Nothing per Oral After Midnight Diet] [DIET] - Plan Plan:: ASSESSMENT AND PLAN SEVERE ANEMIA-hemoglobin stable over the last 24 hours with no further evidence of active bleeding. EGD showed no obvious source of bleeding. Colonoscopy attempted but incomplete because of poor prep. Because of his underlying COPD and congestive heart failure we will have a goal hemoglobin of greater than 8. -Repeat colonoscopy prep -Follow-up colonoscopy in a.m. with Dr. Dennison -Serial hemoglobin levels -Protonix 40 mg p.o. daily -Clear liquid diet, n.p.o. after midnight ACUTE ON CHRONIC HYPOXIC RESPIRATORY FAILURE-fairly stable since admission, adequate oxygenation at rest with his usual 2 L of oxygen per minute. CT angiogram of the chest showed no evidence of pulmonary emboli or pneumonia. -Supplemental oxygen to maintain saturations around 90% COPD EXACERBATION-most likely cause of increased hypoxia, he did improve following nebulizer treatment. Chest x-ray shows no obvious infiltrate. -Blood cultures x2 -Solu-Medrol 40 mg IV every 8 hours -Nebulizer therapy with DuoNeb's and albuterol CONGESTIVE HEART FAILURE-episode of hypotension after arriving in the emergency department, resolved spontaneously. No evidence of significant pulmonary edema noted on chest x-ray. Echocardiogram obtained this morning, results are pending -Continue outpatient medications including diuretic BILATERAL KNEE PAIN-improved following steroid injections in both knees -Orthopedic follow-up per Dr. Morrell MAINTENANCE ISSUES -DVT prophylaxis; SCUDs, will hold on anticoagulation because of severe anemia and possible bleeding -GI prophylaxis; Protonix as above -Avery catheter; not indicated -Nutrition; clear liquid diet, n.p.o. after midnight -Nicotine dependence; not required CODE STATUS-FULL CODE ADMISSION STATUS-patient will be admitted to inpatient status, expect at least a 2 night hospital stay for evaluation and management of problems as outlined above. At the time of this admission I do not reasonably expected evaluation and management of this problem will require more than a 96 hour hospital stay. DISPOSITION-anticipate discharge to home after the hospital stay.
[2021-05-01] MEDS ORDERED: Bisacodyl 5 MG Tab PO ONE ×2 (14:00→20:00)
[2021-05-01] MEDS ORDERED: Polyethylene Glycol 3350 Powder 238 GM Bot PO ONE (17:00)
[2021-05-01] MEDS: Terazosin 1 MG Cap PO SCH (20:16)
[2021-05-02] MEDS: Albuterol/Ipratropium 3.0-0.5 MG/3 ML Neb Soln NEB SCH ×4 (07:05→20:45)
[2021-05-02] MEDS: Formoterol/Mometasone 200-5 MCG 8.8 GM Inhaler IH SCH ×2 (07:05→21:09)
[2021-05-02] MEDS: methylPREDNISolone Sodium Succinate 40 MG/1 ML SDV IVPUSH SCH ×3 (07:35→23:47)
[2021-05-02] MEDS: Sodium Chloride 0.9% 1,000 ML IV SCH ×2 (07:37→14:15)
[2021-05-02] MEDS ORDERED: Propofol 200 MG/20 ML SDV ONE (07:52)
--- NOTE | 2021-05-02 08:34 | PCM.CONSN ---
- General Info Date of Service: 05/02/21 Admission Dx/Problem (Free Text): Admission Diagnosis/Problem Admission Diagnosis/Problem Hypoxia knee,effusions Subjective Update: Patient undergoing repeat colonoscopy this morning. Per nursing report, he is ambulating with FWW much better and continues to have minimal pain in bilateral knees following right knee aspiration and bilateral cortisone injection. Did have hypoxic episode with ambulation during physical therapy session yesterday afternoon. Functional Status: Reports: Pain Controlled, Ambulating (with FWW ) - Patient Data Vitals - Most Recent: Last Vital Signs Temp 96.8 F L 05/02/21 08:10 Pulse 82 05/02/21 08:25 Resp 16 05/02/21 08:25 BP 131/71 05/02/21 08:25 Pulse Ox 93 L 05/02/21 08:25 Weight - Most Recent: 226 lb 6.636 oz I&O - Last 24 Hours: Intake & Output 05/01/21 05/02/21 05/02/21 22:59 06:59 14:59 Intake Total 2459 556 Output Total 675 10 Balance 1784 546 Lab Results Last 24 Hours: Laboratory Results - last 24 hr 05/01/21 05/02/21 05/02/21 Range/Units 17:08 04:00 04:00 WBC 7.4 (4.5-11.0) K/uL RBC 2.85 L (4.30-5.90) M/uL Hgb 8.4 L 8.4 L (12.0-15.0) g/dL Hct 27.1 L (40.0-54.0) % MCV 95 (80-98) fL MCH 30 (27-31) pg MCHC 31 L (32-36) % Plt Count 254 (150-400) K/uL Neut % (Auto) 90.5 H (36-66) % Lymph % (Auto) 4.4 L (24-44) % [place] % (Auto) 5.1 (2-6) % Eos % (Auto) 0.0 L (2-4) % Baso % (Auto) 0.0 (0-1) % Sodium 140 (140-148) mmol/L Potassium 3.7 (3.6-5.2) mmol/L Chloride 103 (100-108) mmol/L Carbon Dioxide 30 (21-32) mmol/L Anion Gap 7.1 (5.0-14.0) mmol/L BUN 27 H (7-18) mg/dL Creatinine 1.0 (0.8-1.3) mg/dL Est Cr Clr Drug Dosing 60.07 mL/min Estimated GFR (MDRD) > 60 (>60) Glucose 175 H (74-106) mg/dL Calcium 7.7 L (8.5-10.1) mg/dL Wallace Results Last 24 Hours: Microbiology 04/29/21 14:27 Gram Stain - Final Joint / Synovial Fluid - Knee, Right Body Fluid Culture - Final NO GROWTH AFTER 3 DAYS 04/29/21 13:00 Aerobic Blood Culture - Preliminary Blood - Arm, Right NO GROWTH AFTER 2 DAYS Anaerobic Blood Culture - Preliminary NO GROWTH AFTER 2 DAYS 04/29/21 13:10 Aerobic Blood Culture - Preliminary Blood - Venous - Lab Draw NO GROWTH AFTER 2 DAYS Anaerobic Blood Culture - Preliminary NO GROWTH AFTER 2 DAYS Med Orders - Current: Current Medications Acetaminophen (Acetaminophen 325 Mg Tab) 650 mg PO Q4H PRN PRN Reason: Pain (Mild 1-3)/fever Last Admin: 04/30/21 08:19 Dose: 650 mg Documented by: Albuterol (Albuterol 0.083% 2.5 Mg/3 Ml Neb Soln) 2.5 mg NEB Q4H PRN PRN Reason: Shortness Of Breath/wheezing Last Admin: 05/01/21 09:38 Dose: 2.5 mg Documented by: Albuterol/Ipratropium (Albuterol/Ipratropium 3.0-0.5 Mg/3 Ml Neb Soln) 3 ml NEB QIDRT [facility] Last Admin: 05/02/21 07:05 Dose: 3 ml Documented by: Diltiazem HCl (Diltiazem 180 Mg Cap.Cd) 180 mg PO DAILY [facility] Last Admin: 05/01/21 09:38 Dose: 180 mg Documented by: Furosemide (Furosemide 40 Mg Tab) 40 mg PO DAILY [facility] Last Admin: 05/01/21 08:46 Dose: 40 mg Documented by: Sodium Chloride (Normal Saline) 1,000 mls @ 75 mls/hr IV ASDIRECTED [facility] Last Admin: 05/02/21 07:37 Dose: 75 mls/hr Documented by: Methylprednisolone Sodium Succinate (Methylprednisolone Sodium Succinate 40 Mg/1 Ml Sdv) 40 mg IVPUSH Q8H [facility] Last Admin: 05/02/21 07:35 Dose: 40 mg Documented by: Mometasone Furoate/Formoterol Fumar (Formoterol/Mometasone 200-5 Mcg 8.8 Gm Inhaler) 2 puff IH BIDRT [facility] Last Admin: 05/02/21 07:05 Dose: 2 puff Documented by: Ondansetron HCl (Ondansetron 4 Mg/2 Ml Sdv) 4 mg IV Q4H PRN PRN Reason: Nausea/Vomiting Pantoprazole Sodium (Pantoprazole 40 Mg Tab.Cr) 40 mg PO DAILY@0730 [facility] Polyethylene Glycol (Polyethylene Glycol 3350 Powder 17 Gm Packet) 17 gm PO DAILY PRN PRN Reason: Constipation Sodium Chloride (Sodium Chloride 0.9% 10 Ml Syringe) 10 ml FLUSH ASDIRECTED PRN PRN Reason: Keep Vein Open Terazosin HCl (Terazosin 1 Mg Cap) 2 mg PO BEDTIME [facility] Last Admin: 05/01/21 20:16 Dose: 2 mg Documented by: Discontinued Medications Albuterol/Ipratropium (Albuterol/Ipratropium 3.0-0.5 Mg/3 Ml Neb Soln) 3 ml NEB ONETIME ONE Stop: 04/29/21 08:22 Last Admin: 04/29/21 08:38 Dose: 3 ml Documented by: Bisacodyl (Bisacodyl 5 Mg Tab) 10 mg PO ONETIME ONE Stop: 04/30/21 15:36 Last Admin: 04/30/21 16:03 Dose: 10 mg Documented by: Bisacodyl (Bisacodyl 5 Mg Tab) 10 mg PO ONETIME ONE Stop: 04/30/21 20:01 Last Admin: 04/30/21 20:26 Dose: 10 mg Documented by: Bisacodyl (Bisacodyl 5 Mg Tab) 10 mg PO ONETIME ONE Stop: 05/01/21 14:01 Last Admin: 05/01/21 15:00 Dose: 10 mg Documented by: Bisacodyl (Bisacodyl 5 Mg Tab) 10 mg PO ONETIME ONE Stop: 05/01/21 20:01 Last Admin: 05/01/21 20:16 Dose: 10 mg Documented by: Diltiazem HCl (Diltiazem 180 Mg Cap.Cd) 180 mg PO DAILY [facility] Sodium Chloride (Normal Saline) 100 mls @ 4 mls/sec IV ASDIRECTED [facility] Stop: 04/29/21 22:00 Last Admin: 04/29/21 11:51 Dose: 4 mls/sec Documented by: Sodium Chloride (Normal Saline) 1,000 mls @ 100 mls/hr IV ASDIRECTED [facility] Last Admin: 05/01/21 11:43 Dose: 100 mls/hr Documented by: Iopamidol (Iopamidol 755 Mg/Ml 100 Ml Bottle) 100 ml IV . DIRECTED [facility] Stop: 04/29/21 20:00 Last Admin: 04/29/21 11:50 Dose: 77 ml Documented by: Methylprednisolone Sodium Succinate (Methylprednisolone Sodium Succinate 125 Mg/2 Ml Sdv) 125 mg IVPUSH ONETIME ONE Stop: 04/29/21 08:25 Last Admin: 04/29/21 08:39 Dose: 125 mg Documented by: Non-Formulary Medication (Esomeprazole [Nexium]) 40 mg PO DAILY PRN PRN Reason: Abdominal Pain Pantoprazole Sodium (Pantoprazole 40 Mg Vial) 40 mg IVPUSH Q12H [facility] Last Admin: 05/01/21 11:59 Dose: 40 mg Documented by: Polyethylene Glycol (Polyethylene Glycol 3350 Powder 238 Gm Bot) 238 gm PO ONETIME ONE Stop: 04/30/21 17:01 Last Admin: 04/30/21 17:24 Dose: 1 bottle Documented by: Polyethylene Glycol (Polyethylene Glycol 3350 Powder 238 Gm Bot) 238 gm PO ONETIME ONE Stop: 05/01/21 17:01 Last Admin: 05/01/21 17:17 Dose: 238 gm Documented by: Propofol (Propofol 200 Mg/20 Ml Sdv) Confirm Administered Dose 200 mg .ROUTE .STK-MED ONE Stop: 05/02/21 07:53 Sodium Chloride (Sodium Chloride 0.9% 10 Ml Syringe) 10 ml FLUSH ONETIME ONE Stop: 04/29/21 11:15 Last Admin: 04/29/21 11:50 Dose: 10 ml Documented by: Sepsis Event Note - Evaluation Sepsis Screening Result: No Definite Risk - Focused Exam Vital Signs: Vital Signs Temp Pulse Resp BP Pulse Ox 05/02/21 08:25 82 16 131/71 93 L 05/02/21 08:15 73 19 136/61 93 L 05/02/21 08:10 96.8 F L 77 19 122/56 L 91 L 05/02/21 07:52 97.4 F 80 24 H 140/65 95 05/02/21 03:39 97.7 F 85 24 H 139/56 L 94 L 05/01/21 23:53 97.2 F 75 18 126/47 L 99 Consult PN Assessment/Plan Procedures: Procedures AIRWAY INHALATION TREATMENT (10/27/16) ASSAY OF LACTIC ACID (10/27/16) ASSAY OF MAGNESIUM (10/27/16) ASSAY OF NATRIURETIC PEPTIDE (10/27/16) ASSAY OF TROPONIN QUANT (10/27/16) BLOOD GASES ANY COMBINATION (10/27/16) BREATHING CAPACITY TEST (04/23/13) C-REACTIVE PROTEIN (10/27/16) CARDIOVASCULAR STRESS TEST (04/10/15) CHEST X-RAY 1 VIEW FRONTAL (10/27/16) COLONOSCOPY AND BIOPSY (01/30/14) COLONOSCOPY W/LESION REMOVAL (01/30/14) COMPLETE CBC AUTOMATED (10/27/16) COMPLETE CBC W/AUTO DIFF WBC (10/27/16) COMPREHEN METABOLIC PANEL (10/27/16) CT ABD & PELV W/CONTRAST (07/30/20) CT THORAX DX C- (10/05/19) CULTURE OTHR SPECIMN AEROBIC (10/27/16) CULTURE SCREEN ONLY (01/30/14) EGD BIOPSY SINGLE/MULTIPLE (01/30/14) ELECTROCARDIOGRAM TRACING (10/27/16) EMERGENCY DEPT VISIT (10/27/16) EVALUATE PT USE OF INHALER (10/27/16) EXTRACRANIAL BILAT STUDY (09/18/13) EXTREMITY STUDY (03/19/14) GAIT TRAINING THERAPY (10/27/16) HT MUSCLE IMAGE SPECT MULT (04/10/15) HYDRATE IV INFUSION ADD-ON (10/27/16) METABOLIC PANEL TOTAL CA (10/27/16) MRI BRAIN STEM W/O DYE (07/21/18) PT EVAL LOW COMPLEX 20 MIN (10/27/16) ROUTINE VENIPUNCTURE (10/27/16) SMEAR GRAM STAIN (10/27/16) THER/PROPH/DIAG IV INF INIT (10/27/16) THROMBOPLASTIN TIME PARTIAL (10/27/16) TTE W/DOPPLER COMPLETE (10/09/19) TX/PRO/DX INJ NEW DRUG ADDON (10/27/16) UPR/L XTREMITY ART 2 LEVELS (03/20/14) US EXAM ABDO BACK WALL COMP (05/01/13) WITHDRAWAL OF ARTERIAL BLOOD (10/27/16) (1) Chondrocalcinosis SNOMED Code(s): 625671187 Code(s): M11.20 - OTHER CHONDROCALCINOSIS, UNSPECIFIED SITE Current Visit: Yes Comment: Bilateral knees (2) Bilateral knee effusions SNOMED Code(s): 12477222478041017 Code(s): M25.461 - EFFUSION, RIGHT KNEE; M25.462 - EFFUSION, LEFT KNEE Current Visit: Yes Problem List Initiated/Reviewed/Updated: Yes Plan: * Crystal results showed monosodium urate crystals, consistent with gout. Symptoms significantly improved since aspiration of right knee and cortisone injection of bilateral knees on 04/29/21. Do not recommend any changes at this time in treatment, but may benefit from allopurinol therapy at time of discharge to prevent recurrent gout attacks. Also may discuss lifestyle modifications, such as reduction in red meats, alcohol, and seafood. * Orthopedic services will sign off at this time. Patient may follow up on an outpatient basis as needed for knee pain. Cortisone injections may be repeated up to every 3 months if beneficial. * Hospitalist to continue medical management of patient. Orthopedics available for consultation if any further concerns with bilateral knees arise.
[2021-05-02] MEDS: Diltiazem 180 MG Cap.CD PO SCH (10:25)
[2021-05-02] MEDS: Furosemide 40 MG Tab PO SCH (10:25)
[2021-05-02] MEDS: Pantoprazole 40 MG Tab.CR PO SCH (11:04)
[2021-05-02] MEDS: Acetaminophen 325 MG Tab PO PRN (11:16)
--- NOTE | 2021-05-02 13:11 | PCM.PN ---
- General Info Date of Service: 05/02/21 Subjective Update: Mr. Cruz remains very weak and short of breath with activity. Colonoscopy performed today did show a polyp near the cecum which was removed as well as diverticulosis, no evidence of active bleeding. Hemoglobin has remained stable over the past few days. Formal echocardiogram report is still pending. Fluid analysis from knee aspiration is showing crystals consistent with gout. Functional Status: Reports: Tolerating Diet, Ambulating, Urinating - Review of Systems General: Reports: Weakness, Fatigue. Denies: Fever, Chills Pulmonary: Reports: Shortness of Breath. Denies: Pleuritic Chest Pain, Cough, Sputum, Hemoptysis, Wheezing Cardiovascular: Reports: Dyspnea on Exertion. Denies: Chest Pain, Palpitations, Orthopnea, PND, Edema, Lightheadedness Gastrointestinal: Reports: No Symptoms Genitourinary: Reports: No Symptoms - Patient Data Vitals - Most Recent: Last Vital Signs Temp 97.7 F 05/02/21 11:15 Pulse 74 05/02/21 11:15 Resp 20 05/02/21 11:15 BP 170/62 H 05/02/21 11:15 Pulse Ox 95 05/02/21 12:17 Weight - Most Recent: 226 lb 13.69 oz I&O - Last 24 Hours: Intake & Output 05/01/21 05/02/21 05/02/21 22:59 06:59 14:59 Intake Total 2459 556 Output Total 675 10 Balance 1784 546 Lab Results Last 24 Hours: Laboratory Results - last 24 hr 05/01/21 05/02/21 05/02/21 Range/Units 17:08 04:00 04:00 WBC 7.4 (4.5-11.0) K/uL RBC 2.85 L (4.30-5.90) M/uL Hgb 8.4 L 8.4 L (12.0-15.0) g/dL Hct 27.1 L (40.0-54.0) % MCV 95 (80-98) fL MCH 30 (27-31) pg MCHC 31 L (32-36) % Plt Count 254 (150-400) K/uL Neut % (Auto) 90.5 H (36-66) % Lymph % (Auto) 4.4 L (24-44) % [place] % (Auto) 5.1 (2-6) % Eos % (Auto) 0.0 L (2-4) % Baso % (Auto) 0.0 (0-1) % Sodium 140 (140-148) mmol/L Potassium 3.7 (3.6-5.2) mmol/L Chloride 103 (100-108) mmol/L Carbon Dioxide 30 (21-32) mmol/L Anion Gap 7.1 (5.0-14.0) mmol/L BUN 27 H (7-18) mg/dL Creatinine 1.0 (0.8-1.3) mg/dL Est Cr Clr Drug Dosing 60.07 mL/min Estimated GFR (MDRD) > 60 (>60) Glucose 175 H (74-106) mg/dL Calcium 7.7 L (8.5-10.1) mg/dL Wallace Results Last 24 Hours: Microbiology 04/29/21 14:27 Gram Stain - Final Joint / Synovial Fluid - Knee, Right Body Fluid Culture - Final NO GROWTH AFTER 3 DAYS 04/29/21 13:00 Aerobic Blood Culture - Preliminary Blood - Arm, Right NO GROWTH AFTER 2 DAYS Anaerobic Blood Culture - Preliminary NO GROWTH AFTER 2 DAYS 04/29/21 13:10 Aerobic Blood Culture - Preliminary Blood - Venous - Lab Draw NO GROWTH AFTER 2 DAYS Anaerobic Blood Culture - Preliminary NO GROWTH AFTER 2 DAYS Med Orders - Current: Current Medications Acetaminophen (Acetaminophen 325 Mg Tab) 650 mg PO Q4H PRN PRN Reason: Pain (Mild 1-3)/fever Last Admin: 05/02/21 11:16 Dose: 650 mg Documented by: Albuterol (Albuterol 0.083% 2.5 Mg/3 Ml Neb Soln) 2.5 mg NEB Q4H PRN PRN Reason: Shortness Of Breath/wheezing Last Admin: 05/01/21 09:38 Dose: 2.5 mg Documented by: Albuterol/Ipratropium (Albuterol/Ipratropium 3.0-0.5 Mg/3 Ml Neb Soln) 3 ml NEB QIDRT [facility] Last Admin: 05/02/21 10:42 Dose: 3 ml Documented by: Allopurinol (Allopurinol 100 Mg Tab) 100 mg PO DAILY [facility] Diltiazem HCl (Diltiazem 180 Mg Cap.Cd) 180 mg PO DAILY [facility] Last Admin: 05/02/21 10:25 Dose: 180 mg Documented by: Furosemide (Furosemide 40 Mg Tab) 40 mg PO DAILY [facility] Last Admin: 05/02/21 10:25 Dose: 40 mg Documented by: Methylprednisolone Sodium Succinate (Methylprednisolone Sodium Succinate 40 Mg/1 Ml Sdv) 40 mg IVPUSH Q8H [facility] Last Admin: 05/02/21 07:35 Dose: 40 mg Documented by: Mometasone Furoate/Formoterol Fumar (Formoterol/Mometasone 200-5 Mcg 8.8 Gm Inhaler) 2 puff IH BIDRT [facility] Last Admin: 05/02/21 07:05 Dose: 2 puff Documented by: Ondansetron HCl (Ondansetron 4 Mg/2 Ml Sdv) 4 mg IV Q4H PRN PRN Reason: Nausea/Vomiting Pantoprazole Sodium (Pantoprazole 40 Mg Tab.Cr) 40 mg PO DAILY@0730 [facility] Last Admin: 05/02/21 11:04 Dose: 40 mg Documented by: Polyethylene Glycol (Polyethylene Glycol 3350 Powder 17 Gm Packet) 17 gm PO DAILY PRN PRN Reason: Constipation Sodium Chloride (Sodium Chloride 0.9% 10 Ml Syringe) 10 ml FLUSH ASDIRECTED PRN PRN Reason: Keep Vein Open Terazosin HCl (Terazosin 1 Mg Cap) 2 mg PO BEDTIME [facility] Last Admin: 05/01/21 20:16 Dose: 2 mg Documented by: Discontinued Medications Albuterol/Ipratropium (Albuterol/Ipratropium 3.0-0.5 Mg/3 Ml Neb Soln) 3 ml NEB ONETIME ONE Stop: 04/29/21 08:22 Last Admin: 04/29/21 08:38 Dose: 3 ml Documented by: Bisacodyl (Bisacodyl 5 Mg Tab) 10 mg PO ONETIME ONE Stop: 04/30/21 15:36 Last Admin: 04/30/21 16:03 Dose: 10 mg Documented by: Bisacodyl (Bisacodyl 5 Mg Tab) 10 mg PO ONETIME ONE Stop: 04/30/21 20:01 Last Admin: 04/30/21 20:26 Dose: 10 mg Documented by: Bisacodyl (Bisacodyl 5 Mg Tab) 10 mg PO ONETIME ONE Stop: 05/01/21 14:01 Last Admin: 05/01/21 15:00 Dose: 10 mg Documented by: Bisacodyl (Bisacodyl 5 Mg Tab) 10 mg PO ONETIME ONE Stop: 05/01/21 20:01 Last Admin: 05/01/21 20:16 Dose: 10 mg Documented by: Diltiazem HCl (Diltiazem 180 Mg Cap.Cd) 180 mg PO DAILY [facility] Sodium Chloride (Normal Saline) 100 mls @ 4 mls/sec IV ASDIRECTED [facility] Stop: 04/29/21 22:00 Last Admin: 04/29/21 11:51 Dose: 4 mls/sec Documented by: Sodium Chloride (Normal Saline) 1,000 mls @ 100 mls/hr IV ASDIRECTED [facility] Last Admin: 05/01/21 11:43 Dose: 100 mls/hr Documented by: Sodium Chloride (Normal Saline) 1,000 mls @ 75 mls/hr IV ASDIRECTED [facility] Last Admin: 05/02/21 07:37 Dose: 75 mls/hr Documented by: Iopamidol (Iopamidol 755 Mg/Ml 100 Ml Bottle) 100 ml IV . DIRECTED [facility] Stop: 04/29/21 20:00 Last Admin: 04/29/21 11:50 Dose: 77 ml Documented by: Methylprednisolone Sodium Succinate (Methylprednisolone Sodium Succinate 125 Mg/2 Ml Sdv) 125 mg IVPUSH ONETIME ONE Stop: 04/29/21 08:25 Last Admin: 04/29/21 08:39 Dose: 125 mg Documented by: Non-Formulary Medication (Esomeprazole [Nexium]) 40 mg PO DAILY PRN PRN Reason: Abdominal Pain Pantoprazole Sodium (Pantoprazole 40 Mg Vial) 40 mg IVPUSH Q12H [facility] Last Admin: 05/01/21 11:59 Dose: 40 mg Documented by: Polyethylene Glycol (Polyethylene Glycol 3350 Powder 238 Gm Bot) 238 gm PO ONETIME ONE Stop: 04/30/21 17:01 Last Admin: 04/30/21 17:24 Dose: 1 bottle Documented by: Polyethylene Glycol (Polyethylene Glycol 3350 Powder 238 Gm Bot) 238 gm PO ONETIME ONE Stop: 05/01/21 17:01 Last Admin: 05/01/21 17:17 Dose: 238 gm Documented by: Propofol (Propofol 200 Mg/20 Ml Sdv) Confirm Administered Dose 200 mg .ROUTE .STK-MED ONE Stop: 05/02/21 07:53 Sodium Chloride (Sodium Chloride 0.9% 10 Ml Syringe) 10 ml FLUSH ONETIME ONE Stop: 04/29/21 11:15 Last Admin: 04/29/21 11:50 Dose: 10 ml Documented by: - Exam Quality Assessment: Supplemental Oxygen, DVT Prophylaxis General: Alert, Oriented, Cooperative, Mild Distress Lungs: Clear to Auscultation, Normal Respiratory Effort, Decreased Breath Sounds. No: Rales, Rhonchi, Wheezing Cardiovascular: Regular Rate, Regular Rhythm, No Murmurs GI/Abdominal Exam: Soft, Non-Tender, No Organomegaly, No Distention Extremities: Non-Tender, No Pedal Edema - Patient Data Lab Results Last 24 hrs: Laboratory Results - last 24 hr 05/01/21 05/02/21 05/02/21 Range/Units 17:08 04:00 04:00 WBC 7.4 (4.5-11.0) K/uL RBC 2.85 L (4.30-5.90) M/uL Hgb 8.4 L 8.4 L (12.0-15.0) g/dL Hct 27.1 L (40.0-54.0) % MCV 95 (80-98) fL MCH 30 (27-31) pg MCHC 31 L (32-36) % Plt Count 254 (150-400) K/uL Neut % (Auto) 90.5 H (36-66) % Lymph % (Auto) 4.4 L (24-44) % [place] % (Auto) 5.1 (2-6) % Eos % (Auto) 0.0 L (2-4) % Baso % (Auto) 0.0 (0-1) % Sodium 140 (140-148) mmol/L Potassium 3.7 (3.6-5.2) mmol/L Chloride 103 (100-108) mmol/L Carbon Dioxide 30 (21-32) mmol/L Anion Gap 7.1 (5.0-14.0) mmol/L BUN 27 H (7-18) mg/dL Creatinine 1.0 (0.8-1.3) mg/dL Est Cr Clr Drug Dosing 60.07 mL/min Estimated GFR (MDRD) > 60 (>60) Glucose 175 H (74-106) mg/dL Calcium 7.7 L (8.5-10.1) mg/dL Result Diagrams: 05/02/21 04:00 05/02/21 04:00 Wallace Results Last 24 hrs: Microbiology 04/29/21 14:27 Gram Stain - Final Joint / Synovial Fluid - Knee, Right Body Fluid Culture - Final NO GROWTH AFTER 3 DAYS 04/29/21 13:00 Aerobic Blood Culture - Preliminary Blood - Arm, Right NO GROWTH AFTER 2 DAYS Anaerobic Blood Culture - Preliminary NO GROWTH AFTER 2 DAYS 04/29/21 13:10 Aerobic Blood Culture - Preliminary Blood - Venous - Lab Draw NO GROWTH AFTER 2 DAYS Anaerobic Blood Culture - Preliminary NO GROWTH AFTER 2 DAYS Sepsis Event Note - Evaluation Sepsis Screening Result: No Definite Risk - Focused Exam Vital Signs: Vital Signs Temp Pulse Resp BP Pulse Ox 05/02/21 12:17 95 05/02/21 12:00 94 L 05/02/21 11:15 97.7 F 74 20 170/62 H 94 L 05/02/21 08:45 97.6 F 89 26 H 143/68 H 95 05/02/21 08:30 97.0 F 72 18 150/69 H 96 05/02/21 08:25 82 16 131/71 93 L 05/02/21 08:20 85 22 H 131/62 92 L 05/02/21 08:15 73 19 136/61 93 L 05/02/21 08:10 96.8 F L 77 19 122/56 L 91 L 05/02/21 07:52 97.4 F 80 24 H 140/65 95 05/02/21 07:45 95 05/02/21 03:39 97.7 F 85 24 H 139/56 L 94 L - Problem List Review Problem List Initiated/Reviewed/Updated: Yes - My Orders Last 24 Hours: My Active Orders 05/01/21 12:19 Convert IV to Saline Lock [OM.PC] Routine 05/01/21 12:51 Verify Patient Consent Obtain [RC] ASDIRECTED Schedule Procedure [COMM] Routine 05/02/21 07:30 Pantoprazole [ProTONIX] 40 mg PO DAILY@0730 05/02/21 Breakfast NPO After Midnight [Nothing per Oral After Midnight Diet] [DIET] 05/02/21 Lunch GI Soft Low Fiber [Soft Diet] [DIET] 05/02/21 12:54 Convert IV to Saline Lock [OM.PC] Routine 05/02/21 13:00 allopurinoL [Zyloprim] 100 mg PO DAILY 05/03/21 05:11 HGB [HEMOGLOBIN] [HEME] AM - Plan Plan:: ASSESSMENT AND PLAN SEVERE ANEMIA-hemoglobin stable over the last 24 hours with no further evidence of active bleeding. EGD showed no obvious source of bleeding. Colonoscopy showed diverticulosis and a polyp near the cecum that was removed, no evidence of active bleeding. Hemoglobin has remained stable over the last 24 hours. -Serial hemoglobin levels -Protonix 40 mg p.o. daily -Soft low residue diet ACUTE ON CHRONIC HYPOXIC RESPIRATORY FAILURE-fairly stable since admission, adequate oxygenation at rest with his usual 2 L of oxygen per minute. CT angiogram of the chest showed no evidence of pulmonary emboli or pneumonia. Echocardiogram report is pending -Supplemental oxygen to maintain saturations around 90% COPD EXACERBATION-most likely cause of increased hypoxia -Blood cultures x2 -Solu-Medrol 40 mg IV every 8 hours -Nebulizer therapy with DuoNeb's and albuterol CONGESTIVE HEART FAILURE-episode of hypotension after arriving in the emergency department, resolved spontaneously. No evidence of significant pulmonary edema noted on chest x-ray. -Continue outpatient medications including diuretic -Formal echo report pending BILATERAL KNEE PAIN-improved following steroid injections in both knees. Fluid analysis consistent with gout -Allopurinol 100 mg p.o. daily -Orthopedic follow-up per Dr. Morrell MAINTENANCE ISSUES -DVT prophylaxis; SCUDs, will hold on anticoagulation because of severe anemia a nd possible bleeding -GI prophylaxis; Protonix as above -Avery catheter; not indicated -Nutrition; clear liquid diet, n.p.o. after midnight -Nicotine dependence; not required CODE STATUS-FULL CODE ADMISSION STATUS-patient will be admitted to inpatient status, expect at least a 2 night hospital stay for evaluation and management of problems as outlined above. At the time of this admission I do not reasonably expected evaluation and management of this problem will require more than a 96 hour hospital stay. DISPOSITION-anticipate discharge to home after the hospital stay.
[2021-05-02] MEDS: Allopurinol 100 MG Tab PO SCH (14:05)
[2021-05-02] MEDS: Terazosin 1 MG Cap PO SCH (20:45)
[2021-05-03] MEDS: Formoterol/Mometasone 200-5 MCG 8.8 GM Inhaler IH SCH ×2 (07:30→20:10)
[2021-05-03] MEDS: Albuterol/Ipratropium 3.0-0.5 MG/3 ML Neb Soln NEB SCH ×4 (07:31→20:11)
[2021-05-03] MEDS: Pantoprazole 40 MG Tab.CR PO SCH (07:58)
[2021-05-03] MEDS: methylPREDNISolone Sodium Succinate 40 MG/1 ML SDV IVPUSH SCH (08:02)
[2021-05-03] MEDS: Diltiazem 180 MG Cap.CD PO SCH (08:12)
[2021-05-03] MEDS: Furosemide 40 MG Tab PO SCH (08:12)
[2021-05-03] MEDS: Allopurinol 100 MG Tab PO SCH (08:12)
--- NOTE | 2021-05-03 11:46 | OR ---
CORRECTED REPORT DATE OF PROCEDURE: 05/02/2021 SURGEON: Fidencio Dennison MD PROCEDURE: Colonoscopy. FINDINGS: 1. No etiology for anemia. 2. Diverticulosis, mild to moderate, mostly limited to sigmoid colon. 3. Ulceration, white plaque structure, approximately 3 mm in the cecum (biopsied using cold biopsy forceps, not consistent with varicosity or AV malformation). COMPLICATIONS: None. CLAIMS REPRESENTATIVE: None. ANESTHESIA: MAC. PREOPERATIVE DIAGNOSIS: Anemia. POSTOPERATIVE DIAGNOSIS: Anemia. RISKS: Risks, benefits, alternatives, and limitations including, but not limited to infection, bleeding, perforation, false positives, and false negatives were explained to the patient and he wished to proceed. PROCEDURE IN DETAIL: The patient was placed in left lateral decubitus position. Digital rectal exam was performed without abnormality. Scope was introduced and advanced atraumatically to the ileocecal valve. The scope was brought back to the ascending, transverse, descending colon, and retroflexed. Within the ileocecal valve, there was a small ulceration type area, which was biopsied using cold biopsy forceps. This was not actively bleeding. This is a singular structure without evidence of inflammation around this. The scope was brought back to the remainder of the colon and retroflexed. Diverticulosis described as mild to moderate without evidence of diverticulitis or bleeding. No abnormalities on retroflexion. Greater than 8 minutes was spent removing the scope. The prep was acceptable. Approximately 90% of the luminal surface could be seen. The patient tolerated the procedure well. Fidencio Dennison MD /[id number] NIKIA
--- NOTE | 2021-05-03 14:41 | PCM.PN ---
- General Info Date of Service: 05/03/21 Subjective Update: Mr. Cruz has remained fairly stable since yesterday with no further evidence of active bleeding. Hemoglobin level has remained stable over the past few days since his last transfusion. Continues to experience shortness of breath with fairly minimal exertion, he reports that this is not that much different than his usual baseline. Functional Status: Reports: Tolerating Diet, Urinating - Review of Systems General: Reports: Weakness, Fatigue. Denies: Fever, Chills Pulmonary: Reports: Shortness of Breath. Denies: Pleuritic Chest Pain, Cough, Sputum, Hemoptysis, Wheezing Cardiovascular: Reports: Dyspnea on Exertion. Denies: Chest Pain, Palpitations, Orthopnea, PND, Edema, Lightheadedness Gastrointestinal: Reports: No Symptoms Genitourinary: Reports: No Symptoms - Patient Data Vitals - Most Recent: Last Vital Signs Temp 98.8 F 05/03/21 12:41 Pulse 78 05/03/21 12:41 Resp 20 05/03/21 12:41 BP 114/78 05/03/21 12:41 Pulse Ox 94 L 05/03/21 12:41 Weight - Most Recent: 226 lb 13.69 oz I&O - Last 24 Hours: Intake & Output 05/02/21 05/03/21 05/03/21 22:59 06:59 14:59 Intake Total 826 138 7609 Output Total 675 775 700 Balance -275 -475 750 Lab Results Last 24 Hours: Laboratory Results - last 24 hr 05/03/21 Range/Units 04:30 Hgb 8.8 L (12.0-15.0) g/dL Wallace Results Last 24 Hours: Microbiology 04/29/21 13:10 Aerobic Blood Culture - Preliminary Blood - Venous - Lab Draw NO GROWTH AFTER 4 DAYS Anaerobic Blood Culture - Preliminary NO GROWTH AFTER 4 DAYS 04/29/21 13:00 Aerobic Blood Culture - Preliminary Blood - Arm, Right NO GROWTH AFTER 4 DAYS Anaerobic Blood Culture - Preliminary NO GROWTH AFTER 4 DAYS Med Orders - Current: Current Medications Acetaminophen (Acetaminophen 325 Mg Tab) 650 mg PO Q4H PRN PRN Reason: Pain (Mild 1-3)/fever Last Admin: 05/02/21 11:16 Dose: 650 mg Documented by: Albuterol (Albuterol 0.083% 2.5 Mg/3 Ml Neb Soln) 2.5 mg NEB Q4H PRN PRN Reason: Shortness Of Breath/wheezing Last Admin: 05/01/21 09:38 Dose: 2.5 mg Documented by: Albuterol/Ipratropium (Albuterol/Ipratropium 3.0-0.5 Mg/3 Ml Neb Soln) 3 ml NEB QIDRT [facility] Last Admin: 05/03/21 14:25 Dose: 3 ml Documented by: Allopurinol (Allopurinol 100 Mg Tab) 100 mg PO DAILY [facility] Last Admin: 05/03/21 08:12 Dose: 100 mg Documented by: Diltiazem HCl (Diltiazem 180 Mg Cap.Cd) 180 mg PO DAILY [facility] Last Admin: 05/03/21 08:12 Dose: 180 mg Documented by: Furosemide (Furosemide 40 Mg Tab) 40 mg PO DAILY [facility] Last Admin: 05/03/21 08:12 Dose: 40 mg Documented by: Methylprednisolone Sodium Succinate (Methylprednisolone Sodium Succinate 40 Mg/1 Ml Sdv) 40 mg IVPUSH Q8H [facility] Last Admin: 05/03/21 08:02 Dose: 40 mg Documented by: Mometasone Furoate/Formoterol Fumar (Formoterol/Mometasone 200-5 Mcg 8.8 Gm I nhaler) 2 puff IH BIDRT [facility] Last Admin: 05/03/21 07:30 Dose: 2 puff Documented by: Ondansetron HCl (Ondansetron 4 Mg/2 Ml Sdv) 4 mg IV Q4H PRN PRN Reason: Nausea/Vomiting Pantoprazole Sodium (Pantoprazole 40 Mg Tab.Cr) 40 mg PO DAILY@0730 [facility] Last Admin: 05/03/21 07:58 Dose: 40 mg Documented by: Polyethylene Glycol (Polyethylene Glycol 3350 Powder 17 Gm Packet) 17 gm PO DAILY PRN PRN Reason: Constipation Sodium Chloride (Sodium Chloride 0.9% 10 Ml Syringe) 10 ml FLUSH ASDIRECTED PRN PRN Reason: Keep Vein Open Terazosin HCl (Terazosin 1 Mg Cap) 2 mg PO BEDTIME [facility] Last Admin: 05/02/21 20:45 Dose: 2 mg Documented by: Discontinued Medications Albuterol/Ipratropium (Albuterol/Ipratropium 3.0-0.5 Mg/3 Ml Neb Soln) 3 ml NEB ONETIME ONE Stop: 04/29/21 08:22 Last Admin: 04/29/21 08:38 Dose: 3 ml Documented by: Bisacodyl (Bisacodyl 5 Mg Tab) 10 mg PO ONETIME ONE Stop: 04/30/21 15:36 Last Admin: 04/30/21 16:03 Dose: 10 mg Documented by: Bisacodyl (Bisacodyl 5 Mg Tab) 10 mg PO ONETIME ONE Stop: 04/30/21 20:01 Last Admin: 04/30/21 20:26 Dose: 10 mg Documented by: Bisacodyl (Bisacodyl 5 Mg Tab) 10 mg PO ONETIME ONE Stop: 05/01/21 14:01 Last Admin: 05/01/21 15:00 Dose: 10 mg Documented by: Bisacodyl (Bisacodyl 5 Mg Tab) 10 mg PO ONETIME ONE Stop: 05/01/21 20:01 Last Admin: 05/01/21 20:16 Dose: 10 mg Documented by: Diltiazem HCl (Diltiazem 180 Mg Cap.Cd) 180 mg PO DAILY [facility] Sodium Chloride (Normal Saline) 100 mls @ 4 mls/sec IV ASDIRECTED [facility] Stop: 04/29/21 22:00 Last Admin: 04/29/21 11:51 Dose: 4 mls/sec Documented by: Sodium Chloride (Normal Saline) 1,000 mls @ 100 mls/hr IV ASDIRECTED [facility] Last Admin: 05/01/21 11:43 Dose: 100 mls/hr Documented by: Sodium Chloride (Normal Saline) 1,000 mls @ 75 mls/hr IV ASDIRECTED [facility] Last Admin: 05/02/21 14:15 Dose: 75 mls/hr Documented by: Iopamidol (Iopamidol 755 Mg/Ml 100 Ml Bottle) 100 ml IV . DIRECTED [facility] Stop: 04/29/21 20:00 Last Admin: 04/29/21 11:50 Dose: 77 ml Documented by: Methylprednisolone Sodium Succinate (Methylprednisolone Sodium Succinate 125 Mg/2 Ml Sdv) 125 mg IVPUSH ONETIME ONE Stop: 04/29/21 08:25 Last Admin: 04/29/21 08:39 Dose: 125 mg Documented by: Non-Formulary Medication (Esomeprazole [Nexium]) 40 mg PO DAILY PRN PRN Reason: Abdominal Pain Pantoprazole Sodium (Pantoprazole 40 Mg Vial) 40 mg IVPUSH Q12H [facility] Last Admin: 05/01/21 11:59 Dose: 40 mg Documented by: Polyethylene Glycol (Polyethylene Glycol 3350 Powder 238 Gm Bot) 238 gm PO ONETIME ONE Stop: 04/30/21 17:01 Last Admin: 04/30/21 17:24 Dose: 1 bottle Documented by: Polyethylene Glycol (Polyethylene Glycol 3350 Powder 238 Gm Bot) 238 gm PO ONETIME ONE Stop: 05/01/21 17:01 Last Admin: 05/01/21 17:17 Dose: 238 gm Documented by: Propofol (Propofol 200 Mg/20 Ml Sdv) Confirm Administered Dose 200 mg .ROUTE .STK-MED ONE Stop: 05/02/21 07:53 Sodium Chloride (Sodium Chloride 0.9% 10 Ml Syringe) 10 ml FLUSH ONETIME ONE Stop: 04/29/21 11:15 Last Admin: 04/29/21 11:50 Dose: 10 ml Documented by: - Exam Quality Assessment: Supplemental Oxygen, DVT Prophylaxis General: Alert, Oriented, Cooperative, Mild Distress Lungs: Clear to Auscultation, Normal Respiratory Effort Cardiovascular: Regular Rate, Regular Rhythm, No Murmurs GI/Abdominal Exam: Soft, Non-Tender, No Organomegaly Extremities: Non-Tender, No Pedal Edema - Patient Data Lab Results Last 24 hrs: Laboratory Results - last 24 hr 05/03/21 Range/Units 04:30 Hgb 8.8 L (12.0-15.0) g/dL Result Diagrams: 05/03/21 04:30 05/02/21 04:00 Awllace Results Last 24 hrs: Microbiology 04/29/21 13:10 Aerobic Blood Culture - Preliminary Blood - Venous - Lab Draw NO GROWTH AFTER 4 DAYS Anaerobic Blood Culture - Preliminary NO GROWTH AFTER 4 DAYS 04/29/21 13:00 Aerobic Blood Culture - Preliminary Blood - Arm, Right NO GROWTH AFTER 4 DAYS Anaerobic Blood Culture - Preliminary NO GROWTH AFTER 4 DAYS Sepsis Event Note - Evaluation Sepsis Screening Result: No Definite Risk - Focused Exam Vital Signs: Vital Signs Temp Temp Pulse Resp BP Pulse Ox 05/03/21 12:41 98.8 F 78 20 114/78 94 L 05/03/21 08:00 86 22 H 129/33 L 95 05/03/21 04:33 97.8 F 73 18 129/54 L 93 L - Problem List Review Problem List Initiated/Reviewed/Updated: Yes - My Orders Last 24 Hours: My Active Orders 05/04/21 05:11 HGB [HEMOGLOBIN] [HEME] AM - Plan Plan:: ASSESSMENT AND PLAN SEVERE ANEMIA-hemoglobin stable over the last 24 hours with no further evidence of active bleeding. EGD showed no obvious source of bleeding. Colonoscopy showed diverticulosis and a polyp near the cecum that was removed, no evidence of active bleeding. Hemoglobin has remained stable over the last 3 days. -Follow-up hemoglobin level in a.m. -Protonix 40 mg p.o. daily -Soft low residue diet ACUTE ON CHRONIC HYPOXIC RESPIRATORY FAILURE-fairly stable since admission, adequate oxygenation at rest with his usual 2 L of oxygen per minute. CT angiogram of the chest showed no evidence of pulmonary emboli or pneumonia. Echocardiogram report is pending -Supplemental oxygen to maintain saturations around 90% COPD EXACERBATION-most likely cause of increased hypoxia -Blood cultures x2 -Discontinue Solu-Medrol -Prednisone 40 mg p.o. daily -Nebulizer therapy with DuoNeb's and albuterol CONGESTIVE HEART FAILURE-episode of hypotension after arriving in the emergency department, resolved spontaneously. No evidence of significant pulmonary edema noted on chest x-ray. -Continue outpatient medications including diuretic -Extra dose of furosemide this afternoon 20 mg IV, reassess in a.m. -Formal echo report pending BILATERAL KNEE PAIN-improved following steroid injections in both knees. Fluid analysis consistent with gout -Allopurinol 100 mg p.o. daily -Orthopedic follow-up per Dr. Morrell MAINTENANCE ISSUES -DVT prophylaxis; SCUDs, will hold on anticoagulation because of severe anemia and possible bleeding -GI prophylaxis; Protonix as above -Avery catheter; not indicated -Nutrition; clear liquid diet, n.p.o. after midnight -Nicotine dependence; not required CODE STATUS-FULL CODE ADMISSION STATUS-patient will be admitted to inpatient status, expect at least a 2 night hospital stay for evaluation and management of problems as outlined above. At the time of this admission I do not reasonably expected evaluation and management of this problem will require more than a 96 hour hospital stay. DISPOSITION-anticipate discharge to home after the hospital stay.
[2021-05-03] MEDS ORDERED: Furosemide 40 MG/4 ML VIAL IVPUSH ONE ×2 (16:00→18:00)
[2021-05-03] MEDS: Terazosin 1 MG Cap PO SCH (20:11)
[2021-05-04] MEDS: Formoterol/Mometasone 200-5 MCG 8.8 GM Inhaler IH SCH ×2 (07:02→20:54)
[2021-05-04] MEDS: Albuterol/Ipratropium 3.0-0.5 MG/3 ML Neb Soln NEB SCH ×4 (07:02→20:54)
[2021-05-04] MEDS: Pantoprazole 40 MG Tab.CR PO SCH (08:00)
[2021-05-04] MEDS ORDERED: predniSONE 20 MG Tab PO SCH (08:00)
[2021-05-04] MEDS: Diltiazem 180 MG Cap.CD PO SCH (08:00)
[2021-05-04] MEDS: Allopurinol 100 MG Tab PO SCH (08:00)
[2021-05-04] MEDS: Furosemide 40 MG Tab PO SCH (08:01)
[2021-05-04] MEDS: Albuterol 0.083% 2.5 MG/3 ML Neb Soln NEB PRN ×2 (10:18→18:07)
--- NOTE | 2021-05-04 10:23 | PCM.PN ---
- General Info Date of Service: 05/04/21 Subjective Update: No acute events overnight. Patient does feel more short of breath today and feels like he is having a more difficult time breathing. He thinks it is because of a perfume that he smelled last night in the hallway. He does not report any chest pain. He has a loose but nonproductive cough. He has not had any fevers. Oxygenation has remained stable but he is hoping that we will turn up his oxygen slightly to help with his dyspnea. He remains weak and requires assistance. Functional Status: Reports: Pain Controlled - Review of Systems Pulmonary: Reports: Shortness of Breath - Patient Data Vitals - Most Recent: Last Vital Signs Temp 36.7 C 05/04/21 07:00 Pulse 87 05/04/21 07:00 Resp 18 05/04/21 07:00 BP 113/51 L 05/04/21 07:00 Pulse Ox 93 L 05/04/21 07:00 Weight - Most Recent: 100.698 kg I&O - Last 24 Hours: Intake & Output 05/03/21 05/04/21 05/04/21 22:59 06:59 14:59 Intake Total 520 Output Total 1525 400 700 Balance -1005 -400 -700 Lab Results Last 24 Hours: Laboratory Results - last 24 hr 04/29/21 05/04/21 05/04/21 Range/Units 09:02 04:25 04:25 Hgb 8.1 L (12.0-15.0) g/dL Sodium 143 (140-148) mmol/L Potassium 3.6 (3.6-5.2) mmol/L Chloride 104 (100-108) mmol/L Carbon Dioxide 37 H (21-32) mmol/L Anion Gap 5.6 (5.0-14.0) mmol/L BUN 25 H (7-18) mg/dL Creatinine 1.0 (0.8-1.3) mg/dL Est Cr Clr Drug Dosing 60.07 mL/min Estimated GFR (MDRD) > 60 (>60) Glucose 145 H (74-106) mg/dL Calcium 7.6 L (8.5-10.1) mg/dL Crossmatch See Detail Wallace Results Last 24 Hours: Microbiology 04/29/21 13:10 Aerobic Blood Culture - Preliminary Blood - Venous - Lab Draw NO GROWTH AFTER 4 DAYS Anaerobic Blood Culture - Preliminary NO GROWTH AFTER 4 DAYS 04/29/21 13:00 Aerobic Blood Culture - Preliminary Blood - Arm, Right NO GROWTH AFTER 4 DAYS Anaerobic Blood Culture - Preliminary NO GROWTH AFTER 4 DAYS Med Orders - Current: Current Medications Acetaminophen (Acetaminophen 325 Mg Tab) 650 mg PO Q4H PRN PRN Reason: Pain (Mild 1-3)/fever Last Admin: 05/02/21 11:16 Dose: 650 mg Documented by: Albuterol (Albuterol 0.083% 2.5 Mg/3 Ml Neb Soln) 2.5 mg NEB Q4H PRN PRN Reason: Shortness Of Breath/wheezing Last Admin: 05/04/21 10:18 Dose: 2.5 mg Documented by: Albuterol/Ipratropium (Albuterol/Ipratropium 3.0-0.5 Mg/3 Ml Neb Soln) 3 ml NEB QIDRT [facility] Last Admin: 05/04/21 07:02 Dose: 3 ml Documented by: Allopurinol (Allopurinol 100 Mg Tab) 100 mg PO DAILY [facility] Last Admin: 05/04/21 08:00 Dose: 100 mg Documented by: Diltiazem HCl (Diltiazem 180 Mg Cap.Cd) 180 mg PO DAILY [facility] Last Admin: 05/04/21 08:00 Dose: 180 mg Documented by: Furosemide (Furosemide 40 Mg Tab) 40 mg PO DAILY [facility] Last Admin: 05/04/21 08:01 Dose: 40 mg Documented by: Furosemide (Furosemide 40 Mg Tab) 40 mg PO ONETIME ONE Stop: 05/04/21 15:01 Mometasone Furoate/Formoterol Fumar (Formoterol/Mometasone 200-5 Mcg 8.8 Gm Inhaler) 2 puff IH BIDRT [facility] Last Admin: 05/04/21 07:02 Dose: 2 puff Documented by: Ondansetron HCl (Ondansetron 4 Mg/2 Ml Sdv) 4 mg IV Q4H PRN PRN Reason: Nausea/Vomiting Pantoprazole Sodium (Pantoprazole 40 Mg Tab.Cr) 40 mg PO DAILY@0730 [facility] Last Admin: 05/04/21 08:00 Dose: 40 mg Documented by: Polyethylene Glycol (Polyethylene Glycol 3350 Powder 17 Gm Packet) 17 gm PO DAILY PRN PRN Reason: Constipation Potassium Chloride (Potassium Chloride 20 Meq Tab.Er) 40 meq PO ONETIME ONE Stop: 05/04/21 10:20 Prednisone (Prednisone 20 Mg Tab) 20 mg PO WITHBREAKFAST [facility] Sodium Chloride (Sodium Chloride 0.9% 10 Ml Syringe) 10 ml FLUSH ASDIRECTED PRN PRN Reason: Keep Vein Open Terazosin HCl (Terazosin 1 Mg Cap) 2 mg PO BEDTIME [facility] Last Admin: 05/03/21 20:11 Dose: 2 mg Documented by: Discontinued Medications Albuterol/Ipratropium (Albuterol/Ipratropium 3.0-0.5 Mg/3 Ml Neb Soln) 3 ml NEB ONETIME ONE Stop: 04/29/21 08:22 Last Admin: 04/29/21 08:38 Dose: 3 ml Documented by: Bisacodyl (Bisacodyl 5 Mg Tab) 10 mg PO ONETIME ONE Stop: 04/30/21 15:36 Last Admin: 04/30/21 16:03 Dose: 10 mg Documented by: Bisacodyl (Bisacodyl 5 Mg Tab) 10 mg PO ONETIME ONE Stop: 04/30/21 20:01 Last Admin: 04/30/21 20:26 Dose: 10 mg Documented by: Bisacodyl (Bisacodyl 5 Mg Tab) 10 mg PO ONETIME ONE Stop: 05/01/21 14:01 Last Admin: 05/01/21 15:00 Dose: 10 mg Documented by: Bisacodyl (Bisacodyl 5 Mg Tab) 10 mg PO ONETIME ONE Stop: 05/01/21 20:01 Last Admin: 05/01/21 20:16 Dose: 10 mg Documented by: Diltiazem HCl (Diltiazem 180 Mg Cap.Cd) 180 mg PO DAILY [facility] Furosemide (Furosemide 40 Mg/4 Ml Vial) 20 mg IVPUSH NOW ONE Stop: 05/03/21 16:01 Last Admin: 05/03/21 15:36 Dose: 20 mg Documented by: Sodium Chloride (Normal Saline) 100 mls @ 4 mls/sec IV ASDIRECTED [facility] Stop: 04/29/21 22:00 Last Admin: 04/29/21 11:51 Dose: 4 mls/sec Documented by: Sodium Chloride (Normal Saline) 1,000 mls @ 100 mls/hr IV ASDIRECTED [facility] Last Admin: 05/01/21 11:43 Dose: 100 mls/hr Documented by: Sodium Chloride (Normal Saline) 1,000 mls @ 75 mls/hr IV ASDIRECTED [facility] Last Admin: 05/02/21 14:15 Dose: 75 mls/hr Documented by: Iopamidol (Iopamidol 755 Mg/Ml 100 Ml Bottle) 100 ml IV . DIRECTED [facility] Stop: 04/29/21 20:00 Last Admin: 04/29/21 11:50 Dose: 77 ml Documented by: Methylprednisolone Sodium Succinate (Methylprednisolone Sodium Succinate 125 Mg/2 Ml Sdv) 125 mg IVPUSH ONETIME ONE Stop: 04/29/21 08:25 Last Admin: 04/29/21 08:39 Dose: 125 mg Documented by: Methylprednisolone Sodium Succinate (Methylprednisolone Sodium Succinate 40 Mg/1 Ml Sdv) 40 mg IVPUSH Q8H [facility] Last Admin: 05/03/21 08:02 Dose: 40 mg Documented by: Non-Formulary Medication (Esomeprazole [Nexium]) 40 mg PO DAILY PRN PRN Reason: Abdominal Pain Pantoprazole Sodium (Pantoprazole 40 Mg Vial) 40 mg IVPUSH Q12H [facility] Last Admin: 05/01/21 11:59 Dose: 40 mg Documented by: Polyethylene Glycol (Polyethylene Glycol 3350 Powder 238 Gm Bot) 238 gm PO ONETIME ONE Stop: 04/30/21 17:01 Last Admin: 04/30/21 17:24 Dose: 1 bottle Documented by: Polyethylene Glycol (Polyethylene Glycol 3350 Powder 238 Gm Bot) 238 gm PO ONETIME ONE Stop: 05/01/21 17:01 Last Admin: 05/01/21 17:17 Dose: 238 gm Documented by: Prednisone (Prednisone 20 Mg Tab) 40 mg PO WITHBREAKFAST [facility] Last Admin: 05/04/21 08:00 Dose: 40 mg Documented by: Propofol (Propofol 200 Mg/20 Ml Sdv) Confirm Administered Dose 200 mg .ROUTE .STK-MED ONE Stop: 05/02/21 07:53 Sodium Chloride (Sodium Chloride 0.9% 10 Ml Syringe) 10 ml FLUSH ONETIME ONE Stop: 04/29/21 11:15 Last Admin: 04/29/21 11:50 Dose: 10 ml Documented by: - Exam Quality Assessment: Supplemental Oxygen General: Alert, Oriented, Cooperative, Mild Distress Lungs: Rhonchi, Wheezing. No: Normal Respiratory Effort (increased work of breathing ) Cardiovascular: Regular Rate, Regular Rhythm GI/Abdominal Exam: Soft, No Distention Extremities: Pedal Edema. No: Increased Warmth Skin: Warm, Dry Psy/Mental Status: Alert, Normal Affect - Patient Data Lab Results Last 24 hrs: Laboratory Results - last 24 hr 04/29/21 05/04/21 05/04/21 Range/Units 09:02 04:25 04:25 Hgb 8.1 L (12.0-15.0) g/dL Sodium 143 (140-148) mmol/L Potassium 3.6 (3.6-5.2) mmol/L Chloride 104 (100-108) mmol/L Carbon Dioxide 37 H (21-32) mmol/L Anion Gap 5.6 (5.0-14.0) mmol/L BUN 25 H (7-18) mg/dL Creatinine 1.0 (0.8-1.3) mg/dL Est Cr Clr Drug Dosing 60.07 mL/min Estimated GFR (MDRD) > 60 (>60) Glucose 145 H (74-106) mg/dL Calcium 7.6 L (8.5-10.1) mg/dL Crossmatch See Detail Result Diagrams: 05/04/21 04:25 05/04/21 04:25 Wallace Results Last 24 hrs: Microbiology 04/29/21 13:10 Aerobic Blood Culture - Preliminary Blood - Venous - Lab Draw NO GROWTH AFTER 4 DAYS Anaerobic Blood Culture - Preliminary NO GROWTH AFTER 4 DAYS 04/29/21 13:00 Aerobic Blood Culture - Preliminary Blood - Arm, Right NO GROWTH AFTER 4 DAYS Anaerobic Blood Culture - Preliminary NO GROWTH AFTER 4 DAYS Sepsis Event Note - Evaluation Sepsis Screening Result: No Definite Risk - Focused Exam Vital Signs: Vital Signs Temp Pulse Resp BP Pulse Ox 05/04/21 07:00 36.7 C 87 18 113/51 L 93 L 05/04/21 02:49 36.8 C 67 16 124/51 L 95 05/03/21 22:28 36.7 C 74 16 124/41 L 96 - Problem List Review Problem List Initiated/Reviewed/Updated: Yes - My Orders Last 24 Hours: My Active Orders 05/04/21 10:19 Potassium Chloride [Klor-Con M20] 40 meq PO ONETIME ONE 05/04/21 15:00 Furosemide [Lasix] 40 mg PO ONETIME ONE 05/05/21 08:00 predniSONE 20 mg PO WITHBREAKFAST - Plan Plan:: ASSESSMENT AND PLAN - SEVERE ANEMIA-hemoglobin stable with no evidence for bleeding. EGD and colonoscopy were unremarkable. -Follow-up hemoglobin level in a.m. -Protonix 40 mg p.o. daily -Soft low residue diet ACUTE ON CHRONIC HYPOXIC RESPIRATORY FAILURE-increase in dyspnea over the past 24 hours possibly related to environmental exposure. -Supplemental oxygen to maintain saturations around 90% COPD EXACERBATION-increase symptoms over the past 24 hours. Oxygenation stable. -Scheduled and as needed nebulizers -Prednisone 40 mg p.o. today then decrease to 20 mg CONGESTIVE HEART FAILURE-mild edema which is increased from baseline. -Continue outpatient medications -Extra dose of PO furosemide this afternoon -Follow-up formal echo report which is still pending BILATERAL KNEE PAIN-Fluid analysis consistent with gout. Still has mild swelling but pain is dramatically improved. -Steroids as above -Allopurinol 100 mg p.o. daily -Orthopedic follow-up per Dr. Morrell MAINTENANCE ISSUES -DVT prophylaxis; SCUDs, will hold on anticoagulation because of severe anemia and possible bleeding -GI prophylaxis; Protonix as above -Avery catheter; not indicated -Nutrition; soft low residual DISPOSITION-anticipate discharge to the intermediate for subacute rehab after the hospital stay. Jaleel Patel MD
[2021-05-04] MEDS ORDERED: Potassium Chloride 20 MEQ Tab.ER PO ONE ×2 (10:30→13:30)
[2021-05-04] MEDS ORDERED: Furosemide 40 MG Tab PO ONE (15:00)
[2021-05-04] MEDS: Terazosin 1 MG Cap PO SCH (20:54)
[2021-05-05] MEDS: Formoterol/Mometasone 200-5 MCG 8.8 GM Inhaler IH SCH ×2 (07:00→20:30)
[2021-05-05] MEDS: Albuterol/Ipratropium 3.0-0.5 MG/3 ML Neb Soln NEB SCH ×4 (07:01→20:30)
[2021-05-05] MEDS: Diltiazem 180 MG Cap.CD PO SCH (09:26)
[2021-05-05] MEDS: Furosemide 40 MG Tab PO SCH (09:26)
[2021-05-05] MEDS: Pantoprazole 40 MG Tab.CR PO SCH (09:26)
[2021-05-05] MEDS: predniSONE 20 MG Tab PO SCH (09:26)
[2021-05-05] MEDS: Allopurinol 100 MG Tab PO SCH (09:26)
--- NOTE | 2021-05-05 12:10 | PCM.PN ---
- General Info Date of Service: 05/05/21 Subjective Update: No acute events overnight. Shortness of breath has improved significantly since yesterday. Appetite is acceptable. Still weak and requiring assistance but see ms to be slowly getting better. No abdominal pain or nausea. Kidney function stable. Functional Status: Reports: Pain Controlled, Tolerating Diet - Review of Systems Pulmonary: Denies: Shortness of Breath - Patient Data Vitals - Most Recent: Last Vital Signs Temp 36.5 C 05/05/21 11:00 Pulse 70 05/05/21 11:00 Resp 18 05/05/21 11:00 BP 120/50 L 05/05/21 11:00 Pulse Ox 95 05/05/21 11:00 Weight - Most Recent: 100.8 kg I&O - Last 24 Hours: Intake & Output 05/04/21 05/05/21 05/05/21 22:59 06:59 14:59 Intake Total 240 Output Total 1665 350 200 Balance -1425 -350 -200 Wallace Results Last 24 Hours: Microbiology 04/29/21 13:10 Aerobic Blood Culture - Final Blood - Venous - Lab Draw NO GROWTH AFTER 5 DAYS Anaerobic Blood Culture - Final NO GROWTH AFTER 5 DAYS 04/29/21 13:00 Aerobic Blood Culture - Final Blood - Arm, Right NO GROWTH AFTER 5 DAYS Anaerobic Blood Culture - Final NO GROWTH AFTER 5 DAYS Med Orders - Current: Current Medications Acetaminophen (Acetaminophen 325 Mg Tab) 650 mg PO Q4H PRN PRN Reason: Pain (Mild 1-3)/fever Last Admin: 05/02/21 11:16 Dose: 650 mg Documented by: Albuterol (Albuterol 0.083% 2.5 Mg/3 Ml Neb Soln) 2.5 mg NEB Q4H PRN PRN Reason: Shortness Of Breath/wheezing Last Admin: 05/04/21 18:07 Dose: 2.5 mg Documented by: Albuterol/Ipratropium (Albuterol/Ipratropium 3.0-0.5 Mg/3 Ml Neb Soln) 3 ml NEB QIDRT [facility] Last Admin: 05/05/21 10:57 Dose: 3 ml Documented by: Allopurinol (Allopurinol 100 Mg Tab) 100 mg PO DAILY [facility] Last Admin: 05/05/21 09:26 Dose: 100 mg Documented by: Diltiazem HCl (Diltiazem 180 Mg Cap.Cd) 180 mg PO DAILY [facility] Last Admin: 05/05/21 09:26 Dose: 180 mg Documented by: Furosemide (Furosemide 40 Mg Tab) 40 mg PO DAILY [facility] Last Admin: 05/05/21 09:26 Dose: 40 mg Documented by: Mometasone Furoate/Formoterol Fumar (Formoterol/Mometasone 200-5 Mcg 8.8 Gm Inhaler) 2 puff IH BIDRT [facility] Last Admin: 05/05/21 07:00 Dose: 2 puff Documented by: Ondansetron HCl (Ondansetron 4 Mg/2 Ml Sdv) 4 mg IV Q4H PRN PRN Reason: Nausea/Vomiting Pantoprazole Sodium (Pantoprazole 40 Mg Tab.Cr) 40 mg PO DAILY@0730 [facility] Last Admin: 05/05/21 09:26 Dose: 40 mg Documented by: Polyethylene Glycol (Polyethylene Glycol 3350 Powder 17 Gm Packet) 17 gm PO DAILY PRN PRN Reason: Constipation Last Admin: 05/05/21 09:39 Dose: 17 gm Documented by: Prednisone (Prednisone 20 Mg Tab) 20 mg PO WITHBREAKFAST [facility] Last Admin: 05/05/21 09:26 Dose: 20 mg Documented by: Sodium Chloride (Sodium Chloride 0.9% 10 Ml Syringe) 10 ml FLUSH ASDIRECTED PRN PRN Reason: Keep Vein Open Terazosin HCl (Terazosin 1 Mg Cap) 2 mg PO BEDTIME [facility] Last Admin: 05/04/21 20:54 Dose: 2 mg Documented by: Discontinued Medications Albuterol/Ipratropium (Albuterol/Ipratropium 3.0-0.5 Mg/3 Ml Neb Soln) 3 ml NEB ONETIME ONE Stop: 04/29/21 08:22 Last Admin: 04/29/21 08:38 Dose: 3 ml Documented by: Bisacodyl (Bisacodyl 5 Mg Tab) 10 mg PO ONETIME ONE Stop: 04/30/21 15:36 Last Admin: 04/30/21 16:03 Dose: 10 mg Documented by: Bisacodyl (Bisacodyl 5 Mg Tab) 10 mg PO ONETIME ONE Stop: 04/30/21 20:01 Last Admin: 04/30/21 20:26 Dose: 10 mg Documented by: Bisacodyl (Bisacodyl 5 Mg Tab) 10 mg PO ONETIME ONE Stop: 05/01/21 14:01 Last Admin: 05/01/21 15:00 Dose: 10 mg Documented by: Bisacodyl (Bisacodyl 5 Mg Tab) 10 mg PO ONETIME ONE Stop: 05/01/21 20:01 Last Admin: 05/01/21 20:16 Dose: 10 mg Documented by: Diltiazem HCl (Diltiazem 180 Mg Cap.Cd) 180 mg PO DAILY [facility] Furosemide (Furosemide 40 Mg/4 Ml Vial) 20 mg IVPUSH NOW ONE Stop: 05/03/21 16:01 Last Admin: 05/03/21 15:36 Dose: 20 mg Documented by: Furosemide (Furosemide 40 Mg Tab) 40 mg PO ONETIME ONE Stop: 05/04/21 15:01 Last Admin: 05/04/21 14:40 Dose: 40 mg Documented by: Sodium Chloride (Normal Saline) 100 mls @ 4 mls/sec IV ASDIRECTED [facility] Stop: 04/29/21 22:00 Last Admin: 04/29/21 11:51 Dose: 4 mls/sec Documented by: Sodium Chloride (Normal Saline) 1,000 mls @ 100 mls/hr IV ASDIRECTED [facility] Last Admin: 05/01/21 11:43 Dose: 100 mls/hr Documented by: Sodium Chloride (Normal Saline) 1,000 mls @ 75 mls/hr IV ASDIRECTED [facility] Last Admin: 05/02/21 14:15 Dose: 75 mls/hr Documented by: Iopamidol (Iopamidol 755 Mg/Ml 100 Ml Bottle) 100 ml IV . DIRECTED [facility] Stop: 04/29/21 20:00 Last Admin: 04/29/21 11:50 Dose: 77 ml Documented by: Methylprednisolone Sodium Succinate (Methylprednisolone Sodium Succinate 125 Mg/2 Ml Sdv) 125 mg IVPUSH ONETIME ONE Stop: 04/29/21 08:25 Last Admin: 04/29/21 08:39 Dose: 125 mg Documented by: Methylprednisolone Sodium Succinate (Methylprednisolone Sodium Succinate 40 Mg/1 Ml Sdv) 40 mg IVPUSH Q8H [facility] Last Admin: 05/03/21 08:02 Dose: 40 mg Documented by: Non-Formulary Medication (Esomeprazole [Nexium]) 40 mg PO DAILY PRN PRN Reason: Abdominal Pain Pantoprazole Sodium (Pantoprazole 40 Mg Vial) 40 mg IVPUSH Q12H [facility] Last Admin: 05/01/21 11:59 Dose: 40 mg Documented by: Polyethylene Glycol (Polyethylene Glycol 3350 Powder 238 Gm Bot) 238 gm PO ONETIME ONE Stop: 04/30/21 17:01 Last Admin: 04/30/21 17:24 Dose: 1 bottle Documented by: Polyethylene Glycol (Polyethylene Glycol 3350 Powder 238 Gm Bot) 238 gm PO ONETIME ONE Stop: 05/01/21 17:01 Last Admin: 05/01/21 17:17 Dose: 238 gm Documented by: Potassium Chloride (Potassium Chloride 20 Meq Tab.Er) 40 meq PO ONETIME ONE Stop: 05/04/21 13:31 Last Admin: 05/04/21 13:23 Dose: 40 meq Documented by: Prednisone (Prednisone 20 Mg Tab) 40 mg PO WITHBREAKFAST [facility] Last Admin: 05/04/21 08:00 Dose: 40 mg Documented by: Propofol (Propofol 200 Mg/20 Ml Sdv) Confirm Administered Dose 200 mg .ROUTE .STK-MED ONE Stop: 05/02/21 07:53 Sodium Chloride (Sodium Chloride 0.9% 10 Ml Syringe) 10 ml FLUSH ONETIME ONE Stop: 04/29/21 11:15 Last Admin: 04/29/21 11:50 Dose: 10 ml Documented by: - Exam Quality Assessment: Supplemental Oxygen General: Alert, Oriented, Cooperative, No Acute Distress Lungs: Normal Respiratory Effort, Wheezing (mild mid to end exp wheezing ) Cardiovascular: Regular Rate, Regular Rhythm GI/Abdominal Exam: Soft, No Distention Extremities: No Pedal Edema. No: Increased Warmth Skin: Warm, Dry Psy/Mental Status: Alert, Normal Affect - Patient Data Result Diagrams: 05/04/21 04:25 05/04/21 04:25 Wallace Results Last 24 hrs: Microbiology 04/29/21 13:10 Aerobic Blood Culture - Final Blood - Venous - Lab Draw NO GROWTH AFTER 5 DAYS Anaerobic Blood Culture - Final NO GROWTH AFTER 5 DAYS 04/29/21 13:00 Aerobic Blood Culture - Final Blood - Arm, Right NO GROWTH AFTER 5 DAYS Anaerobic Blood Culture - Final NO GROWTH AFTER 5 DAYS Sepsis Event Note - Evaluation Sepsis Screening Result: No Definite Risk - Focused Exam Vital Signs: Vital Signs Temp Pulse Resp BP Pulse Ox 05/05/21 11:00 36.5 C 70 18 120/50 L 95 05/05/21 07:01 78 05/05/21 07:00 36.5 C 67 18 118/42 L 95 05/05/21 02:18 36.6 C 69 18 133/46 L 96 - Problem List Review Problem List Initiated/Reviewed/Updated: Yes - My Orders Last 24 Hours: My Active Orders 05/05/21 08:00 predniSONE 20 mg PO WITHBREAKFAST 05/05/21 12:08 Antiembolic Devices [RC] .Routine RONNY Hose [Antiembolic Hose] [OM.PC] Routine 05/06/21 05:00 BASIC METABOLIC PANEL,BMP [CHEM] Timed HGB [HEMOGLOBIN] [HEME] Timed - Plan Plan:: ASSESSMENT AND PLAN - SEVERE ANEMIA-hemoglobin stable with no evidence for bleeding. EGD and colo noscopy were unremarkable. -Follow-up hemoglobin level in a.m. -Protonix 40 mg p.o. daily -Soft low residue diet ACUTE ON CHRONIC HYPOXIC RESPIRATORY FAILURE-respiratory status improved over the past 24 hours. -Supplemental oxygen to maintain saturations around 90% COPD EXACERBATION-oxygenation stable. Symptomatically feeling better. -Scheduled and as needed nebulizers -Prednisone 20 mg daily x4 then 10 mg daily x4 CONGESTIVE HEART FAILURE-mild edema which is increased from baseline. -Continue outpatient medications -Daily furosemide -Compression stockings -Follow-up formal echo report which is still pending BILATERAL KNEE PAIN-Fluid analysis consistent with gout. Still has mild swell ing but pain is dramatically improved. -Steroids as above -Allopurinol 100 mg p.o. daily -Orthopedic follow-up per Dr. Morrell MAINTENANCE ISSUES -DVT prophylaxis; SCUDs, will hold on anticoagulation because of severe anemia and possible bleeding -GI prophylaxis; Protonix as above -Avery catheter; not indicated -Nutrition; soft low residual DISPOSITION-anticipate discharge to the long-term for subacute rehab after the hospital stay. He is ready for discharge when a bed is available. Jaleel Patel MD
[2021-05-05] MEDS: Terazosin 1 MG Cap PO SCH (20:31)
[2021-05-06] MEDS: Formoterol/Mometasone 200-5 MCG 8.8 GM Inhaler IH SCH ×2 (07:34→20:16)
[2021-05-06] MEDS: Albuterol/Ipratropium 3.0-0.5 MG/3 ML Neb Soln NEB SCH ×4 (07:34→20:16)
[2021-05-06] MEDS: Potassium Chloride 20 MEQ Tab.ER PO SCH ×2 (09:24→20:16)
[2021-05-06] MEDS: Pantoprazole 40 MG Tab.CR PO SCH (09:24)
[2021-05-06] MEDS: Furosemide 40 MG Tab PO SCH (09:24)
[2021-05-06] MEDS: Allopurinol 100 MG Tab PO SCH (09:24)
[2021-05-06] MEDS: predniSONE 20 MG Tab PO SCH (09:24)
[2021-05-06] MEDS: Diltiazem 180 MG Cap.CD PO SCH (09:25)
[2021-05-06] MEDS: Albuterol 0.083% 2.5 MG/3 ML Neb Soln NEB PRN (12:53)
--- NOTE | 2021-05-06 14:56 | PCM.PN ---
- General Info Date of Service: 05/06/21 Subjective Update: No acute events overnight. Oxygenation has been stable. Patient feels like his breathing is at baseline. Appetite is good. He remains weak but does seem to b e slowly making improvements in his strength. Bowels have been moving. No fevers. Potassium was a little low but otherwise labs look good. Hemoglobin has been stable with no evidence for recurrent bleeding. Functional Status: Reports: Pain Controlled, Tolerating Diet - Review of Systems General: Reports: Weakness Pulmonary: Reports: Shortness of Breath - Patient Data Vitals - Most Recent: Last Vital Signs Temp 37.1 C 05/06/21 14:09 Pulse 72 05/06/21 14:45 Resp 20 05/06/21 14:09 BP 125/54 L 05/06/21 14:39 Pulse Ox 95 05/06/21 14:09 Weight - Most Recent: 100.8 kg I&O - Last 24 Hours: Intake & Output 05/05/21 05/06/21 05/06/21 22:59 06:59 14:59 Intake Total 8600 209 2281 Output Total 755 575 6772 Balance 1190 -380 160 Lab Results Last 24 Hours: Laboratory Results - last 24 hr 05/06/21 05/06/21 Range/Units 05:00 05:00 Hgb 8.3 L (12.0-15.0) g/dL Sodium 145 (140-148) mmol/L Potassium 3.3 L (3.6-5.2) mmol/L Chloride 102 (100-108) mmol/L Carbon Dioxide 40 H (21-32) mmol/L Anion Gap 6.3 (5.0-14.0) mmol/L BUN 16 (7-18) mg/dL Creatinine 0.8 (0.8-1.3) mg/dL Est Cr Clr Drug Dosing 74.81 mL/min Estimated GFR (MDRD) > 60 (>60) Glucose 94 (74-106) mg/dL Calcium 7.4 L (8.5-10.1) mg/dL Med Orders - Current: Current Medications Acetaminophen (Acetaminophen 325 Mg Tab) 650 mg PO Q4H PRN PRN Reason: Pain (Mild 1-3)/fever Last Admin: 05/02/21 11:16 Dose: 650 mg Documented by: Albuterol (Albuterol 0.083% 2.5 Mg/3 Ml Neb Soln) 2.5 mg NEB Q4H PRN PRN Reason: Shortness Of Breath/wheezing Last Admin: 05/06/21 12:53 Dose: 2.5 mg Documented by: Albuterol/Ipratropium (Albuterol/Ipratropium 3.0-0.5 Mg/3 Ml Neb Soln) 3 ml NEB QIDRT [facility] Last Admin: 05/06/21 14:45 Dose: 3 ml Documented by: Allopurinol (Allopurinol 100 Mg Tab) 100 mg PO DAILY [facility] Last Admin: 05/06/21 09:24 Dose: 100 mg Documented by: Diltiazem HCl (Diltiazem 180 Mg Cap.Cd) 180 mg PO DAILY [facility] Last Admin: 05/06/21 09:25 Dose: 180 mg Documented by: Furosemide (Furosemide 40 Mg Tab) 40 mg PO DAILY [facility] Last Admin: 05/06/21 09:24 Dose: 40 mg Documented by: Mometasone Furoate/Formoterol Fumar (Formoterol/Mometasone 200-5 Mcg 8.8 Gm Inhaler) 2 puff IH BIDRT [facility] Last Admin: 05/06/21 07:34 Dose: 2 puff Documented by: Ondansetron HCl (Ondansetron 4 Mg/2 Ml Sdv) 4 mg IV Q4H PRN PRN Reason: Nausea/Vomiting Pantoprazole Sodium (Pantoprazole 40 Mg Tab.Cr) 40 mg PO DAILY@0730 [facility] Last Admin: 05/06/21 09:24 Dose: 40 mg Documented by: Polyethylene Glycol (Polyethylene Glycol 3350 Powder 17 Gm Packet) 17 gm PO DAILY PRN PRN Reason: Constipation Last Admin: 05/05/21 09:39 Dose: 17 gm Documented by: Potassium Chloride (Potassium Chloride 20 Meq Tab.Er) 40 meq PO BID [facility] Stop: 05/06/21 21:01 Last Admin: 05/06/21 09:24 Dose: 40 meq Documented by: Prednisone (Prednisone 20 Mg Tab) 20 mg PO WITHBREAKFAST [facility] Last Admin: 05/06/21 09:24 Dose: 20 mg Documented by: Sodium Chloride (Sodium Chloride 0.9% 10 Ml Syringe) 10 ml FLUSH ASDIRECTED PRN PRN Reason: Keep Vein Open Terazosin HCl (Terazosin 1 Mg Cap) 2 mg PO BEDTIME [facility] Last Admin: 05/05/21 20:31 Dose: 2 mg Documented by: Discontinued Medications Albuterol/Ipratropium (Albuterol/Ipratropium 3.0-0.5 Mg/3 Ml Neb Soln) 3 ml NEB ONETIME ONE Stop: 04/29/21 08:22 Last Admin: 04/29/21 08:38 Dose: 3 ml Documented by: Bisacodyl (Bisacodyl 5 Mg Tab) 10 mg PO ONETIME ONE Stop: 04/30/21 15:36 Last Admin: 04/30/21 16:03 Dose: 10 mg Documented by: Bisacodyl (Bisacodyl 5 Mg Tab) 10 mg PO ONETIME ONE Stop: 04/30/21 20:01 Last Admin: 04/30/21 20:26 Dose: 10 mg Documented by: Bisacodyl (Bisacodyl 5 Mg Tab) 10 mg PO ONETIME ONE Stop: 05/01/21 14:01 Last Admin: 05/01/21 15:00 Dose: 10 mg Documented by: Bisacodyl (Bisacodyl 5 Mg Tab) 10 mg PO ONETIME ONE Stop: 05/01/21 20:01 Last Admin: 05/01/21 20:16 Dose: 10 mg Documented by: Diltiazem HCl (Diltiazem 180 Mg Cap.Cd) 180 mg PO DAILY [facility] Furosemide (Furosemide 40 Mg/4 Ml Vial) 20 mg IVPUSH NOW ONE Stop: 05/03/21 16:01 Last Admin: 05/03/21 15:36 Dose: 20 mg Documented by: Furosemide (Furosemide 40 Mg Tab) 40 mg PO ONETIME ONE Stop: 05/04/21 15:01 Last Admin: 05/04/21 14:40 Dose: 40 mg Documented by: Sodium Chloride (Normal Saline) 100 mls @ 4 mls/sec IV ASDIRECTED [facility] Stop: 04/29/21 22:00 Last Admin: 04/29/21 11:51 Dose: 4 mls/sec Documented by: Sodium Chloride (Normal Saline) 1,000 mls @ 100 mls/hr IV ASDIRECTED [facility] Last Admin: 05/01/21 11:43 Dose: 100 mls/hr Documented by: Sodium Chloride (Normal Saline) 1,000 mls @ 75 mls/hr IV ASDIRECTED [facility] Last Admin: 05/02/21 14:15 Dose: 75 mls/hr Documented by: Influenza Virus Vaccine (Flu Vacc [id number](65yr Up)/Pf 240 Mcg/0.7 Ml Syringe) 240 mcg IM .ONCE ONE Stop: 05/06/21 09:01 Last Admin: 05/06/21 09:25 Dose: 240 mcg Documented by: Iopamidol (Iopamidol 755 Mg/Ml 100 Ml Bottle) 100 ml IV . DIRECTED [facility] Stop: 04/29/21 20:00 Last Admin: 04/29/21 11:50 Dose: 77 ml Documented by: Methylprednisolone Sodium Succinate (Methylprednisolone Sodium Succinate 125 Mg/2 Ml Sdv) 125 mg IVPUSH ONETIME ONE Stop: 04/29/21 08:25 Last Admin: 04/29/21 08:39 Dose: 125 mg Documented by: Methylprednisolone Sodium Succinate (Methylprednisolone Sodium Succinate 40 Mg/1 Ml Sdv) 40 mg IVPUSH Q8H [facility] Last Admin: 05/03/21 08:02 Dose: 40 mg Documented by: Non-Formulary Medication (Esomeprazole [Nexium]) 40 mg PO DAILY PRN PRN Reason: Abdominal Pain Pantoprazole Sodium (Pantoprazole 40 Mg Vial) 40 mg IVPUSH Q12H [facility] Last Admin: 05/01/21 11:59 Dose: 40 mg Documented by: Polyethylene Glycol (Polyethylene Glycol 3350 Powder 238 Gm Bot) 238 gm PO ONETIME ONE Stop: 04/30/21 17:01 Last Admin: 04/30/21 17:24 Dose: 1 bottle Documented by: Polyethylene Glycol (Polyethylene Glycol 3350 Powder 238 Gm Bot) 238 gm PO ONETIME ONE Stop: 05/01/21 17:01 Last Admin: 05/01/21 17:17 Dose: 238 gm Documented by: Potassium Chloride (Potassium Chloride 20 Meq Tab.Er) 40 meq PO ONETIME ONE Stop: 05/04/21 13:31 Last Admin: 05/04/21 13:23 Dose: 40 meq Documented by: Prednisone (Prednisone 20 Mg Tab) 40 mg PO WITHBREAKFAST [facility] Last Admin: 05/04/21 08:00 Dose: 40 mg Documented by: Propofol (Propofol 200 Mg/20 Ml Sdv) Confirm Administered Dose 200 mg .ROUTE .STK-MED ONE Stop: 05/02/21 07:53 Sodium Chloride (Sodium Chloride 0.9% 10 Ml Syringe) 10 ml FLUSH ONETIME ONE Stop: 04/29/21 11:15 Last Admin: 04/29/21 11:50 Dose: 10 ml Documented by: - Exam Quality Assessment: Supplemental Oxygen General: Alert, Oriented, Cooperative, No Acute Distress Lungs: Normal Respiratory Effort, Rhonchi (mild diffuse upper lungs) Cardiovascular: Regular Rate, Regular Rhythm GI/Abdominal Exam: Soft, No Distention Extremities: Pedal Edema (mild bilateral ankle edema R>L). No: Increased Warmth Psy/Mental Status: Alert, Normal Affect - Patient Data Lab Results Last 24 hrs: Laboratory Results - last 24 hr 05/06/21 05/06/21 Range/Units 05:00 05:00 Hgb 8.3 L (12.0-15.0) g/dL Sodium 145 (140-148) mmol/L Potassium 3.3 L (3.6-5.2) mmol/L Chloride 102 (100-108) mmol/L Carbon Dioxide 40 H (21-32) mmol/L Anion Gap 6.3 (5.0-14.0) mmol/L BUN 16 (7-18) mg/dL Creatinine 0.8 (0.8-1.3) mg/dL Est Cr Clr Drug Dosing 74.81 mL/min Estimated GFR (MDRD) > 60 (>60) Glucose 94 (74-106) mg/dL Calcium 7.4 L (8.5-10.1) mg/dL Result Diagrams: 05/06/21 05:00 05/06/21 05:00 Sepsis Event Note - Evaluation Sepsis Screening Result: No Definite Risk - Focused Exam Vital Signs: Vital Signs Temp Pulse Resp BP Pulse Ox 05/06/21 14:45 72 05/06/21 14:39 125/54 L 05/06/21 14:09 37.1 C 83 20 98/39 L 95 05/06/21 12:54 78 05/06/21 12:39 36.6 C 84 18 91/40 L 90 L 05/06/21 10:52 68 05/06/21 07:33 70 05/06/21 07:20 36.7 C 65 16 122/66 92 L 05/06/21 03:00 35.7 C L 69 18 125/51 L 94 L - Problem List Review Problem List Initiated/Reviewed/Updated: Yes - My Orders Last 24 Hours: My Active Orders 05/05/21 20:01 Vaccine to be Administered/Admin Charge [RC] ASDIRECTED 05/06/21 09:00 Potassium Chloride [Klor-Con M20] 40 meq PO BID 05/07/21 05:00 BASIC METABOLIC PANEL,BMP [CHEM] Timed - Plan Plan:: ASSESSMENT AND PLAN - SEVERE ANEMIA-hemoglobin stable with no evidence for bleeding. EGD and colonoscopy were unremarkable. -Follow-up hemoglobin level in a.m. -Protonix 40 mg p.o. daily -Soft low residue diet ACUTE ON CHRONIC HYPOXIC RESPIRATORY FAILURE-respiratory status improved over the past 48 hours. -Supplemental oxygen to maintain saturations around 90% COPD EXACERBATION-oxygenation stable. Symptomatically feeling better. -Scheduled and as needed nebulizers -Prednisone 20 mg daily x4 then 10 mg daily x4 CONGESTIVE HEART FAILURE-mild edema that improved with additional diuresis and RONNY stockings. -Continue outpatient medications -Daily furosemide -Compression stockings BILATERAL KNEE PAIN-Fluid analysis consistent with gout. No significant pain. -Steroids as above -Allopurinol 100 mg p.o. daily -Orthopedic follow-up per Dr. Morrell MAINTENANCE ISSUES -DVT prophylaxis; SCUDs, will hold on anticoagulation because of severe anemia and possible bleeding -GI prophylaxis; Protonix as above -Avery catheter; not indicated -Nutrition; soft low residual DISPOSITION-anticipate discharge to the residential for subacute rehab after the hospital stay. He is ready for discharge and we should have a bed available tomorrow. Jaleel Patel MD
[2021-05-06] MEDS: Terazosin 1 MG Cap PO SCH (20:16)
[2021-05-07] MEDS: Formoterol/Mometasone 200-5 MCG 8.8 GM Inhaler IH SCH (07:08)
[2021-05-07] MEDS: Albuterol/Ipratropium 3.0-0.5 MG/3 ML Neb Soln NEB SCH ×2 (07:08→10:15)
[2021-05-07] MEDS: Pantoprazole 40 MG Tab.CR PO SCH (07:12)
[2021-05-07] MEDS: predniSONE 20 MG Tab PO SCH (07:12)
[2021-05-07 07:19] VITALS: PULSE 80
[2021-05-07] MEDS: Furosemide 40 MG Tab PO SCH (08:52)
[2021-05-07] MEDS: Allopurinol 100 MG Tab PO SCH (08:52)
[2021-05-07] MEDS: Acetaminophen 325 MG Tab PO PRN (08:53)
[2021-05-07] MEDS: Diltiazem 180 MG Cap.CD PO SCH (08:56)
[2021-05-07 08:59] VITALS: BP 125/48
--- NOTE | 2021-05-07 09:18 | PCM.DCSUM1 ---
Discharge Summary - Hospital Course Brief History: 76-year-old male with history of oxygen dependent COPD, congestive heart failure who presented with increasing weakness and shortness of breath. He was admitted for management of a presumed gastrointestinal hemorrhage with anemia due to blood loss. Diagnosis: Stroke: No - Discharge Data Discharge Date: 05/07/21 Discharge Disposition: DC/Tfer to SNF 03 Condition: Good - Referral to Home Health Primary Care Physician: PCP Unknown - Discharge Diagnosis/Problem(s) (1) Acute gastrointestinal hemorrhage SNOMED Code(s): 12264128 ICD Code: K92.2 - GASTROINTESTINAL HEMORRHAGE, UNSPECIFIED Status: Acute Current Visit: Yes (2) Anemia due to blood loss, acute SNOMED Code(s): 397032999 ICD Code: D62 - ACUTE POSTHEMORRHAGIC ANEMIA Status: Acute Current Visit: Yes (3) COPD exacerbation SNOMED Code(s): 021567578, 818636082 ICD Code: J44.1 - CHRONIC OBSTRUCTIVE PULMONARY DISEASE W (ACUTE) EXACERBATION Status: Acute Current Visit: No (4) Acute respiratory failure with hypoxia and hypercapnia SNOMED Code(s): 766331680 ICD Code: J96.01 - ACUTE RESPIRATORY FAILURE WITH HYPOXIA; J96.02 - ACUTE RESPIRATORY FAILURE WITH HYPERCAPNIA Status: Acute Current Visit: No (5) Gout of both knees SNOMED Code(s): 660662671, 773488580 ICD Code: M10.9 - GOUT, UNSPECIFIED Status: Acute Current Visit: Yes (6) CHF (congestive heart failure) SNOMED Code(s): 59610609 ICD Code: I50.9 - HEART FAILURE, UNSPECIFIED Status: Acute Current Visit: No - Patient Summary/Data Consults: Consultations 04/29/21 11:12 Consult to Physician [CONS] Routine Consulting Provider: Gerard Morrell Call Completed to Consulting Physician: Yes Reason for Consult: Bilateral knee pain, right greater than left PT Evaluation and Treatment [CONS] Routine Please Evaluate and Treat. PT Reason for Consult: Bilateral knee pain, weakness This query below is only for informational purposes and is not editable. 04/30/21 16:22 Consult to Physician [CONS] Routine Consulting Provider: Fidencio Dennison Call Completed to Consulting Physician: Yes Reason for Consult: GI bleed, anemia, EGD and colonoscopy in a.m. Hospital Course: Eulalio presented to the emergency room with acute dyspnea and weakness as well as worsening of his chronic shortness of breath. Work-up in the emergency room suggested probable gastrointestinal hemorrhage with a hemoglobin level of 6.3. He received 2 units of blood in the emergency room. He was admitted for further management. He also complained of bilateral knee pain and swelling. He was evaluated by orthopedics and an arthrocentesis was completed. Crystal analysis was compatible with gout of both knees. He was started on high-dose prednisone along with intra-articular steroids. Initially his hemoglobin responded well to transfusion but then dropped again so he received a third unit of blood. After this his hemoglobin has remained stable. He did have an EGD on May 01 that showed a small plaque-like lesion at the GE junction but did not show any evidence for bleeding. He had a colonoscopy the next day that revealed one polyp but no evidence for bleeding. There has been no evidence for bleeding during the hospital stay. His hemoglobin has been stable. He has been making some improvement with regard to his strength. Unfortunately about senior living through the hospital stay he did have an acute worsening of his breathing. We suspect he had an environmental exposure that led to wheezing and a mild COPD exacerbation. There has been no evidence for infection. He has been managed with steroids and nebulizers and has been responding well. His knee pain from the gout has improved significantly and the swelling is decreasing steadily. We have been tapering his steroids down. Respiratory status has been stable on his usual 2 L of oxygen. He does have some lower extremity edema that is probably related to his right-sided heart failure. We have been adding some extra diuresis as well as using RONNY stockings. This has improved significantly at the time of discharge. He is stable and ready for discharge to the snf for subacute rehab. He would benefit from physical and occupational therapy prior to hopefully returning to independent living. He has 5 more days left in his prednisone taper. - Patient Instructions Diet: Low Sodium (2 gram sodium) Activity: As Tolerated Showering/Bathing: May Shower Other/Special Instructions: 1. You were in the hospital for work-up and management of a presumed gastrointestinal bleed. You had a significant drop in your hemoglobin. Her work-up including upper and lower endoscopy did not determinate definite source of bleeding. Your hemoglobin has improved and remained stable with the blood transfusions. No additional work-up or management is required unless you have additional bleeding. I do recommend that you continue your proton pump inhibitor. We should recheck your hemoglobin on 05/12. 2. During the hospital stay you had evidence for an exacerbation of your COPD. Your condition has been improving with supplemental oxygen and nebulizer therapy. We have been tapering your prednisone. I recommend that you take 20 mg on Tuesday morning and then 10 mg daily for 4 days starting on Tuesday. After those 4 days you can stop. 3. Code status - FULL. 4. RONNY stockings bilaterally. On in the morning and off at bedtime. 5. Referral to physical and occupational therapy for strengthening and improvement of activities of daily living following acute weakness in the setting of acute medical problems. 6. Oxygen at 2 L/min. May titrate to keep oxygen saturations above 90%. - Discharge Plan *PRESCRIPTION DRUG MONITORING PROGRAM REVIEWED*: Not Applicable *COPY OF PRESCRIPTION DRUG MONITORING REPORT IN PATIENT PASCALE: Not Applicable Prescriptions/Med Rec: Albuterol/Ipratropium [DuoNeb 3.0-0.5 MG/3 ML] 3 ml NEB QIDRT #120 neb Furosemide [Lasix] 40 mg PO DAILY #30 tablet predniSONE [Prednisone] 10 mg PO ASDIRECTED #6 tablet Acetaminophen [Tylenol] 650 mg PO Q4H PRN #200 tablet PRN Reason: Pain (Mild 1-3)/fever allopurinoL [Zyloprim] 100 mg PO DAILY #30 tab Home Medications: Home Meds Esomeprazole [NexIUM] 40 mg PO DAILY PRN 04/13/13 [History] dilTIAZem HCL [Cartia Xt] 180 mg PO DAILY 04/09/15 [History] Terazosin HCl [Terazosin] 2 mg PO BEDTIME 10/27/16 [History] Fluticasone/Vilanterol [Breo Ellipta 100-25 MCG Inhalation Kit] 1 each IH DAILY 04/29/21 [History] Acetaminophen [Tylenol] 650 mg PO Q4H PRN #200 tablet 05/07/21 [Rx] Albuterol/Ipratropium [DuoNeb 3.0-0.5 MG/3 ML] 3 ml NEB QIDRT #120 neb 05/07/21 [Rx] Furosemide [Lasix] 40 mg PO DAILY #30 tablet 05/07/21 [Rx] allopurinoL [Zyloprim] 100 mg PO DAILY #30 tab 05/07/21 [Rx] predniSONE [Prednisone] 10 mg PO ASDIRECTED #6 tablet 05/07/21 [Rx] Oxygen Therapy Mode: Nasal Cannula Oxygen Flow Rate (L/min): 2 Patient Handouts: Chronic Obstructive Pulmonary Disease Exacerbation, [id number], Fall Prevention in the Home, Adult, [id number] Referrals: Bob Torres MD [Physician] - (2 weeks - f/u hospital stay for GI bleed, copd exac, gout) - Discharge Summary/Plan Comment DC Time >30 min.: Yes Total # of Minutes for Discharge Time: 40-NH discharge - Patient Data Vitals - Most Recent: Last Vital Signs Temp 36.4 C 05/07/21 07:15 Pulse 80 05/07/21 08:59 Resp 18 05/07/21 07:15 BP 125/48 L 05/07/21 08:59 Pulse Ox 97 05/07/21 09:00 Weight - Most Recent: 100.8 kg I&O - Last 24 hours: Intake & Output 05/06/21 05/07/21 05/07/21 22:59 06:59 14:59 Intake Total 120 300 740 Output Total 350 500 100 Balance -230 -200 640 Lab Results - Last 24 hrs: Laboratory Results - last 24 hr 05/07/21 Range/Units 05:53 Sodium 144 (140-148) mmol/L Potassium 3.9 (3.6-5.2) mmol/L Chloride 103 (100-108) mmol/L Carbon Dioxide 39 H (21-32) mmol/L Anion Gap 5.9 (5.0-14.0) mmol/L BUN 15 (7-18) mg/dL Creatinine 0.8 (0.8-1.3) mg/dL Est Cr Clr Drug Dosing 74.81 mL/min Estimated GFR (MDRD) > 60 (>60) Glucose 124 H (74-106) mg/dL Calcium 7.9 L (8.5-10.1) mg/dL Med Orders - Current: Current Medications Acetaminophen (Acetaminophen 325 Mg Tab) 650 mg PO Q4H PRN PRN Reason: Pain (Mild 1-3)/fever Last Admin: 05/07/21 08:53 Dose: 650 mg Documented by: Albuterol (Albuterol 0.083% 2.5 Mg/3 Ml Neb Soln) 2.5 mg NEB Q4H PRN PRN Reason: Shortness Of Breath/wheezing Last Admin: 05/06/21 12:53 Dose: 2.5 mg Documented by: Albuterol/Ipratropium (Albuterol/Ipratropium 3.0-0.5 Mg/3 Ml Neb Soln) 3 ml NEB QIDRT [facility] Last Admin: 05/07/21 07:08 Dose: 3 ml Documented by: Allopurinol (Allopurinol 100 Mg Tab) 100 mg PO DAILY [facility] Last Admin: 05/07/21 08:52 Dose: 100 mg Documented by: Diltiazem HCl (Diltiazem 180 Mg Cap.Cd) 180 mg PO DAILY [facility] Last Admin: 05/07/21 08:56 Dose: 180 mg Documented by: Furosemide (Furosemide 40 Mg Tab) 40 mg PO DAILY [facility] Last Admin: 05/07/21 08:52 Dose: 40 mg Documented by: Mometasone Furoate/Formoterol Fumar (Formoterol/Mometasone 200-5 Mcg 8.8 Gm Inhaler) 2 puff IH BIDRT [facility] Last Admin: 05/07/21 07:08 Dose: 2 puff Documented by: Ondansetron HCl (Ondansetron 4 Mg/2 Ml Sdv) 4 mg IV Q4H PRN PRN Reason: Nausea/Vomiting Pantoprazole Sodium (Pantoprazole 40 Mg Tab.Cr) 40 mg PO DAILY@0730 [facility] Last Admin: 05/07/21 07:12 Dose: 40 mg Documented by: Polyethylene Glycol (Polyethylene Glycol 3350 Powder 17 Gm Packet) 17 gm PO DAILY PRN PRN Reason: Constipation Last Admin: 05/05/21 09:39 Dose: 17 gm Documented by: Prednisone (Prednisone 20 Mg Tab) 20 mg PO WITHBREAKFAST [facility] Last Admin: 05/07/21 07:12 Dose: 20 mg Documented by: Sodium Chloride (Sodium Chloride 0.9% 10 Ml Syringe) 10 ml FLUSH ASDIRECTED PRN PRN Reason: Keep Vein Open Terazosin HCl (Terazosin 1 Mg Cap) 2 mg PO BEDTIME [facility] Last Admin: 05/06/21 20:16 Dose: 2 mg Documented by: Discontinued Medications Albuterol/Ipratropium (Albuterol/Ipratropium 3.0-0.5 Mg/3 Ml Neb Soln) 3 ml NEB ONETIME ONE Stop: 04/29/21 08:22 Last Admin: 04/29/21 08:38 Dose: 3 ml Documented by: Bisacodyl (Bisacodyl 5 Mg Tab) 10 mg PO ONETIME ONE Stop: 04/30/21 15:36 Last Admin: 04/30/21 16:03 Dose: 10 mg Documented by: Bisacodyl (Bisacodyl 5 Mg Tab) 10 mg PO ONETIME ONE Stop: 04/30/21 20:01 Last Admin: 04/30/21 20:26 Dose: 10 mg Documented by: Bisacodyl (Bisacodyl 5 Mg Tab) 10 mg PO ONETIME ONE Stop: 05/01/21 14:01 Last Admin: 05/01/21 15:00 Dose: 10 mg Documented by: Bisacodyl (Bisacodyl 5 Mg Tab) 10 mg PO ONETIME ONE Stop: 05/01/21 20:01 Last Admin: 05/01/21 20:16 Dose: 10 mg Documented by: Diltiazem HCl (Diltiazem 180 Mg Cap.Cd) 180 mg PO DAILY LISBET Furosemide (Furosemide 40 Mg/4 Ml Vial) 20 mg IVPUSH NOW ONE Stop: 05/03/21 16:01 Last Admin: 05/03/21 15:36 Dose: 20 mg Documented by: Furosemide (Furosemide 40 Mg Tab) 40 mg PO ONETIME ONE Stop: 05/04/21 15:01 Last Admin: 05/04/21 14:40 Dose: 40 mg Documented by: Sodium Chloride (Normal Saline) 100 mls @ 4 mls/sec IV ASDIRECTED LISBET Stop: 04/29/21 22:00 Last Admin: 04/29/21 11:51 Dose: 4 mls/sec Documented by: Sodium Chloride (Normal Saline) 1,000 mls @ 100 mls/hr IV ASDIRECTED LISBET Last Admin: 05/01/21 11:43 Dose: 100 mls/hr Documented by: Sodium Chloride (Normal Saline) 1,000 mls @ 75 mls/hr IV ASDIRECTED LISBET Last Admin: 05/02/21 14:15 Dose: 75 mls/hr Documented by: Influenza Virus Vaccine (Flu Vacc [id number](65yr Up)/Pf 240 Mcg/0.7 Ml Syringe) 240 mcg IM .ONCE ONE Stop: 05/06/21 09:01 Last Admin: 05/06/21 09:25 Dose: 240 mcg Documented by: Iopamidol (Iopamidol 755 Mg/Ml 100 Ml Bottle) 100 ml IV . DIRECTED [facility] Stop: 04/29/21 20:00 Last Admin: 04/29/21 11:50 Dose: 77 ml Documented by: Methylprednisolone Sodium Succinate (Methylprednisolone Sodium Succinate 125 Mg/2 Ml Sdv) 125 mg IVPUSH ONETIME ONE Stop: 04/29/21 08:25 Last Admin: 04/29/21 08:39 Dose: 125 mg Documented by: Methylprednisolone Sodium Succinate (Methylprednisolone Sodium Succinate 40 Mg/1 Ml Sdv) 40 mg IVPUSH Q8H [facility] Last Admin: 05/03/21 08:02 Dose: 40 mg Documented by: Non-Formulary Medication (Esomeprazole [Nexium]) 40 mg PO DAILY PRN PRN Reason: Abdominal Pain Pantoprazole Sodium (Pantoprazole 40 Mg Vial) 40 mg IVPUSH Q12H [facility] Last Admin: 05/01/21 11:59 Dose: 40 mg Documented by: Polyethylene Glycol (Polyethylene Glycol 3350 Powder 238 Gm Bot) 238 gm PO ONETIME ONE Stop: 04/30/21 17:01 Last Admin: 04/30/21 17:24 Dose: 1 bottle Documented by: Polyethylene Glycol (Polyethylene Glycol 3350 Powder 238 Gm Bot) 238 gm PO ONETIME ONE Stop: 05/01/21 17:01 Last Admin: 05/01/21 17:17 Dose: 238 gm Documented by: Potassium Chloride (Potassium Chloride 20 Meq Tab.Er) 40 meq PO ONETIME ONE Stop: 05/04/21 13:31 Last Admin: 05/04/21 13:23 Dose: 40 meq Documented by: Potassium Chloride (Potassium Chloride 20 Meq Tab.Er) 40 meq PO BID [facility] Stop: 05/06/21 21:01 Last Admin: 05/06/21 20:16 Dose: 40 meq Documented by: Prednisone (Prednisone 20 Mg Tab) 40 mg PO WITHBREAKFAST [facility] Last Admin: 05/04/21 08:00 Dose: 40 mg Documented by: Propofol (Propofol 200 Mg/20 Ml Sdv) Confirm Administered Dose 200 mg .ROUTE .STK-MED ONE Stop: 05/02/21 07:53 Sodium Chloride (Sodium Chloride 0.9% 10 Ml Syringe) 10 ml FLUSH ONETIME ONE Stop: 04/29/21 11:15 Last Admin: 04/29/21 11:50 Dose: 10 ml Documented by: *Q Meaningful Use (DIS) - VTE *Q VTE Pharmacological Contraindications *Q: Active Hemorrhage
== END 2021-05-07 11:02 | DRG 377 ==
LOC: JP.ED 07:52 → JP.ICU 10:51 → JP.MS 05-03 11:52
PROVIDERS: ADMIT Hospitalist; ATTEND Internal Medicine
PROC: 0S9C3ZZ Drainage of Right Knee Joint, Percutaneous Approach (ICD-10-PCS; 2021-04-29)
PROC: 3E0U33Z Introduction of Anti-inflammatory into Joints, Percutaneous Approach (ICD-10-PCS; 2021-04-29)
PROC: 30233N1 Transfusion of Nonautologous Red Blood Cells into Peripheral Vein, Percutaneous Approach (ICD-10-PCS; principal; 2021-04-30)
PROC: 0DB48ZX Excision of Esophagogastric Junction, Via Natural or Artificial Opening Endoscopic, Diagnostic (ICD-10-PCS; 2021-05-01)
PROC: 0DBH8ZX Excision of Cecum, Via Natural or Artificial Opening Endoscopic, Diagnostic (ICD-10-PCS; 2021-05-02)
PROC: 3E0234Z Introduction of Serum, Toxoid and Vaccine into Muscle, Percutaneous Approach (ICD-10-PCS; 2021-05-06)
DX: K57.31 Diverticulosis of large intestine without perforation or abscess with bleeding (principal); D50.0 Iron deficiency anemia secondary to blood loss (chronic); J96.21 Acute and chronic respiratory failure with hypoxia; J96.22 Acute and chronic respiratory failure with hypercapnia; D62 Acute posthemorrhagic anemia; J44.1 Chronic obstructive pulmonary disease with (acute) exacerbation; M25.461 Effusion, right knee; M25.562 Pain in left knee; I27.81 Cor pulmonale (chronic); M25.561 Pain in right knee; Z23 Encounter for immunization; K21.9 Gastro-esophageal reflux disease without esophagitis; Z20.822 Contact with and (suspected) exposure to COVID-19; M10.9 Gout, unspecified; I50.9 Heart failure, unspecified; I95.9 Hypotension, unspecified; I25.10 Atherosclerotic heart disease of native coronary artery without angina pectoris; I25.2 Old myocardial infarction; Z86.19 Personal history of other infectious and parasitic diseases; Z79.52 Long term (current) use of systemic steroids; Z79.899 Other long term (current) drug therapy; Z88.8 Allergy status to other drugs, medicaments and biological substances; Z87.891 Personal history of nicotine dependence; M25.462 Effusion, left knee; M11.20 Other chondrocalcinosis, unspecified site
CPT/HCPCS: 0241U; 36415; 36430; 71045; 71275; 73562; 80048; 80053; 81001; 83735; 84145; 84484; 85018; 85025; 85027; 85651; 86140; 86850; 86900; 86901; 86920; 86922; 87040; 87070; 87205; 88305; 88312; 89050; 89060; 90662; 93306; 94640; 94762; 96374; 97110; 97162; 97530; 99285; A9270-GY; C9113; G0008; J1940; J2704; J2920; J2930; J7030; J7512; J7620-GY; P9016; Q9967

== ENCOUNTER 2021-05-12 13:30 | Inpatient (IN) | payer MEDICARE ==
[2021-05-12] MEDS ORDERED: Lidocaine 1% with EPINEPHrine 1:100,000 50 ML MDV INJECT STA (14:05)
[2021-05-12] MEDS ORDERED: Midazolam 1 MG/ML 5 ML SDV IVPUSH ONE (14:05)
--- NOTE | 2021-05-12 14:08 | EDM.PDOC ---
ED HPI GENERAL MEDICAL PROBLEM - General Chief Complaint: Respiratory Problem Stated Complaint: SOB FOR 2 WEEKS Time Seen by Provider: 05/12/21 13:52 Source of Information: Reports: Patient, Provider, RN Notes Reviewed History Limitations: Reports: No Limitations - History of Present Illness INITIAL COMMENTS - FREE TEXT/NARRATIVE: 76-year-old gentleman presents the emergency department day with a pneumothorax on the right side, he was evaluated by his primary care he is a resident of residential chest x-ray was ordered this afternoon complaint of shortness of breath by his primary care primary care then notify the emergency department that this gentleman has a pneumothorax and will be presented to the ED. He states he does not recall when he got more short of breath than usual he does have an extensive history of COPD states he is always been short of breath been on oxygen for the last 2 decades. Denies any traumatic event - Related Data Allergies Allergy/AdvReac Type Severity Reaction Status Date / Time simvastatin AdvReac Joint Pain Verified 05/12/21 13:39 Home Meds: Home Meds Esomeprazole [NexIUM] 40 mg PO DAILY PRN 04/13/13 [History] dilTIAZem HCL [Cartia Xt] 180 mg PO DAILY 04/09/15 [History] Terazosin HCl [Terazosin] 2 mg PO BEDTIME 10/27/16 [History] Fluticasone/Vilanterol [Breo Ellipta 100-25 MCG Inhalation Kit] 1 each IH DAILY 04/29/21 [History] Acetaminophen [Tylenol] 650 mg PO Q4H PRN #200 tablet 05/07/21 [Rx] Albuterol/Ipratropium [DuoNeb 3.0-0.5 MG/3 ML] 3 ml NEB QIDRT #120 neb 05/07/21 [Rx] Furosemide [Lasix] 40 mg PO DAILY #30 tablet 05/07/21 [Rx] allopurinoL [Zyloprim] 100 mg PO DAILY #30 tab 05/07/21 [Rx] predniSONE [Prednisone] 10 mg PO ASDIRECTED #6 tablet 05/07/21 [Rx] Albuterol Sulfate [Albuterol Sulfate Hfa] 2 puff INH Q4H PRN 05/12/21 [History] Tuberculin,Purif.Prot.Deriv. [Tubersol] 0.1 ml ID DAILY 05/12/21 [History] Past Medical History HEENT History: Reports: Cataract Cardiovascular History: Reports: CAD, Heart Failure, CO Respiratory History: Reports: COPD, Other (See Below) Other Respiratory History: cor polmunal Gastrointestinal History: Reports: GERD Genitourinary History: Reports: BPH Musculoskeletal History: Reports: Osteoarthritis Hematologic History: Reports: Blood Transfusion(s) Dermatologic History: Reports: Other (See Below) Other Dermatologic History: keratosis - Infectious Disease History Infectious Disease History: Reports: Chicken Pox, Measles, Mumps, Shingles - Past Surgical History HEENT Surgical History: Reports: Cataract Surgery Musculoskeletal Surgical History: Reports: Other (See Below) Other Musculoskeletal Surgeries/Procedures:: Left foot surgery with hardware placed. Social & Family History - Family History Cardiac: Reports: CAD - Tobacco Use Tobacco Use Status *Q: Former Tobacco User Used Tobacco, but Quit: Yes Month/Year Tobacco Last Used: 2015 - Caffeine Use Caffeine Use: Reports: Coffee - Recreational Drug Use Recreational Drug Use: No ED ROS GENERAL - Review of Systems Review Of Systems: See Below Constitutional: Reports: No Symptoms Respiratory: Reports: Shortness of Breath Cardiovascular: Reports: Dyspnea on Exertion ED EXAM, GENERAL - Physical Exam Exam: See Below Exam Limited By: No Limitations General Appearance: Alert, WD/WN, No Apparent Distress Respiratory/Chest: No Respiratory Distress, Lungs Clear, Normal Breath Sounds, No Accessory Muscle Use, Chest Non-Tender Cardiovascular: Regular Rate, Rhythm, No Murmur Course - Vital Signs Last Recorded V/S: Last Vital Signs Temp 97.7 F 05/12/21 13:44 Pulse 80 05/12/21 14:53 Resp 30 H 05/12/21 14:53 BP 147/51 H 05/12/21 14:53 Pulse Ox 88 L 05/12/21 14:53 - Orders/Labs/Meds Orders: Active Orders 24 hr Category Date Time Status Chest 1V Frontal [CR] Stat Exams 05/12/21 15:00 Taken Meds: Medications Discontinued Medications Generic Name Dose Route Start Last Admin Trade Name Freq PRN Reason Stop Dose Admin Lidocaine/Epinephrine 1 ml 05/12/21 14:05 05/12/21 15:22 Lidocaine 1% With Epinephrine 1:100,000 50 Ml Mdv INJECT 05/12/21 14:06 10 ml NOW STA Administration Midazolam HCl 5 mg 05/12/21 14:05 05/12/21 14:49 Midazolam 1 Mg/Ml 5 Ml Sdv IVPUSH 05/12/21 14:06 2 mg ONETIME ONE Administration - Re-Assessments/Exams Free Text/Narrative Re-Assessment/Exam: 05/12/21 14:[address] Rodriguez surgeon on-call at 1400 he kindly agreed to come to the emergency department evaluate the patient for chest tube placement Departure - Departure Time of Disposition: 15:33 Disposition: Admitted As Inpatient 66 Condition: Fair Clinical Impression: Pneumothorax, right - Discharge Information Referrals: Bob Torres MD [Primary Care Provider] - Forms: ED Department Discharge Sepsis Event Note (ED) - Evaluation Sepsis Screening Result: No Definite Risk - Focused Exam Vital Signs: Vital Signs Temp Pulse Resp BP Pulse Ox 05/12/21 14:53 80 30 H 147/51 H 88 L 05/12/21 14:11 82 16 157/92 H 91 L 05/12/21 13:44 97.7 F 85 15 141/61 H 85 L 05/12/21 13:41 97.7 F 85 141/61 H 85 L - Assessment/Plan Plan: Assessment Acuity = acute Site and laterality = right pneumothorax Etiology = unknown Manifestations = dyspnea Location of injury = Home Lab values = none Plan Dr. Rodriguez presented to the emergency department placed the chest tube he will be admitted to the hospital under Dr. Rodrigeuz's care This note was dictated using [employer] voice recognition software please call with any questions on syntax or grammar.
[2021-05-12] MEDS ORDERED: HYDROmorphone 0.5 MG/0.5 ML Syringe IVPUSH ONE (15:42)
[2021-05-12] MEDS ORDERED: Albuterol/Ipratropium 3.0-0.5 MG/3 ML Neb Soln INH PRN (15:54)
[2021-05-12] MEDS ORDERED: HYDROmorphone 2 MG Tab PO PRN (15:55)
[2021-05-12 16:23] LABS: CORONAVIRUS COVID-19 NAA NEGATIVE (NEGATIVE)
[2021-05-12] MEDS: Albuterol/Ipratropium 3.0-0.5 MG/3 ML Neb Soln INH SCH (20:39)
[2021-05-12] MEDS: Terazosin 1 MG Cap PO SCH (20:43)
[2021-05-13] MEDS: Acetaminophen 325 MG Tab PO PRN ×2 (03:41→19:33)
[2021-05-13] MEDS: Formoterol/Mometasone 100-5 MCG 8.8 GM Inhaler IH SCH ×2 (07:12→20:55)
[2021-05-13] MEDS: Albuterol/Ipratropium 3.0-0.5 MG/3 ML Neb Soln INH SCH ×4 (07:13→20:54)
[2021-05-13] MEDS ORDERED: ceFAZolin 2 GM in Premix Bag 1 BAG IV ONE (07:37)
[2021-05-13] MEDS: Diltiazem 180 MG Cap.CD PO SCH ×2 (07:57→08:02)
[2021-05-13] MEDS ORDERED: predniSONE 10 MG Tab PO ONE (08:00)
--- NOTE | 2021-05-13 08:02 | PN ---
DATE OF SERVICE: 05/13/2021 SUBJECTIVE: Eulalio is n.p.o. He will be having replacement of a new chest tube today, IV sedation. Chest x-ray was examined per Eduar Rodriguez MD, and adjustment was done at bedside. Vital signs have been stable, afebrile. Oral intake before n.p.o. 720. Urine output 925. Eulalio was admitted from the emergency room with a pneumothorax on the right side. He was evaluated by his primary care provider. He is resident of a intermediate. Chest x-ray was ordered because he was reporting shortness of breath. History of chronic obstructive pulmonary disease. States he is always short of breath and he has been on oxygen for he reports about 20 years. REVIEW OF SYSTEMS: Remainder of review of systems negative for any pertinent positives and negatives. OBJECTIVE: GENERAL: Eulalio Cruz is a pleasant 76-year-old male. VITAL SIGNS: TPR is 97.8, 71, 16, blood pressure 109/63. HEENT: Negative. NECK: Supple. HEART: Regular rate and rhythm. CHEST: Chest tube in right lung. Left lung decreased. ABDOMEN: Negative. EXTREMITIES: Negative. ASSESSMENT: Pneumothorax, right side. PLAN: 1. Schedule and have consent signed for replacement of new chest tube on the right. IV sedation. Case to follow, 05/13/2021. Surgeon: Eduar Rodriguez MD. 2. Ancef 2 g IV on-call to OR. 3. N.p.o. now. 4. Orders to be written post procedure. Maranda Addison PA-C /[id number]
[2021-05-13] MEDS ORDERED: fentaNYL 100 MCG/2 ML SDV ONE (08:34)
[2021-05-13] MEDS ORDERED: Propofol 200 MG/20 ML SDV ONE (08:34)
[2021-05-13] MEDS ORDERED: Bupivacaine 0.5% 50 ML MDV ONE (09:05)
[2021-05-13] MEDS ORDERED: Lidocaine 1% with EPINEPHrine 1:100,000 50 ML MDV ONE (09:05)
--- NOTE | 2021-05-13 09:22 | CR ---
CHEST: Portable 05/12/2021 at 3:08 PM CLINICAL HISTORY:Chest tube placement COMPARISON:Earlier same day FINDINGS: Right chest tube is been placed. Pneumothorax has reduced somewhat. It is approximately 50%. There is moderate atelectasis The patient is rotated to the right. This simulates or exaggerates a rightward mediastinal shift IMPRESSION: Chest tube placement 50% right pneumothorax with moderate right lung atelectasis
--- NOTE | 2021-05-13 09:50 | CR ---
CHEST: Portable 05/13/2021 at 3:21 AM CLINICAL HISTORY:Chest tube placement COMPARISON:05/12/2021 FINDINGS: There is some improvement in aeration of the right hemithorax. There is felt to be a shift of the mediastinum to the right likely related to moderate the remaining atelectasis of upper lobe segments. IMPRESSION: Right chest tube remains in place There is some improvement in aeration of the right lung with significant right upper lobe atelectasis persisting. There is a mediastinal shift to the right. This is somewhat exaggerated by rotation rotation
--- NOTE | 2021-05-13 09:52 | CR ---
CHEST: Portable 05/13/2021 at 9:25 AM CLINICAL HISTORY:Right pneumothorax. Chest tube in place COMPARISON:Earlier same day FINDINGS: Chest tube remains in place. There is further improvement in aeration of the right lung with some decrease in right upper lobe atelectasis. There is some reduction in the rightward shift of the mediastinum.. Impression: Improving aeration of the right upper lobe some minimal residual pneumothorax. Decrease in rightward mediastinal shift
[2021-05-13] MEDS: Furosemide 40 MG Tab PO SCH (10:05)
[2021-05-13] MEDS: Pantoprazole 40 MG Tab.CR PO SCH (10:05)
[2021-05-13] MEDS: Allopurinol 100 MG Tab PO SCH (10:06)
[2021-05-13] MEDS: Terazosin 1 MG Cap PO SCH (20:56)
[2021-05-14] MEDS: Pantoprazole 40 MG Tab.CR PO SCH (06:59)
[2021-05-14] MEDS: Formoterol/Mometasone 100-5 MCG 8.8 GM Inhaler IH SCH ×2 (07:26→22:56)
[2021-05-14] MEDS: Albuterol/Ipratropium 3.0-0.5 MG/3 ML Neb Soln INH SCH ×4 (07:26→22:55)
[2021-05-14] MEDS: Furosemide 40 MG Tab PO SCH (08:47)
[2021-05-14] MEDS: Allopurinol 100 MG Tab PO SCH (08:47)
[2021-05-14] MEDS: Diltiazem 180 MG Cap.CD PO SCH (08:47)
--- NOTE | 2021-05-14 08:59 | PN ---
DATE OF SERVICE: 05/14/2021 SUBJECTIVE: Eulalio states he is less short of breath. He slept better last night. Vital signs have been stable. Oral intake 700. Urine output 1225. The chest tube put out 12 mL of a light red drainage. REVIEW OF SYSTEMS: Remainder of review of systems negative for any pertinent positives or negatives. OBJECTIVE: GENERAL: Eulalio Cruz is a pleasant 76-year-old male. He is alert, orientated. He is sitting on the side of the bed. VITAL SIGNS: TPR is 97.9, 77, 18. Blood pressure 113/45. HEENT: Negative. NECK: Supple. HEART: Regular rate and rhythm. LUNGS: Reveal decreased breath sounds bilaterally. Right chest tube in. Dressing dry and intact. EXTREMITIES: Without peripheral edema. ASSESSMENT: 1. Replacement of right chest tube for poorly-functioning right chest tube. Date of procedure: 05/13/2021. Surgeon: Eduar Rodriguez MD. 2. Placement of chest tube, 05/12/2021. Surgeon: Eduar Rodriguez MD. PLAN: Continue daily chest x-rays. Plan will be to clamp chest tube on 05/16/2021 and check a chest x-ray after that to see that the pneumothorax has improved. We will evaluate p.r.n. or in a.m. Maranda Addison PA-C /[id number]
--- NOTE | 2021-05-14 09:54 | CR ---
CHEST: Portable 05/14/2021 at 5:01 AM CLINICAL HISTORY:Chest tube COMPARISON:05/13/2021 FINDINGS: Chest tube is not identified on the current exam. This may be due to positioning. No pneumothorax is identified. There is still prominent airspace disease in the right lower lung field and atelectasis. There is a persistent shift of the mediastinum to the right. Left lung remains clear. Impression: Chest tube is not seen on current exam this may be technical. No pneumothorax is identified on current exam Persistent airspace disease and atelectasis in the right lung. Right mainstem bronchus is not well seen. Bronchial pathology or possible mucous plugging is possible. Bronchoscopic examination should be considered
[2021-05-14] MEDS: Acetaminophen 325 MG Tab PO PRN ×2 (10:32→22:55)
[2021-05-14] MEDS: Terazosin 1 MG Cap PO SCH (22:55)
[2021-05-15] MEDS: Albuterol/Ipratropium 3.0-0.5 MG/3 ML Neb Soln INH SCH ×4 (06:58→20:48)
[2021-05-15] MEDS: Formoterol/Mometasone 100-5 MCG 8.8 GM Inhaler IH SCH ×2 (06:58→20:47)
[2021-05-15] MEDS: Acetaminophen 325 MG Tab PO PRN ×2 (08:00→12:57)
[2021-05-15] MEDS: Furosemide 40 MG Tab PO SCH (08:01)
[2021-05-15] MEDS: Pantoprazole 40 MG Tab.CR PO SCH (08:01)
[2021-05-15] MEDS: Diltiazem 180 MG Cap.CD PO SCH (08:01)
[2021-05-15] MEDS: Allopurinol 100 MG Tab PO SCH (08:01)
--- NOTE | 2021-05-15 09:53 | CR ---
CHEST: Portable 05/15/2021 at 4:29 AM CLINICAL HISTORY:Chest tube COMPARISON:05/14/2021 FINDINGS: The right chest tube is not visualized on this exam. There is persistent atelectasis in the right lower lung field. Mediastinum is shifted to the right side. No pneumothorax is identified. IMPRESSION: Persistent moderate right lung volume loss. Mucous plugging is a consideration. No pneumothorax is identified
[2021-05-15] MEDS: Terazosin 1 MG Cap PO SCH (20:47)
[2021-05-16] MEDS ORDERED: Lidocaine 2% Viscous Solution 15 ML Cup ONE (06:45)
[2021-05-16] MEDS ORDERED: Lidocaine 4% Top Soln 50 ML Bottle ONE (06:46)
[2021-05-16] MEDS: Formoterol/Mometasone 100-5 MCG 8.8 GM Inhaler IH SCH ×2 (07:06→20:04)
[2021-05-16] MEDS: Albuterol/Ipratropium 3.0-0.5 MG/3 ML Neb Soln INH SCH ×4 (07:06→20:08)
[2021-05-16] MEDS ORDERED: fentaNYL 100 MCG/2 ML SDV ONE (07:40)
[2021-05-16] MEDS ORDERED: Midazolam 1 MG/ML 2 ML SDV ONE (07:40)
[2021-05-16] MEDS ORDERED: Propofol 200 MG/20 ML SDV ONE (07:40)
[2021-05-16] MEDS ORDERED: Lidocaine 4% Top Soln LTA 4 ML Syringe Kit ONE (07:41)
[2021-05-16] MEDS: Allopurinol 100 MG Tab PO SCH (12:30)
[2021-05-16] MEDS: Acetaminophen 325 MG Tab PO PRN (12:30)
[2021-05-16] MEDS: Furosemide 40 MG Tab PO SCH (12:31)
[2021-05-16] MEDS: Diltiazem 180 MG Cap.CD PO SCH (12:31)
[2021-05-16] MEDS: Pantoprazole 40 MG Tab.CR PO SCH (12:31)
[2021-05-16] MEDS: Terazosin 1 MG Cap PO SCH (20:04)
[2021-05-17] MEDS: Albuterol/Ipratropium 3.0-0.5 MG/3 ML Neb Soln INH SCH ×4 (07:31→20:09)
[2021-05-17] MEDS: Formoterol/Mometasone 100-5 MCG 8.8 GM Inhaler IH SCH ×3 (07:31→20:25)
[2021-05-17] MEDS: Allopurinol 100 MG Tab PO SCH (08:01)
[2021-05-17] MEDS: Diltiazem 180 MG Cap.CD PO SCH (08:01)
[2021-05-17] MEDS: Pantoprazole 40 MG Tab.CR PO SCH (08:02)
[2021-05-17] MEDS: Furosemide 40 MG Tab PO SCH (08:03)
[2021-05-17] MEDS: Acetaminophen 325 MG Tab PO PRN (11:16)
[2021-05-17] MEDS: Terazosin 1 MG Cap PO SCH (20:09)
[2021-05-18 07:25] VITALS: BP 117/45; PULSE 79
[2021-05-18] MEDS: Pantoprazole 40 MG Tab.CR PO SCH (07:27)
[2021-05-18] MEDS: Albuterol/Ipratropium 3.0-0.5 MG/3 ML Neb Soln INH SCH (07:36)
[2021-05-18] MEDS: Formoterol/Mometasone 100-5 MCG 8.8 GM Inhaler IH SCH (07:36)
--- NOTE | 2021-05-18 08:33 | DISCH ---
ADMISSION DIAGNOSES: 1. Right pneumothorax. 2. Coronary artery disease. 3. Heart failure. 4. History of a myocardial infarction. 5. Chronic obstructive pulmonary disease. 6. Gastroesophageal reflux disease. 7. BPH. 8. Osteoarthritis. DISCHARGE DIAGNOSES: 1. Chest tube placement on 05/12/2021. Eduar Rodriguez MD. 2. Chest tube change on 05/13/2021. Eduar Rodriguez MD, for pneumothorax. HISTORY: Eulalio Cruz is a 76-year-old male who presented to the emergency department on 05/12/2021 for shortness of breath and a chest x-ray showed a pneumothorax. After preoperative evaluation and discussion of possible risks and possible complications, a chest tube was placed. On 05/13/2021, he had the chest tube changed under IV local sedation because it was not working the way it should. He tolerated that procedure well, and on 05/14/2021, the chest tube was working well. Chest tube put out 12 mL . On 05/16/2021, he had a bronchoscopy with washing for pleural effusion and it did show narrowing into the middle lobe. On 05/17/2020, one chest tube was removed. Chest x-ray on 05/18/2021 showed improvement and vital signs were stable and he was able to be discharged back to rehabilitation at [facility] on 05/18/2021. PHYSICAL EXAMINATION: GENERAL: Eulalio is a pleasant 76-year-old male. He is alert and orientated. VITAL SIGNS: Height 5 feet 8 inches, weight is 218 pounds. TPR is 96.8, 79, 18, blood pressure 117/45, O2 of 94% by pulse oximetry on 1.5 mL of oxygen. HEENT: Negative. NECK: Supple. HEART: Regular rate and rhythm. LUNGS: Revealed decreased breath sounds bilaterally. Chest tube pressure dressing is intact. This will be removed prior to discharge and a 4 x 4 will be placed. ABDOMEN: Soft and nontender. EXTREMITIES: Without peripheral edema. DISPOSITION: Discharged to inpatient rehab at [facility]. CONDITION: Stable. FOLLOWUP: He is to follow up with Eduar Rodriguez MD on 05/20/2021 at 11 a.m. He is to have a chest x-ray, PA and lateral at 10:30 a.m. on 05/20/2021 before that appointment. HOME MEDICATIONS: He is to resume all of his home medications. Claritin 10 mg daily, Breo Ellipta 100/25 mcg 1 inhalation daily, Tubersol 0.1 mL IV daily, albuterol inhaler 2 puffs q.4 hours p.r.n. shortness of breath, Tylenol 650 mg p.o. q.4 hours, Nexium 40 mg p.o. daily, DuoNebs 3 mL nebulized q.i.d., prednisone 10 mg p.o. as directed, diltiazem HCL 180 mg p.o. daily, Zyloprim 100 mg p.o. daily, terazosin 2 mg p.o. at bedtime, Lasix 40 mg daily. DIET: Regular diet as tolerated. Drink 8 to 10 glasses of water a day. ACTIVITY: As tolerated. May shower. Keep operative site clean and dry. DISCHARGE INSTRUCTIONS: Change chest tube dressing daily, replacing 4 x 4. Notify provider if any fever, increased pain, swelling, redness, drainage, nausea, or vomiting. Use incentive spirometer 10 times every hour while awake. /[id number]
[2021-05-18] MEDS: Diltiazem 180 MG Cap.CD PO SCH (08:42)
[2021-05-18] MEDS: Allopurinol 100 MG Tab PO SCH (08:42)
[2021-05-18] MEDS: Furosemide 40 MG Tab PO SCH (08:42)
--- NOTE | 2021-05-18 10:51 | OR ---
DATE OF PROCEDURE: 05/16/2021 SURGEON: Eduar Rodriguez MD PREOPERATIVE DIAGNOSIS: Persistent atelectasis, right lower lung field. POSTOPERATIVE DIAGNOSES: 1. Persistent atelectasis, right lower lung field. 2. Bronchoscopy showing diffuse thin secretions with persistent narrowing of right middle lobe bronchus. OPERATIVE PROCEDURE: Flexible bronchoscopy with: 1. Generalized tracheobronchial washings (20918). 2. Bronchoalveolar lavage to right middle lobe (26813). ANESTHESIA: Topical plus IV sedation. INDICATIONS FOR PROCEDURE: The patient was noted to have some persistent atelectasis in the right lower lung field. The plan is to proceed with a flexible bronchoscopy for hopefully providing coverage of the tracheobronchial tree as well as diagnostic purposes. Potential risks of procedure including bleeding, aspiration of gastric contents, and such were reviewed, and the patient wishes to proceed. DETAILS OF PROCEDURE: The patient was taken to the operating room, placed in a semi-sitting position. IV sedation was administered after which the larynx and pharynx were anesthetized with topical lidocaine solution and translaryngeal injection of lidocaine was injected into the trachea per Anesthesia. The flexible bronchoscope was then passed through the left side of the nose. The visualized areas of nasopharynx and larynx were unremarkable. Cord motion was symmetrical. Upon entering the trachea, there was more or less diffuse somewhat thin watery secretion present and no secretions were particularly thick per se. The tracheobronchial tree was showing some diffuse bronchitis with some blood-tinged surfaces upon simply rubbing the scope over the surface. There were no overt endobronchial obstructing lesions. All of the tracheobronchial tree was wide open other than for the middle lobe segmental bronchus on the right side was somewhat diffusely narrowed. This appeared to be probably more chronic inflammatory condition, did not appear to be consistent with any malignancy. At this point, bronchoalveolar lavage was obtained through the right middle lobe bronchus with 200 mL of saline being injected. The effluent was then collected and this along with tracheobronchial washing was sent for full cytologic and microbiologic workup. The scope was then withdrawn after removal of any remaining secretions and the procedure concluded. The patient tolerated the procedure well. Eduar Rodriguez MD /[id number]
--- NOTE | 2021-05-18 10:54 | CR ---
CHEST: Portable 05/16/2021 at 4:36 AM CLINICAL HISTORY:Chest tube COMPARISON:Prior day FINDINGS: There is persistent airspace disease in the right lower lobe similar to recent prior studies. Left lung remains clear. Impression: Persistent right lung volume loss similar to prior study
--- NOTE | 2021-05-18 11:04 | CR ---
CHEST: Portable 05/16/2021 at 8:26 AM CLINICAL HISTORY:Postop bronchial COMPARISON:Earlier 05/16/2021 FINDINGS: There is improved aeration of the right lower lung field post bronchoscopy. There is no pneumothorax Impression: Improved aeration in the right lower lung field with residual atelectasis post bronchoscopy.
--- NOTE | 2021-05-18 11:27 | PN ---
DATE OF SERVICE: 05/15/2021 The patient has been clinically stable. He is saying that his respiratory status is fairly good for him. Chest x-ray looks satisfactory. The radiologist agreed there was no pneumothorax present yesterday, that both portions of the reflective of more in the way of a resolution of area of atelectasis which was more densely yesterday. The patient's chest tube output has been minimal and there is no air leak evident. We will clamp the chest tube one hour before chest x-ray this morning, and if the lung remains up while it is clamped, we will pull the chest tube tomorrow morning. Eduar Rodriguez MD /[id number]
--- NOTE | 2021-05-18 11:27 | PN ---
DATE OF SERVICE: 05/16/2021 After review of the x-rays yesterday with Dr. Rodriguez, it was felt that there maybe some issues with mucus plugging as such which is not allowing the lower lung field on the right side to inflate. This could involve either the middle and/or lower lobe. Given this, he underwent a bronchoscopy today. This did show some mucousy material and narrowing of the middle lobe bronchus. I suspect the middle lobe was probably the culprit as the lower lobe bronchi were all wide open. Chest x-ray following the bronchoscopy is pending. Otherwise, clinically he looks fairly good. Plan would be regardless of the findings to clamp the chest tube before tomorrow morning's x-ray and if that looks satisfactory, we would then proceed with removal of the chest tube. Eduar Rodriguez MD /[id number]
--- NOTE | 2021-05-18 12:03 | PN ---
DATE OF SERVICE: 05/17/2021 The patient's chest x-ray looks somewhat better today, but not on the lateral view. The prominence of the infiltrate in the lower lung field on the right side is anteriorly, so this is probably primarily in the middle lobe which will be consistent with the patient noted to have a somewhat narrowed middle lobe yesterday. It did not show any signs of pneumonia per se, and at this point, the chest tube was removed. We will recheck a chest x- ray tomorrow to make sure everything looks satisfactory. We will have him discharged back to the residential. Eduar Rodriguez MD /[id number]
--- NOTE | 2021-05-18 13:44 | CR ---
CHEST: 2 view CLINICAL HISTORY:Chest tube COMPARISON:05/16/2021 FINDINGS: There is increasing aeration of the right lung when compared to prior studies. There is some residual right infrahilar opacity which is likely residual atelectasis. Left lung is clear. IMPRESSION: Improving aeration of the right lung with some residual infrahilar atelectasis
--- NOTE | 2021-05-18 15:13 | CR ---
CHEST: 2 view CLINICAL HISTORY:Chest tube removal COMPARISON:05/17/2021 FINDINGS: There is some persistent atelectasis in the right lung base involving the right middle lobe. There is also some fluid in the minor and major fissure.. Left lung remains clear. Impression: Persistent right middle lobe atelectasis Right pleural effusion No pneumothorax
--- NOTE | 2021-05-20 11:27 | OR ---
DATE OF PROCEDURE: 05/12/2021 SURGEON: Eduar Rodriguez MD PREOPERATIVE DIAGNOSIS: Spontaneous right pneumothorax. POSTOPERATIVE DIAGNOSIS: Spontaneous right pneumothorax. OPERATIVE PROCEDURE: Insertion of right tube thoracostomy (01412). ANESTHESIA: Local plus IV sedation. INDICATIONS FOR PROCEDURE: This is a 76-year-old presenting with what sounds like a 3-day history of a pneumothorax. He has been having some chest discomfort and increasing shortness of breath over the last 3 days. Chest x-ray shows a large pneumothorax on the right side, but he does have underlying severe chronic obstructive pulmonary disease. Plan is to proceed with a chest tube insertion. Potential risks including bleeding, infection, injury to underlying viscera were gone over, and the patient wishes to proceed. DETAILS OF PROCEDURE: The patient was placed in a semi-sitting position in the emergency room. The anterior chest wall was then prepped and draped on the right side and the patient received 2 mg of Versed IV push for sedation. Over the third interspace in the midclavicular line, the skin and soft tissues were anesthetized with 1% lidocaine. It was easily aspirated with placement of the needle into the pleural space. A small transverse incision was made and dissection continued down into the pleural space. The patient did have some air exiting the pleural space upon entrance indicating some degree of tension pneumothorax, although on chest x-ray there is no significant mediastinal shift. Using the Cath-Guide, an 18-[place]ian was then placed into the pleural space, inflated with 10 mL of saline, and pulled up snugly against the chest wall where it was sutured to the skin with some 2-0 Ethibond stitch and placed to a Pleur-evac suction. Subsequent chest x-ray showed what appeared to be re-expansion of the lung. There still were a fair bit of atelectatic changes in the right lung base and we will need to work on that in terms of his underlying pulmonary toilet. The patient tolerated the procedure well. Eduar Rodriguez MD /[id number]
== END 2021-05-18 10:34 | DRG 200 ==
LOC: JP.ED 13:30 → JP.MS 15:36
PROVIDERS: ADMIT Surgery; ATTEND Surgery
PROC: 0WP930Z Removal of Drainage Device from Right Pleural Cavity, Percutaneous Approach (ICD-10-PCS; principal; 2021-05-12)
PROC: 0W9930Z Drainage of Right Pleural Cavity with Drainage Device, Percutaneous Approach (ICD-10-PCS; 2021-05-13)
PROC: 0B9D8ZX Drainage of Right Middle Lung Lobe, Via Natural or Artificial Opening Endoscopic, Diagnostic (ICD-10-PCS; 2021-05-13)
DX: J93.9 Pneumothorax, unspecified (principal); J98.11 Atelectasis; I25.10 Atherosclerotic heart disease of native coronary artery without angina pectoris; I50.9 Heart failure, unspecified; J44.9 Chronic obstructive pulmonary disease, unspecified; I27.81 Cor pulmonale (chronic); K21.9 Gastro-esophageal reflux disease without esophagitis; N40.0 Benign prostatic hyperplasia without lower urinary tract symptoms; Z20.822 Contact with and (suspected) exposure to COVID-19; M19.90 Unspecified osteoarthritis, unspecified site; Z88.8 Allergy status to other drugs, medicaments and biological substances; I25.2 Old myocardial infarction; Z79.899 Other long term (current) drug therapy; Z79.52 Long term (current) use of systemic steroids; Z98.49 Cataract extraction status, unspecified eye; Z87.891 Personal history of nicotine dependence
CPT/HCPCS: 0241U; 32551; 36415; 51702; 71045; 71045-26; 71046; 71046-26; 80053; 83735; 83880; 84100; 85025; 85027; 87015; 87070; 87102; 87116; 87205; 87206; 87220; 94640; 97110-GP; 97162-GP; 97530-GP; 99285-25; A9270-GY; J0690; J1170; J2250; J2704; J3010; J3490; J7512; J7620-GY

== ENCOUNTER 2021-08-27 21:09 | Inpatient (IN) | payer MEDICARE ==
[2021-08-27] MEDS ORDERED: methylPREDNISolone Sodium Succinate 125 MG/2 ML SDV IVPUSH ONE (21:13)
[2021-08-27] MEDS ORDERED: methylPREDNISolone Sodium Succinate 125 MG/2 ML SDV ONE (21:15)
[2021-08-27] MEDS ORDERED: cefTRIAXone 2 GM in Sodium Chloride 0.9% 50 ML IV ONE (21:39)
[2021-08-27] MEDS ORDERED: LORazepam 2 MG/ML SDV IVPUSH ONE (21:40)
[2021-08-27] MEDS ORDERED: Morphine 4 MG/ML Syringe IVPUSH ONE (22:25)
[2021-08-27] MEDS ORDERED: Levalbuterol HCl 1.25 MG/3 ML Neb NEB ONE (22:45)
[2021-08-28] MEDS ORDERED: LORazepam 0.5 MG Tab PO PRN (00:34)
[2021-08-28] MEDS ORDERED: Ondansetron 4 MG/2 ML SDV IV PRN (00:34)
[2021-08-28] MEDS ORDERED: Ondansetron 4 MG Tab.DIS PO PRN (00:34)
[2021-08-28] MEDS ORDERED: Melatonin 3 MG Tab PO PRN (00:34)
[2021-08-28] MEDS ORDERED: Acetaminophen 325 MG Tab PO PRN (00:34)
[2021-08-28] MEDS ORDERED: oxyCODONE 5 MG Tab PO PRN (00:34)
[2021-08-28] MEDS ORDERED: Magnesium Hydroxide 400 MG/5 ML Susp 30 ML Cup PO PRN (00:34)
[2021-08-28] MEDS ORDERED: LORazepam 2 MG/ML SDV IVPUSH PRN (00:34)
[2021-08-28] MEDS ORDERED: Morphine 4 MG/ML Syringe IVPUSH PRN (00:50)
[2021-08-28] MEDS ORDERED: Doxycycline 100 MG in Sodium Chloride 0.9% 100 ML IV ONE (01:00)
[2021-08-28] MEDS: Albuterol 0.083% 2.5 MG/3 ML Neb Soln NEB PRN ×2 (03:49→08:35)
[2021-08-28] MEDS: methylPREDNISolone Sodium Succinate 125 MG/2 ML SDV IVPUSH SCH ×3 (05:40→20:51)
[2021-08-28] MEDS ORDERED: Albuterol/Ipratropium 3.0-0.5 MG/3 ML Neb Soln NEB SCH (06:00)
[2021-08-28] MEDS: Formoterol/Mometasone 200-5 MCG 8.8 GM Inhaler IH SCH ×2 (08:23→20:52)
[2021-08-28] MEDS ORDERED: Doxycycline 100 MG in Sodium Chloride 0.9% 100 ML IV SCH (09:00)
[2021-08-28] MEDS: Diltiazem 180 MG Cap.CD PO SCH (09:53)
[2021-08-28] MEDS: Pantoprazole 40 MG Tab.CR PO SCH (09:54)
[2021-08-28] MEDS: Furosemide 40 MG Tab PO SCH (09:54)
[2021-08-28] MEDS: Loratadine 10 MG Tab PO SCH (09:54)
[2021-08-28] MEDS: Allopurinol 100 MG Tab PO SCH (09:55)
[2021-08-28] MEDS: Lactobacillus Rhamnosus GG (Probiotic) Cap PO SCH ×2 (09:55→20:52)
[2021-08-28] MEDS: Albuterol/Ipratropium 3.0-0.5 MG/3 ML Neb Soln NEB SCH ×3 (11:00→20:50)
[2021-08-28] MEDS: Doxycycline 100 MG in Sodium Chloride 0.9% 100 ML IV SCH ×2 (11:34→23:07)
[2021-08-28] MEDS: cefTRIAXone 1 GM in Sodium Chloride 0.9% 50 ML IV SCH (20:50)
[2021-08-28] MEDS: Terazosin 1 MG Cap PO SCH (20:50)
[2021-08-29] MEDS: Albuterol/Ipratropium 3.0-0.5 MG/3 ML Neb Soln NEB SCH ×4 (07:29→20:40)
[2021-08-29] MEDS: Formoterol/Mometasone 200-5 MCG 8.8 GM Inhaler IH SCH ×2 (07:29→20:35)
[2021-08-29] MEDS: Pantoprazole 40 MG Tab.CR PO SCH (07:29)
[2021-08-29] MEDS: predniSONE 20 MG Tab PO SCH (07:42)
[2021-08-29] MEDS: Doxycycline 100 MG in Sodium Chloride 0.9% 100 ML IV SCH (09:40)
[2021-08-29] MEDS: Allopurinol 100 MG Tab PO SCH (09:41)
[2021-08-29] MEDS: Diltiazem 180 MG Cap.CD PO SCH (09:41)
[2021-08-29] MEDS: Loratadine 10 MG Tab PO SCH (09:41)
[2021-08-29] MEDS: Furosemide 40 MG Tab PO SCH (09:41)
[2021-08-29] MEDS: Lactobacillus Rhamnosus GG (Probiotic) Cap PO SCH ×2 (09:41→20:36)
[2021-08-29] MEDS ORDERED: Non-Formulary Medication 1 Each (Albuterol Sulfate [Albuterol Sulfate Hfa] 8.5 GM Hfa.Aer. INH PRN (10:45)
[2021-08-29] MEDS ORDERED: Albuterol 8 GM Inhaler INH PRN (10:50)
[2021-08-29] MEDS: Terazosin 1 MG Cap PO SCH (20:36)
[2021-08-29] MEDS: Doxycycline 100 MG Cap PO SCH (20:36)
[2021-08-29] MEDS: cefTRIAXone 1 GM in Sodium Chloride 0.9% 50 ML IV SCH (20:36)
[2021-08-30] MEDS: Formoterol/Mometasone 200-5 MCG 8.8 GM Inhaler IH SCH ×2 (07:16→20:19)
[2021-08-30] MEDS: predniSONE 20 MG Tab PO SCH (07:17)
[2021-08-30] MEDS: Albuterol/Ipratropium 3.0-0.5 MG/3 ML Neb Soln NEB SCH ×4 (07:17→20:19)
[2021-08-30] MEDS: Pantoprazole 40 MG Tab.CR PO SCH (07:17)
[2021-08-30] MEDS: Allopurinol 100 MG Tab PO SCH (10:05)
[2021-08-30] MEDS: Loratadine 10 MG Tab PO SCH (10:05)
[2021-08-30] MEDS: Lactobacillus Rhamnosus GG (Probiotic) Cap PO SCH ×2 (10:05→20:15)
[2021-08-30] MEDS: Doxycycline 100 MG Cap PO SCH ×2 (10:05→20:14)
[2021-08-30] MEDS: Diltiazem 180 MG Cap.CD PO SCH (10:05)
[2021-08-30] MEDS: Furosemide 40 MG Tab PO SCH (10:05)
[2021-08-30] MEDS: Cefdinir 300 MG Cap PO SCH (20:14)
[2021-08-30] MEDS: Terazosin 1 MG Cap PO SCH (20:15)
[2021-08-31] MEDS: Formoterol/Mometasone 200-5 MCG 8.8 GM Inhaler IH SCH (07:22)
[2021-08-31] MEDS: Albuterol/Ipratropium 3.0-0.5 MG/3 ML Neb Soln NEB SCH ×2 (07:22→10:32)
[2021-08-31 07:32] VITALS: BP 122/53
[2021-08-31] MEDS: Pantoprazole 40 MG Tab.CR PO SCH (07:34)
[2021-08-31] MEDS: predniSONE 20 MG Tab PO SCH (07:34)
[2021-08-31] MEDS: Allopurinol 100 MG Tab PO SCH (08:25)
[2021-08-31] MEDS: Cefdinir 300 MG Cap PO SCH (08:25)
[2021-08-31] MEDS: Lactobacillus Rhamnosus GG (Probiotic) Cap PO SCH (08:25)
[2021-08-31] MEDS: Diltiazem 180 MG Cap.CD PO SCH (08:25)
[2021-08-31] MEDS: Furosemide 40 MG Tab PO SCH (08:25)
[2021-08-31] MEDS: Loratadine 10 MG Tab PO SCH (08:26)
[2021-08-31] MEDS: Doxycycline 100 MG Cap PO SCH (08:26)
[2021-08-31 10:32] VITALS: PULSE 74
== END 2021-08-31 14:00 | disposition home or self-care (01) | DRG 193 ==
LOC: JP.ED 21:09 → JP.ICU 22:46
PROVIDERS: ADMIT Internal Medicine; ATTEND Internal Medicine
DX: J18.9 Pneumonia, unspecified organism (principal); J96.01 Acute respiratory failure with hypoxia; J44.0 Chronic obstructive pulmonary disease with (acute) lower respiratory infection; J44.1 Chronic obstructive pulmonary disease with (acute) exacerbation; I50.9 Heart failure, unspecified; I25.10 Atherosclerotic heart disease of native coronary artery without angina pectoris; Z20.822 Contact with and (suspected) exposure to COVID-19; I27.81 Cor pulmonale (chronic); K21.9 Gastro-esophageal reflux disease without esophagitis; N40.0 Benign prostatic hyperplasia without lower urinary tract symptoms; I27.20 Pulmonary hypertension, unspecified; E78.5 Hyperlipidemia, unspecified; I11.0 Hypertensive heart disease with heart failure; M19.90 Unspecified osteoarthritis, unspecified site; Z88.8 Allergy status to other drugs, medicaments and biological substances; Z79.52 Long term (current) use of systemic steroids; Z79.899 Other long term (current) drug therapy; I25.2 Old myocardial infarction
CPT/HCPCS: 36415; 36600; 71045; 71045-26; 80048; 80053; 82803; 83605; 83735; 83880; 84145; 84484; 85025; 85027; 85379; 86140; 87040; 93005; 93010; 94640; 96365; 96375; 97161-GP; 99285-25; 99291; A9270-GY; J0696; J2060; J2270; J2930; J3490; J7512; J7612-GY; J7620; U0002

== ENCOUNTER 2022-03-11 08:47 | Emergency (ER) | payer MEDICARE ==
[2022-03-11 09:35] LABS: ESTIMATED GFR 77 mL/min (>60)
[2022-03-11] MEDS ORDERED: Sodium Chloride 0.9% 10 ML Syringe FLUSH PRN (11:08)
[2022-03-11] MEDS ORDERED: Furosemide 40 MG/4 ML VIAL IVPUSH ONE (11:09)
[2022-03-11] MEDS ORDERED: Albuterol 0.083% 2.5 MG/3 ML Neb Soln NEB ONE (12:27)
[2022-03-11] MEDS ORDERED: Sodium Chloride 0.9% 10 ML Syringe FLUSH ONE (13:46)
[2022-03-11] MEDS ORDERED: Sodium Chloride 0.9% 100 ML IV ONE (13:46)
[2022-03-11] MEDS ORDERED: Iopamidol 612 MG/ML 100 ML Bottle IV SCH (14:00)
[2022-03-11 15:12] VITALS: BP 151/40; PULSE 45
== END 2022-03-11 15:57 | disposition home or self-care (01) ==
LOC: JP.ED 08:47
DX: K57.90 Diverticulosis of intestine, part unspecified, without perforation or abscess without bleeding (principal); J44.9 Chronic obstructive pulmonary disease, unspecified; D64.9 Anemia, unspecified; E87.70 Fluid overload, unspecified; I25.10 Atherosclerotic heart disease of native coronary artery without angina pectoris; I25.2 Old myocardial infarction; Z79.899 Other long term (current) drug therapy
CPT/HCPCS: 36415; 71046; 74177; 80053; 81001; 83880; 84153; 85025; 86140; 93225; 93226; 94640; 96374; 99285; J1940; J3490; Q9967

== ENCOUNTER 2023-11-18 11:31 | Inpatient (IN) | payer MEDICARE ==
[2023-11-18] MEDS: methylPREDNISolone Sodium Succinate 125 MG/2 ML SDV IVPUSH ONE ×2 (12:00→20:00)
[2023-11-18 12:08] LABS: BASE EXCESS VENOUS 7.8 mm/L; BICARBONATE,VENOUS 34.3 mmol/L; CARBOXYHEMOGLOBIN 1.8 % (0.0-1.6); METHEMOGLOBIN 0.7 %; O2 SATURATION VENOUS 51.1; OXYHEMOGLOBIN 49.8 %; PCO2 VENOUS 59.7 mm/Hg; PH,VENOUS 7.378 (7.350-7.450)
[2023-11-18 12:11] LABS: PO2 VENOUS 28.8 mm/Hg
[2023-11-18 12:22] LABS: BASOPHILS PERCENT AUTO 0.2 % (0.1-1.3); EOSINOPHILS PERCENT AUTO 0.2 % (0.0-5.4); HEMATOCRIT 31.9 % (38.4-49.7); HEMOGLOBIN 11.6 g/dL (12.9-16.9); IMMATURE GRAN ABSOLUTE AUTO 0.03 K/uL (0.00-0.23); IMMATURE GRAN PERCENT AUTO 0.6 % (0.0-0.7); LYMPHOCYTES ABSOLUTE AUTO 0.99 K/uL (0.8-3.3); MEAN CORPUSCULAR HEMOGLOBIN 33.3 pg (31.6-35.5); MEAN CORPUSCULAR HGB CONC 36.4 g/dL (31.6-35.5); MEAN CORPUSCULAR VOLUME 91.7 fL (81.4-99.0); MONOCYTES ABSOLUTE AUTO 0.93 K/uL (0.20-0.90); MONOCYTES PERCENT AUTO 19.7 % (3.3-12.6); NEUTROPHILS ABSOLUTE AUTO 2.74 K/uL (1.0-7.6); NEUTROPHILS PERCENT AUTO 58.3 % (40.0-78.1); PLATELET COUNT,PLT 173 K/uL (130-375); RED BLOOD CELL COUNT 3.48 M/uL (4.14-5.76); WHITE BLOOD CELL COUNT,WBC 4.7 K/uL (3.2-11.0)
[2023-11-18 12:27] LABS: BASOPHILS ABSOLUTE AUTO 0.01 K/uL (0.00-0.10); EOSINOPHILS ABSOLUTE AUTO 0.01 K/uL (0.00-0.40)
[2023-11-18] MEDS ORDERED: Doxycycline 100 MG in Sodium Chloride 0.9% 100 ML IV ONE (12:57)
[2023-11-18] MEDS: Doxycycline 100 MG in Sodium Chloride 0.9% 100 ML IV ONE (13:07)
[2023-11-18] MEDS: Furosemide 40 MG/4 ML VIAL IVPUSH ONE (13:07)
[2023-11-18] MEDS: Albuterol/Ipratropium 3.0-0.5 MG/3 ML Neb Soln NEB ONE (13:08)
[2023-11-18] MEDS ORDERED: Albuterol 0.083% 2.5 MG/3 ML Neb Soln NEB PRN (14:40)
[2023-11-18] MEDS ORDERED: Sennosides/Docusate Sodium 50-8.6 MG Tab PO PRN (14:40)
[2023-11-18] MEDS ORDERED: Benzonatate 100 MG Cap PO PRN (14:40)
[2023-11-18] MEDS ORDERED: guaiFENesin/Dextromethorphan 100-10 MG/5 ML Soln 10 ML Cup PO PRN (14:40)
[2023-11-18] MEDS ORDERED: Albuterol 6.7 GM Inhaler INH PRN (14:40)
[2023-11-18] MEDS ORDERED: Ondansetron 4 MG Tab.DIS PO PRN (14:40)
[2023-11-18] MEDS ORDERED: Ondansetron 4 MG/2 ML SDV IV PRN (14:40)
[2023-11-18] MEDS ORDERED: Magnesium Hydroxide 400 MG/5 ML Susp 30 ML Cup PO PRN (14:40)
[2023-11-18] MEDS: Albuterol/Ipratropium 3.0-0.5 MG/3 ML Neb Soln ONE (15:08)
[2023-11-18] MEDS: Albuterol/Ipratropium 3.0-0.5 MG/3 ML Neb Soln NEB SCH (15:11)
[2023-11-18] MEDS: cefTRIAXone 2 GM in Sodium Chloride 0.9% 50 ML IV SCH (15:32)
[2023-11-18] MEDS: Enoxaparin 40 MG/0.4 ML Syringe SUBCUT SCH (17:01)
[2023-11-18] MEDS: metFORMIN 500 MG Tab PO SCH (17:02)
[2023-11-18] MEDS: Acetaminophen 325 MG Tab PO PRN (19:11)
[2023-11-18] MEDS ORDERED: TERAZOSIN HCL 2 MG PO SCH (21:00)
[2023-11-18] MEDS: Lactobacillus Rhamnosus GG (Probiotic) Cap PO SCH (21:12)
[2023-11-18] MEDS: Formoterol/Mometasone 200-5 MCG 8.8 GM Inhaler IH SCH (21:12)
[2023-11-18] MEDS: Doxycycline 100 MG Cap PO SCH (21:13)
[2023-11-18] MEDS: Terazosin 1 MG Cap PO SCH (21:14)
[2023-11-18] MEDS: Finasteride 5 MG Tab PO SCH (21:14)
[2023-11-18] MEDS: Budesonide 0.5 MG/2 ML Neb Susp NEB SCH (21:17)
[2023-11-19 05:28] LABS: HEMATOCRIT 31.2 % (38.4-49.7); HEMOGLOBIN 11.2 g/dL (12.9-16.9); MEAN CORPUSCULAR HEMOGLOBIN 32.3 pg (31.6-35.5); MEAN CORPUSCULAR HGB CONC 35.9 g/dL (31.6-35.5); MEAN CORPUSCULAR VOLUME 89.9 fL (81.4-99.0); RED BLOOD CELL COUNT 3.47 M/uL (4.14-5.76); WHITE BLOOD CELL COUNT,WBC 1.5 K/uL (3.2-11.0)
[2023-11-19 05:44] LABS: CALCIUM 8.4 mg/dL (8.5-10.1); CREATININE 0.9 mg/dL (0.8-1.3); EST CRCL DRUG DOSING (CG) 66.55 mL/min; POTASSIUM,K 4.1 mmol/L (3.6-5.2)
[2023-11-19 05:48] LABS: ANION GAP 12.1 mmol/L (5.0-14.0)
[2023-11-19] MEDS: Pantoprazole 40 MG Tab.CR PO SCH (08:00)
[2023-11-19] MEDS: Diltiazem 180 MG Cap.CD PO SCH (08:00)
[2023-11-19] MEDS: predniSONE 20 MG Tab PO SCH (08:00)
[2023-11-19] MEDS: Furosemide 40 MG Tab PO SCH (08:01)
[2023-11-19] MEDS: Allopurinol 100 MG Tab PO SCH (08:01)
[2023-11-19] MEDS ORDERED: BREO ELLIPTA INH SCH (09:00)
[2023-11-19] MEDS ORDERED: Non-Formulary Medication 1 Each (Metformin Hcl [Metformin Hcl Er] 500 MG Tab.Er.24h) PO SCH (09:00)
[2023-11-19] MEDS: Benzocaine/Cetylpyridinium/Menthol Lozenge MUCMEM PRN (11:17)
[2023-11-19] MEDS: Iopamidol 612 MG/ML 100 ML Bottle IV SCH (13:07)
[2023-11-19] MEDS: Sodium Chloride 0.9% 10 ML Syringe FLUSH ONE (13:07)
[2023-11-19] MEDS: Sodium Chloride 0.9% 80 ML IV SCH (13:08)
[2023-11-20] MEDS: Cefdinir 300 MG Cap PO SCH (11:29)
[2023-11-21 11:14] VITALS: BP 123/54; PULSE 94
== END 2023-11-21 14:03 | disposition home or self-care (01) | DRG 189 ==
LOC: JP.ED 11:31 → JP.MS 14:09
PROVIDERS: ADMIT Internal Medicine; ATTEND Internal Medicine
PROC: 4A033R1 Measurement of Arterial Saturation, Peripheral, Percutaneous Approach (ICD-10-PCS; principal; 2023-11-18)
DX: J96.21 Acute and chronic respiratory failure with hypoxia (principal); J44.1 Chronic obstructive pulmonary disease with (acute) exacerbation; I50.9 Heart failure, unspecified; I50.32 Chronic diastolic (congestive) heart failure; E11.9 Type 2 diabetes mellitus without complications; J44.0 Chronic obstructive pulmonary disease with (acute) lower respiratory infection; J20.9 Acute bronchitis, unspecified; I25.10 Atherosclerotic heart disease of native coronary artery without angina pectoris; I48.91 Unspecified atrial fibrillation; I25.2 Old myocardial infarction; K21.9 Gastro-esophageal reflux disease without esophagitis; M19.90 Unspecified osteoarthritis, unspecified site; N40.1 Benign prostatic hyperplasia with lower urinary tract symptoms; E11.8 Type 2 diabetes mellitus with unspecified complications; Z88.8 Allergy status to other drugs, medicaments and biological substances; Z63.5 Disruption of family by separation and divorce; Z98.49 Cataract extraction status, unspecified eye; Z79.84 Long term (current) use of oral hypoglycemic drugs; Z79.899 Other long term (current) drug therapy; Z87.891 Personal history of nicotine dependence
CPT/HCPCS: 36415; 71046 ×2; 80048; 82803; 83605; 84145; 85025; 86140; 93005; 93010; 94640; 96365; 96375; 99285 ×2; J1940; J2919; J3490 ×2; 74177; 85027; 99223; 99232; 99233; 99238; A9270-GY; J0696; J1650; J7512; J7620; Q9967

== ENCOUNTER 2024-07-08 09:12 | Inpatient (IN) | payer MEDICARE ==
[2024-07-08 09:46] LABS: BASE EXCESS ARTERIAL 7.9 mm/L; BICARBONATE,ARTERIAL 33.6 mmol/L (22.0-26.0); CARBOXYHEMOGLOBIN 2.3 % (0.0-1.6); METHEMOGLOBIN 0.8 %; O2 SATURATION ARTERIAL 93.9 % (95.0-98.0); PCO2 ARTERIAL 54.6 mmHg (35.0-42.0); PO2 ARTERIAL 64.9 mmHg (75.0-100.0); TOTAL HEMOGLOBIN 11.4 g/dL (13.5-18.0)
[2024-07-08 09:56] LABS: BASOPHILS PERCENT AUTO 0.2 % (0.1-1.3); EOSINOPHILS PERCENT AUTO 1.7 % (0.0-5.4); HEMATOCRIT 34.7 % (38.4-49.7); HEMOGLOBIN 11.4 g/dL (12.9-16.9); IMMATURE GRAN ABSOLUTE AUTO 0.07 K/uL (0.00-0.23); IMMATURE GRAN PERCENT AUTO 0.6 % (0.0-0.7); LYMPHOCYTES ABSOLUTE AUTO 1.21 K/uL (0.8-3.3); LYMPHOCYTES PERCENT AUTO 10.2 % (11.4-47.7); MEAN CORPUSCULAR HEMOGLOBIN 32.9 pg (31.6-35.5); MEAN CORPUSCULAR HGB CONC 32.9 g/dL (31.6-35.5); MONOCYTES ABSOLUTE AUTO 1.15 K/uL (0.20-0.90); MONOCYTES PERCENT AUTO 9.7 % (3.3-12.6); NEUTROPHILS ABSOLUTE AUTO 9.16 K/uL (1.0-7.6); NEUTROPHILS PERCENT AUTO 77.6 % (40.0-78.1); PLATELET COUNT,PLT 177 K/uL (130-375); RED BLOOD CELL COUNT 3.47 M/uL (4.14-5.76); WHITE BLOOD CELL COUNT,WBC 11.8 K/uL (3.2-11.0)
[2024-07-08 10:00] LABS: BASOPHILS ABSOLUTE AUTO 0.02 K/uL (0.00-0.10)
[2024-07-08 10:09] LABS: CORONAVIRUS COVID-19 NAA NEGATIVE (NEGATIVE); INFLUENZA A NAA NEGATIVE (NEGATIVE); INFLUENZA B NAA NEGATIVE (NEGATIVE); RESPIRATORY SYNCYTIAL VIR NAA NEGATIVE (NEGATIVE)
[2024-07-08 10:16] LABS: A/G RATIO 1.1 (1.2-2.2); ALANINE AMINOTRANSFERASE,ALT 32 U/L (12-78); ALBUMIN 3.6 g/dL (3.4-5.0); ALKALINE PHOSPHATASE 105 U/L (46-116); ASPARTATE AMNIOTRANSFERASE,AST 22 U/L (15-37); BILIRUBIN TOTAL 0.4 mg/dL (0.2-1.0); BLOOD UREA NITROGEN,BUN 18 mg/dL (7-18); CALCIUM 8.8 mg/dL (8.5-10.1); CARBON DIOXIDE,CO2 36 mmol/L (21-32); CHLORIDE,CL 96 mmol/L (100-108); EST CRCL DRUG DOSING (CG) 51.03 mL/min; ESTIMATED GFR 76 mL/min (>60); GLUCOSE RANDOM 184 mg/dL (74-106); POTASSIUM,K 4.2 mmol/L (3.6-5.2); PROTEIN TOTAL,TP 6.8 g/dL (6.4-8.2); SODIUM,NA 137 mmol/L (140-148)
[2024-07-08] MEDS: Levalbuterol HCl 1.25 MG/3 ML Neb NEB ONE ×2 (10:19→10:21)
[2024-07-08] MEDS: methylPREDNISolone Sodium Succinate 125 MG/2 ML SDV IVPUSH ONE (10:19)
[2024-07-08 10:21] LABS: LACTIC ACID 1.6 mmol/L (0.4-2.0)
[2024-07-08 10:22] LABS: ANION GAP 9.2 mmol/L (5.0-14.0)
[2024-07-08] MEDS: cefTRIAXone 1 GM in Sodium Chloride 0.9% 50 ML IV SCH (12:08)
[2024-07-08] MEDS: Doxycycline 100 MG Cap PO ONE (12:08)
[2024-07-08] MEDS ORDERED: 50% Dextrose in Water 50 ML Syringe IV PRN (14:11)
[2024-07-08] MEDS ORDERED: Ondansetron 4 MG/2 ML SDV IV PRN (14:11)
[2024-07-08] MEDS ORDERED: Sodium Chloride 0.9% 10 ML Syringe FLUSH PRN (14:11)
[2024-07-08] MEDS ORDERED: Glucose Gel 15 GM in 37.5 GM Tube PO PRN (14:11)
[2024-07-08] MEDS: Doxycycline 100 MG in Sodium Chloride 0.9% 100 ML IV SCH (14:28)
[2024-07-08] MEDS: Enoxaparin 40 MG/0.4 ML Syringe SUBCUT SCH (14:28)
[2024-07-08] MEDS: Furosemide 40 MG Tab PO SCH (14:30)
[2024-07-08] MEDS: Albuterol/Ipratropium 3.0-0.5 MG/3 ML Neb Soln NEB SCH (14:37)
[2024-07-08] MEDS: Insulin Lispro 100 Unit/ML 3 ML KwikPen SUBCUT SCH (17:08)
[2024-07-08] MEDS: Allopurinol 100 MG Tab PO SCH (20:30)
[2024-07-09] MEDS: Acetaminophen 325 MG Tab PO PRN (04:11)
[2024-07-09 05:46] LABS: HEMATOCRIT 34.8 % (38.4-49.7); HEMOGLOBIN 11.7 g/dL (12.9-16.9); MEAN CORPUSCULAR HEMOGLOBIN 33.1 pg (31.6-35.5); MEAN CORPUSCULAR HGB CONC 33.6 g/dL (31.6-35.5); MEAN CORPUSCULAR VOLUME 98.6 fL (81.4-99.0); RED BLOOD CELL COUNT 3.53 M/uL (4.14-5.76); WHITE BLOOD CELL COUNT,WBC 8.9 K/uL (3.2-11.0)
[2024-07-09 06:03] LABS: ANION GAP 11.3 mmol/L (5.0-14.0); CALCIUM 9.1 mg/dL (8.5-10.1); CREATININE 1.2 mg/dL (0.8-1.3); EST CRCL DRUG DOSING (CG) 49.1 mL/min; MAGNESIUM 1.5 mg/dL (1.8-2.4); POTASSIUM,K 4.3 mmol/L (3.6-5.2)
[2024-07-09] MEDS: Pantoprazole 40 MG Tab.CR PO SCH (08:09)
[2024-07-09] MEDS: Diltiazem 120 MG Cap.CD PO SCH (08:10)
[2024-07-09] MEDS: metFORMIN 500 MG Tab PO SCH (08:10)
[2024-07-09] MEDS: predniSONE 20 MG Tab PO SCH (08:10)
[2024-07-09] MEDS: Tamsulosin 0.4 MG Cap.ER PO SCH (08:10)
[2024-07-09] MEDS: Magnesium Oxide 400 MG Tab PO SCH (08:16)
[2024-07-09] MEDS ORDERED: Allopurinol 100 MG Tab PO SCH (09:00)
[2024-07-09] MEDS: Albuterol 0.083% 2.5 MG/3 ML Neb Soln NEB PRN (10:16)
[2024-07-09] MEDS: Albuterol 6.7 GM Inhaler INH PRN (12:46)
[2024-07-09] MEDS: Doxycycline 100 MG Cap PO SCH (17:23)
[2024-07-10] MEDS: Cefdinir 300 MG Cap PO SCH (08:44)
[2024-07-11 14:03] VITALS: BP 155/62; PULSE 95
== END 2024-07-11 14:10 | disposition home or self-care (01) | DRG 189 ==
LOC: JP.ED 09:12 → JP.MS 12:09
PROVIDERS: ADMIT Hospitalist; ATTEND Internal Medicine
DX: J96.21 Acute and chronic respiratory failure with hypoxia (principal); J44.0 Chronic obstructive pulmonary disease with (acute) lower respiratory infection; J44.1 Chronic obstructive pulmonary disease with (acute) exacerbation; I50.32 Chronic diastolic (congestive) heart failure; I50.9 Heart failure, unspecified; J20.9 Acute bronchitis, unspecified; E11.9 Type 2 diabetes mellitus without complications; H26.9 Unspecified cataract; I48.91 Unspecified atrial fibrillation; I25.10 Atherosclerotic heart disease of native coronary artery without angina pectoris; K21.9 Gastro-esophageal reflux disease without esophagitis; N40.0 Benign prostatic hyperplasia without lower urinary tract symptoms; F15.90 Other stimulant use, unspecified, uncomplicated; M19.90 Unspecified osteoarthritis, unspecified site; Z98.49 Cataract extraction status, unspecified eye; Z88.8 Allergy status to other drugs, medicaments and biological substances; Z87.891 Personal history of nicotine dependence; Z79.51 Long term (current) use of inhaled steroids; Z79.84 Long term (current) use of oral hypoglycemic drugs; I25.2 Old myocardial infarction; Z79.899 Other long term (current) drug therapy
CPT/HCPCS: 0241U; 36415; 36600; 71045; 80048; 80053; 82803; 82947; 83605; 83735; 85025; 85027; 87040; 94640; 96374; 96375; 97161; 97530; 99285; 99222; 99231; 99232; 99238; 99284; A9270-GY; J0696; J1650; J1815; J2919; J3490; J7512; J7612-GY; J7620

== ENCOUNTER 2024-10-19 06:57 | Emergency (ER) | payer MEDICARE ==
[2024-10-19] MEDS: methylPREDNISolone Sodium Succinate 125 MG/2 ML SDV IVPUSH ONE (07:21)
[2024-10-19] MEDS: Albuterol/Ipratropium 3.0-0.5 MG/3 ML Neb Soln NEB ONE (07:21)
[2024-10-19 07:27] LABS: BASE EXCESS VENOUS 9.2 mm/L; BICARBONATE,VENOUS 36.7 mmol/L; CARBOXYHEMOGLOBIN 2.1 % (0.0-1.6); OXYHEMOGLOBIN 49.4 %; PCO2 VENOUS 67.7 mm/Hg; PH,VENOUS 7.354 (7.350-7.450); TOTAL HEMOGLOBIN 12.2 g/dL (13.5-18.0)
[2024-10-19 07:28] LABS: PO2 VENOUS 31.2 mm/Hg
[2024-10-19 07:29] LABS: BASOPHILS ABSOLUTE AUTO 0.03 K/uL (0.00-0.10); BASOPHILS PERCENT AUTO 0.3 % (0.1-1.3); EOSINOPHILS ABSOLUTE AUTO 0.18 K/uL (0.00-0.40); EOSINOPHILS PERCENT AUTO 1.7 % (0.0-5.4); HEMATOCRIT 35.2 % (38.4-49.7); HEMOGLOBIN 11.5 g/dL (12.9-16.9); IMMATURE GRAN PERCENT AUTO 0.9 % (0.0-0.7); LYMPHOCYTES ABSOLUTE AUTO 1.75 K/uL (0.8-3.3); LYMPHOCYTES PERCENT AUTO 16.5 % (11.4-47.7); MEAN CORPUSCULAR HGB CONC 32.7 g/dL (31.6-35.5); MEAN CORPUSCULAR VOLUME 100.9 fL (81.4-99.0); MONOCYTES ABSOLUTE AUTO 1.04 K/uL (0.20-0.90); MONOCYTES PERCENT AUTO 9.8 % (3.3-12.6); NEUTROPHILS ABSOLUTE AUTO 7.51 K/uL (1.0-7.6); NEUTROPHILS PERCENT AUTO 70.8 % (40.0-78.1); PLATELET COUNT,PLT 168 K/uL (130-375); RED BLOOD CELL COUNT 3.49 M/uL (4.14-5.76); WHITE BLOOD CELL COUNT,WBC 10.6 K/uL (3.2-11.0)
[2024-10-19] MEDS: Diltiazem 120 MG Cap.CD PO ONE (07:43)
[2024-10-19 07:54] LABS: ANION GAP 7.2 mmol/L (5.0-14.0); CALCIUM 9.2 mg/dL (8.5-10.1); CREATININE 0.9 mg/dL (0.8-1.3); EST CRCL DRUG DOSING (CG) 65.46 mL/min; POTASSIUM,K 4.2 mmol/L (3.6-5.2); TROPONIN I HIGH SENSITIVITY 31.3 pg/mL (<=60.3)
[2024-10-19 09:07] VITALS: BP 136/53; PULSE 85
== END 2024-10-19 09:55 | disposition home or self-care (01) ==
LOC: JP.ED 06:57
DX: J44.1 Chronic obstructive pulmonary disease with (acute) exacerbation (principal); I50.9 Heart failure, unspecified; K21.9 Gastro-esophageal reflux disease without esophagitis; E11.9 Type 2 diabetes mellitus without complications; Z79.899 Other long term (current) drug therapy; Z88.8 Allergy status to other drugs, medicaments and biological substances
CPT/HCPCS: 36415; 71045; 80048; 82803; 84484; 85025; 93005; 94640; 96374; 99285; A9270; J2919

== ENCOUNTER 2025-02-19 13:44 | Inpatient (IN) | payer MEDICARE ==
[2025-02-19 15:20] LABS: BASE EXCESS ARTERIAL 8.1 mm/L; BICARBONATE,ARTERIAL 34.2 mmol/L (22.0-26.0); O2 SATURATION ARTERIAL 95.0 % (95.0-98.0); OXYHEMOGLOBIN 93.1 %; PCO2 ARTERIAL 57.2 mmHg (35.0-42.0); PO2 ARTERIAL 73.5 mmHg (75.0-100.0); TOTAL HEMOGLOBIN 11.0 g/dL (13.5-18.0)
[2025-02-19] MEDS: Albuterol 0.083% 2.5 MG/3 ML Neb Soln NEB ONE ×3 (15:20→20:10)
[2025-02-19 15:22] LABS: BASOPHILS PERCENT AUTO 0.2 % (0.1-1.3); EOSINOPHILS ABSOLUTE AUTO 0.03 K/uL (0.00-0.40); EOSINOPHILS PERCENT AUTO 0.3 % (0.0-5.4); IMMATURE GRAN ABSOLUTE AUTO 0.06 K/uL (0.00-0.23); IMMATURE GRAN PERCENT AUTO 0.6 % (0.0-0.7); LYMPHOCYTES ABSOLUTE AUTO 0.63 K/uL (0.8-3.3); LYMPHOCYTES PERCENT AUTO 6.1 % (11.4-47.7); MONOCYTES ABSOLUTE AUTO 0.62 K/uL (0.20-0.90); MONOCYTES PERCENT AUTO 6.0 % (3.3-12.6); NEUTROPHILS ABSOLUTE AUTO 9.03 K/uL (1.0-7.6); NEUTROPHILS PERCENT AUTO 86.8 % (40.0-78.1); PLATELET COUNT,PLT 214 K/uL (130-375); RED BLOOD CELL COUNT 3.22 M/uL (4.14-5.76); WHITE BLOOD CELL COUNT,WBC 10.4 K/uL (3.2-11.0)
[2025-02-19 15:25] LABS: BASOPHILS ABSOLUTE AUTO 0.02 K/uL (0.00-0.10)
[2025-02-19 15:42] LABS: A/G RATIO 0.9 (1.2-2.2); ALANINE AMINOTRANSFERASE,ALT 25 U/L (12-78); ASPARTATE AMNIOTRANSFERASE,AST 19 U/L (15-37); BILIRUBIN TOTAL 0.4 mg/dL (0.2-1.0); BLOOD UREA NITROGEN,BUN 17 mg/dL (7-18); CARBON DIOXIDE,CO2 37 mmol/L (21-32); CHLORIDE,CL 93 mmol/L (100-108); CREATININE 0.7 mg/dL (0.8-1.3); EST CRCL DRUG DOSING (CG) 84.17 mL/min; ESTIMATED GFR 93 mL/min (>60); GLUCOSE RANDOM 128 mg/dL (74-106); POTASSIUM,K 4.8 mmol/L (3.6-5.2); PROTEIN TOTAL,TP 6.8 g/dL (6.4-8.2); SODIUM,NA 131 mmol/L (140-148)
[2025-02-19] MEDS: Sodium Chloride 0.9% 10 ML Syringe FLUSH ONE (16:53)
[2025-02-19] MEDS: Iopamidol 612 MG/ML 100 ML Bottle IV ONE (16:53)
[2025-02-19] MEDS ORDERED: Albuterol 0.083% 2.5 MG/3 ML Neb Soln NEB PRN (19:48)
[2025-02-19] MEDS ORDERED: Naloxone 0.4 MG/ML SDV IVPUSH PRN (19:48)
[2025-02-19] MEDS ORDERED: Ondansetron 4 MG/2 ML SDV IV PRN (19:48)
[2025-02-19 20:17] LABS: APPEARANCE,URINE CLEAR (CLEAR); GLUCOSE,URINE NEGATIVE (NEGATIVE); OCCULT BLOOD,URINE NEGATIVE (NEGATIVE)
[2025-02-19 20:24] LABS: SQUAMOUS EPITHELIAL CELLS,UR RARE /HPF; UROTHELIAL CELLS,URINE NOT SEEN /HPF
[2025-02-19] MEDS: methylPREDNISolone Sodium Succinate 125 MG/2 ML SDV IVPUSH ONE (20:33)
[2025-02-19] MEDS: Insulin Lispro 100 Unit/ML 3 ML KwikPen SUBCUT SCH (21:20)
[2025-02-20] MEDS: methylPREDNISolone Sodium Succinate 40 MG/1 ML SDV IVPUSH SCH (01:31)
[2025-02-20 05:55] LABS: PLATELET COUNT,PLT 214.0 K/uL (130-375); RED BLOOD CELL COUNT 3.31 M/uL (4.14-5.76); WHITE BLOOD CELL COUNT,WBC 8.9 K/uL (3.2-11.0)
[2025-02-20 06:07] LABS: BLOOD UREA NITROGEN,BUN 14.0 mg/dL (7-18); CARBON DIOXIDE,CO2 34.0 mmol/L (21-32); CHLORIDE,CL 93.0 mmol/L (100-108); CREATININE 0.8 mg/dL (0.8-1.3); EST CRCL DRUG DOSING (CG) 73.65 mL/min; ESTIMATED GFR 89.0 mL/min (>60); GLUCOSE RANDOM 171.0 mg/dL (74-106); POTASSIUM,K 4.7 mmol/L (3.6-5.2); SODIUM,NA 132.0 mmol/L (140-148)
[2025-02-20] MEDS ORDERED: Non-Formulary Medication 1 Each (Esomeprazole Magnesium [Esomeprazole Magnesium] 40 MG Cap PO SCH (09:00)
[2025-02-20] MEDS: Diltiazem 120 MG Cap.CD PO SCH (09:29)
[2025-02-21] MEDS: FLU (Fluad Triv) 25-26 (65UP)/MF59C/PF 45 MCG/0.5 ML Syringe IM ONE (11:16)
[2025-02-21 11:27] VITALS: BP 156/59; PULSE 82
== END 2025-02-21 13:15 | disposition home or self-care (01) | DRG 189 ==
LOC: JP.ED 13:44 → JP.MS 18:52
PROVIDERS: ADMIT Internal Medicine; ATTEND Internal Medicine
PROC: 3E03329 Introduction of Other Anti-infective into Peripheral Vein, Percutaneous Approach (ICD-10-PCS; principal; 2025-02-19)
PROC: 4A033R1 Measurement of Arterial Saturation, Peripheral, Percutaneous Approach (ICD-10-PCS; principal; 2025-02-19)
PROC: 3E02340 Introduction of Influenza Vaccine into Muscle, Percutaneous Approach (ICD-10-PCS; principal; 2025-02-19)
DX: J96.21 Acute and chronic respiratory failure with hypoxia (principal); I50.33 Acute on chronic diastolic (congestive) heart failure; J44.1 Chronic obstructive pulmonary disease with (acute) exacerbation; I48.92 Unspecified atrial flutter; J20.9 Acute bronchitis, unspecified; Z66 Do not resuscitate; E86.0 Dehydration; I48.91 Unspecified atrial fibrillation; I25.10 Atherosclerotic heart disease of native coronary artery without angina pectoris; K21.9 Gastro-esophageal reflux disease without esophagitis; N40.0 Benign prostatic hyperplasia without lower urinary tract symptoms; M19.90 Unspecified osteoarthritis, unspecified site; E11.9 Type 2 diabetes mellitus without complications; I25.2 Old myocardial infarction; Z23 Encounter for immunization; Z99.81 Dependence on supplemental oxygen; Z79.899 Other long term (current) drug therapy; Z79.52 Long term (current) use of systemic steroids; Z79.84 Long term (current) use of oral hypoglycemic drugs; Z87.891 Personal history of nicotine dependence; Z98.49 Cataract extraction status, unspecified eye; Z88.8 Allergy status to other drugs, medicaments and biological substances
CPT/HCPCS: 36415; 36600; 71045 ×2; 80053; 82803; 83880; 85025; 85379; 86140; 93005; 94640 ×2; A9270 ×2; J7030; 80048; 81001; 82947; 85027; 90653; 96360; 96361; 99223; 99232; 99238; 99285-25; G0008; J0696; J1271; J1650; J2919; J7512